=== PATIENT | female | born 1985 | race African-American/Black ===

== ENCOUNTER 2020-10-28 10:44 | Outpatient (CLI) | payer MEDICARE, MEDICAID, SELFPAY ==
[2020-10-28 11:26] LABS: Hemoglobin A1C 7.1 % (<5.7)
[2020-10-28 11:30] LABS: Alanine Aminotransferase 63 U/L (4-35); Albumin Level 3.5 g/dL (3.5-5.1); Alkaline Phosphatase 150 U/L (38-126); Anion Gap 6 mmol/L (8-16); Aspartate Amino Transferase 74 U/L (14-36); Bilirubin,Total 0.2 mg/dL (0.2-1.3); Blood Urea Nitrogen 23 mg/dL (7-17); Calcium 9.5 mg/dL (8.4-10.2); Carbon Dioxide 21 mmol/L (22-30); Chloride 111 mmol/L (98-107); Cholesterol 206 mg/dL (0-200); Estimated Glomerular Filt Rate 26; Glucose 123 mg/dL (65-105); HDL Direct 42 mg/dL; Potassium 4.4 mmol/L (3.4-5.0); Sodium 138 mmol/L (137-145); Triglycerides 126 mg/dL (<150)
[2020-10-28 11:31] LABS: Creatinine Urine 85.7 mg/dL
[2020-10-28 11:41] LABS: LDL Cholesterol Direct 98 mg/dL
[2020-10-28 12:28] LABS: Vitamin D 25 Hydroxy < 12.8 ng/mL
[2020-10-28 13:07] LABS: Microalbumin Urine Random > 1140.0 mg/L (0-16.7)
== END 2020-10-28 10:45 | disposition home or self-care (01) ==
PROVIDERS: PCP Internal Medicine; Visit Provider Internal Medicine
DX: E11.42 Type 2 diabetes mellitus with diabetic polyneuropathy (principal); I10 Essential (primary) hypertension; E78.5 Hyperlipidemia, unspecified; E55.9 Vitamin D deficiency, unspecified
CPT/HCPCS: 36415; 80053; 80061; 82043; 82306; 83036

== ENCOUNTER 2020-12-25 11:50 | Observation (INO) | payer MEDICARE, MEDICAID, SELFPAY ==
[2020-12-25] VITALS (7 sets, daily range): BP systolic 160–185; BP diastolic 82–99; PULSE 74–108; RESP 18–20; TEMP 35.8–36.9; O2SAT 100; BMI 43.0
--- NOTE | ~2020-12-25 | XR_ITS ---
EXAMINATION: XR chest 2V DATE: 12/25/2020 13:21 INDICATION: Hypercalcemia, hypertension, asthma TECHNIQUE: PA and lateral views of the chest are obtained. COMPARISON: 01/31/2018 FINDINGS: The lungs are free of acute opacities. There is no pleural effusion or pneumothorax. The ca rdiomediastinal silhouette is normal. The visualized bones and soft tissues are unremarkable. IMPRESSION: 1. No acute cardiopulmonary abnormality. Reviewed, dictated and finalized at location B.
--- NOTE | ~2020-12-25 | US_ITS ---
EXAMINATION: US renal BI EXAM DATE: 12/25/2020 17:45 INDICATION: Elevated creatinine. TECHNIQUE: Multiple grayscale and Doppler images of the kidneys were obtained (by a technologist who performed the scan) and subsequently reviewed. There is no prior study for comparison. FINDINGS: Right kidney: There is normal contour and echogenicity. It measures 11.7 x 4.6 x 5.2 centimeters. T here are no focal renal lesions identified. There is no hydronephrosis. Left kidney: There is normal contour and echogenicity. It measures 11.8 x 4.4 x 5.7 centimeters. Th ere are no focal renal lesions identified. There is no hydronephrosis. Bladder unremarkable. IMPRESSION: 1. Sonographically unremarkable kidneys. Reviewed, dictated and finalized at location A.
[2020-12-25 12:22] LABS: Basophils Percent Auto 0.4 % (0.2-1.2); Eosinophils Absolute Auto 0.1 K/mm3 (0-0.3); Eosinophils Percent Auto 0.9 % (0-4.4); Hematocrit 33.4 % (37.0-47.0); Hemoglobin 11.2 g/dL (12.0-15.0); Immature Granulocyte Absolute 0.04 K/mm3 (0.00-0.031); Immature Granulocyte Percent A 0.4 % (0-0.5); Lymphocytes Absolute Auto 1.35 K/mm3 (0.9-3.2); Lymphocytes Percent Auto 14.9 % (18.3-44.2); Mean Corpuscular HGB Conc 33.5 g/dl (32-36); Mean Corpuscular Hemoglobin 30.3 pg (26-34); Mean Corpuscular Volume 90.3 fl (80-100); Mean Platelet Volume 10.4 fl (7.4-10.4); Monocytes Absolute Auto 0.9 K/mm3 (0.1-0.6); Monocytes Percent Auto 10.4 % (2.6-8.5); Neutrophils Absolute Auto 6.6 K/mm3 (1.3-6.7); Platelet Count Result 336 k/mm3 (150-375); Red Cell Distribution Width 12.4 % (11.5-14.5); White Blood Count 9.1 K/mm3 (4.5-10.0)
[2020-12-25 12:39] LABS: Alanine Aminotransferase 43 U/L (4-35); Albumin Level 4.1 g/dL (3.5-5.1); Alkaline Phosphatase 110 U/L (38-126); Anion Gap 12 mmol/L (8-16); Aspartate Amino Transferase 46 U/L (14-36); Bilirubin,Total 0.4 mg/dL (0.2-1.3); Blood Urea Nitrogen 44 mg/dL (7-17); Calcium 13.4 mg/dL (8.4-10.2); Carbon Dioxide 23 mmol/L (22-30); Chloride 100 mmol/L (98-107); Estimated CRCL calculation 27 ml/min; Estimated Glomerular Filt Rate 17; Glucose 134 mg/dL (65-110); Potassium 3.9 mmol/L (3.4-5.0); Sodium 135 mmol/L (137-145)
--- NOTE | 2020-12-25 12:46 | ECG_ITS ---
Measurements Intervals [place] Rate: 68 P: 52 WA: 189 QRS: 3 QRSD: 90 T: -7 QT: 364 QTc: 388 Interpretive Statements SINUS RHYTHM VOLTAGE CRITERIA FOR LVH NONSPECIFIC ST ELEVATION IN ANTEROLAT/HIGH LAT LEADS BORDERLINE ST-T WAVE ABNORMALITY- INFERIOR LEADS BORDERLINE ECG Electronically Signed On 12-25-2020 13:58:11 CDT by Angel Lazcano D.O.
--- NOTE | 2020-12-25 12:57 | ED.GENADULT ---
HPI - General Adult General Chief complaint: Recheck/Abnormal Lab/Rx Stated complaint: abnormal labs Time Seen by Provider: 12/25/20 12:29 Source: patient and RN notes reviewed Mode of arrival: ambulatory Limitations: no limitations History of Present Illness HPI narrative: Patient 35 years old -Nigerian female referred to the emergency room from her family physician office because of elevated calcium. Patient is asymptomatic. Patient denied any fever, chills, nausea, vomiting, history of sarcoidosis, multiple myeloma, malignancy, history of hypercalcemia, history of HIV, tuberculosis, history of hyperparathyroidism, family history of hypercalcemia. Patient had history of diabetes, hypertension, does not smoke or drink, uses marijuana occasionally. Related Data Home Medications Medication Instructions Recorded Confirmed ferrous sulfate 325 mg (65 mg 325 mg PO DAILY 10/29/20 11/05/20 iron) tablet metformin 1,000 mg tablet 1,000 mg PO DAILY 10/29/20 11/05/20 Allergies Allergy/AdvReac Type Severity Reaction Status Date / Time No Known Allergies Allergy Verified 11/05/20 11:15 Review of Systems Review of Systems: Narrative: CONSTITUTIONAL: Denies fever, chills, or sweats. EYES: Denies visual changes, redness, or discharge. ENT: Denies rhinorrhea, congestion, sore throat, or otalgia. CARDIOVASCULAR: Denies chest pain, palpitations, or edema. RESPIRATORY: Denies cough or dyspnea. GASTROINTESTINAL: Denies abdominal pain, nausea, vomiting, or diarrhea. GENITOURINARY: Denies dysuria or hematuria. SKIN: Denies rash or itching. MUSCULOSKELETAL: Denies back pain, joint pain, or myalgia. NEUROLOGIC: Denies headache, numbness, or weakness. PSYCHIATRIC: Denies anxiety or depression. [facility] Past Medical History Medical History Arthritis Asthma Chronic anemia Chronic kidney disease due to diabetes mellitus Gall bladder disease Hypertension Mixed hyperlipidemia (11/29/18) Obstructive sleep apnea Per patient report, her sleep apnea is mild and she does not require CPAP. Type 2 diabetes mellitus Complicated by retinopathy and nephropathy. Hemoglobin A1c was 7.1% on 10/28/2020. Family History Family History Mother Hypertension Diabetes mellitus Kidney disease Social History Social History Social History: The patient lives in [place]. She is disabled. Nonsmoker. No alcohol abuse. Occasional marijuana use. She designates her grandmother, Lela Roche, as her surrogate decision maker and she wishes to be a full code. Exam Narrative: Exam Narrative: General appearance: Well-developed, well-nourished Skin: Normal color Head: Normocephalic, nontraumatic Eyes: Clear conjunctiva ENT: Oropharynx normal, ears normal, nose normal Neck: Supple, nontender Chest and respiratory: Airway patent, no respiratory distress, no accessory muscle use Heart: Regular rate/rhythm Abdomen: Soft, nontender, no organomegaly, quiet bowel sounds Vascular: Normal peripheral pulses, normal capillary refill. Musculoskeletal: Normal range of motion, nontender back Neurologic: Alert and oriented ?3, EMPLOYMENT ATTORNEY is normal as tested, no gross motor deficit Course Consultations Consultation #1: Dr. Grissom Date: 12/25/20 Time: 13:16 Vital Signs Vital signs: Vital Signs Temperature 36.9 C 12/25/20 11:52 Pulse Rate 108 H 12/25/20 11:52 Respiratory Rate 20 12/25/20 11:52 Blood Pressure 181/99 H 12/25/20 11:52 Pulse Oximetry 100 12/25/20 11:52 Temperature 36.9 C 12/25/20 11:52 Pulse Rate
[2020-12-25] MEDS: SODIUM CHLORIDE 0.9% IV 1,000 ML 999 ML IV CONT (13:14)
--- NOTE | 2020-12-25 13:45 | PM.IMHP ---
H&P: HPI History of Present Illness Date/Time: 12/25/20 13:45 Chief Complaint: High calcium level. Narrative: This is a pleasant 35-year-old female with type 2 diabetes mellitus, hypertension, and chronic kidney disease who presented to the emergency department earlier today via private vehicle from home further evaluation after she was found to have a high calcium level on labs drawn today as an outpatient. I was not able to see her actual lab results as it was not done at this facility but repeat chemistries done on arrival to the ED today indeed showed an elevated calcium level of 13.4. Prior to today there is no documentation to suggest she has had a history of hypercalcemia. However it is noted that she was started on lisinopril-hydrochlorothiazide and high-dose vitamin-D supplementation on 10/29/2020 at which time she was also noted to have worsening renal function. In fact she was referred to nephrology and she saw Dr. Grissom in consult on 12/10/2020 for evaluation of the same as well as proteinuria. At that time it was felt that her kidney disease may very well be due to her long-standing diabetes (diagnosed in 2001) though her blood pressures have not been well-controlled recently either. She has no complaints at this time and specifically denies weakness, fatigue, anorexia, confusion, abdominal pain, and polyuria. She does note perhaps some mild constipation but nothing significant. She is not taking any other supplements or more medication than prescribed. Review of Systems Review of Systems: Narrative: Twelve systems were reviewed with pertinent positives and negatives as per HPI. No fever, chills, or sweats. No recent cold or flu symptoms. No chest pain or shortness of breath. She denies nausea and vomiting. No dysuria. Last menstrual period was approximately 1 week ago. she has been followed by an aircraft powerplant repairer and is supposed to have upcoming surgery for proliferative diabetic retinopathy. Except as documented, all other systems were reviewed and are negative. [facility] Past Medical History Medical History (Updated 12/25/20 @ 20:13 by Mirela Johns PA-C) Arthritis Asthma Chronic anemia Chronic kidney disease due to diabetes mellitus Gall bladder disease Hypertension Diagnosed during her 2nd in 2019. 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 Hemoglobin A1c was 7.1% on 10/28/2020. Surgical History Surgical History (Updated 12/25/20 @ 20:16 by Mirela Johns PA-C) No history of previous surgery Family History Family History Mother Hypertension Diabetes mellitus Kidney disease Social History Social History (Updated 12/25/20 @ 20:12 by Mirela Johns PA-C) Social History: The patient lives in [place] with her 2 children. She is on disability. Nonsmoker. No alcohol abuse. Occasional marijuana use. She designates her grandmother, Lela Roche, as her surrogate decision maker and she wishes to be a full code. Second hand tobacco smoke exposure: No Meds Home Medications and Allergies Home Medications Medication Instructions Recorded Confirmed Type amlodipine 10 mg tablet 10 mg PO DAILY #90 tablet 10/29/20 12/25/20 Rx cholecalciferol (vitamin D3) 50 50 mcg PO DAILY #90 tablet 10/29/20 12/25/20 Rx mcg (2,000 unit) tablet ferrous sulfate 325 mg (65 mg 325 mg PO DAILY 10/29/20 12/25/20 History iron) tablet lisinopril 20 1 tablet PO BID #180 tablet 10/29/20 12/25/20 Rx mg-hydrochlorothiazide 25 mg tablet metformin 1,000 mg tablet 1,000 mg PO DAILY 10/29/20 12/25/20 History hydralazine 25 mg tablet 50 mg PO BID #60 tablet 11/18/20 12/25/20 Rx Allergies Allergy/AdvReac Type Severity Reaction Status Date / Time No Known Allergies Allergy Verified 12/25/20 18:08 Vital Signs Vital Signs - 24 hr 12/25/20 11:52 Temperature 98.4 F
[2020-12-25 14:09] LABS: Lipase 140 U/L (23-300)
[2020-12-25 14:10] LABS: Magnesium 1.6 mg/dL (1.6-2.3); Phosphorus 4.7 mg/dL (2.5-4.5)
[2020-12-25 14:16] LABS: Add Urine Microscopic? YES; Appearance Urine Cloudy (Clear); Bacteria Urine Trace /hpf; Bilirubin Urine Negative (Negative); Blood Urine Negative (Negative); Color Urine Straw (Yellow); Glucose Urine UA Negative (Negative); Ketones Urine Negative (Negative); Leukocyte Esterase Ur Negative LEU/UL (Negative); Mucus Urine Rare /lpf; Nitrate Urine Negative (Negative); Protein Urine 3+ mg/dL (Negative); RBC Urine 0-2 /hpf (0-2); Specific Grav Ur 1.011 (1.001-1.035); Squamous Epithelial Cell Urine Many /hpf (Few); Urobilinogen Urine Negative mg/dL (<2.0); WBC Urine 0-3 /hpf
[2020-12-25] MEDS: SODIUM CHLORIDE 0.9% IV 1,000 ML 150 ML IV CONT (16:55)
[2020-12-25 17:07] LABS: Glucose Point of Care 113 mg/dl (65-105)
--- NOTE | 2020-12-25 17:43 | ADMGEN ---
This patient, Nataliia Tim, was admitted to Medical Room 343-01. Patient/family oriented to hospital policies and general routines including ID bracelet, bed and alarms, visiting hours, pain management, procedures, bathroom and other care routines, personal items, smoking policy, room service/diet, and visiting hours. Information on how to activate the Rapid Response Team has been discussed. Patient/Family are encouraged to report perceived risks to care and to ask questions if they do not understand what they are told or what they should do.
[2020-12-25 19:28] LABS: Creatine Kinase 140 U/L (30-135)
[2020-12-25 20:40] LABS: Add Urine Microscopic? YES; Appearance Urine Clear (Clear); Bilirubin Urine Negative (Negative); Blood Urine Negative (Negative); Color Urine Straw (Yellow); Glucose Urine UA 1+ mg/dL (Negative); Ketones Urine Negative (Negative); Leukocyte Esterase Ur Negative LEU/UL (NEGATIVE); Mucus Urine Rare /lpf; Nitrate Urine Negative (Negative); Protein Urine 2+ mg/dL (Negative); RBC Urine 0-2 /hpf (0-2); Specific Grav Ur 1.011 (1.001-1.035); Squamous Epithelial Cell Urine Few /hpf (Few); Urobilinogen Urine Negative mg/dL (<2.0); WBC Urine 0-3 /hpf (0-3)
[2020-12-25 20:48] LABS: Vitamin D 25 Hydroxy 48.5 ng/mL
[2020-12-25 20:50] LABS: Creatinine Urine 54.4 mg/dL
[2020-12-25 20:53] LABS: Sodium Urine Random 101 meq/L
[2020-12-25 20:54] LABS: Glucose Point of Care 210 mg/dl (65-105)
[2020-12-25 21:00] LABS: Total Protein Urine Random 273 mg/dL; Ur Ttl Prot Creatinine Ratio 5.02 mg/mg (0-0.20)
[2020-12-25 21:20] LABS: Eosinophil Urine None Seen % (None Seen)
[2020-12-25 22:00] LABS: Hepatitis B Surface Antigen Negative (Negative)
[2020-12-25] MEDS: hydrALAZINE HCL 50 MG TABLET PO (22:00)
[2020-12-25 22:17] LABS: Hepatitis B Surface Anti Res Negative; Hepatitis C Virus Antibody Negative (Negative)
[2020-12-26] MEDS: SODIUM CHLORIDE 0.9% IV 1,000 ML 150 ML IV CONT ×2 (00:17→08:40)
[2020-12-26 06:36] VITALS: BP 161/69; PULSE 70; RESP 18; TEMP 35.8; O2SAT 98
[2020-12-26 07:28] LABS: Hemoglobin A1C 7.1 % (<5.7)
[2020-12-26 07:34] LABS: Albumin Level 3.7 g/dL (3.5-5.1); Anion Gap 9 mmol/L (8-16); Blood Urea Nitrogen 40 mg/dL (7-17); Calcium 11.6 mg/dL (8.4-10.2); Carbon Dioxide 19 mmol/L (22-30); Chloride 108 mmol/L (98-107); Estimated CRCL calculation 35 ml/min; Estimated Glomerular Filt Rate 23; Glucose 94 mg/dL (65-110); Magnesium 1.6 mg/dL (1.6-2.3); Phosphorus 4.2 mg/dL (2.5-4.5); Potassium 4.4 mmol/L (3.4-5.0); Sodium 136 mmol/L (137-145)
[2020-12-26 08:35] LABS: Glucose Point of Care 100 mg/dl (65-105)
[2020-12-26] MEDS: FERROUS SULFATE 324 MG TABLET PO (08:36)
[2020-12-26] MEDS: hydrALAZINE HCL 50 MG TABLET PO (08:37)
[2020-12-26] MEDS: amLODIPine BESYLATE 5 MG TABLET 10 MG PO (08:37)
--- NOTE | 2020-12-26 09:00 | PM.CNNEP ---
Assessment and Plan Assessment and plan (1) Acute on chronic kidney failure: Code(s): N17.9 - Acute kidney failure, unspecified; N18.9 - Chronic kidney disease, unspecified Status: Acute Assessment and Plan: The patient has chronic kidney disease. It is not clear what stage this is. Her creatinine was better this spring but not normal. I do not know what her creatinine was when she was . Charts are unavailable. Her proteinuria has probably been going on for a while. So she has at least stage 2 chronic kidney disease if not stage IIIA or B. etiology of the renal insufficiency is probably related to her diabetes. However I do not want to assume that. The patient had acute kidney injury as well. Urinalysis is bland showing just sugar and protein. Urine electrolytes are non pre renal. This may be falsely normal because of the high calcium Urine eosinophils are negative ultrasound is unremarkable Etiology of this is not clear. Dehydration is a possibility because it did improved with hydration. some glomerulonephritis is possible unusual with a benign sediment. Interstitial nephritis would be unusual as well. Ultrasound has ruled out obstruction. CK is only trivially elevated. At this point will continue IV fluids. Will slow the rate down to 100. Will follow the creatinine over the weekend and decide if we need to do a biopsy. (2) Hypertension: Code(s): I10 - Essential (primary) hypertension Status: Acute Assessment and Plan: The patient has hypertension. Blood pressure is a bit too high. She is on amlodipine and hydralazine. She was on lisinopril HCT at home but this is on hold because of the kidneys. (3) Hypercalcemia: Code(s): E83.52 - Hypercalcemia Status: Acute Assessment and Plan: Calcium level is high. This may be related to dehydration as well. her PTH was low so it is not hyperparathyroidism. will check urine calcium. Magan level. Bone scan was ordered (4) Type 2 diabetes mellitus: Code(s): E11.9 - Type 2 diabetes mellitus without complications Status: Acute Assessment and Plan: on Accu-Cheks and sliding-scale insulin (5) Chronic anemia: Code(s): D64.9 - Anemia, unspecified Status: Acute Assessment and Plan: hemoglobin slightly low, not enough to use HAYLEY History of Present Illness Reason for Consult Consult date: 12/26/20 Chief Complaint Chief complaint: ABRAHAM/hypercalcemia/proteinuria/albuminuria History of Present Illness Narrative: Nataliia is a very pleasant 35-year-old lady who has diabetes, hypertension, anemia, proteinuria, and an elevated creatinine. Her diabetes is been going on for a long time. She has pretty good control of her sugars. Hypertension is been going on just since her last a few months ago. It has been well controlled. Patient was noted to have proteinuria with her . She delivered the baby fine and her proteinuria was followed for a few months post however did not go away so she came to see me in the office. Her creatinine last spring was in the low 2s and on the labs after our office visit her creatinine was above 3. Her calcium was also above 13. The patient had no symptoms but I asked her to come to the emergency room for further evaluation. Patient was given IV fluids overnight. She denies Tums ingestion. In fact her vitamin-D has been low she says. Review of Systems Constitutional: Constitutional: Reports no additional constitutional complaints Eyes: Eyes: Reports no additional eye complaints ENT: Reports system reviewed and no additional complaints, except as documented Cardiovascular: Cardiovascular: Reports no additional cardiovascular complaints Respiratory: Respiratory: Reports no additional respiratory complaints Gastrointestinal: Gastrointestinal: Reports no additi
[2020-12-26 12:03] LABS: Glucose Point of Care 108 mg/dl (65-105)
--- NOTE | 2020-12-26 13:12 | PM.DS ---
DS: Discharge Diagnosis Discharge Diagnosis (1) Acute on chronic kidney failure: Code(s): N17.9 - Acute kidney failure, unspecified; N18.9 - Chronic kidney disease, unspecified Status: Acute (2) Chronic kidney disease due to diabetes mellitus: Code(s): E11.22 - Type 2 diabetes mellitus with diabetic chronic kidney disease Status: Acute (3) Type 2 diabetes mellitus: Code(s): E11.9 - Type 2 diabetes mellitus without complications Status: Acute (4) Hypertension: Code(s): I10 - Essential (primary) hypertension Status: Acute (5) Chronic anemia: Code(s): D64.9 - Anemia, unspecified Status: Acute (6) Hypercalcemia: Code(s): E83.52 - Hypercalcemia Status: Acute (7) Essential hypertension with goal blood pressure less than 130/80: Code(s): I10 - Essential (primary) hypertension Status: Acute (8) Vitamin D deficiency: Code(s): E55.9 - Vitamin D deficiency, unspecified Status: Acute DS: Summary Time Spent with Patient Time attestation: Total time spent providing and/or coordinating discharge services: DS: Data Data Completed and Pending Labs on day of discharge: Labs from last 24 hours 12/26/20 12/26/20 12/26/20 11:56 08:33 06:06 Sodium 136 L Potassium 4.4 Chloride 108 H Carbon Dioxide 19 L Anion Gap 9 BUN 40 H Creatinine 2.90 H Estim Creat Clear Calc 35 Estimated GFR 23 L Glucose 94 POC Capillary Glucose 108 H 100 Hemoglobin A1c Calcium 11.6 H Ionized Calcium [place] Phosphorus 4.2 Magnesium 1.6 Total Creatine Kinase Albumin 3.7 Lipase Angiotensin Convert Enz Vitamin A Vitamin D 25-Hydroxy Vit D 1,25-Dihyd Total 1,25 Dihydroxy Vit D2 1,25 Dihydroxy Vit D3 TSH (Reflex) PTH Related Protein Urine Color Urine Appearance Urine pH Ur Specific [place] Urine Protein Urine Glucose (UA) Urine Ketones Ur Blood (Man) Urine Nitrate Urine Bilirubin Urine Urobilinogen Ur Leukocyte Esterase Leukocyte Esterase Rfl Urine RBC Urine WBC Ur Squamous Epith Cells Urine Bacteria Urine Mucus Urine Eosinophils Ur Random Creatinine U Random Total Protein Ur Random Sodium Ur Random Calcium Urine Creatinine Protein/Creat Ratio 2 Calcium/Creat Ratio Ur LEENA Interpret 24 hr ANCA Screen Sm ([place]) Antibody ALARM MECHANISM ADJUSTER Antibody SM/ALARM MECHANISM ADJUSTER IgG Antibody Anti-DNA Antibody Histone Antibodies Glomerular Base Memb Ab Free [place] & Lambda LC Hep Bs Antigen Hep Bs Antibody Hep B Core Total Ab Hepatitis C Ab Screen Anti-Streptolysin Scrn 12/26/20 12/26/20 12/25/20 06:06 06:06 20:38 Sodium Potassium Chloride Carbon Dioxide Anion Gap BUN Creatinine Estim Creat Clear Calc Estimated GFR Glucose POC Capillary Glucose Hemoglobin A1c 7.1 H Calcium Ionized Calcium [place] Phosphorus Magnesium Total Creatine Kinase Albumin Lipase Angiotensin Convert Enz Vitamin A Vitamin D 25-Hydroxy Vit D 1,25-Dihyd Total 1,25 Dihydroxy Vit D2 1,25 Dihydroxy Vit D3 TSH (Reflex) 2.050 PTH Related Protein Urine Color Urine Appearance Urine pH Ur Specific [place] Urine Protein Urine Glucose (UA) Urine Ketones Ur Blood (Man) Urine Nitrate Urine Bilirubin Urine Urobilinogen Ur Leukocyte Esterase Leukocyte Esterase Rfl Urine RBC Urine WBC Ur Squamous Epith Cells Urine Bacteria Urine Mucus Urine Eosinophils Ur Random Creatinine Pending U Random Total Protein Ur Random Sodium Ur Random Calcium Pending Urine Creatinine Protein/Creat Ratio 2 Calcium/Creat Ratio Pending Ur LEENA Interpret 24 hr ANCA Screen Sm ([place]) Antibody ALARM MECHANISM ADJUSTER Antibody SM/ALARM MECHANISM ADJUSTER IgG Antibody Anti-DNA Antibody
--- NOTE | 2020-12-26 13:18 | PM.DS ---
DS: Admitting Diagnosis Admitting Diagnosis abnormal labs DS: Discharge Diagnosis Discharge Diagnosis (1) Acute on chronic kidney failure: Code(s): N17.9 - Acute kidney failure, unspecified; N18.9 - Chronic kidney disease, unspecified Status: Acute Assessment and Plan: Creatinine has gotten worse in the last 2 months (2.60 --> 3.70). Prior to that was normal at 1.00 in April 2019. Within the last 2 months she has been started on hydrochlorothiazide and lisinopril and was also given a prescription for ibuprofen recently though I am not sure she has been taking that. I suppose her worsening renal function could simple be related to these drugs however she had severe proteinuria on urine collected several months ago which indicates there is more at play here. She has been a diabetic for nearly 20 years and her blood pressures look like they have not been well controlled recently. At this time we will hold the hydrochlorothiazide and avoid other nephrotoxic agents. Given her severe proteinuria, ROSANNA/ARB would be beneficial though I will defer Dr. Grissom whether or not to continue the lisinopril. Pre and post renal etiologies seem less likely. (2) Chronic kidney disease due to diabetes mellitus: Code(s): E11.22 - Type 2 diabetes mellitus with diabetic chronic kidney disease Status: Acute (3) Type 2 diabetes mellitus: Code(s): E11.9 - Type 2 diabetes mellitus without complications Status: Acute Assessment and Plan: Metformin has been placed on hold as I believe it is still contraindicated with a GFR less than 30. Check hemoglobin A1c. Initiate sliding scale insulin, Accu-Cheks, and hypoglycemic protocol. (4) Hypertension: Code(s): I10 - Essential (primary) hypertension Status: Acute Assessment and Plan: Blood pressures have not been ideally controlled over the last several months with pressures as high as 181/99 in the emergency department. Consider furosemide as it would help her blood pressures and hypercalcemia though I am not sure that is the right thing to do with her worsening renal function at this time. Monitor blood pressures closely as her hydrochlorothiazide is on hold. (5) Chronic anemia: Code(s): D64.9 - Anemia, unspecified Status: Acute Assessment and Plan: Hemoglobin and hematocrit are stable. Currently on ferrous sulfate although I am not able to locate recent iron studies. (6) Hypercalcemia: Code(s): E83.52 - Hypercalcemia Status: Acute Assessment and Plan: Also new finding on labs done today, with normal calcium on 10/28/2020. Given worsening renal function, myeloma and sarcoidosis are considerations. She may have hyperparathyroidism. May very well be iatrogenic as she was started on high-dose vitamin-D supplementation and hydrochlorothiazide 2 months ago. She will be hydrated overnight. Hold hydrochlorothiazide and vitamin-D for now. She is currently asymptomatic and requires no other treatment at this time. Dr. Grissom's consult is appreciated. (7) Essential hypertension with goal blood pressure less than 130/80: Code(s): I10 - Essential (primary) hypertension Status: Acute (8) Vitamin D deficiency: Code(s): E55.9 - Vitamin D deficiency, unspecified Status: Acute DS: Summary Hospital Course Reason for hospitalization: ABNORMAL LABS Hospital Course: this 35-year-old morbidly obese type 2 diabetic with hypertension and chronic kidney disease was admitted on December 25 due to abnormal lab results. Her creatinine and calcium were both increased with creatinine at 3.7 and calcium at 13.9. Her metformin, lisinopril with hydrochlorothiazide, and vitamin-D were all held. She was given IV saline overnight. Creatinine improved to 2.9 and calcium to 11.6. Urine showed only glucose and protein. She was tolerating her diet felt quite well. Blood pressures were running a bit high, SI is 18
[2020-12-26] MEDS: FUROSEMIDE 40 MG TABLET PO (14:37)
[2020-12-29 11:13] LABS: SM Antibody <1.0; SM/RNP Antibody <1.0
[2020-12-29 11:55] LABS: RNP Antibodies <1.0
[2020-12-29 13:04] LABS: Anti Glomerular Basement Memb <1.0 AI (<1.0)
[2020-12-29 20:33] LABS: Anti Streptolysin O Screen 140 IU/mL (<200)
[2020-12-29 22:29] LABS: Histone Antibody <1.0 U (<1.0)
[2020-12-29 23:08] LABS: ANCA Screen Negative (Negative)
[2020-12-30 01:44] LABS: Vitamin D 1,25 (OH)2 Total 107 pg/mL (18-72); Vitamin D2 1,25 (OH)2 <8 pg/mL; Vitamin D3 1,25 (OH)2 107 pg/mL
[2020-12-30 04:23] LABS: Angiotensin Converting Enzyme 5 U/L (9-67)
[2020-12-30 13:27] LABS: Hepatitis B Core Ab Total Nonreactive (Nonreactive)
[2020-12-30 18:38] LABS: Vitamin A 52 mcg/dL (38-98)
[2021-01-02 15:32] LABS: Calcium/Creatinine Ratio, Ur 241 mg/g creat (10-320); Urine Creatinine, Random 54 mg/dL (20-275)
== END 2020-12-26 12:42 | disposition home or self-care (01) ==
LOC: ANHED 14:54 → ANH3MED 12-26 02:25
PROVIDERS: Emergency Medicine; Internal Medicine Nephrology; Physician Assistant; Admitting Provider Family Medicine; Emergency Provider Emergency Medicine; PCP Internal Medicine; Visit Provider Internal Medicine
DX: N17.9 Acute kidney failure, unspecified (principal); E83.52 Hypercalcemia; I12.9 Hypertensive chronic kidney disease with stage 1 through stage 4 chronic kidney disease, or unspecified chronic kidney disease; E11.22 Type 2 diabetes mellitus with diabetic chronic kidney disease; N18.9 Chronic kidney disease, unspecified; Z79.84 Long term (current) use of oral hypoglycemic drugs
CPT/HCPCS: 36415; 71046; 76775; 80053; 80069; 81001; 82164; 82306; 82310; 82330; 82550; 82570; 82652; 82948; 83036; 83516; 83519; 83520; 83690; 83735; 84100; 84156; 84300; 84443; 84590; 85025; 85999; 86021; 86060; 86225; 86235; 86704; 86706; 86803; 87340; 93005; 96360; 96361; 99285; A9270; G0378; J7030

== ENCOUNTER 2021-01-29 07:38 | Outpatient (CLI) | payer MEDICARE, MEDICAID, SELFPAY ==
--- NOTE | ~2021-01-29 | US_ITS ---
EXAMINATION: US abdomen complete DATE: 01/29/2021 08:23 INDICATION: Abdominal pain. TECHNIQUE: Multiple grayscale and Doppler ultrasound images of the abdomen were obtained. COMPARISON: CT abdomen and pelvis 02/19/2014 FINDINGS: The pancreas is obscured by bowel gas. The liver is normal without focal lesion. No liver s urface nodularity. There is normal flow in main portal vein. The gallbladder is normal in size. No ga llstones or gallbladder wall thickening. There is no sonographic Sam sign. The common duct is norm al and measures 5 mm. Inferior vena cava is normal. Abdominal aorta is normal in caliber. The kidneys are normal in size. Left kidney is malrotated. No hydronephrosis. The spleen is normal in size. IMPRESSION: 1. No etiology for the patient's symptoms. Reviewed, dictated and finalized at location A.
[2021-01-29 08:16] LABS: Alanine Aminotransferase 56 U/L (4-35); Albumin Level 3.9 g/dL (3.5-5.1); Alkaline Phosphatase 137 U/L (38-126); Anion Gap 7 mmol/L (8-16); Aspartate Amino Transferase 55 U/L (14-36); Bilirubin,Total 0.3 mg/dL (0.2-1.3); Blood Urea Nitrogen 37 mg/dL (7-17); Calcium 11.1 mg/dL (8.4-10.2); Carbon Dioxide 23 mmol/L (22-30); Chloride 105 mmol/L (98-107); Estimated Glomerular Filt Rate 16; Glucose 112 mg/dL (65-110); Hemoglobin A1C 6.4 % (<5.7); Potassium 4.4 mmol/L (3.4-5.0); Sodium 135 mmol/L (137-145)
[2021-01-29 08:59] LABS: Creatinine Urine 107.2 mg/dL
[2021-01-29 10:26] LABS: Microalbumin Urine Random > 1140.0 mg/L (0-16.7)
[2021-01-29 20:07] LABS: Parathyroid Intact 7.6 pg/mL (7.5-53.5)
== END 2021-01-29 07:39 | disposition home or self-care (01) ==
PROVIDERS: PCP Internal Medicine; Visit Provider Nurse Practitioner
DX: R10.9 Unspecified abdominal pain (principal); E11.42 Type 2 diabetes mellitus with diabetic polyneuropathy
CPT/HCPCS: 36415; 76700; 80053; 82043; 83036; 83970

== ENCOUNTER 2021-09-01 10:12 | Emergency (ER) | payer MEDICARE, MEDICAID, SELFPAY ==
[2021-09-01 10:15] VITALS: BP 191/91; PULSE 109; RESP 15; TEMP 36.2; O2SAT 100
--- NOTE | 2021-09-01 10:31 | ED.EAR ---
HPI - Ear Problem General Chief complaint: Ear Stated complaint: Ear Infection Time Seen by Provider: 09/01/21 10:15 History of Present Illness HPI Narrative: 35-year-old female presents the emergency room with multiple medical problems. Patient states yesterday she developed a acute onset of right ear pain. Denies fever, purulent drainage, or hearing changes. Patient also states that she woke up this morning and noticed wound on the tip of her right second toe. Patient is a diabetic. Patient denies injury or trauma to the extremity. Related Data Home Medications Medication Instructions Recorded Confirmed ferrous sulfate 325 mg (65 mg 325 mg PO DAILY 10/29/20 02/04/21 iron) tablet Allergies Allergy/AdvReac Type Severity Reaction Status Date / Time No Known Allergies Allergy Verified 02/04/21 11:37 Review of Systems Review of Systems: CONSTITUTIONAL: Denies fever, chills, or sweats. EYES: Denies visual changes, redness, or discharge. ENT: Reports right ear pain CARDIOVASCULAR: Denies chest pain, palpitations, or edema. RESPIRATORY: Denies cough or dyspnea. GASTROINTESTINAL: Denies abdominal pain, nausea, vomiting, or diarrhea. GENITOURINARY: Denies dysuria or hematuria. SKIN: Reports wound to right second toe MUSCULOSKELETAL: Denies back pain, joint pain, or myalgia. NEUROLOGIC: Denies headache, numbness, dizziness, or weakness. PSYCHIATRIC: Denies anxiety or depression. [facility] Past Medical History Medical History Arthritis Asthma Chronic anemia Chronic kidney disease due to diabetes mellitus Gall bladder disease Hypertension Diagnosed during her 2nd in 2019. 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 Hemoglobin A1c was 7.1% on 10/28/2020. Surgical History Surgical History No history of previous surgery Family History Family History Mother Hypertension Diabetes mellitus Kidney disease Social History Social History Social History: The patient lives in [place] with her 2 children. She is on disability. Nonsmoker. No alcohol abuse. Occasional marijuana use. She designates her grandmother, Lela Roche, as her surrogate decision maker and she wishes to be a full code. Smoking status: Never smoker Second hand tobacco smoke exposure: Yes Alcohol intake: never Substance use: never Exam Narrative: GENERAL: Well-appearing, well-nourished, and in no acute distress. HEAD: Normocephalic, atraumatic. EYES: PERRLA and EOMI. ENT: Nares clear, no rhinorrhea or epistaxis. Mucous membranes moist. Right TM erythematous and bulging NECK: Supple. No adenopathy or masses. No carotid bruits or JVD CHEST: Clear to auscultation. No respiratory distress. No wheezes rales or rhonchi HEART: Regular rate and rhythm. No murmur heard. Normal peripheral pulses. ABDOMEN: Soft, nontender, nondistended, normal active bowel sounds. EXTREMITIES: Normal range of motion. No edema. SKIN: Stage I ulceration with overlying crusting to the tip of the right second toe,, no purulent discharge noted NEURO: No focal deficits. Alert and oriented x3. PSYCH: Normal mood and affect. Course Course Emergency Course: Patient's blood pressure on presentation was 191/91. Discussed findings with patient. Patient states that she has not taken her a.m. medications at this time, but states she will take them following discharge when she returns home. Vital Signs Vital signs: Vital Signs Temperature 36.2 C L 09/01/21 10:15 Pulse Rate 109 H 09/01/21 10:15 Respiratory Rate 15 09/01/21 10:15 Blood Pressure 191/91 H 09/01/21 10:15 Pulse Oximetry 100 09/01/21 10:15 Temperature 36.2 C L 09/01/21 10:15 Pulse Ra
== END 2021-09-01 10:43 | disposition home or self-care (01) ==
PROVIDERS: Emergency Provider Nurse Practitioner Family; PCP Internal Medicine
DX: H66.91 Otitis media, unspecified, right ear (principal); E11.621 Type 2 diabetes mellitus with foot ulcer; I10 Essential (primary) hypertension; M19.90 Unspecified osteoarthritis, unspecified site; J45.909 Unspecified asthma, uncomplicated; E11.22 Type 2 diabetes mellitus with diabetic chronic kidney disease; N18.9 Chronic kidney disease, unspecified
CPT/HCPCS: 99283

== ENCOUNTER 2022-02-10 12:16 | Outpatient (CLI) | payer MEDICARE, MEDICAID, SELFPAY ==
[2022-02-10 12:43] LABS: Basophils Percent Auto 0.9 % (0.2-1.2); Eosinophils Absolute Auto 0.1 K/mm3 (0-0.3); Eosinophils Percent Auto 2.1 % (0-4.4); Hematocrit 35.6 % (37.0-47.0); Hemoglobin 11.8 g/dL (12.0-15.0); Immature Granulocyte Absolute 0.02 K/mm3 (0.00-0.031); Immature Granulocyte Percent A 0.4 % (0-0.5); Lymphocytes Absolute Auto 1.15 K/mm3 (0.9-3.2); Lymphocytes Percent Auto 24.5 % (18.3-44.2); Mean Corpuscular HGB Conc 33.1 g/dl (32-36); Mean Corpuscular Hemoglobin 31.2 pg (26-34); Mean Corpuscular Volume 94.2 fl (80-100); Mean Platelet Volume 9.7 fl (7.4-10.4); Monocytes Absolute Auto 0.4 K/mm3 (0.1-0.6); Neutrophils Percent Auto 63.1 % (45.5-73.1); Platelet Count Result 299 k/mm3 (150-375); Red Blood Count 3.78 M/mm3 (4.2-5.4); Red Cell Distribution Width 13.9 % (11.5-14.5); White Blood Count 4.7 K/mm3 (4.5-10.0)
[2022-02-10 12:54] LABS: Alanine Aminotransferase 32 U/L (6-35); Albumin Level 4.3 g/dL (3.5-5.1); Alkaline Phosphatase 101 U/L (38-126); Anion Gap 14 mmol/L (8-16); Aspartate Amino Transferase 41 U/L (14-36); Bilirubin,Total 0.3 mg/dL (0.2-1.3); Blood Urea Nitrogen 34 mg/dL (7-17); Calcium 9.5 mg/dL (8.4-10.2); Carbon Dioxide 23 mmol/L (22-30); Chloride 101 mmol/L (98-107); Cholesterol 187 mg/dL (0-200); Estimated Glomerular Filt Rate 20; Glucose 160 mg/dL (65-110); HDL Direct 40 mg/dL; Potassium 3.8 mmol/L (3.4-5.0); Sodium 138 mmol/L (137-145); Triglycerides 121 mg/dL (<150)
[2022-02-10 12:56] LABS: Hemoglobin A1C 5.5 % (<5.7)
[2022-02-10 13:05] LABS: LDL Cholesterol Direct 80 mg/dL
[2022-02-10 13:18] LABS: Creatinine Urine 112.9 mg/dL
[2022-02-10 14:54] LABS: Vitamin D 25 Hydroxy 20.5 ng/mL
[2022-02-10 15:06] LABS: MALB Creatinine Ratio 683.5 mg/g (0-30); Microalbumin Urine Random 771.7 mg/L (0-16.7)
== END 2022-02-10 12:17 | disposition home or self-care (01) ==
PROVIDERS: PCP Internal Medicine; Visit Provider Internal Medicine
DX: E11.42 Type 2 diabetes mellitus with diabetic polyneuropathy (principal); E55.9 Vitamin D deficiency, unspecified; E78.5 Hyperlipidemia, unspecified; E11.9 Type 2 diabetes mellitus without complications; D64.9 Anemia, unspecified
CPT/HCPCS: 36415; 80053; 80061; 82043; 82306; 83036; 85025

== ENCOUNTER 2022-03-14 16:22 | Outpatient (CLI) | payer MEDICARE, MEDICAID, SELFPAY ==
--- NOTE | ~2022-03-14 | XR_ITS ---
EXAMINATION: XR foot RT min 3V DATE: 03/14/2022 16:40 INDICATION: Effusion, unspecified foot. Right foot swelling. TECHNIQUE: 4 views of right foot were obtained. COMPARISON: None. FINDINGS: There is mild hallux valgus. There is amputation at head of second metatarsal. There is irr egularity at the distal aspect of head of second metatarsal. There is an old healed fracture of fifth metatarsal. There are dystrophic calcifications lateral to base of fifth metatarsal with soft tissue swelling. No fracture. There is mild osteoarthritis of first metatarsophalangeal joint and some of t he midfoot joints. IMPRESSION: 1. Irregularity at distal aspect of head of second metatarsal, which may be acute or chronic osteomye litis or the normal postoperative appearance. Comparison with prior radiographs is recommended. Reviewed, dictated and finalized at location A. IMPRESSION: 1. Irregularity at distal aspect of head of second metatarsal, which may be acu te or chronic osteomyelitis or the normal postoperative appearance. Comparison with prior radiographs is recommended.
== END 2022-03-14 16:23 | disposition home or self-care (01) ==
LOC: ANHLAB 16:26
PROVIDERS: PCP Internal Medicine; Visit Provider Internal Medicine
DX: M25.474 Effusion, right foot (principal); M21.071 Valgus deformity, not elsewhere classified, right ankle; M19.071 Primary osteoarthritis, right ankle and foot; M79.89 Other specified soft tissue disorders
CPT/HCPCS: 36415; 73630; 84550

== ENCOUNTER 2022-04-11 12:07 | Outpatient (CLI) | payer MEDICARE, MEDICAID, SELFPAY ==
[2022-04-11 12:39] LABS: Glucose 85 mg/dL (65-110)
[2022-04-11 12:40] LABS: Pregnancy On Board Control Positive; Urine Pregnancy Test Negative
== END 2022-04-11 12:08 | disposition home or self-care (01) ==
LOC: ANHLAB 12:10
PROVIDERS: PCP Internal Medicine; Visit Provider Internal Medicine
DX: Z01.818 Encounter for other preprocedural examination (principal); E11.22 Type 2 diabetes mellitus with diabetic chronic kidney disease
CPT/HCPCS: 36415; 81025; 82947

== ENCOUNTER 2022-11-01 12:21 | Outpatient (CLI) | payer MEDICARE, MEDICAID, SELFPAY ==
[2022-11-01 12:49] LABS: Basophils Absolute Auto 0.1 K/mm3 (0.0-0.1); Basophils Percent Auto 1.2 % (0.2-1.2); Eosinophils Absolute Auto 0.2 K/mm3 (0-0.3); Hematocrit 37.8 % (37.0-47.0); Hemoglobin 12.6 g/dL (12.0-15.0); Immature Granulocyte Absolute 0.01 K/mm3 (0.00-0.031); Immature Granulocyte Percent A 0.2 % (0-0.5); Lymphocytes Absolute Auto 1.24 K/mm3 (0.9-3.2); Lymphocytes Percent Auto 25.2 % (18.3-44.2); Mean Corpuscular HGB Conc 33.3 g/dl (32-36); Mean Corpuscular Hemoglobin 30.8 pg (26-34); Mean Corpuscular Volume 92.4 fl (80-100); Mean Platelet Volume 9.8 fl (7.4-10.4); Monocytes Absolute Auto 0.5 K/mm3 (0.1-0.6); Monocytes Percent Auto 9.8 % (2.6-8.5); Neutrophils Percent Auto 60.6 % (45.5-73.1); Platelet Count Result 306 k/mm3 (150-375); Red Blood Count 4.09 M/mm3 (4.2-5.4); Red Cell Distribution Width 13.2 % (11.5-14.5); White Blood Count 4.9 K/mm3 (4.5-10.0)
[2022-11-01 12:59] LABS: Alanine Aminotransferase 49 U/L (6-35); Albumin Level 4.2 g/dL (3.5-5.1); Alkaline Phosphatase 107 U/L (38-126); Anion Gap 9 mmol/L (8-16); Aspartate Amino Transferase 56 U/L (14-36); Bilirubin,Total 0.4 mg/dL (0.2-1.3); Blood Urea Nitrogen 30 mg/dL (7-17); Calcium 9.4 mg/dL (8.4-10.2); Carbon Dioxide 22 mmol/L (22-30); Chloride 107 mmol/L (98-107); Cholesterol 166 mg/dL (0-200); Estimated Glomerular Filt Rate 23; Glucose 93 mg/dL (65-110); HDL Direct 41 mg/dL; Potassium 3.8 mmol/L (3.4-5.0); Sodium 138 mmol/L (137-145); Triglycerides 107 mg/dL (<150)
[2022-11-01 13:02] LABS: Hemoglobin A1C 5.7 % (<5.7)
[2022-11-01 13:10] LABS: LDL Cholesterol Direct 82 mg/dL
[2022-11-01 13:31] LABS: Creatinine Urine 104.5 mg/dL
[2022-11-01 13:40] LABS: HIV 1/2 Ab P24 Ag Result Negative (Negative)
[2022-11-01 13:55] LABS: Hepatitis B Surface Antigen Negative (Negative)
[2022-11-01 14:12] LABS: Hepatitis C Virus Antibody Negative (Negative)
[2022-11-01 14:18] LABS: MALB Creatinine Ratio 850.5 mg/g (0-30); Microalbumin Urine Random 888.8 mg/L (0-16.7)
[2022-11-02 15:56] LABS: Rapid Plasma Reagin Non-Reactive (NonReactive)
== END 2022-11-01 12:22 | disposition home or self-care (01) ==
PROVIDERS: Nurse Practitioner Family; PCP Family Medicine; Visit Provider Obstetrics & Gynecology
DX: Z20.2 Contact with and (suspected) exposure to infections with a predominantly sexual mode of transmission (principal); Z13.220 Encounter for screening for lipoid disorders; N18.4 Chronic kidney disease, stage 4 (severe); E66.01 Morbid (severe) obesity due to excess calories; E11.9 Type 2 diabetes mellitus without complications; I10 Essential (primary) hypertension; Z11.4 Encounter for screening for human immunodeficiency virus [HIV]
CPT/HCPCS: 36415; 80053; 80061; 82043; 83036; 85025; 86592; 86703; 86803; 87340; G0432

== ENCOUNTER 2022-11-28 13:05 | Outpatient (CLI) | payer MEDICARE, MEDICAID, SELFPAY ==
--- NOTE | ~2022-11-28 | MM_ITS ---
EXAMINATION: MM diagnostic mary LT w moo HISTORY: Left breast mass TECHNIQUE: Full field and spot ML, MLO and CC 3-D tomosynthesis images of the left breast were perfor med and synthetic 2-D images were generated. CAD analysis was submitted and interpreted. COMPARISON: None BREAST PARENCHYMAL COMPOSITION: There are scattered areas of fibroglandular density. FINDINGS: There is an approximately 1.7 x 2.8 cm circumscribed mass with lobular outline in the mid t o posterior aspect of the mid to lower inner left breast. There is halo sign. The mammographic featur es suggest benign process. Sonographic correlation is recommended. No suspicious mass, architectural distortion, malignant calcification, skin thickening or retraction of the left breast is noted otherwise. Occasional scattered benign calcifications. IMPRESSION: 1. Circumscribed 1.7 x 2.8 cm mass, mid to lower inner left breast 2. Targeted left breast ultrasound examination is recommended BI-RADS Category 0: Incomplete: Needs additional imaging evaluation. Reviewed, dictated and finalized at location A.
== END 2022-11-28 13:06 | disposition home or self-care (01) ==
LOC: ANHIMG 13:06
PROVIDERS: PCP Family Medicine; Visit Provider Obstetrics & Gynecology
DX: N63.24 Unspecified lump in the left breast, lower inner quadrant (principal)
CPT/HCPCS: 77061; 77065; G0279

== ENCOUNTER 2022-12-02 10:20 | Outpatient (CLI) | payer MEDICARE, MEDICAID, SELFPAY ==
--- NOTE | ~2022-12-02 | US_ITS ---
US breast LT limited DATE: 12/02/2022 11:33 INDICATION: Left breast mass TECHNIQUE: Real-time and color flow imaging of the left breast targeted at left 8:00 breast mass COMPARISON: 11/28/2022 diagnostic left mammogram FINDINGS: At 8:00 6 cm from the nipple there is an irregular heterogeneous hypoechoic solid mass swati uring approximately 2.2 x 1.4 x 2.6 cm. The margins are not completely circumscribed in some areas. There is some internal vascularity on col or flow imaging. There is some posterior attenuation of the ultrasound beam suggesting some shadowing . This lesion is indeterminate. Ultrasound-guided biopsy is recommended. IMPRESSION: Indeterminate suspicious irregular incompletely circumscribed approximately 2.2 x 1.4 x 2 .6 cm mass at 8:00 6 cm from nipple Recommendation: Ultrasound-guided biopsy of right breast 8:[address] Diallo telephoned the report and ultrasound-guided biopsy recommendation on 12/02/2022 at 1145 hours to Shelia Adams. Reviewed, dictated and finalized at Location A. Reviewed, dictated and finalized at location A. IMPRESSION: Indeterminate suspicious irregular incompletely circumscribed appro ximately 2.2 x 1.4 x 2.6 cm mass at 8:00 6 cm from nipple Recommendation: Ultrasound-guided biopsy of right breast 8:[address] Diallo telephoned the report and ultrasound-guided biopsy recommendation on at 1145 hours to Shelia Adams.
--- NOTE | ~2022-12-02 | US_ITS ---
EXAMINATION: US pelvic complete w TV DATE: 12/02/2022 11:31 INDICATION: IUD placement. . LMP 11/13/2022. Prior . TECHNIQUE: Multiple transabdominal and endovaginal sonographic images of the pelvis were obtained. COMPARISON: CT abdomen pelvis 02/19/2014 FINDINGS: Uterus: 9.6 x 5.5 x 4.4 cm. scar. Heterogeneous echogenicity in the endocervical canal. IUD , in good position. Endometrial complex measures 4 mm. Right Ovary: 3.8 x 2.5 x 2.6 cm. Vascular flow is present. No adnexal mass. Left Ovary: Not visualized. No adnexal mass. There is no free fluid in the pelvis. IMPRESSION: IUD, in good position. Small volume hemorrhage in the endocervical canal. Left ovary not visualized. Reviewed, dictated and finalized at location K.
== END 2022-12-02 10:21 | disposition home or self-care (01) ==
PROVIDERS: PCP Family Medicine; Visit Provider Obstetrics & Gynecology
DX: N63.21 Unspecified lump in the left breast, upper outer quadrant (principal); N63.24 Unspecified lump in the left breast, lower inner quadrant; Z30.430 Encounter for insertion of intrauterine contraceptive device
CPT/HCPCS: 76642; 76830; 76856

== ENCOUNTER 2022-12-17 10:00 | Outpatient (CLI) | payer MEDICARE, MEDICAID, SELFPAY ==
[2022-12-17 10:59] LABS: Hemoglobin 13.1 g/dL (12.0-15.0); Mean Corpuscular HGB Conc 32.8 g/dl (32-36); Mean Corpuscular Hemoglobin 30.7 pg (26-34); Mean Corpuscular Volume 93.7 fl (80-100); Mean Platelet Volume 10.4 fl (7.4-10.4); Platelet Count Result 331 k/mm3 (150-375); Red Blood Count 4.27 M/mm3 (4.2-5.4); Red Cell Distribution Width 13.2 % (11.5-14.5); White Blood Count 4.3 K/mm3 (4.5-10.0)
[2022-12-17 11:07] LABS: Anion Gap 8 mmol/L (8-16); Blood Urea Nitrogen 34 mg/dL (7-17); Calcium 9.6 mg/dL (8.4-10.2); Carbon Dioxide 26 mmol/L (22-30); Chloride 106 mmol/L (98-107); Estimated Glomerular Filt Rate 24; Glucose 97 mg/dL (65-110); Phosphorus 3.9 mg/dL (2.5-4.5); Potassium 4.1 mmol/L (3.4-5.0); Sodium 140 mmol/L (137-145)
[2022-12-17 11:18] LABS: Parathyroid Intact 57.3 pg/mL (7.5-53.5)
[2022-12-17 13:54] LABS: Creatinine Urine 123.1 mg/dL
[2022-12-17 14:03] LABS: Total Protein Urine Random 275 mg/dL; Ur Ttl Prot Creatinine Ratio 2.23 mg/mg (0-0.20)
== END 2022-12-17 10:01 | disposition home or self-care (01) ==
PROVIDERS: PCP Family Medicine; Visit Provider Internal Medicine Nephrology
DX: N18.4 Chronic kidney disease, stage 4 (severe) (principal)
CPT/HCPCS: 36415; 80069; 82570; 83970; 84156; 85027

== ENCOUNTER 2022-12-20 09:33 | Outpatient (CLI) | payer MEDICARE, MEDICAID, SELFPAY ==
--- NOTE | ~2022-12-20 | MMUS_ITS ---
MM post biopsy invasive LT, US breast biopsy LT w image EXAMINATION: US GUIDED NEEDLE BIOPSY WITH VACUUM ASSISTANCE DATE: 12/20/2022 10:27 CDT INDICATION: Left breast mass seen on recent examination. Ultrasound-guided core biopsy is requested to evaluate for malignancy. TECHNIQUE AND FINDINGS: The risks and potential benefits of the procedure were discussed with the patient, and written inform ed consent was obtained. After sterile preparation of the left breast, 1% lidocaine was utilized for local anesthesia. 1% lidocaine with epinephrine was used for deep anesthesia. A 10G vacuum-assisted biopsy gun needle was advanced through to the outer edge of the region of inter est from a medial approach utilizing sonographic guidance. A total of 5 tissue core samples were obt ained through the lesion. An Inrad tissue marker clip was then placed at the biopsy site. Hemostasis was achieved. The patient tolerated procedure well and there was no evidence of immediate complication. The patien t was given verbal instructions partly is from the department. Left breast mammograms to document ti ssue marker clip placement. The tissue samples were submitted to surgical pathology for histologic an alysis. IMPRESSION: 1. Successful ultrasound-guided vacuum-assisted biopsy of left breast mass with tissue marker placem ent. Please refer to pathology report for histologic analysis. Reviewed, dictated and finalized at location A. IMPRESSION: 1. Successful ultrasound-guided vacuum-assisted biopsy of left breast mass wit h tissue marker placement. Please refer to pathology report for histologic anal ysis.
== END 2022-12-20 09:34 | disposition home or self-care (01) ==
LOC: ANHIMG 09:34
PROVIDERS: PCP Family Medicine; Visit Provider Surgery
DX: N63.20 Unspecified lump in the left breast, unspecified quadrant (principal); R92.8 Other abnormal and inconclusive findings on diagnostic imaging of breast
CPT/HCPCS: 19083; 88305; A4648

== ENCOUNTER 2023-01-02 13:43 | Outpatient (CLI) | payer MEDICARE, MEDICAID, SELFPAY ==
[2023-01-02 14:25] LABS: Anion Gap 6 mmol/L (8-16); Blood Urea Nitrogen 38 mg/dL (7-17); Calcium 9.5 mg/dL (8.4-10.2); Carbon Dioxide 23 mmol/L (22-30); Chloride 104 mmol/L (98-107); Estimated Glomerular Filt Rate 22; Glucose 134 mg/dL (65-110); Phosphorus 4.5 mg/dL (2.5-4.5); Potassium 3.8 mmol/L (3.4-5.0); Sodium 133 mmol/L (137-145)
== END 2023-01-02 13:44 | disposition home or self-care (01) ==
PROVIDERS: PCP Family Medicine; Visit Provider Internal Medicine Nephrology
DX: N18.4 Chronic kidney disease, stage 4 (severe) (principal)
CPT/HCPCS: 36415; 80069

== ENCOUNTER 2023-03-21 16:01 | Outpatient (CLI) | payer MEDICARE, MEDICAID, SELFPAY ==
--- NOTE | 2023-03-21 16:09 | ECG_ITS ---
Measurements Intervals [place] Rate: 65 P: 48 CT: 181 QRS: -7 QRSD: 79 T: 9 QT: 393 QTc: 411 Interpretive Statements SINUS RHYTHM NORMAL ECG COMPARED TO ECG 12/25/2020 13:13:09 NO SIGNIFICANT CHANGES Electronically Signed On 03-22-2023 8:54:34 CDT by Dustin James M.D.
[2023-03-21 16:53] LABS: Anion Gap 6 mmol/L (8-16); Blood Urea Nitrogen 49 mg/dL (7-17); Calcium 9.4 mg/dL (8.4-10.2); Carbon Dioxide 24 mmol/L (22-30); Chloride 105 mmol/L (98-107); Estimated Glomerular Filt Rate 21; Glucose 83 mg/dL (65-110); Sodium 135 mmol/L (137-145)
== END 2023-03-21 16:02 | disposition home or self-care (01) ==
LOC: ANHLAB 16:03
PROVIDERS: PCP Family Medicine; Visit Provider Anesthesiology
DX: Z01.818 Encounter for other preprocedural examination (principal); I10 Essential (primary) hypertension; E11.42 Type 2 diabetes mellitus with diabetic polyneuropathy
CPT/HCPCS: 36415; 80048; 93005

== ENCOUNTER 2023-03-31 00:50 | Day surgery (SDC) | payer MEDICARE, MEDICAID, SELFPAY ==
[2023-03-21 14:40] VITALS: BMI 37.5
--- NOTE | 2023-03-21 15:00 | PC.NURSE ---
Report to the Outpatient Waiting Room, entrance under the green pavilion located off [facility], at time _0600 AM on date _03/31/23 . Planned Procedure Time: _0730AM . Time changes happen often and if your time is changed the preop area will call you the afternoon before. - You and your visitor will be asked to self-screen and do not enter if you have any COVID symptoms. - A mask is optional within the hospital at this time. Patients may have clear liquids (water, carbonated beverages, clear teas, apple juice) until 3 hours prior to surgery with a maximum of 20 ounces. - No food from midnight until time of surgery Take the following medications with a SIP of water the morning of surgery: ___NIFEDIPINE DO NOT STOP ANY OF YOUR OTHER PRESCRIPTION MEDICATIONS PRIOR TO SURGERY ?EXCEPT THE FOLLOWING Medications to discontinue per physician NONE Date to take last dose Please no make-up, nail estonian, hairspray, perfume, deodorant, or body powder the day of surgery. No jewelry (including any body piercings) or valuables the day of surgery, leave them at home. Please take a shower or bath the night before, or the morning of, surgery with an antibacterial soap. Wear comfortable, loose fitting clothing. - Jewelry must be removed prior to entering the operating room. Rings and piercings that are not removed may be cut off. - The hospital will not accept responsibility for valuables. - Please leave all valuables, including medications, at home the day of surgery. If you are going home after surgery, a licensed trolley coach driver must drive you home. - NO public transportation without another adult if you receive anesthesia. - We recommend that an adult stay with you for 24 hours following discharge. - We also recommend that you do not drive, make important decision, drink alcoholic beverages, or take any drugs that were not prescribed by your health care provider for at least 24 hours after your discharge time. Follow any additional instructions given to you from your surgeon. If you or anyone in your household have experienced Covid symptoms in the past week, please notify your surgeon or the nurse liaison at the phone number below for possible testing. Telephone instructions given to __NIHARIKAE and asked if any additional questions and then verbalized understanding. Patient advised to call surgeon office or pre surgery nurse liaison [phone] if any additional questions.
--- NOTE | 2023-03-30 16:04 | WPDANESEPPF ---
Anes - Initial Pre Proc Eval Procedure: Operation Date: 03/31/23 07:30 Proposed Procedures p Arthrodesis First Metatarsal Phalangeal Joint Right Foot, - Jv Sharma JR, MD s Hammer Toe Repair, Third Digit Right Foot - Jv Sharma JR, MD Date/Time: 03/30/23 16:04 Surgeon: Jv Sharma JR, MD Pre Op Diagnosis: bunion right foot, hammertoe 3rd digit rt foot Patient Data Age: 37 Gender: F Height: 1.73 m Weight: 112 kg Allergies Allergy/AdvReac Type Severity Reaction Status Date / Time No Known Allergies Allergy Verified 03/31/23 06:19 Home Medications Medication Instructions Recorded Confirmed Type IUD .Route 11/01/22 12/19/22 History cholecalciferol (vitamin D3) 50 50 mcg PO DAILY 12/19/22 03/31/23 History mcg (2,000 unit) capsule lisinopril 5 mg tablet 5 mg PO DAILY #30 tabs 12/19/22 03/31/23 Rx furosemide 40 mg tablet 40 mg PO .qod #45 tabs 02/17/23 03/31/23 Rx hydralazine 25 mg tablet See Rx Instructions .Route 02/17/23 03/31/23 Rx .COMPLEX #360 tabs nifedipine 60 mg tablet,extended 60 mg PO BID #180 tabs 02/17/23 03/31/23 Rx release empagliflozin 10 mg tablet 10 mg PO DAILY #30 tabs 02/22/23 03/31/23 Rx (Jardiance) Patient hx anesthesia problems: none Family hx anesthesia problems: none Results Review: All pre-operative results and documents have been reviewed as part of the pre-operative evaluation. [facility] Past Medical History Medical History (Updated 03/31/23 @ 06:31 by Chano Underwood DO) Amputated toe Anemia Arthritis Asthma Chronic anemia Chronic kidney disease due to diabetes mellitus Diabetes type 2, controlled Gall bladder disease Hypertension Diagnosed during her 2nd in 2019. Mixed hyperlipidemia (11/29/18) Surgical History Surgical History H/O foot surgery History of section Family History Family History Mother Hypertension Diabetes mellitus Kidney disease Social History Social History (Updated 12/19/22 @ 08:46 by Yvonne Arce MA) Social History: The patient lives in [place] with her 2 children. She is on disability. Nonsmoker. No alcohol abuse. Occasional marijuana use. She designates her grandmother, Lela Roche, as her surrogate decision maker and she wishes to be a full code. Smoking status: Never smoker Second hand tobacco smoke exposure: Yes Alcohol intake: never Substance use: never Substance use type: marijuana Last use: 03/21/23 Lack of Transportation: No Lack of Food: Never True Current Housing: I Have Housing Concerned About Future Housing: No Difficulty Paying Gas/Electric Bills: No Difficulty Paying for Meds: No Currently Unemployed: No Education: High School Diploma/GED Difficulty w/ Childcare or Family Care: No Living arrangements: with family Gender identity (if verbalized by the patient): Female Spiritual care concerns: No Anes - Eval Final PreProcedure Day of Procedure 03/30/23 16:04 Patient weight: obese Heart: regular rate and rhythm Lungs: clear to auscultation Airway: Mallampati scale class II Neurological: alert and oriented Last oral intake: >/= 8 hours ASA classification: III Emergent: no Anesthetic plan: proceed Anesthesia type and monitoring: general LMA and standard monitoring Results Review: All pre-operative results and documents have been reviewed as part of the pre-operative evaluation. Informed Consent: The patient's anesthetic plan and its attendant risks and benefits were discussed with the patient/family/POA. Questions were solicited and answers provided to the satisfaction of the patient/family/POA.
[2023-03-31] VITALS (7 sets, daily range): BP systolic 105–170; BP diastolic 63–97; PULSE 78–93; RESP 18–24; TEMP 36.5–36.7; O2SAT 99–100
--- NOTE | ~2023-03-31 | XR_ITS ---
XR surgery orthopedic Procedure: Arthrodesis and hammertoe repair TECHNIQUE: Fluoroscopy used during Arthrodesis and hammertoe repair performed by [Jv pepe JR MD] on next 03/31/2023. 7 seconds of fluoroscopy with are images captured. FINDINGS: Correlate with procedure note. IMPRESSION: Fluoroscopy used during Arthrodesis and hammertoe repair. Correlate with procedural findi ngs. Reviewed, dictated and finalized at location B. IMPRESSION: Fluoroscopy used during Arthrodesis and hammertoe repair. Correlate with procedural findings.
[2023-03-31] MEDS: LACTATED RINGERS 1,000 ML 30 ML IV CONT (06:55)
[2023-03-31 07:02] LABS: Glucose Point of Care 90 mg/dl (65-105)
--- NOTE | 2023-03-31 07:33 | WPDHPUPDATE1 ---
History and Physical Update Update Date/Time: 03/31/23 07:33 History and Physical has been reviewed, including an updated exam of the patient. There are NO changes in the patient's condition. Risks, benefits, and alternatives have been discussed and questions answered. Patient agrees to proceed with procedure.
[2023-03-31] MEDS: ceFAZolin 2 GM/D5W 50 ML 2 GM/50 ML BAG IVPB (07:38)
[2023-03-31] MEDS: LIDOCAINE HCL 2% PF INJ 5 ML VIAL 20 ML INFILTRATE (08:09)
--- NOTE | 2023-03-31 09:26 | W.PM.PROC2 ---
Procedure Note - Detailed Date of Procedure 03/31/23 Pre-op Diagnosis 1.Bunion right foot 2. Hammertoe 3rd digit right foot Post-op Diagnosis Same Procedure Performed 1. Arthrodesis of the first metatarsal phalangeal joint right foot 2. Hammertoe 3rd digit right foot Surgeon Jv Sharma JR, TEDDY Anesthesia General and Local Indications Severe Bunion and Hammertoe deformity right foot Findings Significant joint degereration to the first metatarsal phalangeal joint Description of Procedure PROCEDURE IN DETAIL: Under mild sedation, the patient was brought into the operating room, placed on the operating table in supine position. A pneumatic ankle tourniquet was placed about the patient's ipsilateral ankle. Following general anesthesia and a proximal ankle block was performed with 20cc's of 2.% Lidocaine plain and 0.5% Marcaine plain. The foot was then scrubbed, prepped, and draped in the usual aseptic manner. An Esmarch bandage was then used to exsanguinate the patient's foot and the pneumatic ankle tourniquet was then inflated. Surgery began in the following manner: Attention was directed to the dorsal medial aspect of the 1st metatarsophalangeal joint where there was a moderate large subcutaenous prominence was noted. The incision was made starting along the central shaft of the 1st metatarsal and extending just proximal to the interphalangeal joint of the hallux. The incision was continued deep down through the subcutaneous tissues using sharp and blunt dissection. All bleeders were cauterized as necessary. At this point, the dissection was continued down to the level of the periosteum and capsular structures overlying the 1st metatarsophalangeal joint. A full length periosteum and capsular incision was made just medial to the extensor hallucis longus tendon. The periosteum and capsular structures were freed from the base of the proximal phalanx as well as the distal 1st metatarsal. At this point, the 1st metatarsophalangeal joint was identified. There was significant broadening and hypertrophy of the 1st metatarsophalangeal joint with near complete loss of articular cartilage. Utilizing a sagittal bone saw, the hypertrophied 1st metatarsal was resected dorsally, medially, and laterally. A power bur was used to make sure that there were no rough edges and also to further debride the hypertrophic 1st metatarsal. Next, a rongeur was used to resect the hypertrophic base of the proximal phalanx. At this point, the reamer system for the [employer] system was used to denude the degenerative cartilage from the head of the 1st metatarsal as well as the base of the proximal phalanx. The cartilage and subchondral bone were fully debrided utilizing the reamer system until healthy bleeding bone was noted. Next, a 2-0 drill bit was used to further fenestrate the head of the 1st metatarsal as well as the base of the proximal phalanx in order to allow fusion across the 1st metatarsophalangeal joint. Next, a 0.045 inch K-wire was driven from the medial aspect of the base of the proximal phalanx into the head of the 1st metatarsal in order to serve as temporary fixation. A large steel plate was used to make sure that the hallux was in a rectus position both in the sagittal plane as well as the frontal and transverse plane. Excellent position of the hallux was noted. Next, a CrossCHECK plate was placed atop the 1st metatarsophalangeal joint held in position with [place]ad wires. Utilizing standard principles and techniques, the 2 distal drill holes were drilled and two 2.7mm mm fully-threaded locking screws were driven from dorsal to plantar holding the distal aspect of the plate intact. At this point, a 3.5mm lag screw was driven from dorsal distal to proximal plantar across the 1st metatarsophalangeal joint through the plate system with excellent compression noted after careful removal of the olive wire and temporary fixation fro
[2023-03-31 09:30] LABS: Glucose Point of Care 98 mg/dl (65-105)
--- NOTE | 2023-03-31 10:24 | SUR.PHASEII ---
Patient in contact with her ride home.
== END 2023-03-31 11:08 | disposition home or self-care (01) ==
PROVIDERS: PCP Family Medicine; Visit Provider Podiatrist Foot & Ankle Surgery
PROC: (CPT 28750; principal; 2023-03-31 07:30)
PROC: (CPT 28285; 2023-03-31 07:30)
DX: M21.611 Bunion of right foot (principal); M20.41 Other hammer toe(s) (acquired), right foot; I12.9 Hypertensive chronic kidney disease with stage 1 through stage 4 chronic kidney disease, or unspecified chronic kidney disease; E11.22 Type 2 diabetes mellitus with diabetic chronic kidney disease; N18.9 Chronic kidney disease, unspecified; E78.2 Mixed hyperlipidemia; Z79.84 Long term (current) use of oral hypoglycemic drugs; F12.90 Cannabis use, unspecified, uncomplicated; E66.9 Obesity, unspecified; Z68.37 Body mass index [BMI] 37.0-37.9, adult
CPT/HCPCS: 28285; 28750; 36415; 80048; 82948; 93005; 99199; C1713; J0690; J1100; J2250; J2371; J2405; J2704; J3010; J7120

== ENCOUNTER 2023-04-07 15:56 | Emergency (ER) | payer MEDICARE, MEDICAID, SELFPAY ==
[2023-04-07 16:05] VITALS: BP 119/84; PULSE 95; RESP 18; TEMP 36.6; O2SAT 100
--- NOTE | 2023-04-07 17:57 | ED.EXTPRO ---
HPI - Extremity Problem General Chief complaint: Extremity Problem,Nontraumatic Stated complaint: right leg pain - post surgery - pain beneath cast Time Seen by Provider: 04/07/23 17:12 Source: patient Mode of arrival: wheelchair Limitations: no limitations History of Present Illness HPI Narrative: This is a 37-year-old female that presents to the emergency department for right foot pain. Reports recent surgery on her right great toe with Dr. Sharma. Reports he placed a cast yesterday. She has had worsening pain in her toe since. The pain radiates into her foot. Denies fever, erythema or edema. Related Data Home Medications Medication Instructions Recorded Confirmed IUD .Route 11/01/22 12/19/22 cholecalciferol (vitamin D3) 50 50 mcg PO DAILY 12/19/22 03/31/23 mcg (2,000 unit) capsule Allergies Allergy/AdvReac Type Severity Reaction Status Date / Time No Known Allergies Allergy Verified 04/07/23 15:57 Review of Systems Review of Systems: CONSTITUTIONAL: Denies fever SKIN: Denies rash MUSCULOSKELETAL: Reports joint pain, and myalgia. All systems reviewed & are unremarkable except as noted in HPI and below PMFSH Past Medical History Medical History (Updated 04/07/23 @ 19:50 by Carlee Tejada PA-C) Amputated toe Anemia Arthritis Asthma Chronic anemia Chronic kidney disease due to diabetes mellitus Diabetes type 2, controlled Gall bladder disease Hypertension Diagnosed during her 2nd in 2019. Mixed hyperlipidemia (11/29/18) Surgical History Surgical History H/O foot surgery History of section Family History Family History Mother Hypertension Diabetes mellitus Kidney disease Social History Social History (Updated 12/19/22 @ 08:46 by Yvonne Arce MA) Social History: The patient lives in [place] with her 2 children. She is on disability. Nonsmoker. No alcohol abuse. Occasional marijuana use. She designates her grandmother, Lela Roche, as her surrogate decision maker and she wishes to be a full code. Smoking status: Never smoker Second hand tobacco smoke exposure: Yes Alcohol intake: never Substance use: never Substance use type: marijuana Last use: 03/21/23 Lack of Transportation: No Lack of Food: Never True Current Housing: I Have Housing Concerned About Future Housing: No Difficulty Paying Gas/Electric Bills: No Difficulty Paying for Meds: No Currently Unemployed: No Education: High School Diploma/GED Difficulty w/ Childcare or Family Care: No Living arrangements: with family Gender identity (if verbalized by the patient): Female Spiritual care concerns: No Exam Narrative: GENERAL: Well-appearing, well-nourished, and in no acute distress. HEAD: Normocephalic, atraumatic. EYES: EOMI. EXTREMITIES: No edema or erythema extending from cast. Cast in place to the right foot. After cast removed wound is without erythema, edema, or abnormal drainage SKIN: Warm, dry, no rash. NEURO: No focal deficits. Alert and oriented x3. PSYCH: Normal mood and affect Course Course Emergency Course: Patient agrees with plan of care Consultations Consultation #1: Spoke with Dr. Sharma about patient and workup who agrees with taking off cast to explore wound due to patient's discomfort. Will replace with short leg posterior Date: 04/07/23 Time: 19:42 Vital Signs Vital signs: Vital Signs Temperature 97.8 F 04/07/23 16:05 Pulse Rate 95 04/07/23 16:05 Respiratory Rate 18 04/07/23 16:05 Blood Pressure 119/84 04/07/23 16:05 Pulse Oximetry 100 04/07/23 16:05 Oxygen Delivery Room Air 04/07/23 16:05 Temperature 97.8 F 04/07/23 16:05 Pulse Rate 95 04/07/23 16:05 Respiratory Rate 18 04/07/23 16:05 Blood Pressure 119/84 04/07/23 16:05 Pulse Oximetry 100
[2023-04-07] MEDS: diazePAM INJ (*CRX) 10 MG/2 ML SYRINGE 5 MG IM (18:12)
== END 2023-04-07 20:11 | disposition home or self-care (01) ==
PROVIDERS: Emergency Provider Physician Assistant; PCP Family Medicine
DX: M79.671 Pain in right foot (principal); Z89.411 Acquired absence of right great toe; E11.22 Type 2 diabetes mellitus with diabetic chronic kidney disease; I12.9 Hypertensive chronic kidney disease with stage 1 through stage 4 chronic kidney disease, or unspecified chronic kidney disease; N18.9 Chronic kidney disease, unspecified; D64.9 Anemia, unspecified; E78.2 Mixed hyperlipidemia; J45.909 Unspecified asthma, uncomplicated; M19.90 Unspecified osteoarthritis, unspecified site; Z97.5 Presence of (intrauterine) contraceptive device; Z79.84 Long term (current) use of oral hypoglycemic drugs
CPT/HCPCS: 29515; 96372; 99283; J3360

== ENCOUNTER 2023-05-18 16:23 | Outpatient (CLI) | payer MEDICARE, MEDICAID, SELFPAY ==
[2023-05-18 16:46] LABS: Hematocrit 36.6 % (37.0-47.0); Hemoglobin 12.3 g/dL (12.0-15.0); Mean Corpuscular HGB Conc 33.6 g/dl (32-36); Mean Corpuscular Hemoglobin 31.1 pg (26-34); Mean Corpuscular Volume 92.7 fl (80-100); Platelet Count Result 307 k/mm3 (150-375); Red Blood Count 3.95 M/mm3 (4.2-5.4); Red Cell Distribution Width 13.3 % (11.5-14.5); White Blood Count 6.5 K/mm3 (4.5-10.0)
[2023-05-18 17:01] LABS: Albumin Level 4.5 g/dL (3.5-5.1); Anion Gap 12 mmol/L (8-16); Blood Urea Nitrogen 48 mg/dL (7-17); Calcium 9.9 mg/dL (8.4-10.2); Carbon Dioxide 18 mmol/L (22-30); Chloride 106 mmol/L (98-107); Estimated Glomerular Filt Rate 19; Glucose 101 mg/dL (65-110); Phosphorus 4.5 mg/dL (2.5-4.5); Potassium 4.2 mmol/L (3.4-5.0); Sodium 136 mmol/L (137-145)
[2023-05-18 17:10] LABS: Parathyroid Intact 49.1 pg/mL (7.5-53.5)
[2023-05-18 17:53] LABS: Vitamin D 25 Hydroxy < 12.8 ng/mL
[2023-05-18 22:10] LABS: Hemoglobin A1C 5.7 % (<5.7)
== END 2023-05-18 16:24 | disposition home or self-care (01) ==
PROVIDERS: Nurse Practitioner Family; PCP Family Medicine; Visit Provider Internal Medicine Nephrology
DX: E21.1 Secondary hyperparathyroidism, not elsewhere classified (principal); E11.42 Type 2 diabetes mellitus with diabetic polyneuropathy; N18.4 Chronic kidney disease, stage 4 (severe)
CPT/HCPCS: 36415; 80069; 82306; 83036; 83970; 85027

== ENCOUNTER 2023-05-20 12:36 | Outpatient (CLI) | payer MEDICARE, MEDICAID, SELFPAY ==
[2023-05-20 13:24] LABS: Creatinine Urine 96.4 mg/dL; Total Protein Urine Random 37 mg/dL; Ur Ttl Prot Creatinine Ratio 0.38 mg/mg (0-0.20)
== END 2023-05-20 12:37 | disposition home or self-care (01) ==
LOC: ANHLAB 12:38
PROVIDERS: PCP Family Medicine; Visit Provider Internal Medicine Nephrology
DX: N18.4 Chronic kidney disease, stage 4 (severe) (principal)
CPT/HCPCS: 82570; 84156

== ENCOUNTER 2023-06-23 10:41 | Outpatient (CLI) | payer MEDICARE, MEDICAID, SELFPAY ==
--- NOTE | ~2023-06-23 | MM_ITS ---
EXAMINATION: MM diagnostic mary BI w moo HISTORY: Recent benign left breast biopsy. Benign fibroadenoma diagnosis. TECHNIQUE: Additional 3-D tomosynthesis images of the breasts were performed and synthetic 2-D images were generated. CAD analysis was submitted and interpreted. COMPARISON: 11/28/2022 BREAST PARENCHYMAL COMPOSITION: Breast composed of scattered areas of fibroglandular density FINDINGS: Stable mass in the lower inner quadrant of the left breast, middle third with associated ti ssue marker from previous benign biopsy. No new masses, calcifications or architectural distortion in either breast to suggest malignancy. IMPRESSION: 1. Stable bilateral mammogram. No evidence for malignancy. 2. Routine yearly screening mammogram and regular clinical breast examination are recommended. BI-RADS Category 2: Benign finding(s). Reviewed, dictated and finalized at location A. RAFT LANDING GEAR INSPECTOR IMPRESSION: 1. Stable bilateral mammogram. No evidence for malignancy. 2. Routine yearly screening mammogram and regular clinical breast examination a re recommended. BI-RADS Category 2: Benign finding(s).
== END 2023-06-23 10:42 | disposition home or self-care (01) ==
LOC: ANHIMG 10:42
PROVIDERS: PCP Nurse Practitioner Family; Visit Provider Surgery
DX: N63.24 Unspecified lump in the left breast, lower inner quadrant (principal)
CPT/HCPCS: 77062; 77066; G0279

== ENCOUNTER 2023-07-14 12:28 | Outpatient (CLI) | payer MEDICARE, MEDICAID, SELFPAY ==
[2023-07-14 13:22] LABS: Anion Gap 8 mmol/L (8-16); Blood Urea Nitrogen 46 mg/dL (7-17); Calcium 9.9 mg/dL (8.4-10.2); Carbon Dioxide 23 mmol/L (22-30); Chloride 106 mmol/L (98-107); Estimated Glomerular Filt Rate 20; Glucose 101 mg/dL (65-110); Potassium 4.1 mmol/L (3.4-5.0); Sodium 137 mmol/L (137-145)
== END 2023-07-14 12:29 | disposition home or self-care (01) ==
PROVIDERS: PCP Nurse Practitioner Family; Visit Provider Anesthesiology
DX: E11.42 Type 2 diabetes mellitus with diabetic polyneuropathy (principal)
CPT/HCPCS: 36415; 80048

== ENCOUNTER 2023-07-18 00:17 | Day surgery (SDC) | payer MEDICARE, MEDICAID, SELFPAY ==
[2023-07-12 12:41] VITALS: BMI 38.2
--- NOTE | 2023-07-12 12:47 | PC.NURSE ---
Report to the Outpatient Waiting Room, entrance under the green pavilion located off [facility], at time __0800_ on date _07/18/23. Planned Procedure Time: 1000. Time changes happen often and if your time is changed the preop area will call you the afternoon before. - You and your visitor will be asked to self-screen and do not enter if you have any COVID symptoms. - A mask is optional within the hospital at this time. Patients may have clear liquids (water, carbonated beverages, clear teas, apple juice) until 3 hours prior to surgery with a maximum of 20 ounces. - No food from midnight until time of surgery - Infants may have breast milk until 4 hours before surgery, formula 6 hours prior to surgery. - Children will be allowed to drink immediately following surgery. If applicable, please bring a bottle or sippy cup to assist with drinking. Juice, water, soda, and popsicles are readily available. For infants on formula, please bring formula the day of surgery. Pacifiers are allowed. Take the following medications with a SIP of water the morning of surgery: HYDRALAZINE, NIFEDIPINE DO NOT STOP ANY OF YOUR OTHER PRESCRIPTION MEDICATIONS PRIOR TO SURGERY ?EXCEPT THE FOLLOWING Medications to discontinue per physician NONE Date to take last dose Please no make-up, nail moldovan, hairspray, perfume, deodorant, or body powder the day of surgery. No jewelry (including any body piercings) or valuables the day of surgery, leave them at home. Please take a shower or bath the night before, or the morning of, surgery with an antibacterial soap. Wear comfortable, loose fitting clothing. Children are encouraged to wear pajamas. - Jewelry must be removed prior to entering the operating room. Rings and piercings that are not removed may be cut off. - The hospital will not accept responsibility for valuables. - Please leave all valuables, including medications, at home the day of surgery. If you are going home after surgery, a licensed mule driver must drive you home. - NO public transportation without another adult if you receive anesthesia. - We recommend that an adult stay with you for 24 hours following discharge. - We also recommend that you do not drive, make important decision, drink alcoholic beverages, or take any drugs that were not prescribed by your health care provider for at least 24 hours after your discharge time. For Pediatric surgeries, we recommend two adults accompany the child home. Follow any additional instructions given to you from your surgeon. If you or anyone in your household have experienced Covid symptoms in the past week, please notify your surgeon or the nurse liaison at the phone number below for possible testing. Telephone instructions given to ___PATIENT and asked if any additional questions and then verbalized understanding. Patient advised to call surgeon office or pre surgery nurse liaison [phone] if any additional questions.
--- NOTE | 2023-07-17 14:43 | WPDANESEPPF ---
Anes - Initial Pre Proc Eval Procedure: Operation Date: 07/18/23 10:00 Proposed Procedures p Excision of Left Breast Mass - Madelaine Breen MD Date/Time: 07/17/23 14:43 Surgeon: Madelaine Breen MD Pre Op Diagnosis: fibroma of left breast Patient Data Age: 37 Gender: F Height: 1.73 m Weight: 114 kg Allergies Allergy/AdvReac Type Severity Reaction Status Date / Time No Known Allergies Allergy Verified 07/12/23 12:39 Home Medications Medication Instructions Recorded Confirmed Type IUD .Route 11/01/22 06/02/23 History lisinopril 5 mg tablet 5 mg PO DAILY #30 tabs 12/19/22 07/12/23 Rx nifedipine 60 mg tablet,extended 60 mg PO BID #180 tabs 02/17/23 07/12/23 Rx release empagliflozin 10 mg tablet 10 mg PO DAILY #90 tabs 05/08/23 07/12/23 Rx (Jardiance) furosemide 40 mg tablet 40 mg PO .qod #45 tabs 05/08/23 07/12/23 Rx hydralazine 25 mg tablet See Rx Instructions .Route 05/08/23 07/12/23 Rx .COMPLEX #360 tabs tramadol 50 mg tablet 50 mg PO Q4H PRN pain #18 tabs 07/18/23 Rx Patient hx anesthesia problems: none Family hx anesthesia problems: none Results Review: All pre-operative results and documents have been reviewed as part of the pre-operative evaluation. [facility] Past Medical History Medical History Amputated toe Anemia Arthritis Asthma Chronic anemia Chronic kidney disease due to diabetes mellitus Diabetes type 2, controlled Gall bladder disease Hypertension Diagnosed during her 2nd in 2019. Mixed hyperlipidemia (11/29/18) Surgical History Surgical History H/O foot surgery History of section Family History Family History Mother Hypertension Diabetes mellitus Kidney disease Social History Social History (Updated 07/05/23 @ 13:12 by Neha Bella [facility]) Social History: The patient lives in [place] with her 2 children. She is on disability. Nonsmoker. No alcohol abuse. Occasional marijuana use. She designates her grandmother, Lela Roche, as her surrogate decision maker and she wishes to be a full code. Smoking status: Never smoker Second hand tobacco smoke exposure: Yes Alcohol intake: never Substance use: never Substance use type: marijuana Other substance usage details: DAILY Last use: TODAY Do You Feel Safe in your Home?: Yes Lack of Transportation: No Lack of Food: Never True Current Housing: I Have Housing Concerned About Future Housing: No Difficulty Paying Gas/Electric Bills: No Difficulty Paying for Meds: No Currently Unemployed: No Education: High School Diploma/GED Difficulty w/ Childcare or Family Care: No Living arrangements: alone Gender identity (if verbalized by the patient): Female Spiritual care concerns: No Anes - Eval Final PreProcedure Day of Procedure 07/17/23 14:43 Patient weight: obese Heart: regular rate and rhythm Lungs: clear to auscultation Airway: Mallampati scale class III Neurological: alert and oriented Last oral intake: >/= 8 hours ASA classification: III Emergent: no Anesthetic plan: proceed Anesthesia type and monitoring: general LMA and standard monitoring Results Review: All pre-operative results and documents have been reviewed as part of the pre-operative evaluation. Informed Consent: The patient's anesthetic plan and its attendant risks and benefits were discussed with the patient/family/POA. Questions were solicited and answers provided to the satisfaction of the patient/family/POA.
[2023-07-18] VITALS (7 sets, daily range): BP systolic 107–128; BP diastolic 60–92; PULSE 82–104; RESP 14–18; TEMP 36.4–36.7; O2SAT 98–100
--- NOTE | ~2023-07-18 | MM_ITS ---
EXAMINATION: MM_FAXITRON_MG INDICATION: Left breast mass TECHNIQUE: Two specimen radiographs are submitted for review. COMPARISON: None available FINDINGS: The biopsy marker is contained within the specimen radiographs. IMPRESSION: 1. Biopsy marker within the specimen radiographs. These findings were communicated to Dr. Madelaine Breen MD at 1138 hours on 07/18/2023 by the survey technologist. Reviewed, dictated and finalized at location A. CONDUCTOR ASSEMBLER IMPRESSION: 1. Biopsy marker within the specimen radiographs. These findings were communica dave to Dr. Madelaine Breen MD at 1138 hours on 07/18/2023 by the mammograp hy technologist.
[2023-07-18] MEDS: ACETAMINOPHEN 500 MG TABLET 1000 MG PO (09:00)
[2023-07-18] MEDS: LACTATED RINGERS 1,000 ML 30 ML IV CONT ×2 (09:05→11:40)
[2023-07-18 09:13] LABS: Glucose Point of Care 101 mg/dl (65-105)
[2023-07-18] MEDS: LIDOCAINE/PRILOCAINE CREAM 2.5-2.5% TUBE 1 EACH TOPICAL (09:30)
--- NOTE | 2023-07-18 09:44 | WPDHPUPDATE1 ---
History and Physical Update Update Date/Time: 07/18/23 09:44 History and Physical has been reviewed, including an updated exam of the patient. There are NO changes in the patient's condition. Risks, benefits, and alternatives have been discussed and questions answered. Patient agrees to proceed with procedure.
[2023-07-18] MEDS: ceFAZolin 2 GM/D5W 50 ML 2 GM/50 ML BAG IVPB (10:52)
[2023-07-18] MEDS: BUPIVACAINE/EPINEPHRINE 0.5% 30 ML VIAL 10 ML INFILTRATE (11:17)
--- NOTE | 2023-07-18 11:38 | P.OP_ITS ---
Procedure Note - Detailed Date of Procedure 07/18/23 Pre-op Diagnosis Left breast mass Post-op Diagnosis Same Procedure Performed Excisional biopsy of left breast mass Surgeon Madelaine Breen MD [employer] Ira Amezquita PA-C Anesthesia General Indications 37-year-old female previously evaluated for a left breast mass. This was biopsied several months ago and found to be a benign fibroadenoma. However, the mass increased in size and became painful and tender to the patient. She was recommended to undergo excisional biopsy of this lesion to rule out a phyllodes tumor. Risks of the procedure were discussed with the patient which included the now limited to risk of bleeding, infection, recurrence, possible need for additional procedures in the future, positive margin, scar, pain, wound healing problems, as well as the risk of anesthesia. All questions were answered patie nt agreed to proceed. Description of Procedure Patient was identified in the preoperative holding area brought to the operating room suite. She was laid supine in the operating table sequential compression devices were applied. The left chest area was prepped and draped in a sterile fashion. A medial periareolar incision was made and dissection was carried down through the subcutaneous tissue into the breast tissue. The palpable mass was located at approximately 8:00 o'clock position and dissection was performed through the breast tissue until the mass was identified. This mass was excised with a margin of normal breast tissue around. The specimen was oriented with surgical paints according to the brazer controlled atmospheric furnace instructions. A Faxitron was used to confirm that the mass that was previously biopsied and contained a biopsy clip was excised in its entirety. Once confirmation was obtained via radiograph, the specimen was sent to pathology as a fresh specimen. Hemostasis was assured. The deep dermal layer was closed with interrupted 3-0 Vicryl and the skin was then closed with 4-0 Monocryl in a subcuticular fashion. Dermabond was applied followed by a sterile dressing and a surgical bra. Patient was awoken from anesthesia taken to the recovery in stable condition. All needles, instruments, and sponge counts were correct as reported by the operating room staff. Patient tolerated the procedure well with no immediate complications. Estimated Blood Loss 2 Pathology Yes Complications No immediate complications Condition Stable Disposition PACU [facility] Billing Surgery - Charge Forward: Surgery Billing (CPT 94455)
[2023-07-18 12:15] LABS: Glucose Point of Care 103 mg/dl (65-105)
== END 2023-07-18 13:15 | disposition home or self-care (01) ==
PROVIDERS: PCP Nurse Practitioner Family; Visit Provider Surgery
PROC: (CPT 19120; principal; 2023-07-18 10:00)
DX: D24.2 Benign neoplasm of left breast (principal); I12.9 Hypertensive chronic kidney disease with stage 1 through stage 4 chronic kidney disease, or unspecified chronic kidney disease; E11.22 Type 2 diabetes mellitus with diabetic chronic kidney disease; N18.9 Chronic kidney disease, unspecified; D64.9 Anemia, unspecified; J45.909 Unspecified asthma, uncomplicated; E78.2 Mixed hyperlipidemia; Z79.84 Long term (current) use of oral hypoglycemic drugs; F12.90 Cannabis use, unspecified, uncomplicated; E66.9 Obesity, unspecified; Z68.38 Body mass index [BMI] 38.0-38.9, adult
CPT/HCPCS: 19120; 76098; 82948; 88307; A9270; J0690; J1100; J1170; J2250; J2371; J2405; J2704; J3010; J7120; L8000; Q9968

== ENCOUNTER 2023-09-20 16:23 | Outpatient (CLI) | payer MEDICARE, MEDICAID, SELFPAY ==
[2023-09-20 16:44] LABS: Hematocrit 36.9 % (37.0-47.0); Hemoglobin 12.1 g/dL (12.0-15.0); Mean Corpuscular HGB Conc 32.8 g/dl (32-36); Mean Corpuscular Hemoglobin 30.7 pg (26-34); Mean Corpuscular Volume 93.7 fl (80-100); Mean Platelet Volume 9.9 fl (7.4-10.4); Platelet Count Result 296 k/mm3 (150-375); Red Blood Count 3.94 M/mm3 (4.2-5.4); Red Cell Distribution Width 13.8 % (11.5-14.5); White Blood Count 4.7 K/mm3 (4.5-10.0)
[2023-09-20 17:08] LABS: Albumin Level 4.5 g/dL (3.5-5.1); Anion Gap 10 mmol/L (4-12); Blood Urea Nitrogen 46 mg/dL (7-17); Calcium 10.3 mg/dL (8.4-10.2); Carbon Dioxide 23 mmol/L (22-30); Chloride 107 mmol/L (98-107); Estimated Glomerular Filt Rate 21; Glucose 96 mg/dL (65-110); Phosphorus 4.4 mg/dL (2.5-4.5); Potassium 4.1 mmol/L (3.4-5.0); Sodium 140 mmol/L (137-145)
[2023-09-20 17:13] LABS: Parathyroid Intact 22.1 pg/mL (7.5-53.5)
[2023-09-20 18:02] LABS: Creatinine Urine 114.9 mg/dL; Total Protein Urine Random 66 mg/dL; Ur Ttl Prot Creatinine Ratio 0.57 mg/mg (0-0.20)
[2023-09-20 18:21] LABS: Vitamin D 25 Hydroxy < 12.8 ng/mL
== END 2023-09-20 16:24 | disposition home or self-care (01) ==
LOC: ANHLAB 16:26
PROVIDERS: PCP Nurse Practitioner Family; Visit Provider Internal Medicine Nephrology
DX: E21.1 Secondary hyperparathyroidism, not elsewhere classified (principal); E55.9 Vitamin D deficiency, unspecified
CPT/HCPCS: 36415; 80069; 82306; 82570; 83970; 84156; 85027

== ENCOUNTER 2023-10-27 11:57 | Outpatient (CLI) | payer MEDICARE, MEDICAID, SELFPAY ==
[2023-10-27 12:57] LABS: Albumin Level 4.8 g/dL (3.5-5.1); Anion Gap 11 mmol/L (4-12); Blood Urea Nitrogen 51 mg/dL (7-17); Calcium 10.6 mg/dL (8.4-10.2); Carbon Dioxide 23 mmol/L (22-30); Chloride 103 mmol/L (98-107); Cholesterol 187 mg/dL (0-200); Estimated Glomerular Filt Rate 18; Glucose 98 mg/dL (65-110); HDL Direct 53 mg/dL; Potassium 3.9 mmol/L (3.4-5.0); Sodium 137 mmol/L (137-145); Triglycerides 93 mg/dL (<150)
[2023-10-27 13:07] LABS: LDL Cholesterol Direct 98 mg/dL
[2023-10-27 14:53] LABS: Hemoglobin A1C 5.6 % (<5.7)
[2023-10-30 19:59] LABS: Vitamin A 53 mcg/dL (38-98)
[2023-10-31 12:08] LABS: Angiotensin Converting Enzyme 103 U/L (9-67)
[2023-11-01 08:25] LABS: Vitamin D 1,25 (OH)2 Total 40 pg/mL (18-72); Vitamin D2 1,25 (OH)2 <8 pg/mL; Vitamin D3 1,25 (OH)2 40 pg/mL
[2023-11-01 11:44] LABS: Urine Calcium, Random 1.9 mg/dL; Urine Creatinine, Random 124 mg/dL (20-275)
[2023-11-03 16:03] LABS: Parathyroid Hormone Related Pr 14 pg/mL (11-20)
== END 2023-10-27 11:58 | disposition home or self-care (01) ==
PROVIDERS: PCP Nurse Practitioner Family; Referring Provider Nurse Practitioner Family; Visit Provider Internal Medicine Nephrology
DX: E83.52 Hypercalcemia (principal); E78.5 Hyperlipidemia, unspecified; E11.42 Type 2 diabetes mellitus with diabetic polyneuropathy; E11.22 Type 2 diabetes mellitus with diabetic chronic kidney disease; N18.4 Chronic kidney disease, stage 4 (severe)
CPT/HCPCS: 36415; 80061; 80069; 82164; 82310; 82570; 82652; 83036; 83519; 84590

== ENCOUNTER 2023-11-09 12:00 | Outpatient (CLI) | payer MEDICARE, MEDICAID, SELFPAY ==
--- NOTE | ~2023-11-09 | XR_ITS ---
Clinical Indication: Hyperkalemia PA and lateral views of the chest: Comparison: 12/25/2020 Findings: The lungs are clear, without evidence of focal consolidation or pleural effusion. Cardiome diastinal silhouette is within normal limits. Bones and soft tissues are unremarkable. Impression: Normal chest. Reviewed, dictated and finalized at location . Impression: Normal chest.
[2023-11-09 13:45] LABS: HIV 1/2 Ab P24 Ag Result Negative (Negative)
[2023-11-09 16:44] LABS: Rapid Plasma Reagin Non-Reactive (NonReactive)
== END 2023-11-09 12:01 | disposition home or self-care (01) ==
LOC: ANHLAB 12:07
PROVIDERS: PCP Nurse Practitioner Family; Visit Provider Nurse Practitioner Family
DX: N18.4 Chronic kidney disease, stage 4 (severe) (principal); I10 Essential (primary) hypertension; E11.42 Type 2 diabetes mellitus with diabetic polyneuropathy; Z11.3 Encounter for screening for infections with a predominantly sexual mode of transmission; E83.52 Hypercalcemia; Z11.4 Encounter for screening for human immunodeficiency virus [HIV]
CPT/HCPCS: 36415; 71046; 86592; 86703; G0432

== ENCOUNTER 2024-01-22 08:46 | Outpatient (CLI) | payer MEDICARE, MEDICAID, SELFPAY ==
[2024-01-22 09:55] LABS: Hematocrit 38.9 % (37.0-47.0); Hemoglobin 12.9 g/dL (12.0-15.0); Mean Corpuscular HGB Conc 33.2 g/dl (32-36); Mean Corpuscular Volume 93.5 fl (80-100); Mean Platelet Volume 10.9 fl (7.4-10.4); Platelet Count Result 307 k/mm3 (150-375); Red Blood Count 4.16 M/mm3 (4.2-5.4); Red Cell Distribution Width 13.1 % (11.5-14.5); White Blood Count 6.4 K/mm3 (4.5-10.0)
[2024-01-22 11:50] LABS: Creatinine Urine 140.9 mg/dL; Parathyroid Intact < 6.8 pg/mL (14.5-75.2)
[2024-01-22 11:51] LABS: Total Protein Urine Random 43 mg/dL; Ur Ttl Prot Creatinine Ratio 0.31 mg/mg (0-0.20)
[2024-01-22 11:56] LABS: Vitamin D 25 Hydroxy 35.5 ng/mL
[2024-01-22 12:07] LABS: Albumin Level 4.4 g/dL (3.5-5.1); Anion Gap 13 mmol/L (4-12); Blood Urea Nitrogen 42 mg/dL (7-17); Carbon Dioxide 24 mmol/L (22-30); Chloride 101 mmol/L (98-107); Estimated Glomerular Filt Rate 16; Glucose 83 mg/dL (65-110); Sodium 138 mmol/L (137-145)
== END 2024-01-22 08:47 | disposition home or self-care (01) ==
PROVIDERS: PCP Nurse Practitioner Family; Visit Provider Internal Medicine Nephrology
DX: E55.9 Vitamin D deficiency, unspecified (principal); N18.4 Chronic kidney disease, stage 4 (severe)
CPT/HCPCS: 36415; 80069; 82306; 82570; 83970; 84156; 85027

== ENCOUNTER 2024-01-31 13:40 | Outpatient (CLI) | payer MEDICARE, MEDICAID, SELFPAY ==
[2024-01-31 15:08] LABS: Free T4 Free Thyroxine 1.16 ng/mL (0.78-2.19)
[2024-02-02 03:43] LABS: Protein, Total 7.7 g/dL (6.1-8.1)
[2024-02-02 10:55] LABS: Creatinine, Random Urine 172 mg/dL (20-275); Total Prot/Creat ratio mg/mg 0.105 (0.024-0.184); Total Protein/Creatinine Ratio 105 mg/g creat (24-184)
[2024-02-02 12:24] LABS: Alpha 1 Globulin 0.4 g/dL (0.2-0.3); Alpha 2 Globulin 0.8 g/dL (0.5-0.9); Beta 1 Globulin 0.4 g/dL (0.4-0.6); Gamma Globulin 1.7 g/dL (0.8-1.7)
== END 2024-01-31 13:41 | disposition home or self-care (01) ==
LOC: ANHLAB 13:49
PROVIDERS: PCP Nurse Practitioner Family; Visit Provider Internal Medicine Pulmonary Disease
DX: R06.09 Other forms of dyspnea (principal); E83.52 Hypercalcemia; G47.10 Hypersomnia, unspecified
CPT/HCPCS: 36415; 82570; 84155; 84156; 84165; 84166; 84439; 84443

== ENCOUNTER 2024-02-08 08:54 | Outpatient (CLI) | payer MEDICARE, MEDICAID, SELFPAY ==
--- NOTE | ~2024-02-08 | NM_ITS ---
EXAMINATION: NM bone scan whole body DATE: 02/08/2024 12:54 INDICATION: Hypercalcemia TECHNIQUE: 25.4 mCi Tc-99m HDP was administered intravenously. Delayed whole-body scintigrams were o btained. COMPARISON: Chest radiograph dated 11/26, CT abdomen pelvis dated 02/19/2014 and right foot radiograp hs dated 03/14/2022 FINDINGS: There is likely degenerative joint centered uptake at the bilateral shoulders, sternoclavicular joint s, left elbow, bilateral knees and multiple joints in the bilateral feet and ankles. More prominent i ncreased uptake in the right forefoot appears to correspond to a prior amputation at that time of the second toe at the level of the neck of the metatarsal. Bone scan suggests possible interval new ampu tations. Correlate with physical exam. There is increased uptake in the thoracic and lumbar spine wit h corresponding degenerative disc disease evident at T8-T9, L3-L4 and L4-L5 on radiograph and CT imag ing respectively. Atypical small region of increased uptake at the distal diaphyseal region of the le ft tibia and/or fibula. Small foci of increased uptake at the left side of the mandible and maxilla w hich are most likely related to dental disease. IMPRESSION: 1. Abnormal region of mild uptake at the distal left tibia and/or fibula suggesting old fracture. Cor relate with clinical history and consider left lower leg radiographs for correlation. 2. Additional scattered foci of degenerative joint and disc centered uptake as detailed above. 3. Increased uptake in the right forefoot likely related to a prior right second toe amputation but m ore extensive than would be expected for a single toe suggesting possible additional more lateral nisreen ed toe amputations. Correlate with physical exam. 4. Tiny foci of uptake at the left mandible and maxilla in location typical for dental disease. Reviewed, dictated and finalized at location A. IMPRESSION: 1. Abnormal region of mild uptake at the distal left tibia and/or fibula sugges ting old fracture. Correlate with clinical history and consider left lower leg radiographs for correlation. 2. Additional scattered foci of degenerative joint and disc centered uptake as detailed above. 3. Increased uptake in the right forefoot likely related to a prior right secon d toe amputation but more extensive than would be expected for a single toe sug gesting possible additional more lateral sided toe amputations. Correlate with physical exam. 4. Tiny foci of uptake at the left mandible and maxilla in location typical for dental disease.
[2024-02-08 09:49] LABS: Hematocrit 38.1 % (37.0-47.0); Hemoglobin 12.7 g/dL (12.0-15.0); Mean Corpuscular HGB Conc 33.3 g/dl (32-36); Mean Corpuscular Hemoglobin 31.1 pg (26-34); Mean Corpuscular Volume 93.4 fl (80-100); Mean Platelet Volume 10.4 fl (7.4-10.4); Platelet Count Result 315 k/mm3 (150-375); Red Blood Count 4.08 M/mm3 (4.2-5.4); Red Cell Distribution Width 13.2 % (11.5-14.5); White Blood Count 4.8 K/mm3 (4.5-10.0)
[2024-02-08 09:58] LABS: Anion Gap 12 mmol/L (4-12); Blood Urea Nitrogen 40 mg/dL (7-17); Calcium 10.3 mg/dL (8.4-10.2); Carbon Dioxide 25 mmol/L (22-30); Chloride 99 mmol/L (98-107); Estimated Glomerular Filt Rate 17; Glucose 92 mg/dL (65-110); Sodium 136 mmol/L (137-145)
== END 2024-02-08 08:55 | disposition home or self-care (01) ==
LOC: ANHIMG 08:58
PROVIDERS: PCP Nurse Practitioner Family; Visit Provider Internal Medicine Nephrology
DX: N18.4 Chronic kidney disease, stage 4 (severe) (principal); E83.52 Hypercalcemia
CPT/HCPCS: 36415; 78306; 80048; 85027; A9503

== ENCOUNTER 2024-02-09 14:44 | Outpatient (CLI) | payer MEDICARE, MEDICAID, SELFPAY ==
--- NOTE | ~2024-02-09 | CT_ITS ---
EXAMINATION:CT diagnostic chest wo con DATE: 02/09/2024 15:47 INDICATION: Hypercalcemia. TECHNIQUE: Computed tomography (CT) of the chest was performed without intravenous contrast. Automate d exposure control and iterative reconstruction technique were employed. The dose-length product (DLP ) was 838.77 mGy-cm. COMPARISON: Bone scan 02/08/2024 FINDINGS: There is mild bronchiectasis in right middle lobe and lingula with associated scarring. The re is mild atelectasis bilaterally. No pleural effusion. The heart size is normal. There are coronary artery calcifications. No pericardial effusion. There is an 11 mm nodule in the thyroid, likely not clinically significant. There is mild mediastinal lymphadenopathy. There is severe spondylosis at T9- T10. There is mild chronic anterior wedging of T10-L1 vertebral bodies. IMPRESSION: 1. Mild mediastinal lymphadenopathy, likely reactive. Reviewed, dictated and finalized at location A.
--- NOTE | 2024-02-09 17:06 | P.PCNPFT_ITS ---
PFT Procedure Performed PFT Procedure Performed Spirometry with Pre/Post Bronchodilator Plethysmography (Lung Vol) Diffusing Cap (DLCO) Flow Vol Loop PFT Interpretation This is a pulmonary function test with pre and post-bronchodilator spirometry, plethysmography and diffusing capacity. The test was performed and results interpreted in accordance with the 2019 and 2005 ATS/ERS Task Force guidelines respectively using the Global Lung Function Initiative-2012 reference equations. Patient demonstrated good effort and cooperation. Reproducibility criteria were met. The quality of the pre bronchodilator spirometry maneuver was Grade B and post bronchodilator spirometry maneuver was Grade B. Findings: Spirometry: The contour the inspiratory and expiratory flow tracing are normal. The pre bronchodilator FVC is 3.84 L, 105% predicted. The pre bronchodilator FEV1 is 3.15 L, 104% predicted. The pre bronchodilator FEV1: FVC ratio is 82%. The post bronchodilator FVC is 3.45 L, representing a 10% decrease. The post bronchodilator FEV1 is 2.96 L, representing a 6% decrease. The post bronchodil ator FEV1: FVC ratio is 86%. Plethysmography: The total lung capacity is 5.36 L, 107% predicted. The functional residual capacity is 2.42 L, 81% predicted. The residual volume is 1.51 L, 94% predicted. Diffusing capacity: The diffusing capacity unadjusted for hemoglobin and carboxyhemoglobin is 15.3, 59% predicted. The diffusing capacity adjusted for alveolar volume is 4.32, 94% predicted. Impression: The spirometry is normal without evidence of an obstructive abnormality. There is no significant improvement after inhaling a single dose of albuterol. The lung volumes are normal. The diffusing capacity unadjusted for hemoglobin and carboxyhemoglobin is moderately decreased and normalizes when adjusted for alveolar volume. There are no prior studies for comparison
== END 2024-02-09 14:45 | disposition home or self-care (01) ==
LOC: ANHPFT 14:46
PROVIDERS: PCP Nurse Practitioner Family; Visit Provider Internal Medicine Pulmonary Disease
DX: R59.0 Localized enlarged lymph nodes (principal); E83.52 Hypercalcemia; E66.9 Obesity, unspecified
CPT/HCPCS: 71250; 94060; 94726; 94729

== ENCOUNTER 2024-05-23 11:48 | Outpatient (CLI) | payer MEDICARE, MEDICAID, SELFPAY ==
[2024-05-23 13:06] LABS: Parathyroid Intact 44.1 pg/mL (14.5-75.2)
[2024-05-23 13:14] LABS: Albumin Level 4.1 g/dL (3.5-5.1); Anion Gap 5 mmol/L (4-12); Blood Urea Nitrogen 28 mg/dL (7-17); Calcium 9.5 mg/dL (8.4-10.2); Carbon Dioxide 25 mmol/L (22-30); Chloride 108 mmol/L (98-107); Estimated Glomerular Filt Rate 26; Glucose 79 mg/dL (65-110); Phosphorus 2.8 mg/dL (2.5-4.5); Potassium 3.8 mmol/L (3.4-5.0); Sodium 138 mmol/L (137-145)
[2024-05-23 13:45] LABS: Vitamin D 25 Hydroxy 28.8 ng/mL
[2024-05-23 14:20] LABS: Total Protein Urine Random 168 mg/dL
== END 2024-05-23 11:49 | disposition home or self-care (01) ==
LOC: ANHLAB 11:50
PROVIDERS: PCP Nurse Practitioner Family; Visit Provider Internal Medicine Nephrology
DX: E83.52 Hypercalcemia (principal); N18.4 Chronic kidney disease, stage 4 (severe)
CPT/HCPCS: 36415; 80069; 82306; 82570; 83970; 84156

== ENCOUNTER 2024-08-21 11:09 | Outpatient (CLI) | payer MEDICARE, MEDICAID, SELFPAY ==
[2024-08-21 12:05] LABS: Hematocrit 37.1 % (37.0-47.0); Hemoglobin 12.4 g/dL (12.0-15.0); Mean Corpuscular HGB Conc 33.4 g/dl (32-36); Mean Corpuscular Hemoglobin 31.5 pg (26-34); Mean Corpuscular Volume 94.2 fl (80-100); Mean Platelet Volume 10.5 fl (7.4-10.4); Platelet Count Result 275 k/mm3 (150-375); Red Blood Count 3.94 M/mm3 (4.2-5.4); Red Cell Distribution Width 13.5 % (11.5-14.5); White Blood Count 4.8 K/mm3 (4.5-10.0)
[2024-08-21 12:20] LABS: Anion Gap 9 mmol/L (4-12); Blood Urea Nitrogen 36 mg/dL (7-17); Calcium 9.2 mg/dL (8.4-10.2); Carbon Dioxide 22 mmol/L (22-30); Chloride 106 mmol/L (98-107); Estimated Glomerular Filt Rate 18; Glucose 105 mg/dL (65-110); Phosphorus 3.1 mg/dL (2.5-4.5); Potassium 3.6 mmol/L (3.4-5.0); Sodium 137 mmol/L (137-145)
[2024-08-21 12:49] LABS: Creatinine Urine 81.9 mg/dL; Total Protein Urine Random 73 mg/dL; Ur Ttl Prot Creatinine Ratio 0.89 mg/mg (0-0.20)
[2024-08-21 12:56] LABS: Parathyroid Intact 45.9 pg/mL (14.5-75.2)
--- OUTSIDE RECORDS SUMMARY | 2024-08-21 13:02 | XMS_ITS | Data Portability ---
Author Organization [facility] Address [address] [place] [address] Care Team Providers Care Reduction Plant Supervisor Name Role Phone JANAE DE DIOS Clinical Research Specialist Unavailable Assessment Encounter Date Assessment Date Assessment LastModified by Organization Details LastModified Time 03/09/2020 03/09/2020 ADIEL Mckeon, PA-S Not available 03/09/2020 12:42:16 03/18/2020 03/18/2020 ADIEL Flores PA-S Not available 03/18/2020 13:49:46 07/16/2020 07/16/2020 ADIEL Castro PA-S Not available 07/16/2020 13:54:27 08/05/2020 08/05/2020 Joanna Camargo PA-S Not available 08/04/2020 13:34:57 Plan of Treatment Reminders Order Date Submit Date Provider Last Modified By Organization Details Last Modified Time Details Appointments None record ed. Lab pregna ncy test, urine 2020 021 In-Office Order, Internal Use Only DO Not Attach Compendium DO Not Attach Compendium, Do Not Delete/merge, [id number] 16:55:15 pregna ncy test, urine 2019 020 In-Office Order, Internal Use Only DO Not Attach Compendium DO Not Attach Compendium, Do Not Delete/merge, [id number] 0 13:18:56 pregna ncy test, urine 2019 020 LETTY In-Office Order, Internal Use Only DO Not Attach Compendium DO Not Attach Compendium, Do Not Delete/merge, [id number] 09:12:09 Referral None record ed. Procedures None record ed. Surgeries None record ed. Imaging MAMMO, diagno stic, unilat eral 2021 022 [facility] ([facility]), [address] [place], [address], 3 11:11:10 US, breast , unilat eral 2021 022 [facility] ([facility]), [address] [place], [address], 3 11:41:10 Medication Orders Mirena 21 mcg/24 hr (up to 8 years) 52 mg intrau terine device 2020 021 [id number] Not available 4 22:34:46 Mirena 21 mcg/24 hr (up to 8 years) 52 mg intrau terine device 2020 021 [id number] [id number], [address], [place], [id number], 4 22:34:47 Nexpla non 68 mg subder mal implan t 2019 020 [facility], [address] [place] [address], [id number], 1 13:01:08 PrePlu s 27 mg iron-1 mg tablet 2019 020 INTERFACE [facility], [address] [place] [address], [id number], 0 12:56:14 Nexpla non 68 mg subder mal implan t 2019 020 [facility], [address] [place] [address], [id number], 13:01:08 Patient TargetsNo targets recorded. Patient Instructions Encounter Date Encounter Id Patient Instructions Last Modified By Organization Details Last Modified Time 03/18/2020 [id number] implant for dave h control: care instructions Not available 03/18/2020 13:18:56 08/05/2020 [id number] intrauterine device (IUD) insertion: care instructions Not available 08/11/2020 16:55:14 05/24/2022 [id number] ALLAN Rizo Discussed with OLVIN [email or web address] Not available 05/24/2022 13:17:16 Reason for Referral None Reported. Results Created Date Observation Date Name Description Value Unit Range Abnormal Flag Note LastModifiedBy Organization Detail LastModifiedTime 08/06/19 21 08/05/2020 pregn angel test, urine HCG negati ve Not Available In-Office Order Internal Use Only DO Not Attach Compendium DO Not Attach Compendium, Do Not Delete/merge, [id number] 08/05/2020 09:39:21 03/18/20 20 03/18/2020 pregn angel test, urine HCG negati ve Not Available In-Office Order Internal Use Only DO Not Attach Compendium DO Not Attach Compendium, Do Not Delete/merge, [id number] 03/18/2020 13:07:03 03/16/20 20 03/16/2020 pregn angel test, urine HCG negati ve Not Available In-Office Order Internal Use Only DO Not Attach Compendium DO Not Attach Compendium, Do Not Delete/merge, [id number] 03/09/2020 12:23:52 11/11/19 22 11/10/2021 POC GLUCO SE POC glucose 86 mg/dL 70-99 Not Available [facility] (Lab) [place], [address], 11/10/2021 07:57:28 11/11/19 22 11/10/2021 POC GLUCO SE POC glucose 86 mg/dL 70-99 Not Available [facility] (Lab) [address], [place], [address], 11/10/2021 09:34:27 06/24/19 23 06/24/2022 MAMMO , diagn ostic , digit al, bilat eral No observ ation record ed. [facility] [address] [place], [address], 07/01/2022 11:50:15 06/24/19 23 06/24/2022 US, breas t, unila teral No observ ation record ed. [facility] Orders [address] [facility], [place], [address], 07/01/2022 11:50:16 01/13/20 23 12/02/2022 US, breas t, unila teral No observ ation record ed. [address], [place], [address], 01/13/2023 14:24:42 01/14/20 23 12/22/2022 biops y, breas t, w/ ultra sound salima nce (PROC ) No observ ation record ed. [address] [facility] [address], [place], [address], 01/13/2023 14:38:36 Result Notes None recorded. 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 Completed 2018 Anika Ramirez MD Attn: Ashlee niki,[address] [place] [address], [address], [place] [facility] 1 17:15:34 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 596860624570 102 Active 2018 Anika Ramirez MD Attn: Ashlee niki,[address] [place] [address], [address], [place] [facility] 1 17:15:34 Abnormal progester one 851293998 Active 2018 Anika Ramirez MD Attn: Ashlee prince,[address] [place], [address], [place] [facility] 1 17:15:35 Abnormal progester one 997693673 Completed 2018 Anika Ramirez MD Attn: Ashlee prince,[address] [place], [address], [place] [facility] 1 17:15:35 Genital herpes simplex type 2 655321777 Active 2018 Anika Ramirez MD Attn: Ashlee prince,[address] [place], [address], [place] [facility] 1 17:15:35 Genital herpes simplex type 2 986070708 Completed 2018 Anika Ramirez MD Attn: Ashlee prince,[address] [place], [address], [place] [facility] 1 17:15:35 Marijuana user 277810650 Active 2018 Anika Ramirez MD Attn: Ashlee prince,[address] [place], [address], [place] [facility] 1 17:15:34 Marijuana user 270073916 Completed 2018 Anika Ramirez MD Attn: Ashlee prince,[address] [facility], [place], [address], [place] [facility] 1 17:15:34 Liver enzymes level above reference range 234291995 Active 2018 MARISSA SALAS Attn: Ashlee prince,[address] [facility], [place], [address], [place] [facility] 9 13:37:08 Anemia 191981867 Active 2018 MARISSA SALAS Attn: Ashlee prince,[address] [facility], [place], [address], [place] [facility] 9 13:37:15 Subchorio myra hematoma 386031942 Completed 2018 Anika Ramirez MD Attn: Ashlee prince,[address] [facility], [place], [address], [place] [facility] 1 17:15:35 Subchorio myra hematoma 351563156 Active 2018 Anika Ramirez MD Attn: Ashlee prince,[address] [facility], [place], [address], [place] [facility] 1 17:15:35 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, [place], [address], [place] [facility] 1 17:15:34 Morbid obesity 347134650 Completed 2019 Anika Ramirez MD Attn: Ashlee prince,[address] [facility], [place], [address], [place] [facility] 1 17:15:34 Fibroaden sachin of left breast 345499391845 9102 Active 2022 MARISSA SALAS Attn: Ashlee prince,[address] [facility], [place], [address], [place] [facility] 3 14:39:39 Cyst of right Bartholin 's gland duct 657217195264 [address]683 Completed 201506/11/2019 MARISSA SALAS Attn: Ashlee prince,[address] [facility], [place], [address], [place] [facility] 0 12:30:01 Notes:Some problems listed i n Documents: #[id number], #[id number] could not be added to this patient's chart. Please review these documents and add these problems to the patient's chart manually as needed. Problem Notes None recorded. Procedures Surgical History Date Name Laterality Status Provider Name and Address Organization Details Recorded Time 1 Control Implant Removal completed MARISSA DILLARD Attn: Accounting,[address] [facility], [place], [address], [place] [facility] 08/05/2020 13:06:46 1 IUD Insertion completed MARISSA DILLARD Attn: Accounting,[address] [facility], [place], [address], [place] [facility] 08/05/2020 13:06:42 0 Control Implant Insertion completed MARISSA DILLARD Attn: Accounting,[address] , [place], [address], [place] [facility] 03/17/2020 21:27:35 0 delivery completed Cheyanne Barbosa MA [facility] 03/09/2020 12:23:15 0 Date of Last Pap Smear completed Cheyanne Barbosa MA [facility] 03/09/2020 12:22:22 4 Other completed Della Huntley MA [facility] 05/18/2016 10:40:53 Imaging Results Imaging Date Name Status LastModified by Organiz ation Details LastModified Time 06/24/2022 MAMMO, diagnostic, digital, bilateral completed [facility] [address] [place], [address], 07/01/2022 11:50:15 06/24/2022 US, breast, unilateral completed [facility] [address] [place], [address], 07/01/2022 11:50:16 12/02/2022 US, breast, unilateral completed [address], [place], [address], 01/13/2023 14:24:42 12/22/2022 biopsy, breast, w/ ultrasound guidance (PROC) completed [address] [facility] [address], [place], [address], 01/13/2023 14:38:36 Procedure Notes None recorded. Medical Equipment None Reported. Allergies No known drug allergies Medications Name Sig Start Date Stop Date Status Note LastModified by Organization Details LastModified Time insulin syrg mis 1ml/31g 05/11 completed Not Available Not Available Not Available cyclobenz aprine 10 mg tablet 05/13 completed Not Available Not Available Not Available amoxicill in 500 mg capsule 05/11 completed Not Available Not Available Not Available furosemid e 40 mg tablet TAKE 1 TABLET BY MOUTH EVERY DAY active Not Available Not Available No t Available Mirena 21 mcg/24 hr (up to 8 years) 52 mg intrauter ine device Place 1 device in uterus x 5 years 2020 active [facility]: APPROVED /[id number] (07/24/20 - 1) Device placed in cabinet: cm Not Available Not Available Not Available labetalol 200 mg tablet Take 1 tablet twice a day by oral route. active Not Available Not Available No t Available clindamyc in HCl 300 mg capsule 05/11 completed Not Available Not Available Not Available azithromy hunter 250 mg tablet 05/11 completed Not Available Not Available Not Available Glucagon Emergency Kit 1 mg solution for injection active Not Available Not Available No t Available fluconazo le 150 mg tablet Take 1 tablet every day by oral route for 1 day. 05/13 completed Not Available Not Available Not Available glipizide ER 10 mg tablet, extended release 24 hr 05/13 completed Not Available Not Available Not Available ceftriaxo ne 250 mg solution for injection Take 250 mg by injectio n route. 06/22 completed Not Available Not Available Not Available glipizide ER 5 mg tablet, extended release 24 hr 05/11 completed Not Available Not Available Not Available permethri n 5 % topical cream 05/11 completed Not Available Not Available Not Available Jai Low Dose Aspirin 81 mg tablet,de layed release Take 1 tablet every day by oral route. 03/09 completed Not Available Not Available Not Available penicilli n V potassium 500 mg tablet 05/13 completed Not Available Not Available Not Available hydralazi ne 25 mg tablet TAKE 2 TABLETS BY MOUTH TWICE A DAY active Not Available Not Available No t Available metronida zole 500 mg tablet Take 1 tablet twice a day by oral route for 7 days. 03/09 completed Not Available Not Available Not Available nifedipin e ER 30 mg tablet,ex tended release 03/09 completed Not Available Not Available Not Available acetamino phen 300 mg-codein e 30 mg tablet TAKE 1 TABLET BY MOUTH EVERY 6 HOURS NEEDED FOR PAIN active Not Available Not Available No t Available amlodipin e 5 mg tablet 05/11 completed Not Available Not Available Not Available tramadol 50 mg tablet TAKE 1 TABLET BY MOUTH EVERY 8 HOURS NEEDED FOR PAIN active Not Available Not Available No t Available acyclovir 800 mg tablet Take 1 tablet every day by oral route. 03/09 completed Not Available Not Available Not Available ketorolac 0.5 % eye drops INSTILL ONE DROP IN LEFT EYE 3 TIMES DAILY X 2 WKS THEN DECREASE TO 2 TIMES DAILY X 4 WKS active Not Available Not Available No t Available Vitamin tablet Take 1 tablet every day by oral route as directed for 90 days. 03/09 completed Not Available Not Available Not Available oxycodone -acetamin ophen 5 mg-325 mg tablet 03/09 completed Not Available Not Available Not Available prednisol one acetate 1 % eye drops,gaudencio pension INSTILL 1 DROP INTO LEFT EYE TWICE DAILY active Not Available Not Available No t Available dicyclomi ne 20 mg tablet active Not Available Not Available Not Available ciproflox acin 0.3 % eye drops INSTILL 1 DROP IN LEFT EYE FOUR TIMES DAILY. START DROPS AFTER SURGERY active Not Available Not Available No t Available amlodipin e 10 mg tablet active Not Available Not Available Not Available cephalexi n 500 mg capsule TAKE 1 (ONE) CAPSULE BY MOUTH THREE TIMES PER DAY FOR 14 DAYS active Not Available Not Available No t Available ferrous sulfate 325 mg (65 mg iron) tablet TAKE 1 TABLET BY MOUTH EVERY DAY active Not Available Not Available No t Available metformin 1,000 mg tablet 08/05 completed 03/09/20 Per pt take 500 mg as needed only DG RMA Not Available Not Available Not Available progester one micronize d 200 mg capsule Take 1 capsule twice a day by oral route. 03/09 completed Not Available Not Available Not Available indometha hunter 50 mg capsule 05/13 completed Not Available Not Available Not Available lisinopri l 20 mg-hydroc hlorothia zide 25 mg tablet active Not Available Not Available No t Available diclofena c sodium 75 mg tablet,de layed release 05/11 completed Not Available Not Available Not Available folic acid 1 mg tablet Take 4 tablets every day by oral route as directed . 03/09 completed Not Available Not Available Not Available ibuprofen 600 mg tablet TAKE 1 TABLET BY MOUTH EVERY 6 HOURS OR NEED FOR PAIN, STARTING AFTER SURGERY active Not Available Not Available No t Available letrozole 2.5 mg tablet Take 1 tablet every day by oral route. 05/13 completed Not Available Not Available Not Available colchicin e 0.6 mg tablet 05/13 completed Not Available Not Available Not Available nifedipin e ER 60 mg tablet,ex tended release TAKE 1 TABLET BY MOUTH TWICE A DAY active Not Available Not Available No t Available ondansetr on 4 mg disintegr ating tablet 05/13 completed Not Available Not Available Not Available cefdinir 300 mg capsule TAKE 1 CAPSULE (300 MG TOTAL) BY MOUTH 2 (TWO) TIMES DAILY FOR 9 DAYS. active Not Available Not Available No t Available fluticaso ne propionat e 50 mcg/actua tion [facility] spray,[facility] 07/16 completed Not Available Not Available Not Available metformin ER 500 mg tablet,ex tended release 24 hr 05/11 completed Not Available Not Available Not Available doxycycli ne hyclate 100 mg tablet TAKE 1 TABLET BY MOUTH EVERY 12 HOURS UNTIL FINISHED active Not Available Not Available No t Available naproxen 500 mg tablet 05/13 completed Not Available Not Available Not Available amoxicill in 875 mg-potass ium clavulana te 125 mg tablet TAKE 1 TABLET BY MOUTH EVERY 12 HOURS FOR 10 DAYS active Not Available Not Available No t Available amoxicill in 500 mg-potass ium clavulana te 125 mg tablet TAKE 1 TABLET BY MOUTH EVERY 12 HOURS WITH FOOD active Not Available Not Available No t Available tobramyci n 0.3 %-dexamet hasone 0.1 % eye drops,[facility] INSILL 1 DROP INTO THE LEFT EYE 4 TIMES A DAY START AFTER SURGERY active Not Available Not Available No t Available Tablet 28 mg iron-800 mcg Take 1 tablet every day by oral route. 05/13 completed Not Available Not Available Not Available azithromy hunter 500 mg tablet Take 2 tablets every day by oral route for 1 day. 06/22 completed Not Available Not Available Not Available Taztia XT 180 mg capsule,e xtended release 05/11 completed Not Available Not Available Not Available Ciprodex 0.3 %-0.1 % ear drops,[facility] 03/09 completed Not Available Not Available Not Available OneTouch Ultra2 Meter kit active Not Available Not Available No t Available Januvia 50 mg tablet TAKE 1 TABLET BY MOUTH EVERY DAY active Not Available Not Available No t Available Janumet 50 mg-1,000 mg tablet 03/09 completed Not Available Not Available Not Available cholecalc iferol (vitamin D3) 1,250 mcg (50,000 unit) capsule active Not Available Not Available Not Available cholecalc iferol (vitamin D3) 50 mcg (2,000 unit) tablet active Not Available Not Available Not Available Nexplanon 68 mg subdermal implant Inject 1 implant by subcutan eous route. 08/05 completed 03/16 Device in [facility] office. Pt appt schedule d for 03/18/20 @ 11:45 am. 08/05/20 Pt had device removed and switched to IUD Mirena DG RMA Not Available Not Available Not Available OneTouch Verio test strips active Not Available Not Available Not Available OneTouch Delica Lancets 30 gauge active Not Available Not Available Not Available PrePlus 27 mg iron-1 mg tablet Take 1 tablet by oral route. active Not Available Not Available No t Available Levemir FlexTouch U-100 Insulin 100 unit/mL (3 mL) subcutane ous pen 03/09 completed Not Available Not Available Not Available Jardiance 10 mg tablet TAKE 1 TABLET BY MOUTH EVERY DAY active Not Available Not Available No t Available OneTouch Delica Plus Lancet 33 gauge active Not Available Not Available Not Available Vitals Date Recorded Body height Body mass index (BMI) Body weight Systolic blood pressure Diastolic blood pressure Provider Name and Address Organization Details Last Updated DateTime 03/09/2020 172.72 cm 44.6 kg/m2 851575.5 6 g 148 mm[Hg] 86 mm[Hg] Cheyanne Barbosa [place] [facility] 0 12:25:34 Date Recorded Body height Body mass index (BMI) Body weight Systolic blood pressure Diastolic blood pressure Provider Name and Address Organization Details Last Updated DateTime 03/18/2020 172.72 cm 43.8 kg/m2 039770.6 g 152 mm[Hg] 92 mm[Hg] Cheyanne Barbosa MA [facility] 0 13:19:52 Date Recorded Body height Body mass index (BMI) Body weight Provider Name and Address Organization Details Last Updated DateTime 07/16/2020 172.72 cm 41.5 kg/m2 579184.72 g Brunilda Rachel MA [facility] 07/16/2020 11:47:18 Date Recorded Body height Body mass index (BMI) Body weight Systolic blood pressure Diastolic blood pressure Provider Name and Address Organization Details Last Updated DateTime 08/05/2020 172.72 cm 46.2 kg/m2 463394.0 8 g 124 mm[Hg] 74 mm[Hg] Cheyanne Barbosa MA [facility] 1 09:41:32 Date Recorded Body height Body mass index (BMI) Body weight Systolic blood pressure Diastolic blood pressure Provider Name and Address Organization Details Last Updated DateTime 05/24/2022 170.18 cm 40.6 kg/m2 463053.4 2 g 126 mm[Hg] 76 mm[Hg] Della Huntley MA [facility] 2 11:18:11 Social History Question Answer Notes LastModified by Organization Details LastModified Time Tobacco Smoking Status Never Smoker Della Huntley MA null, [facility] 05/18/2016 10:38:26 Do You Have An Advance Directive? No [email or web address] Information not available 05/18/2016 Is Your Home Air Conditioned? Yes Information not available 07/16/2020 What Is Your Level Of Alcohol Consumption? None Information not available 05/18/2016 Are You Currently Sexually Active With Anyone Who Has Traveled (within The Last 12 Weeks) To A Zika-affected Area? No Information not available 07/16/2020 Do You Have A Basement? No Information not available 07/16/2020 Do You Wear A Helmet When Biking? No Information not available 07/16/2020 Are You Blind Or Do You Have Difficulty Seeing? Yes WEARS GLASSES Information not available 07/16/2020 Is Blood Transfusion Acceptable In An Emergency? Yes Information not available 05/18/2016 What Is Your Level Of Caffeine Consumption? Moderate Information not available 07/16/2020 Are You A Caregiver? No Information not available 07/16/2020 How Much Tobacco Do You Chew? None Information not available 05/18/2016 What Type Of Real Estate Agency Principal Do You Use? None Information not available 07/16/2020 What Is Your Code Status? Other Information not available 07/16/2020 In The 14 Days Before Symptom Onset, Have You Had Close Contact With A Laboratory-con firmed COVID-19 While That Case Was Ill? No Information not available 07/16/2020 In The 14 Days Before Symptom Onset, Have You Had Close Contact With A Person Who Is Under Investigation For COVID-19 While That Person Was Ill? No Information not available 07/16/2020 Have You Been To An Area Known To Be High Risk For COVID-19? No Information not available 07/16/2020 Are You Currently Employed? No Information not available 07/16/2020 Are You Deaf Or Do You Have Serious Difficulty Hearing? No Information not available 07/16/2020 What Type Of Diet Are You Following? REGULAR Information not available 05/18/2016 Do You Have A Directive To Physicians? No Information not available 07/16/2020 Which Illicit Or Recreational Drugs Have You Used? Marijuana Information not available 05/18/2016 Have You Processed Blood Or Body Fluids From An Ebola Virus Disease Patient Without Appropriate PPE? No Information not available 07/16/2020 Do You Reside In Or Have You Traveled To An Area Where Ebola Virus Transmission Is Active? No Information not available 07/16/2020 Do You Or Have You Ever Used E-cigarettes Or Vape? Never Used Electronic Cigarettes Information not available 05/13/2019 Education 2 Year College Informatio n not available 05/18/2016 What Is The Highest Grade Or Level Of School You Have Completed Or The Highest Degree You Have Received? [id number] Information not available 07/16/2020 Do You Have An Electrostatic Air Filter? 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 7 Information not available 07/16/2020 On Those Days That You Engage In Moderate To Strenuous Exercise, How Many Minutes, On Average, Do You Exercise? 30 Information not available 07/16/2020 Have You Been Exposed To Chemicals Or Toxins? No Information not available 07/16/2020 Have You Been Exposed To Heavy Metals? No Information not available 07/16/2020 Have There Been Any Changes To Your Family Or Social Situation? No Information not available 07/16/2020 What Is The Fluoride Status Of Your Home? Unknown Information not available 07/16/2020 Are There Any Guns Present In Your Home? No Information not available 05/11/2018 Which Of Your Hands Is Dominant? Right Information not available 07/16/2020 Hard Of Hearing Or Deaf In One Or Both Ears? No Information not available 05/11/2018 Have You Recently Or Are You Planning To Travel To An Area With Zika Virus? No Information not available 07/16/2020 Do You Have A Humidifier? Yes Information not available 07/16/2020 How Many Years Have You Used Illicit Or Recreational Drugs? 23 Information not available 07/16/2020 Do You Use Insect Repellent Routinely? No Information not available 07/16/2020 Legally Blind In One Or Both Eyes? No Information not available 05/11/2018 Where Do You Live? Apartment Information not available 07/16/2020 Live Alone Or With Others? Alone Information not available 05/18/2016 Do You Have A High School Diploma Or Higher Education? Yes Information not available 07/16/2020 Do You Sometimes Have To Miss Your Medical Appointments Due To Difficult Getting Transportation ? No Information not available 07/16/2020 Do You Feel Unfairly Treated Due To Things Such As Race, Age, Gender, Disability Or Some Other Reason? No Information not available 07/16/2020 Do You Feel Physically And Emotionally Safe While Living At Home? Yes Information not available 07/16/2020 Do You Feel Physically And Emotionally Safe In Your Neighborhood Or Other Public Places? Yes Information not available 07/16/2020 How Long Have You Lived There? 8 YEARS Information not available 07/16/2020 Marital Status Single critical access hospital Informatio n not available 05/11/2018 Do You Have A Medical Power Of Infantry Weapons Officer? No Information not available 07/16/2020 Do You Have Moisture Problems In Your Home? No Information not available 07/16/2020 What Was The Date Of Your Most Recent Tobacco Screening? 05/24/2022 Information not available 05/24/2022 How Many Children Do You Have? 1 Information not available 07/16/2020 Do You Have An Out Of Hospital DNR? No Information not available 07/16/2020 Performs Monthly Self-breast Exam? Yes Information not available 05/18/2016 Do You Have Any Pets? No Information not available 07/16/2020 Do You Use Protection During Sex? Usually Information not available 07/16/2020 What Is Your Relationship Status? Single Information not available 05/18/2016 Do You Use Your Seat Belt Or Car Seat Routinely? Yes Information not available 07/16/2020 Seat Belts Used Routinely Yes Information not available 05/18/2016 Are You Sexually Active? Yes Information not available 05/18/2016 Smoke Alarm In Home Yes Information not available 05/11/2018 Do You Have Smoke And Carbon Monoxide Detectors In Your Home? Yes Information not available 07/16/2020 Are You Passively Exposed To Smoke? No Information not available 07/16/2020 Do You Or Have You Ever Used Smokeless Tobacco? Never Used Smokeless Tobacco Information not available 05/13/2019 Are There Any Smokers In Your House? No Information not available 07/16/2020 How Much Tobacco Do You Smoke? No [email or web address] Information not available 05/18/2018 Do You Participate In Social Media? Yes Information not available 07/16/2020 What Types Of Sporting Activities Do You Participate In? NONE Information not available 07/16/2020 General Stress Level High Information not available 05/11/2018 Do You Feel Stressed (tense, Restless, Nervous, Or Anxious, Or Unable To Sleep At Night)? [id number] Information not available 07/16/2020 Do You Use Any Illicit Or Recreational Drugs? Yes Marijuana Information not available 05/24/2022 Do You Use Sunscreen Routinely? No Information not available 05/18/2016 Has Tobacco Cessation Counseling Been Provided? No Information not available 05/24/2022 On What Date Was Tobacco Cessation Counseling Provided? 05/24/2022 Information not available 05/24/2022 How Many Years Have You Smoked Tobacco? 0 [email or web address] Information not available 05/18/2018 Have You Recently Traveled Abroad? No Information not available 07/16/2020 What Type Of Noise Exposure Are You Exposed To? NoExposureToExcessiveN oise Information not available 07/16/2020 Have You Used IV Drugs? No Information not available 07/16/2020 Are You Currently In School? No Information not available 07/16/2020 Do You Have Any Dietary Restrictions? No Information not available 07/16/2020 Do You Or Have You Ever Used Any Other Forms Of Tobacco Or Nicotine? No Information not available 05/24/2022 Sex: Female Functional Status Question Answer Note LastModified by Organizat ion Details LastModified Time Do you have difficulty walking or climbing stairs? No Information not available 07/16/2020 Do you have transportation difficulties? No Information not available 07/16/2020 Are you able to walk? YESWOREST Information not available 07/16/2020 Do you have difficulty doing errands alone? No Information not available 07/16/2020 Are you able to care for yourself? Yes Information not available 07/16/2020 Do you have difficulty dressing or bathing? No Information not available 07/16/2020 What is your exercise level? Moderate Information not available 05/18/2016 Mental Status Question Answer Note LastModified by Organization D etails LastModified Time Do you have difficulty concentrating, remembering or making decisions? No Information no t available 07/16/2020 Family History Relationship Description Onset Age of this Age Resolved Age Notes LastModified by Organization Details LastModified Time Mother Diabetes mellitus HTN Not available 05/18 10:37:36 Father Diabetes mellitus 34 pt states father deceas ed heart attack Not available 05/18/2016 10:38:19 Medical History Condition Response Other N High Blood Pressure Y Breast Cancer N Thyroid Problems N Kidney or Bladder Problems N GI Problems N Depression N Blood Clots N Lung Disease N Acne N Breast Problem N Eating Disorder N Anemia N Anesthesia Complications N Headaches/Migraines N Anxiety Disorder N Diabetes Y Ovarian Cancer N Muscle, Joint, or Bone Problems N Blood Transfusions N Seizures/Epilepsy N Polyps N Infertility N Acid Reflux (GERD) N Cancer N Abuse/Domestic Violence N Asthma N Endometriosis N High Cholesterol N Hepatitis N Liver Disease N Heart Disease N Pre-Eclampsia N Osteoporosis N Gynecological History Statement/Question Response Abnormal Pap N Flow Moderate Date of LMP 05/24/2022 On BCP's at Conception? N STIs/STDs N HPV Vaccine Y Duration of Flow (days) 3 Age at Menarche 14 Current Control Method IUD Age at First Child 33 Frequency of Cycle (Q days) 30 Sexually Active? Y Menses Monthly N Date of Last Pap Smear 06/26/2019 Sexual Problems? N LMP Definite Desired Control Method IUD Obstetrics History GPAL:G 2 P 0 1 1 1 Type Value Multiple Births 0 Full Term 0 Induced 0 Spontaneous 1 Premature 1 Living 1 Ectopics 0 Total 2 Immunizations Vaccine Type Date Status Note Provider Nam e and Address Organization Details Recorded Time Influenza, split virus, quadrivalent, preservative 6 completed Not Available [facility] 06/22/2019 02:33:00 Influenza, split virus, quadrivalent, preservative 2 completed MARISSA DILLARD Attn: Accounting[address] [facility], [place], [address], [facility] 05/24/2022 15:54:52 Past Encounters Encounter ID Performer Location Encounter Start Date Encounter Closed Date Diagnosis/Indication Diagnosis SNOMED-CT Code Diagnosis ICD10 Code Diagnosis Note [id number] MD Faustina Hairston ([facility]) [address] [place] [address] 05/18/2016 10:05:18 05/20/2016 12:56:20 Administration of influenza vaccine 13293731 Z23 Abscess of vulva 5494689 1 N76.4 Reviewed ER records which say that she had I & d of right labial abscess. Removed iodoform gauze. Cleaned and packed with sterile strip. bandage applied. No signs of infection. Advised to continue clindamyci n prescribed from ER. Patient tolerated procedure well [id number] Cecilia Anne MD [facility] ([facility]) [address] [place] [address] 05/20/2016 14:44:00 05/20/2016 16:31:57 Abscess of vulva 70254286 N76.4 continue clindamyci n. No packing necessary at this time. , Advised patient if fever greater than 100.4, severe vulvar pain to go to ER [id number] MD Faustina Hairston ([facility]) [address] [place] [address] 05/11/2018 10:52:22 05/14/2018 11:17:21 Gynecologic examination 13890885 Z01.419 Age appropriat e counseling done. Venereal d isease screening 570035503 Z11.3 Z20.2 Morbid obesity 211802375 E66.01 Counseled About weight loss, diet and excercise. Advised patient to f/u with clinical implementation specialist. Increased blood pressure 85948323 R03.0 Advised patient to f/u with PCP. Trying to conceive 34970 9001 Z31.9 COUNSELED ABOUT TIMING OF INTERCOURS E. Counseled patient about effects of lisinopril on future . Advised patient to see PCP to switch to different form since she is actively trying to get Polycystic ovaries 19109 008 E28.2 counseled about PCOS. Counseled about insulin resistance , effect of insulin on androgens, menstrual periods, estrogen levels and its effect on EMT, breast, metabolic syndrome. Counseled About weight loss, diet and excercise. Patient already on metformin. Advised patient to continue.O ffered letrozole since she is actively trying to get with difficulty . Counseled about benefits and risks of it. Patient agreed and verbalized understand ing. Proteinuria 96903667 R80 .9 Counseled about it. Oligomenorrhea 23165571 N91.5 counseled about different causes including PCOS. Counseled about insulin resistance , effect of insulin on androgens, menstrual periods, estrogen levels and its effect on EMT, breast, metabolic syndrome. Counseled About weight loss, diet and excercise. [id number] ERAN Motley ([facility]) [address] [place] [address] 05/18/2018 11:39:06 05/21/2018 15:46:47 Gonococcal cervicitis 141295633 A54.03 [id number] MD Faustina Hairston ([facility]) [address] [place] [address] 06/22/2018 11:23:26 06/26/2018 15:26:37 Gonococcal cervicitis 093603047 A54.03 Counseled thoroughly about it. Safe sex counseling and use of condoms. Advised patient no intercours e until LUIS ALBERTO is negative.. Notified patient that Partner need to be treated. LUIS ALBERTO done today. Genital he rpes simplex 49034889 A60.9 Counseled about it and safe sex. Advised patient to report out breaks.EXP LAINED PATIENT THAT VULVAR BURNING COULD BE POSSIBLE FROM SHAVING VS GENITAL HERPES. Polycystic ovaries 85361 008 E28.2 d/w Patient lab work, TVUS result. counseled about PCOS. Counseled about insulin resistance , effect of insulin on androgens, menstrual periods, estrogen levels and its effect on EMT, breast, metabolic syndrome. Counseled About weight loss, diet and excercise. Patient already on metformin. Advised patient to continue. Trying to conceive 97793 9001 Z31.9 On letrozole. Advised miss Lily Michael to schedule patient with MELISSA. MELISSA referral placed last visit. Morbid obesity 057882946 E66.01 Counseled About weight loss, diet and excercise. Advised patient to f/u with clinical implementation specialist. [id number] MARISSA DILLARD ([facility]) [address] [place] [address] 05/13/2019 14:03:20 05/14/2019 11:37:07 Routine care 636508514 Z34.90 Venereal d isease screening 476370619 Z11.3 screening 2437 97483 Z36.85 Essential hypertension 04381239 I10 Taken off lisinopril and put on labetalol by hospital after positive test. Type 2 patrick betes mellitus 90461232 E11.9 Managed by PCP. Pt states last A1c was in Feb but she is unsure of number. Was put on Janumet. Has already had eye exam this year. F/u with repeat A1c. Proteinuria 12261129 R80 .9 Nephrology referral made in the past but pt has not been or scheduled appt. Will refer again. [id number] MARISSA DILLARD ([facility]) [address] [place] [address] 06/11/2019 11:24:19 06/12/2019 13:49:47 Routine care 105666259 Z34.90 Abnormal progesterone 13 5747070 R94.7 Liver enzy mes level above reference range 412128098 R74.8 Likely RAMIREZ. Genital he rpes simplex type 2 451226744 A60.00 On suppressiv e antiviral. 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 Marijuana user 577950742 F12.90 Cessation strongly encouraged . Proteinuria 59251371 R80 .9 Has not completed 24 hour urine yet. Anemia 915823808 D64.9 On iron supplement . Past pregn angel history of miscarriage 028630374 Z87.59 Type 2 patrick betes mellitus 47593406 E11.9 A1c 6.6. On Janumet. Essential hypertension 03452587 I10 Taken off lisinopril and put on labetalol by hospital after positive test. Morbid obesity 252224967 Z68.41 [id number] MARISSA DILLARD ([facility]) [address] [place] [address] 03/09/2020 11:41:03/17/2020 14:19:59 Family planning surveillance 553865689 Z30.09 34yo F with h/o DM2, morbid obesity, and HTN requesting control. She is 4 months s/p emergency for preeclamps ia. Currently breastfeed ing. Discussed different control options with patient such as OCPs, patch, ring, Depo Provera shot, Nexplanon, and IUDs. She does not want to be on a medication daily in fear of forgetting the medication . Advised against estrogen based contracept lucrecia and Depo given her comorbidit ies and increased risk of CV disease. Pt voiced understand ing and is interested in the Nexplanon. Ordered today. RTC in 1-2 weeks for insertion. [id number] MARISSA DILLARD [facility] ([facility]) [address] [place] [address] 03/18/2020 12:52:22 03/19/2020 10:44:20 Insertion of subcutaneous contraceptive 380086219 Z30.9 Pt tolerated placement of nexplanon well. Counseled pt on side effects including irregular bleeding. RTC in 2-3 months. [id number] MARISSA DILLARD ([facility]) [address] [place] [address] 0 07/16/2020 08:20:25 07/27/2020 06:20:40 Contraception care 898138032 Z30.40 Nexplanon placed in 03/2020. Persistent bleeding, pt desires new control. Estrogen should be avoided given comorbidit ies (uncontrol led HTN, DM2, morbid obesity). Discussed POPs and IUD, pt desires IUD. Will order today. Will contact pt when device in office to schedule insertion. [id number] [facility] [address] [place] [address] 0 08/05/2020 09:16:59 08/12/2020 09:00:47 Insertion of intrauterine contraceptive device 03272264 Z30.430 Mirena IUD placed without issue. Patient tolerated procedure well. See procedure notes for details. RTC in 6 weeks for IUD check. Removal of subcutaneous contraceptive 947239911 Z30.46 Nexplanon removed from the LUE without issue. Patient tolerated procedure well. See procedure note for more details. Hypertensive disorder 38 009341 I10 She reports being on amlodipine and labetalol. Feels weak and lightheade d after taking them. Normotensi ve in office (124/74). Recommende d pt to follow up with PCP regarding HTN management /possible med changes. [id number] MARISSA DILLARD ([facility]) [address] [place] [phone] 0 05/24/2022 10:49:56 05/25/2022 10:10:48 Administration of influenza vaccine 91552603 Z23 Annual flu shot requested and administer ed. Mass of left breast 1224 999720 9444080 N63.20 Patient had mild injury to left breast 3 weeks ago and has since developed a lump. PE: Left breast shows 1.5cm well-defin ed mobile nodule at 9 o'clock position. Slightly tender to palpation. No overlying skin changes. Right breast is normal.- Will evaluate further with diagnostic imaging. Health Concerns Section Related Observation LastModified by Organization Detai ls LastModified Time None Recorded Concern Status LastModified by Organization Details LastModified Time None Recorded Advance Directives Directive N: Payers Encounter Date Sequence Insurance Name Policy Number Policy Wild Covered Member ID Wild Member ID Guarantor Name 03/09/2020 2 [place] WHEN MEDICARE OR MEDICARE REPLACEMENT PRIMARY) Nataliia Tim [id number] Nataliia Tim 03/09/2020 1 [facility] (MEDICARE REPLACEMENT/AD VANTAGE - HMO) [id number] Nataliia Tim [id number] Nataliia Tim 03/18/2020 2 [place] OR MEDICARE REPLACEMENT PRIMARY) Nataliia Tim [id number] Nataliia Tim 03/18/2020 1 [facility] (MEDICARE REPLACEMENT/AD VANTAGE - HMO) [id number] Nataliia Tim [id number] Nataliia Tim 07/16/2020 2 [place] OR MEDICARE REPLACEMENT PRIMARY) Nataliia Tim [id number] Nataliia Tim 07/16/2020 1 [facility] (MEDICARE REPLACEMENT/AD VANTAGE - HMO) [id number] Nataliia Tim [id number] Nataliia Tim 08/05/2020 2 [place] OR MEDICARE REPLACEMENT PRIMARY) Nataliia Tim [id number] Nataliia Tim 08/05/2020 1 [facility] (MEDICARE REPLACEMENT/AD VANTAGE - HMO) [id number] Nataliia Tim [id number] Nataliia Tim 05/24/2022 2 [place] OR MEDICARE REPLACEMENT PRIMARY) Nataliia Tim [id number] Nataliia Tim 05/24/2022 1 [facility] (MEDICARE REPLACEMENT/AD VANTAGE - HMO) [id number] Nataliia Tim [id number] Nataliia Tim Notes Date Note Type Note Provider Name and Address Organization Details Recorded Time 03/09/2020 text/html 34 yo obese AAF with a Hx of HTN and DM2 presents for control after having a baby 4 months ago. The pt states that she had an emergency due to pre-eclampsia. She has mild areas of numbness but has healed well and has no complications. She is currently Rush and they are both doing well. She states that he is a wonderful baby and she is able to sleep throughout the night. She denies that she would like the daily pills because she would forget to take them. She is interested in the depo shot but is open to other forms that she would not have to take daily. Pt denies pelvic pain, abnormal discharge, vaginal symptoms, n/v/f. MARISSA DILLARD Attn: Accounting[address] [place], [address], [facility] 03/16/2020 10:58:41 03/18/2020 text/html 34 yo obese AAF with a Hx of HTN and DM2 presents for nexplanon insertion.LMP: 03/06/2020 MARISSA DILLARD Attn: Accounting[address] [facility], [place], [address], [place] [facility] 03/18/2020 17:54:01 07/16/2020 text/html 34 y/o w ith PMHx of uncontrolled HTN, DM, and morbid obesity presents with irregular bleeding. She had Nexplanon placed in 03/2020. She had regular cycles at first. Cycles got progressively longer. Now, she has been bleeding x 3 weeks. She endores cramping. Denies any nosebleeds, easy bruising, fatigue, dizziness, palpitations, SOB, chest pain. She would like to switch control. MARISSA DILLARD Attn: Accounting[address] [facility] [place], [place], [address], [facility] 07/24/2020 15:03:46 08/05/2020 text/html 34yo F w ith hx of uncontrolled HTN, DM, and morbid obesity presents for nexplanon removal and IUD insertion. Nexplanon placed in 03/2020. She has experienced light vaginal bleeding daily since 06/05/2020. She reports occasional episodes of feeling weak, light-headed, and nauseous. She relates this to her HTN medications as symptoms only occur in the am after taking medication. She follows with PCP who is managing chronic conditions. She tolerating fluids and solids. Denies changes in BM, hematemesis, fever, chills, chest pain, SOB, edema, denies vaginal pruritis, burning, dysuria, hematuria, or melena. MARISSA DILLARD Attn: Accounting[address] [facility], [place], [address], [facility] 08/11/2020 17:03:22 05/24/2022 text/html Breast MassRepor dave bypatient.Location: left; upper inner quadrant Onset/Timin-2 weeks Quality:dull; localized Severity:mild Modifying Factors:touch Associated Symptoms:no fever; no skin redness; no nipple discharge; no arm pain; no arm swelling; no chest pain;breast swelling 36y/o F presents to clinic for L breast pain and mass x 2 weeks. Patient's states son stepped on her left breast while patient was laying in bed 3 weeks ago. Since then patient has noticed a small tender lump on the breast. Did not note prior to this incident. Denies FHx breast cancer, skin changes, nipple discharge. MARISSA DILLARD Attn: Accounting[address] [facility], [place], [address], [facility] 05/24/2022 15:59:15 OBGyn Episode Ob Episode Information Episode Created Date Number of Fetuses Patient Bloodtype Patient rh Status Prepregnancy Weight lbs Domestic Partner Domestic Partner Phone Father Name Calender Operator Status 05/13/20 19 1 O Positive CLOSED Fetus Data First Name Last Name Admitted to NICU Weight (g) Sex Living Outcome Pediatric Complications Fetus ID Race Codes Race Delivery Type Antoin o Morris Bucke jorge III true 1360.77 6 M Prematur e 22448 8-6 Afric an Ameri can Problems Problem Notes Problem Name Start Date End Date Resolution Snomed Code Not e 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 [id number] Past history of miscarriage 06/11/2019 731508535 Genital herpes simplex type 2 05/21/2019 084546166 Abnormal progesterone 05/21/2019 4214464 00 Subchorionic hematoma 05/21/2019 8859770 04 Marijuana user 05/21/2019 693244216 Morbid obesity 06/11/2019 726201690 Faisal Calculation Initial Faisal Date Initial Exam Date Initial Exam Provider Initial Ultrasound Date Last Menstrual Period Date Ultra Sound Weeks Gestation 12/11/2019 05/13/2019 04/17/2019 03/05/2019 6 Eighteen To Twenty Week Faisal Update Ultra Sound Date Fundal Height At Umbil Quickening Date Ultra Sound Latest Weeks Gestation Final Faisal Confirmed By Final Faisal Confirmed Date Final Faisal Date Ultra Sound Latest Days Gestation 0 05/13/2019 12/11/19 20 0 Pre- Flowsheet Flowsheet Date 05/13/2019 Dowd Score Blood Edema Fundus Height Fundus Units Glucose Ketones Leukocytes Nitrite Labor Signs Protein Cervic Dilation Cervic Effacement Cervic Station 1+ none 10 wks none negative 3+ Type Weight in lbs Pre/Post Dialysis Refused Weight 289.865333292764 BP Diastolic BP Location Tested BP Systolic BP Type 88 140 sitting Fetus Heart Rate Present Fetus Movement Comments NOB labs today and OB educat ional packet reviewed and provided to pt. Order for US given. Pt with h/o DM2, HTN, proteinuria, morbid obesity, miscarriage. Complete transfer of care to [facility]. Flowsheet Date 06/11/2019 Dowd Score Blood Edema Fundus Height Fundus Units Glucose Ketones Leukocytes Nitrite Labor Signs Protein Cervic Dilation Cervic Effacement Cervic Station 1+ none 13 wks none negative none 3+ Type Weight in lbs Pre/Post Dialysis Refused Weight 280.71233734972 BP Diastolic BP Location Tested BP Systolic BP Type 78 138 sitting Fetus Heart Rate Present A 156 Present Fetus Movement Comments Pt is full transfer of care to [place] in [place]. She has appt scheduled 06/18. Flowsheet Date 03/09/2020 Dowd Score Blood Edema Fundus Height Fundus Units Glucose Ketones Leukocytes Nitrite Labor Signs Protein Cervic Dilation Cervic Effacement Cervic Station Type Weight in lbs Pre/Post Dialysis Refused Weight 293.93025907957 BP Diastolic BP Location Tested BP Systolic BP Type 86 L arm 148 sitting Fetus Heart Rate Present Fetus Movement Comments Menstrual History Last Menstrual Date Menses Monthly On Bcp Conception Prior Menses Frequency Hcg Plus Date Menarche Onset Age 1003/05/2019 true Genetic Screening And Infection History Question Response Note Patient's Age Will Be 35 Yea rs Or Older At Estimated Date of Delivery false Thalassemia (Nepali, Persian, Mediterranean, Or Background): MCV < 80 false Neural Tube Defect (Meningom yelocele, Spina Bifida, Or Anencephaly) false Congenital Heart Defect false Down Syndrome false Geremias-Sachs (eg, Episcopal, Cajun, Kuwaiti-Zambian) f alse Chago Disease false Sickle Cell Disease Or Trait () false Hemophilia Or Other Blood Disorders false Muscular Dystrophy false Cystic Fibrosis false [place]'s Chorea false Mental Retardation/Autism false If Yes, Was Person Tested For Fragile X? false Other Inherited Genetic Or Chromosomal Disorder false Maternal Metabolic Disorder (eg, Type 1 Diabetes , PKU) false DM2 Patient Or Baby's Father Had A Child With Defects Not Listed Above false Recurrent Loss, Or A Stillbirth true 1 miscarriage Medications (including Suppl ements, Vitamins, Herbs, OTC Drugs), Illicit/Recreational Drugs, Alcohol true see med li st If Yes, Agent(s) And Strength/Dosage false Any Other Genetic History false Live With Someone With TB Or Exposed To TB false Patient Or Partner Has History Of Genital Herpes true patient Rash Or Viral Illness Since Last Menstrual Perio d false History Of STD, Gonorrhea, Chlamydia, HPV, Syphi lis true gonorrhea Other Infection History false History of HIV false History of Hepatitis false Prior GBS-infected child false Plans and Education First Trimester Discussed Date Discussion Item Discussion Note Discuss ed By 05/13/2019 Anticipated course of care 05/13/2019 Alcohol 05/13/2019 Intimate partner violence ronak [email or web address] 05/13/2019 Environmental/work hazards j [email or web address] 05/13/2019 Screening for aneuploidy jco [email or web address] 05/13/2019 Nutrition counseling ; special diet; dietary precautions (mercury, listeriosis) 05/13/2019 Childbirth classes/hospital facilities [email or web address] 05/13/2019 HIV and other routine tests [email or web address] 05/13/2019 Risk factors identif ied by history 05/13/2019 Weight gain counseling jcort [email or web address] 05/13/2019 Exercise [email or web address] 05/13/2019 [facility]atogens [facility] 05/13/2019 Use of any medicatio ns (including supplements, vitamins, herbs, or OTC drugs) 05/13/2019 05/13/2019 Sexual activity [facility] 05/13/2019 Tobacco/smoking cess ation counseling (ask, advise, assess, assist, and arrange) [facility] 05/13/2019 Illicit/recreational drugs j [email or web address] 05/13/2019 Dental care [email or web address] 05/13/2019 [place] [id number] 05/13/2019 Seat belt use [email or web address] 05/13/2019 Indications for ultrasonography [email or web address] 05/13/2019 Avoidance of saunas or hot tubs [facility] 05/13/2019 Toxoplasmosis precautions (cats/raw meat) [place] [address] Second Trimester Discussed Date Discussion Item Discussion Note Discuss ed By Third Trimester Discussed Date Discussion Item Discussion Note Discuss ed By Delivery Information Delivery Date Delivery Type Labor Anesthesia Weeks Gestation Incision Type Labor Labor Length Hrs Delivered By Post Complications Tubal Sterilization Discharge Date Comments 0 Induce d Regional-Ep idural 33.3 Classical false afehrenbac her None false 10/30/2019 Discharge Information Feeding Method Contraceptive Method Maternal HG B and HCT Levels Combination Depo injection
--- OUTSIDE RECORDS SUMMARY | 2024-08-21 13:03 | XMS_ITS | CONTINUITY OF CARE DOCUMENT ---
Author Name [email or web address] Address Unknown Organization [facility] Address [address] [place] [address] Phone [phone] Care Team Providers Care Overlocker Name Role Phone Barney RICARDO, Karla Unavailable LJ AMBROSIO MD Unavailable [phone] INSURANCE PROVIDERS Payer name Policy type / Coverage type Jean Carlos red republican ID [id number] HMO Other [id number] HEALTHCARE AND FAMILY SERVICES Medicaid 0 [id number]
--- OUTSIDE RECORDS SUMMARY | 2024-08-21 13:03 | XMS_ITS | Clinical Summary ---
Author Organization [facility] Address [address] [place] [address] Care Team Providers Care Wage Adjuster Name Role Phone Ramiro Galloway DO Primary Care Provider [phone] Source Comments [facility],non-owned Affiliates and Associated Physician Practices is amultiple site organization consisting of ambulatory clinics and hospital sitesin [place], [place], [place] and [place]. This disclosure is being madepursuant to the Care Everywhere program and may not contain all information available regarding this patient. Last updated 18.[employer] [facility] Allergies No known active allergies Medications * Be aware that medications may not be up to date on this document. Always verify current medications with the patient. Medication Sig Dispensed Refills Start Date End Date Status 27-1 MG TABSIndications:Pr egnancy Take 1 tablet by mouth once daily Reasons: Active cetirizine (ZYRTEC) 10 MG tablet Take 1 tablet by mouth once daily 30 tablet 3 06/18/2019 Active glucagon (GLUCAGEN) injection Inject 1 mg into muscle as needed (Hypoglycemia) 1 Each 1 09/25/2019 Active Additional Information Patient not taking.Reported on 10/01/2019 blood glucose (ONETOUCH VERIO) test stripIndications:T ype 2 diabetes mellitus affecting in second trimester, antepartum ([facility]) Use 5 strips once daily 150 strip 9 09/25/2019 Active ONETOUCH DELICA LANCETS 33G MISCIndications:Ty pe 2 diabetes mellitus affecting in second trimester, antepartum ([facility]) Use 1 Each 5 times daily 100 Each 9 09/25/2019 Active NIFEdipine CR osmotic 24hr (ADALAT CC) 60 MG tablet Take 1 tablet by mouth once daily 30 tablet 5 10/30/2019 Active docusate sodium (COLACE) 100 MG capsule Take 1 capsule by mouth 2 times daily 60 capsule 2 10/30/2019 Active ferrous sulfate 325 (65 FE) MG tablet Take 1 tablet by mouth once daily 100 tablet 10/30/2019 Active metFORMIN (GLUCOPHAGE) 500 MG tablet Take 1 tablet by mouth daily with dinner 30 tablet 5 10/30/2019 Active Additional Information Patient not taking.Reported on 11/18/2019 amLODIPine (NORVASC) 10 MG tablet Take 10 mg by mouth once daily 10/29/2020 Active hydrALAZINE (APRESOLINE) 25 MG tablet Take 50 mg by mouth 2 times daily 12/28/2020 Active furosemide (LASIX) 40 MG tablet Take 40 mg by mouth once daily 02/24/2021 Active JANUVIA 50 MG tablet Take 50 mg by mouth once daily 02/04/2021 Active Active Problems Problem Noted Date Diagnosed Date Poor growth affecting management of mother in third trimester 09/23/2019 Nonspecific elevation of lev els of transaminase or lactic acid dehydrogenase (LDH) 09/23/2019 Anemia of chronic disease 09/05/2019 Assessment & Plan (09/05/2019 4:17 PM CDT): Status post a dose of Venofer. Plan: Orders given to have CBC repeated with third trimester labs Seasonal allergies 06/21/2019 Overview (06/21/2019): Zyrtec prescribed Heartburn during 06/21/2019 Overview (06/21/2019): Tums Assessment & Plan (09/05/2019 4:16 PM CDT): Has not yet started taking Tums. Encouraged to start with this intervention. High-risk 06/21/2019 Overview (06/21/2019): O+, Ab neg, H/H 10.1/29.8, MCV 91, plt 307, VDRL, HepB sAg, HIV - NR, urine culture neg; GC/CT neg, HbE AA, varicella and rubella imm, TSH normal. Drug screen + MJ. BV +, treated with flagyl. GBS neg 05/13/19 Assessment & Plan (09/05/2019 4:26 PM CDT): Plan 1. labor precautions emphasized 2. Kick count instructions given 3. Orders given to have labs, including CBC, drawn at next visit 4. Tdap at next visit Maternal morbid obesity, antepartum 06/21/2019 Overview (06/21/2019): Pre- BMI 40.9. Lost 150 lb since high school. Chronic snoring. Weight 289 at 10 weeks. Assessment & Plan (09/05/2019 4:29 PM CDT): Total weight gain 51 pounds from pregravid reported weight. On metformin. May have occult sleep apnea. Plan 1. Warrants additional ongoing counseling from dietitian 2. Would benefit from Anesthesia consult around 32 weeks Bilateral lower extremity edema 06/21/2019 Type 2 diabetes mellitus affecting , an tepartum 06/13/2019 Overview (09/05/2019): Was on Janumet before . A1c 05/13 6.6% 2TM anatomy: Incomplete Maternal echocardiogram [08/24/19]: EF 55-60 %. Wall thickness was mildly increased. Mild Aortic regurgitation. Mild mitral regurgitation. Mild pulmonic valve regurgitation. Mild increased pulmonary artery pressures. Mild tricuspid valve regurgitation. Assessment & Plan (09/05/2019 4:25 PM CDT): Blood glucose values all without any hypoglycemic events. Postprandial values have very narrow excursions and are lower than expected. Plan: 1. Instructed to decrease metformin to 500 mg breakfast and maintain 1000 mg with dinner 2. Continue to send blood glucose logs weekly for review 3. Continue to perform 4-7 blood glucose measurements daily 4. Aspirin for preeclampsia 5. Hemoglobin A1c every trimester 6. Serial growth --next assessment in 2 weeks 7. Due to temporary COVID 19 ultrasound changes no longer at highest risk for cardiac abnormalities--canceling echocardiogram since baseline hemoglobin A1c less than 7 8. Instructed to maintain follow-up maternal echocardiogram in October 11. Twice weekly nonstress testing starting at 32 weeks, with weekly BPP due to comorbid chronic hypertension 10. Delivery initiation between 38-39 weeks 11. Recommend 12. weight reduction Chronic hypertension with superimposed pre-eclam psia 06/13/2019 Overview (09/05/2019): X 5 years; Was on lisinopril and amlodipine before , BP 140/88, changed to labetalol 200 BID before care transferred. Started on 81 mg ASA before transfer. Baseline 24 hour urine greater than 11 g protein Assessment & Plan (09/05/2019 4:18 PM CDT): Baseline macular proteinuria. Urine dipstick today consistent with previous assessments. Blood pressure appropriate on medication. Plan: 1. Continue current dose of amlodipine and labetalol 2. Goal blood pressures <155/95 3. Instructed to ask insurance about obtaining a home blood pressure cuff 4. Continue Aspirin (162 mg) 5. Serial growth 6. Daily kick counts --education provided today 7. Weekly 10 point biophysical profile starting at 32 weeks 8. Delivery initiation at 39 weeks 9. Would benefit from and weight reduction Proteinuria affecting , antepartum 02/2020 Overview (06/21/2019): 3+ on urine dip Seropositive for herpes simplex 2 infection 02/2020 Overview (10/17/2019): Has never had an outbreak. IgG Ab, HSV 1 and 2 DNA PCR neg. Assessment & Plan (09/05/2019 4:14 PM CDT): Plan: Antiviral prophylactic medication to start around 35 weeks Elevated liver enzymes 05/21/2019 Marijuana user 05/21/2019 Overview (06/21/2019): Positive on urine drug screen. Trying to quit for Subchorionic hematoma 05/21/2019 Overview (06/21/2019): Small, seen on 10 week US exam. Not seen at 15 weeks. 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 Started on folic acid 4 mg/d at [facility] Resolved Problems Problem Noted Date Diagnosed Date Resolved Date Nausea and vomiting in 06/21/2019 09/05/2019 Overview (06/21/2019): Mostly morning. Encounters Date Type Department Care Team Description 08/20/2024 Telephone [facility] TRANSPLANT [address] [place] [phone] Sophia Barrientos RN Kidney Transplant Evaluation 08/13/2024 Telephone [facility] TRANSPLANT [address] [place] [phone] Sophia Barrientos RN Kidney Transplant Evaluation 08/09/2024 Telephone [facility] TRANSPLANT [address] [place] [phone] Sophia Barrientos RN Kidney Transplant Evaluation (Health history /) 08/05/2024 Telephone [facility] TRANSPLANT [address] [place] [phone] Sophia Barrientos RN Kidney Transplant Evaluation 07/05/2024 [facility] TRANSPLANT [address] [place] [phone] Karishma Dos Santos RN Kidney Transplant Evaluation 07/05/2024 Telephone [facility] TRANSPLANT [address] [place] [phone] Karishma Dos Santos RN Kidney Transplant Evaluation from Last 3 Months Immunizations Name Administration Dates Next Due FLU VACCINE QUAD IIV4 SPLIT 0.25 ML IM 6 TDAP (7yrs+) 09/19/2019 Family History Medical History Relation Name Comments CAD (Coronary Artery Disease) Father Diabetes - Type 2 Father Hypertension Father Diabetes - Type 2 Maternal Grandmother DVT - Deep Vein Thrombosis Mother Diabetes; unknown type Mother Hypertension Mother None Known Son Relation Name Status Comments Father Maternal Grandmother Alive Mother Son Alive Social History Tobacco Use Types Packs/Day Years Used Date Smoking Tobacco: Never Smokeless Tobacco: Never Tobacco Cessation:Counseling Given: No Alcohol Use Standard Drinks/Week Comments Not Currently 0 (1 standard drink = 0.6 oz pur e alcohol) Education Answer Date Recorded What is the highest level of school you have completed or the highest degree you have received? Some college, no degree 06/18/2019 Sex and Gender Information Value Date Recorded Sex Assigned at Not on file Gender Identity Not on file Sexual Orientation Not on file Last Filed Vital Signs Vital Sign Reading Time Taken Comments Blood Pressure 120/84 12/09/2019 1:32 PM CDT Pulse 91 12/09/2019 1:32 PM CDT Temperature 36.7 C (98 F) 12/09/2019 1:32 PM CDT Respiratory Rate 20 10/30/2019 4:30 PM CDT Oxygen Saturation 98% 10/30/2019 4:30 PM CDT Inhaled Oxygen Concentration - - Weight 124.3 kg (274 lb) 12/09/2019 1:32 PM CDT Height 172.7 cm (5' 8 ) 12/09/2019 1:32 PM CDT Body Mass Index 41.66 12/09/2019 1:32 PM CDT Plan of Treatment Health Maintenance Due Date Last Done Comments HEPATITIS B VACCINE (1 of 3 - 19+ 3-dose series) 2005 COVID-19 VACCINE (2023-2 5 season) 2024 INFLUENZA VACCINE (#1) 2024 2, 05/18/2016 DEPRESSION SCREENING 06/05/2024 PAP with HPV 06/26/2024 06/26/2019 DTAP/TDAP/TD VACCINES (2 - T d or Tdap) 09/18/2029 09/19/2019 ZOSTER VACCINE (1 of 2) 2036 HIV SCREENING Completed 09/19/2019 HEPATITIS C SCREENING Completed 09/20/2019 HIB VACCINE Aged Out No longer eligi ble based on patient's age to complete this topic HPV VACCINE Aged Out No longer eligi ble based on patient's age to complete this topic MENINGOCOCCAL (Group B) VACCINE SHARED DECISION-MAKING Aged Out No longer eligible based on patient's age to complete this topic MENINGOCOCCAL GROUPS A/C/Y/W VACCINE Aged Out No longer eligible b ased on patient's age to complete this topic PNEUMOCOCCAL VACCINE Aged Out No long er eligible based on patient's age to complete this topic Procedures Procedure Name Priority Date/Time Associated Diagnosis Comments HEPATITIS SCREEN ACUTE Routine 09/20/2019 10:36 AM CDT Proteinuria affecting , antepartum HIV-1 HIV-2 ANTIBODY + HIV P24 AG PANEL Routine 09/19/2019 3:42 PM CDT Chronic hypertension during , antepartum HPV DETECTION HIGH RISK PIETRO Routine 06/26/2019 9:40 AM DATA MODELER Screening for cervical cancer from Last 3 Months or Most Recently Relevant to Health Maintenance Results * HEPATITIS SCREEN ACUTE (09/20/2019 10:36 AM CDT) HAV Antibody IgM Non Reactive Non Reactive 09/20/2019 11:30 AM CDT [facility] HBsAg Non Reactive Non Reactive 09/20/2019 11:30 AM CDT [facility] HBc Antibody IgM Non Reactive Non Reactive 09/20/2019 11:30 AM CDT [facility] HCV Antibody Screen Non Reactive Non Reactive 09/20/2019 11:30 AM CDT [facility] Blood BLOOD SPECIMEN / Unknown Lab Venipuncture / Unknown 09/20/2019 10:36 AM CDT 09/20/2019 10:40 AM CDT Narrative [facility] - 09/20/2019 11:30 AM CDT Non Reactive - Antibodies to Hepatitis C virus (HCV) were not detected, result does not exclude early acute HCV infection. Jefferson Ledezma MD LAB - CHEMISTRY O RDERABLES [facility] [address] [place] [address] * HIV-1 HIV-2 ANTIBODY + HIV P24 AG PANEL (09/19/2019 3:42 PM CDT) HIV1/2 Ab + P24 Ag Non Reactive Non Reactive 09/19/2019 4:37 PM CDT [facility] Blood BLOOD SPECIMEN / Unknown Venipuncture / Unknown 09/19/2019 3:42 PM CDT 09/19/2019 3:47 PM CDT Narrative [facility] - 09/19/2019 4:37 PM CDT No Laboratory evidence of HIV infection. Hortencia Cook MD LAB - CHEMISTRY NORAH NAVARRETE [facility] [address] [place] [address] * HPV DETECTION HIGH RISK PIETRO (06/26/2019 9:40 AM DATA MODELER) High Risk Human Papilloma Result Not Detected Not Detected 07/01/2019 4:08 PM DATA MODELER [facility] High Risk Human Papilloma Interp 07/01/2019 4:08 PM DATA MODELER [facility] Comment:High Risk Human Marty lloma Virus was Not Detected. Pathology/Cytolo gy VAGINA AND CERVIX, CS / Unknown 06/26/2019 9:40 AM DATA MODELER 06/27/2019 11:53 AM DATA MODELER Narrative [facility] - 07/01/2019 4:08 PM DATA MODELER Nucleic acid isolated from the specimen was analyzed with a nucleic acid amplification test (FDA approved Gen-Probe HPV Assay) to detect high risk human papilloma virus (Types: 16, 18, 31, 33, 35, 39, 45, 51, 52, 56, 58, 59, 66, and 68). The reference range is Not Detected . Comment: These test results should not be used as the sole basis for clinical assessment and treatment of patients. These results should always be correlated with other available data (cytology, histology, and clinical information). Ashley Walters MD LAB - M ICROBIOLOGY ORDERABLES Performing Organization Address City/[facility]/ZIP Co de Phone Number [facility] [address] [phone] from Last 3 Months or Most Recently Relevant to Health Maintenance Advance Directives * Full Code (Latest Code Status on File) Date Activated Date Inactivated Comments 10/26/2019 7:21 PM 10/30/2019 7:29 PM * Full Code Date Activated Date Inactivated Comments 10/23/2019 8:14 PM 10/26/2019 7:21 PM * Full Code Date Activated Date Inactivated Comments 09/19/2019 5:05 PM 09/25/2019 1:56 PM * Full Code Date Activated Date Inactivated Comments 08/23/2019 7:27 PM 08/24/2019 7:13 PM * Full Code Date Activated Date Inactivated Comments 08/23/2019 5:46 PM 08/23/2019 7:27 PM Care Teams Wage Adjuster Relationship Specialty Start Date End Date Ramiro Galloway DO [address] [place] [address] PCP - General 06/04/19
--- OUTSIDE RECORDS SUMMARY | 2024-08-21 13:03 | XMS_ITS ---
Author Organization [facility] Address [address] [place] [address] Care Team Providers Care Tool Crib Clerk Name Role Phone Ramiro Galloway Primary Care Provider [phone] Transplant Episode Kidney Candidate [facility] ([place], [place]) - [facility] Evaluation began on 08/05/2024 Marked as Active on 08/05/2024 Kidney CoordinatorSophia Barrientos RN Phone: N/A Fax: N/A Email: N/A Scores Score Value Updated Exceptions/Reas ons CPRA Not available EPTS (Calc) 19 08/21/2024 [place] Organ Diagnosis Organ Primary Contributory Kidney Diabetes Mellitus - Type II Care Team Name Role Phone Fax Email Sophia Barrientos RN Kidney Coordinator N/A N/A N/A Bryn Grissom MD Referring Physician [phone] N/A Erna Miller Die Cutter N/A N/A N/A Events Pre-Transplant Referred: 06/04/2024 Evaluation began: 08/05/2024
--- OUTSIDE RECORDS SUMMARY | 2024-08-21 13:03 | XMS_ITS | Clinical Summary ---
Author Organization [facility] Address [address] [place] [address] Care Team Providers Care Director Money Name Role Phone Ramiro Galloway DO Primary Care Provider [phone] Allergies No known active allergies Medications ferrous sulfate EC 324 (65 Fe) MG tablet Take 324 mg by mouth daily with breakfast. Active hydrALAZINE 25 MG tablet Take 50 mg by mouth 2 (two) times a day. Active NIFEdipine XL 60 MG 24 hr tablet Take 60 mg by mouth 2 (two) times a day. Active acetaminophen 325 MG tablet Take 650 mg by mouth every 6 (six) hours as needed for Pain or Fever. Active Active Problems Problem Noted Date Diagnosed Date Acute kidney injury 11/08/2021 Osteomyelitis ([facility]) 11/07/2021 Social History Tobacco Use Types Packs/Day Years Used Date Smoking Tobacco: Never Assessed Comments No Sex and Gender Information Value Date Recorded Sex Assigned at Not on file Legal Sex Female 11:19 AM CDT Gender Identity Not on file Sexual Orientation Not on file Last Filed Vital Signs Vital Sign Reading Time Taken Comments Blood Pressure 128/81 11/11/2021 10:20 AM CDT Pulse 93 11/11/2021 10:20 AM CDT Temperature 36.5 C (97.7 F) 11/11/2021 10:20 AM CDT Respiratory Rate 20 11/11/2021 10:20 AM CDT Oxygen Saturation 95% 11/11/2021 10:20 AM CDT Inhaled Oxygen Concentration - - Weight 118 kg (260 lb 2.3 oz) 11/11/2021 5:52 AM CDT Height 172.7 cm (5' 8 ) 11/07/2021 11:23 AM CDT Body Mass Index 39.55 11/07/2021 11:23 AM CDT Plan of Treatment Health Maintenance Due Date Last Done Comments Cervical Cancer Screening Pa p Smear (Age 30 to 64) Every 3 Years 1986 Annual Physical 1989 Hepatitis C 2004 Hepatitis B Vaccines (1 of 3 - 19+ 3-dose series) 2005 Cervical Cancer Screening Pa p with HPV Testing (Age 30 to 64) Every 5 Years 2016 Cervical Cancer Screening wi th HPV 2016 COVID-19 Vaccine (3 - 2023-2 5 season) 2024 08/05/2021, 07/05/2021 Influenza Adult (#1) 2024 05/18/2016 DTaP, Tdap and Td Vaccines ( 2 - Td or Tdap) 09/18/2029 09/19/2019 HPV Vaccines Aged Out No longer eligi ble based on patient's age to complete this topic Meningococcal B Vaccine Aged Out No l onger eligible based on patient's age to complete this topic Meningococcal Vaccine Aged Out No charlie ran eligible based on patient's age to complete this topic Pneumococcal Vaccine: Pediatrics (0 to 5 Years) and At-Risk Patients (6 to 64 Years) Aged Out No longer eligible b ased on patient's age to complete this topic RSV Immunizations Under 20 Months Aged Out No longer eligible b ased on patient's age to complete this topic Goals Goal Patient Goal Type Associated Problems Recent Progress Patient-Stated? Author Health - patient able to perform ADLs independently General No Jaki Jensen, RN Insurance MEDICAID UHC Advance Directives * Full Code (Latest Code Status on File) Date Activated Date Inactivated Comments 11/10/2021 9:14 AM 11/11/2021 2:58 PM * Full Code Date Activated Date Inactivated Comments 11/07/2021 4:37 PM 11/10/2021 9:14 AM Care Teams Director Money Relationship Specialty Start Date End Date Ramiro Galloway DO [address] [address] PCP - General INTERNAL MEDICINE 11/07/21
--- OUTSIDE RECORDS SUMMARY | 2024-08-21 13:03 | XMS_ITS | Clinical Summary ---
Author Organization [facility] Address [address] [place] [id number] Phone Care Team Providers Care Hammerer Name Role Phone Ramiro Galloway DO Primary Care Provider [phone] Allergies No known active allergies Medications Medication Sig Dispensed Refills Start Date End Date Status glucagon 1 MG injection Inject 1 mg into the shoulder, thigh, or buttocks 09/25/2019 Active glucose blood (OneTouch Verio) test strip 5 strips daily 09/25/2019 Active hydrALAZINE (APRESOLINE) 25 MG tablet Take 50 mg by mouth 2 (two) times a day 11/18/2020 Active OneTouch Delica Lancets 33G misc 1 each 5 times daily 09/25/2019 Active levonorgestrel (Mirena, 52 MG,) 20 MCG/24HR IUD Mirena 20 mcg/24 hours (6 yrs) [address] 1 device in uterus x 5 years Active furosemide (LASIX) 40 MG tablet 05/03/2021 Active Januvia 50 MG tablet 05/07/2021 Active Active Problems Problem Noted Date Diagnosed Date Persistent proteinuria 12/07/2020 Chronic kidney disease, Stage IV (severe) 2020 Anemia of chronic disease 09/05/2019 Overview (12/10/2020): Last Assessment & Plan: Status post a dose of Venofer. Plan: Orders given to have CBC repeated with third trimester labs Morbid obesity 06/11/2019 Marijuana user 05/21/2019 Overview (12/10/2020): Positive on urine drug screen. Trying to quit for Diabetes mellitus 05/11/2018 Hypertensive disorder 05/11/2018 Immunizations Name Administration Dates Next Due Influenza, Injectable, Quadrivalent 05/18/2016 Tdap 09/19/2019 Family History Medical History Relation Comments Kidney disease Mother Relation Status Comments Mother Social History Tobacco Use Types Packs/Day Years Used Date Smoking Tobacco: Never Smokeless Tobacco: Never Alcohol Use Standard Drinks/Week Comments Not Currently 0 (1 standard drink = 0.6 oz pur e alcohol) Sex and Gender Information Value Date Recorded Sex Assigned at Not on file Gender Identity Not on file Sexual Orientation Not on file Last Filed Vital Signs Vital Sign Reading Time Taken Comments Blood Pressure 128/70 06/09/2021 3:51 PM CHANGE HOUSE ATTENDANT Pulse 72 06/09/2021 3:51 PM CHANGE HOUSE ATTENDANT Temperature 36.4 C (97.6 F) 06/09/2021 3:51 PM CHANGE HOUSE ATTENDANT Respiratory Rate - - Oxygen Saturation - - Inhaled Oxygen Concentration - - Weight 120 kg (265 lb) 06/09/2021 3:51 PM CHANGE HOUSE ATTENDANT Height 172.7 cm (5' 8 ) 06/09/2021 3:51 PM CHANGE HOUSE ATTENDANT Body Mass Index 40.29 06/09/2021 3:51 PM CHANGE HOUSE ATTENDANT Plan of Treatment Health Maintenance Due Date Last Done Comments Influenza Vaccine (#1) 2024 Care Teams Hammerer Relationship Specialty Start Date End Date Ramiro Galloway DO [address] [place] [address] PCP - General Internal Medicine 10/29/20
--- OUTSIDE RECORDS SUMMARY | 2024-08-21 13:03 | XMS_ITS | Encounter Summary ---
Author Organization [facility] Address [address] [place] [address] Care Team Providers Care Comic Artist Name Role Phone Ramiro Galloway DO Primary Care Provider [phone] Reason for Visit * Reason Comments Kidney Transplant Evaluation Encounter Details Date Type Department Care Team (Late st Contact Info) Description 08/20/2024 Telephone [facility] [address] [place] [id number] Sophia Barrientos, RN Kidney Transplant Evaluation Social History Tobacco Use Types Packs/Day Years [...] on file Sexual Orientation Not on file documented as of this encounter Functional Status Functional Status Response Date of Assess ment Is person deaf or have serious hearing difficult y? No 10/23/2019 Is person blind or have serious difficulty seein g? No 10/23/2019 Does person have serious dif ficulty walking/climbing stairs? No 10/23/2019 Does person have difficulty dressing/bathing? No 10/23/2019 Does person have difficulty doing errands alone? No 10/23/2019 Cognitive Status Response Date of Assessm ent Does person have difficulty concentrating/remembering/making decisions? No 10/23/2019 documented as of this encounter Miscellaneous Notes * Telephone Encounter - Sophia Barrientos RN - 08/20/2024 10:57 AM CDT Spoke with pt about her labs. She said that she hadn't heard anything from Dr. Grissom's office. She is aware I called his office on 08/13 and left detailed message about getting her labs drawn early.Asked her to please follow up with their office. She said she will. Called Dr. Grissom's office and spoke with Yvonne. She said she called pt and lvm letting her know that she can get her labs drawn early. Told her thanks and told her I will follow back up with pt. Spoke with pt, she is aware of the above. Pt states she must of called when she didn't have any service. Asked her to please let me know when she gets her labs drawn so I can request those records. She said she will. documented in this encounter Plan of Treatment Not on file documented as of this encounter Visit Diagnoses Not on filedocumented in this encounter Care Teams Comic Artist Relationship Specialty Start Date End Date Ramiro Galloway DO [address] [place] [address] PCP - General 06/04/19 documented as of this encounter
--- OUTSIDE RECORDS SUMMARY | 2024-08-21 13:03 | XMS_ITS | Encounter Summary ---
Author Organization [facility] Address [address] [place] [address] Care Team Providers Care Machine Carton Marker Name Role Phone Ramiro Galloway DO Primary Care Provider [phone] Encounter Details Date Type Department Care Team (Late st Contact Info) Description 10/21/2019 Telephone [facility] [address] [place] [address] Shakira Caldera, [facility] Social History Tobacco Use Types Packs/Day Years Used Date Smoking Tobacco: Never Smokeless Tobacco: Never Alcohol Use Standard Drinks/Week Comments Not Currently 0 (1 standard drink = 0.6 oz pur e alcohol) Education Answer Date Recorded What is the highest level of school you have completed or the highest degree you have received? Some college, no degree 06/18/2019 Comments Yes Sex and Gender Information Value Date Recorded Sex Assigned at Not on file Gender Identity Not on file Sexual Orientation Not on file documented as of this encounter Functional Status Functional Status Response Date of Assess ment Is person deaf or have serious hearing difficult y? No 08/24/2019 Is person blind or have serious difficulty seein g? No 08/24/2019 Does person have serious dif ficulty walking/climbing stairs? No 08/24/2019 Does person have difficulty dressing/bathing? No 08/24/2019 Does person have difficulty doing errands alone? No 08/24/2019 Cognitive Status Response Date of Assessm ent Does person have difficulty concentrating/remembering/making decisions? No 08/24/2019 documented as of this encounter Plan of Treatment Not on file documented as of this encounter Visit Diagnoses Not on filedocumented in this encounter Care Teams Machine Carton Marker Relationship Specialty Start Date End Date Ramiro Galloway DO [address] [place] [address] PCP - General 06/04/19 documented as of this encounter
[2024-08-22 00:53] LABS: Vitamin D 25 Hydroxy 19.9 ng/mL
== END 2024-08-21 11:10 | disposition home or self-care (01) ==
PROVIDERS: PCP Nurse Practitioner Family; Visit Provider Internal Medicine Nephrology
DX: E11.22 Type 2 diabetes mellitus with diabetic chronic kidney disease (principal); N18.4 Chronic kidney disease, stage 4 (severe); E55.9 Vitamin D deficiency, unspecified
CPT/HCPCS: 36415; 80069; 82306; 82570; 83970; 84156; 85027

== ENCOUNTER 2024-09-20 15:00 | Outpatient (CLI) | payer MEDICARE, MEDICAID, SELFPAY ==
--- NOTE | ~2024-09-20 | MM_ITS ---
EXAMINATION: MM screening [facility] BI w moo HISTORY: Screening TECHNIQUE: Craniocaudal and mediolateral oblique 3-D tomosynthesis images were obtained and synthetic 2-D images were generated. CAD analysis was submitted and interpreted. COMPARISON: Comparison to multiple prior studies sequentially, with oldest reviewed study dated 11/28. BREAST PARENCHYMAL COMPOSITION: There are scattered areas of fibroglandular density. FINDINGS: There is no evidence of suspicious mass, calcification, or architectural distortion to sugg est malignancy in either breast. There has been no suspicious interval change. IMPRESSION: 1. No mammographic evidence of malignancy. 2. Recommend routine screening mammography in one year. BI-RADS Category 1: Negative Reviewed, dictated and finalized at location B.
--- OUTSIDE RECORDS SUMMARY | 2024-09-20 15:05 | XMS_ITS | Encounter Summary ---
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 Answer Date of Assessment Author No 08/24/2019 2:03 AM NUT Daphney Hutchins RN * Is person blind or have serious difficulty seeing? Answer Date of Assessment Author No 08/24/2019 2:03 AM NUT Daphney Hutchins RN * Does person have serious difficulty walking/climbing stairs? Answer Date of Assessment Author No 08/24/2019 2:03 AM Daphney Guzman RN * Does person have difficulty dressing/bathing? Answer Date of Assessment Author No 08/24/2019 2:03 AM Daphney Guzman RN * Does person have difficulty doing errands alone? Answer Date of Assessment Author No 08/24/2019 2:03 AM Daphney Guzman RN documented as of this encounter Mental Status * Does person have difficulty concentrating/remembering/making decisions? Answer Entry Date Author No 08/24/2019 2:03 AM Daphney Guzman RN documented in this encounter Plan of Treatment Not on file documented as of this encounter Visit Diagnoses Not on filedocumented in this encounter Care Teams Procedures Rn Relationship Specialty Start Date End Date Ramiro Galloway DO [address] [place] [address] PCP - General 06/04/19 documented as of this encounter
--- OUTSIDE RECORDS SUMMARY | 2024-09-20 15:05 | XMS_ITS | Clinical Summary ---
Author Organization [facility] Address [address] [place] [address] Care Team Providers Care Harvest Manager Name Role Phone Ramiro Galloway DO Primary Care Provider [phone] Allergies No known active allergies Medications ferrous [...] 11/08/2021 Osteomyelitis ([facility]) 11/07/2021 Social History Tobacco Use [...] - 2023-2 5 season) 2024 08/05/2021, 07/05/2021 DTaP, Tdap and Td Vaccines ( 2 [...] 5 Years) and At-Risk Patients (6 to 49 Years) Aged Out No longer eligible b ased on patient's age to complete this topic RSV Immunizations Under 20 Months Aged Out No longer eligible b ased on patient's age to complete this topic Goals Goal Patient Goal Type Associated Problems Recent Progress Patient-Stated? Author Health - patient able to perform ADLs independently General No Jaki Jensen, RN Insurance [place] [address] [place] [address] Advance Directives * Full Code (Latest Code Status on File) Date Activated Date Inactivated Comments 11/10/2021 9:14 AM 11/11/2021 2:58 PM * Full Code Date Activated Date Inactivated Comments 11/07/2021 4:37 PM 11/10/2021 9:14 AM Care Teams Harvest Manager Relationship Specialty Start Date End Date Ramiro Galloway DO [address] [place] [id number] PCP - General INTERNAL MEDICINE 11/07/21
--- OUTSIDE RECORDS SUMMARY | 2024-09-20 15:05 | XMS_ITS | Data Portability ---
Author Organization [facility] Address [address] [facility] [place] [address] Care Team Providers Care Dermatology Sales Representative Name Role Phone JANAE ED DIOS Registration Coordinator Unavailable Assessment Encounter Date Assessment Date Assessment [...] DO Not Attach Compendium, Do Not Delete/merge, [id number] 16:55:15 pregna ncy test, urine 2019 020 In-Office Order, Internal Use Only DO Not Attach Compendium DO Not Attach Compendium, Do Not Delete/merge, [id number] 0 13:18:56 pregna ncy test, urine 2019 020 LETTY In-Office Order, Internal Use Only DO Not Attach Compendium DO Not Attach Compendium, Do Not Delete/merge, [id number] 0 09:12:09 Referral None record ed. Procedures None record ed. Surgeries None record ed. Imaging MAMMO, diagno stic, unilat eral 2021 022 [facility] ([facility] Sched[facility]), [address] [place], [address], 3 11:11:10 US, breast , unilat eral 2021 022 [facility] ([facility] Scheduling), [address] [place], [address], 3 11:41:10 Medication Orders Mirena 21 mcg/24 hr (up to 8 years) 52 mg intrau terine device 2020 021 [id number] Not available 4 22:34:46 Mirena 21 mcg/24 hr (up to 8 years) 52 mg intrau terine device 2020 021 [id number] [id number], [address], [place], [id number], 4 22:34:47 Nexpla non 68 mg subder mal implan t 2019 020 [facility], [address] [place] [address], [id number], 1 13:01:08 PrePlu s 27 mg iron-1 mg tablet 2019 020 [facility], [address] [place] [address], [id number], 0 12:56:14 Nexpla non 68 mg subder mal implan t 2019 020 [facility], [address] [place] [address], [id number], 13:01:08 Patient TargetsNo targets recorded. Patient Instructions Encounter Date Encounter Id Patient Instructions Last Modified By Organization Details Last Modified Time 03/18/2020 [id number] implant for dave h control: care instructions Not available 03/18/2020 13:18:56 08/05/2020 [id number] intrauterine device (IUD) insertion: care instructions Not available 08/11/2020 16:55:14 05/24/2022 [id number] ALLAN Rizo Discussed with OLVIN [email or web address] Not available 05/24/2022 13:17:16 Reason for Referral None Reported. Results Created Date Observation Date Name Description Value Unit Range Abnormal Flag Note LastModifiedBy Organization Detail LastModifiedTime 08/06/19 21 08/05/2020 pregn angel test, urine HCG negati ve Not Available In-Office Order Internal Use Only DO Not Attach Compendium DO Not Attach Compendium, Do Not Delete/merge, [id number] 08/05/2020 09:39:21 03/18/20 20 03/18/2020 pregn angel test, urine HCG negati ve Not Available In-Office Order Internal Use Only DO Not Attach Compendium DO Not Attach Compendium, Do Not Delete/merge, [id number] 03/18/2020 13:07:03 03/16/20 20 03/16/2020 pregn angel test, urine HCG negati ve Not Available In-Office Order Internal Use Only DO Not Attach Compendium DO Not Attach Compendium, Do Not Delete/merge, [id number] 03/09/2020 12:23:52 11/11/19 22 11/10/2021 POC GLUCO SE POC glucose 86 mg/dL 70-99 Not Available [facility] (Lab) [place], [address], 11/10/2021 07:57:28 11/11/19 22 11/10/2021 POC GLUCO SE POC glucose 86 mg/dL 70-99 Not Available [facility] (Lab) [address], [place], [address], 11/10/2021 09:34:27 06/24/19 23 06/24/2022 MAMMO , diagn ostic , digit al, bilat eral No observ ation record ed. [facility] Orders [address] [place], [address], 07/01/2022 11:50:15 06/24/19 23 06/24/2022 US, breas t, unila teral No observ ation record ed. [facility] Orders [address] [facility], [place], [address], 07/01/2022 11:50:16 01/13/20 23 12/02/2022 US, breas t, unila teral No observ ation record ed. [address], [place], [address], 01/13/2023 14:24:42 01/14/20 23 12/22/2022 biops y, breas t, w/ ultra sound salima nce (PROC ) No observ ation record ed. [address] - [facility] Ctr [address], [place], [address], 01/13/2023 14:38:36 Result Notes None recorded. 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 102 Completed 2018 Anika Ramirez MD Attn: Ashlee niki,[address] [place] [address], [address], [place] [facility] 1 17:15:34 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 857551050610 102 Active 2018 Anika Ramirez MD Attn: Ashlee niki,[address] [place] [address], [address], [place] [facility] 1 17:15:34 Abnormal progester one 597628783 Active 2018 Anika Ramirez MD Attn: Ashlee prince,[address] [place], [address], [place] [facility] 1 17:15:35 Abnormal progester one 522935707 Completed 2018 Anika Ramirez MD Attn: Ashlee prince,[address] [place], [address], [place] [facility] 1 17:15:35 Genital herpes simplex type 2 874305433 Active 2018 Anika Ramirez MD Attn: Ashlee prince,[address] [place], [address], [place] [facility] 1 17:15:35 Genital herpes simplex type 2 831524545 Completed 2018 Anika Ramirez MD Attn: Ashlee prince,[address] [place], [address], [place] [facility] 1 17:15:35 Marijuana user 084083711 Active 2018 Anika Ramirez MD Attn: Ashlee prince,[address] [place], [address], [place] [facility] 1 17:15:34 Marijuana user 612430953 Completed 2018 Anika Ramirez MD Attn: Ashlee prince,[address] [facility], [place], [address], [place] [facility] 1 17:15:34 Liver enzymes level above reference range 401287287 Active 2018 MARISSA SALAS Attn: Ashlee prince,[address] [facility], [place], [address], [place] [facility] 9 13:37:08 Anemia 048635850 Active 2018 MARISSA SALAS Attn: Ashlee prince,[address] [facility], [place], [address], [place] [facility] 9 13:37:15 Subchorio myra hematoma 699828363 Completed 2018 Anika Ramirez MD Attn: Ashlee prince,[address] [facility], [place], [address], [place] [facility] 1 17:15:35 Subchorio myra hematoma 863802402 Active 2018 Anika Ramirez MD Attn: Ashlee prince,[address] [facility], [place], [address], [place] [facility] 1 17:15:35 Proteinur ia 10979314 Active 2019 MARISSA SALAS Attn: Ashlee prince,[address] [facility], [place], [address], [place] [facility] 0 12:19:45 Past history of miscarria ge 430022649 Active 2019 Anika Ramirez MD Attn: Ashlee prince,[address] [facility], [place], [address], [place] [facility] 1 17:15:34 Past history of miscarria ge 880309203 Completed 2019 Anika Ramirez MD Attn: Tamiamy prince,[address] [place], [address], [place] [facility] 1 17:15:34 Morbid obesity 200250843 Active 2019 Anika Ramirez MD Attn: Ashlee prince,[address] [facility], [place], [address], [place] [facility] 1 17:15:34 Morbid obesity 992753667 Completed 2019 Anika Ramirez MD Attn: Ashlee prince,[address] [facility], [place], [address], [place] [facility] 1 17:15:34 Fibroaden sachin of left breast 868874746364 9102 Active 2022 MARISSA SALAS Attn: Ashlee prince,[address] [facility], [place], [address], [place] [facility] 3 14:39:39 Cyst of right Bartholin 's gland duct 802149905146 29848 Completed 201506/11/2019 MARISSA SALAS Attn: Ashlee prince,[address] [facility], [place], [address], [place] [facility] 0 12:30:01 Notes:Some problems listed i n Documents: #[id number], #[id number] could not be added to this patient's chart. Please review these documents and add these problems to the patient's chart manually as needed. Problem Notes None recorded. Procedures Surgical History Date Name Laterality Status Provider Name and Address Organization Details Recorded Time 1 Control Implant Removal completed MARISSA DILLARD Attn: Accounting,[address] [facility], [place], [address], [place] [facility] 08/05/2020 13:06:46 1 IUD Insertion completed MARISSA DILLARD Attn: Accounting,[address] [facility], [place], [address], [place] [facility] 08/05/2020 13:06:42 0 Control Implant Insertion completed MARISSA DILLARD Attn: Accounting,[address] , [place], [address], [place] [facility] 03/17/2020 21:27:35 0 delivery completed Cheyanne Barbosa MA [facility] 03/09/2020 12:23:15 0 Date of Last Pap Smear completed Cheyanne Barbosa MA [facility] 03/09/2020 12:22:22 4 Other completed Della Huntley MA [facility] 05/18/2016 10:40:53 Imaging Results Imaging Date Name Status LastModified by Organiz ation Details LastModified Time 06/24/2022 MAMMO, diagnostic, digital, bilateral completed [facility] [address] [place], [address], 07/01/2022 11:50:15 06/24/2022 US, breast, unilateral completed [facility] Orders [address] [place], [address], 07/01/2022 11:50:16 12/02/2022 US, breast, unilateral completed [address], [place], [address], 01/13/2023 14:24:42 12/22/2022 biopsy, breast, w/ ultrasound guidance (PROC) completed [address] - [facility]tr [address], [place], [address], 01/13/2023 14:38:36 Procedure Notes None recorded. Medical [...] in uterus x 5 years 2020 active [facility]: APPROVED /[id number] (07/24/20 - 1) [...] ne propionat e 50 mcg/actua tion nasal spray,[facility] 07/16 completed Not Available Not Available [...] n 0.3 %-dexamet hasone 0.1 % eye drops,[facility] INSILL 1 DROP INTO THE LEFT [...] Not Available Ciprodex 0.3 %-0.1 % ear drops,[facility] 03/09 completed Not Available Not Available [...] Updated DateTime 03/09/2020 172.72 cm 44.6 kg/m2 778440.5 6 g 148 mm[Hg] 86 mm[Hg] Cheyanne Barbosa MA [place] [facility] [place] 0 12:25:34 Date Recorded Body height Body mass index (BMI) Body weight Systolic blood pressure Diastolic blood pressure Provider Name and Address Organization Details Last Updated DateTime 03/18/2020 172.72 cm 43.8 kg/m2 437581.6 g 152 mm[Hg] 92 mm[Hg] Cheyanne Barbosa MA [facility] 0 13:19:52 Date Recorded Body height Body mass index (BMI) Body weight Provider Name and Address Organization Details Last Updated DateTime 07/16/2020 172.72 cm 41.5 kg/m2 160310.72 g Brunilda Rachel MA [facility] 07/16/2020 11:47:18 Date Recorded Body height Body mass index (BMI) Body weight Systolic blood pressure Diastolic blood pressure Provider Name and Address Organization Details Last Updated DateTime 08/05/2020 172.72 cm 46.2 kg/m2 463692.0 8 g 124 mm[Hg] 74 mm[Hg] Cheyanne Barbosa MA [facility] 1 09:41:32 Date Recorded Body height Body mass index (BMI) Body weight Systolic blood pressure Diastolic blood pressure Provider Name and Address Organization Details Last Updated DateTime 05/24/2022 170.18 cm 40.6 kg/m2 646122.4 2 g 126 mm[Hg] 76 mm[Hg] Della Huntley MA [facility] 2 11:18:11 Social History Question Answer Notes LastModified by Organization Details LastModified Time Tobacco Smoking Status Never Smoker Della Huntley MA null, [facility] 05/18/2016 10:38:26 Do You Have An [...] Information not available 05/18/2016 What Type Of Gis Developer Do You Use? None Information not available [...] Or The Highest Degree You Have Received? [id number] Information not available 07/16/2020 Do You Have [...] Information not available 07/16/2020 Marital Status Single formerly [facility] Informatio n not available 05/11/2018 Do You Have A Medical Power Of Senior Label Specialist? No Information not available 07/16/2020 Do You [...] How Much Tobacco Do You Smoke? No [email or web address] Information not available 05/18/2018 Do You Participate In Social Media? Yes Information not available 07/16/2020 What Types Of Sporting Activities Do You Participate In? NONE Information not available 07/16/2020 General Stress Level High Information not available 05/11/2018 Do You Feel Stressed (tense, Restless, Nervous, Or Anxious, Or Unable To Sleep At Night)? [id number] Information not available 07/16/2020 Do You Use Any Illicit Or Recreational Drugs? Yes Marijuana Information not available 05/24/2022 Do You Use Sunscreen Routinely? No Information not available 05/18/2016 Has Tobacco Cessation Counseling Been Provided? No Information not available 05/24/2022 On What Date Was Tobacco Cessation Counseling Provided? 05/24/2022 Information not available 05/24/2022 How Many Years Have You Smoked Tobacco? 0 [email or web address] Information not available 05/18/2018 Have You Recently [...] 2 completed MARISSA DILLARD Attn: Accounting,[address] [facility], [place], [address], [facility] 05/24/2022 15:54:52 Past Encounters Encounter ID Performer Location Encounter Start Date Encounter Closed Date Diagnosis/Indication Diagnosis SNOMED-CT Code Diagnosis ICD10 Code Diagnosis Note [id number] MD Faustina Hairston (LIFE SCIENCE TEACHER) [address] [place] [address] 05/18/2016 10:05:18 05/20/2016 12:56:20 Administration of influenza vaccine 48755569 Z23 Abscess of vulva 1196094 1 N76.4 Reviewed ER records which say that she had I & d of right labial abscess. Removed iodoform gauze. Cleaned and packed with sterile strip. bandage applied. No signs of infection. Advised to continue clindamyci n prescribed from ER. Patient tolerated procedure well [id number] Cecilia Anne MD [facility] (LIFE SCIENCE TEACHER) [address] [place] [phone] 05/20/2016 14:44:00 05/20/2016 16:31:57 Abscess of vulva 40488650 N76.4 continue clindamyci n. No packing necessary at this time. , Advised patient if fever greater than 100.4, severe vulvar pain to go to ER [id number] MD Faustina Hairston (LIFE SCIENCE TEACHER) [address] [place] [phone] 05/11/2018 10:52:22 05/14/2018 11:17:21 Gynecologic examination 43061293 Z01.419 Age appropriat e counseling done. Venereal d isease screening 830865533 Z11.3 Z20.2 Morbid obesity 815355674 E66.01 Counseled About weight loss, diet and excercise. Advised patient to f/u with trim mounter. Increased blood pressure 49693489 R03.0 Advised patient to f/u with PCP. Trying to conceive 76528 9001 Z31.9 COUNSELED ABOUT TIMING OF INTERCOURS E. Counseled patient about effects of lisinopril on future . Advised patient to see PCP to switch to different form since she is actively trying to get Polycystic ovaries 55628 008 E28.2 counseled about PCOS. Counseled about [...] Patient agreed and verbalized understand ing. Proteinuria 12608356 R80 .9 Counseled about it. Oligomenorrhea 21087507 N91.5 counseled about different causes including PCOS. Counseled about insulin resistance , effect of insulin on androgens, menstrual periods, estrogen levels and its effect on EMT, breast, metabolic syndrome. Counseled About weight loss, diet and excercise. [id number] ERAN Motley (LIFE SCIENCE TEACHER) [address] [place] [phone] 05/18/2018 11:39:06 05/21/2018 15:46:47 Gonococcal cervicitis 123873638 A54.03 [id number] MD Faustina Hairston (LIFE SCIENCE TEACHER) [address] [place] [address] 06/22/2018 11:23:26 06/26/2018 15:26:37 Gonococcal cervicitis 725127846 A54.03 Counseled thoroughly about it. Safe sex counseling and use of condoms. Advised patient no intercours e until LUIS ALBERTO is negative.. Notified patient that Partner need to be treated. LUIS ALBERTO done today. Genital he rpes simplex 88448853 A60.9 Counseled about it and safe sex. Advised patient to report out breaks.EXP LAINED PATIENT THAT VULVAR BURNING COULD BE POSSIBLE FROM SHAVING VS GENITAL HERPES. Polycystic ovaries 02640 008 E28.2 d/w Patient lab work, TVUS result. counseled about PCOS. Counseled about insulin resistance , effect of insulin on androgens, menstrual periods, estrogen levels and its effect on EMT, breast, metabolic syndrome. Counseled About weight loss, diet and excercise. Patient already on metformin. Advised patient to continue. Trying to conceive 26507 9001 Z31.9 On letrozole. Advised miss Lily Michael to schedule patient with MELISSA. MELISSA referral placed last visit. Morbid obesity 175694101 E66.01 Counseled About weight loss, diet and excercise. Advised patient to f/u with trim mounter. [id number] MARISSA DILLARD (LIFE SCIENCE TEACHER) [address] [place] [phone] 05/13/2019 14:03:20 05/14/2019 11:37:07 Routine care 157358397 Z34.90 Venereal d isease screening 140103126 Z11.3 screening 2437 92905 Z36.85 Essential hypertension 20371924 I10 Taken off lisinopril and put on labetalol by hospital after positive test. Type 2 patrick betes mellitus 65809728 E11.9 Managed by PCP. Pt states last A1c was in Feb but she is unsure of number. Was put on Janumet. Has already had eye exam this year. F/u with repeat A1c. Proteinuria 87456145 R80 .9 Nephrology referral made in the past but pt has not been or scheduled appt. Will refer again. [id number] MARISSA DILLARD (LIFE SCIENCE TEACHER) [address] [place] [phone] 06/11/2019 11:24:19 06/12/2019 13:49:47 Routine care 329422730 Z34.90 Abnormal progesterone 13 3035263 R94.7 Liver enzy mes level above reference range 953099280 R74.8 Likely RAMIREZ. Genital he rpes simplex type 2 773155138 A60.00 On suppressiv e antiviral. 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 Marijuana user 736252068 F12.90 Cessation strongly encouraged . Proteinuria 63327769 R80 .9 Has not completed 24 hour urine yet. Anemia 036883528 D64.9 On iron supplement . Past pregn angel history of miscarriage 863651019 Z87.59 Type 2 patrick betes mellitus 47711052 E11.9 A1c 6.6. On Janumet. Essential hypertension 15942828 I10 Taken off lisinopril and put on labetalol by hospital after positive test. Morbid obesity 587338909 Z68.41 [id number] MARISSA DILLARD (LIFE SCIENCE TEACHER) [address] [place] [phone] 03/09/2020 11:41:03/17/2020 14:19:59 Family planning surveillance 520852647 Z30.09 34yo F with h/o DM2, morbid [...] today. RTC in 1-2 weeks for insertion. [id number] MARISSA DILLARD [facility] (LIFE SCIENCE TEACHER) [address] [place] [phone] 03/18/2020 12:52:22 03/19/2020 10:44:20 Insertion of subcutaneous contraceptive 359148079 Z30.9 Pt tolerated placement of nexplanon well. Counseled pt on side effects including irregular bleeding. RTC in 2-3 months. [id number] MARISSA DILLARD (LIFE SCIENCE TEACHER) [address] [place] [phone] 07/16/2020 08:20:25 07/27/2020 06:20:40 Contraception care 757268199 Z30.40 Nexplanon placed in 03/2020. Persistent bleeding, pt desires new control. Estrogen should be avoided given comorbidit ies (uncontrol led HTN, DM2, morbid obesity). Discussed POPs and IUD, pt desires IUD. Will order today. Will contact pt when device in office to schedule insertion. [id number] [facility]ENCE TEACHER[facility] [address] [place] [phone] 08/05/2020 09:16:59 08/12/2020 09:00:47 Insertion of intrauterine contraceptive device 73855752 Z30.430 Mirena IUD placed without issue. Patient tolerated procedure well. See procedure notes for details. RTC in 6 weeks for IUD check. Removal of subcutaneous contraceptive 741599170 Z30.46 Nexplanon removed from the LUE without issue. Patient tolerated procedure well. See procedure note for more details. Hypertensive disorder 38 943289 I10 She reports being on amlodipine and labetalol. Feels weak and lightheade d after taking them. Normotensi ve in office (124/74). Recommende d pt to follow up with PCP regarding HTN management /possible med changes. [id number] MARISSA DILLARD (LIFE SCIENCE TEACHER) [address] [place] [phone] 05/24/2022 10:49:56 05/25/2022 10:10:48 Administration of influenza vaccine 52857851 Z23 Annual flu shot requested and administer ed. Mass of left breast 1224 653990 8071953 N63.20 Patient had mild injury to left [...] MEDICARE OR MEDICARE REPLACEMENT PRIMARY) Nataliia Tim [id number] Nataliia Tim 03/09/2020 1 [facility] (MEDICARE REPLACEMENT/AD VANTAGE - HMO) [id number] Nataliia Tim [id number] Nataliia Tim 03/18/2020 2 [place] OR MEDICARE REPLACEMENT PRIMARY) Nataliia Tim [id number] Nataliia Tim 03/18/2020 1 [facility] (MEDICARE REPLACEMENT/AD VANTAGE - HMO) [id number] Nataliia Tim [id number] Nataliia Tim 07/16/2020 2 [place] OR MEDICARE REPLACEMENT PRIMARY) Nataliia Tim [id number] Nataliia Tim 07/16/2020 1 [facility] (MEDICARE REPLACEMENT/AD VANTAGE - HMO) [id number] Nataliia Tim [id number] Nataliia Tim 08/05/2020 2 [place] OR MEDICARE REPLACEMENT PRIMARY) Nataliia Tim [id number] Nataliia Tim 08/05/2020 1 [facility] (MEDICARE REPLACEMENT/AD VANTAGE - HMO) [id number] Nataliia Tim [id number] Nataliia Tim 05/24/2022 2 [place] OR MEDICARE REPLACEMENT PRIMARY) Nataliia Tim [id number] Nataliia Tim 05/24/2022 1 [facility] (MEDICARE REPLACEMENT/AD VANTAGE - HMO) [id number] Nataliia Tim [id number] Nataliia Tim Notes Date Note Type Note [...] symptoms, n/v/f. MARISSA DILLARD Attn: Accounting,[address] [place], [address], [facility] - SI 03/16/2020 10:58:41 03/18/2020 text/html 34 yo obese AAF with a Hx of HTN and DM2 presents for nexplanon insertion.LMP: 03/06/2020 MARISSA DILLARD Attn: Accounting,[address] [facility], [place], [address], [place] [facility] 03/18/2020 17:54:01 07/16/2020 text/html [...] control. MARISSA DILLARD Attn: Accounting,[address] [facility], [place], [address], [facility] - [facility] 07/24/2020 15:03:46 08/05/2020 text/html 34yo [...] or melena. MARISSA DILLARD Attn: Accounting,[address] [facility], [place], [address], [facility] - [facility] 08/11/2020 17:03:22 05/24/2022 text/html Breast [...] nipple discharge. MARISSA DILLARD Attn: Accounting,[address] [facility], [place], [address], [facility] - [facility] 05/24/2022 15:59:15 OBGyn Episode Ob Episode Information Episode Created Date Number of Fetuses Patient Bloodtype Patient rh Status Prepregnancy Weight lbs Domestic Partner Domestic Partner Phone Father Name Blow Pit Operator Status 05/13/20 19 1 O Positive CLOSED Fetus Data First Name Last Name Admitted to NICU Weight (g) Sex Living Outcome Pediatric Complications Fetus ID Race Codes Race Delivery Type Antoin o Morris Bucke jorge III true 1360.77 6 M Prematur e 41089 8-6 Afric an Ameri can Problems Problem Notes Problem Name Start Date End Date Resolution Snomed Code Not e 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 [id number] Past history of miscarriage 06/11/2019 475441671 Genital herpes simplex type 2 05/21/2019 444570712 Abnormal progesterone 05/21/2019 1498812 00 Subchorionic hematoma 05/21/2019 2392440 04 Marijuana user 05/21/2019 658598773 Morbid obesity 06/11/2019 269997038 Faisal Calculation Initial Faisal Date Initial Exam Date Initial Exam Provider Initial Ultrasound Date Last Menstrual Period Date Ultra Sound Weeks Gestation 12/11/2019 05/13/2019 04/17/2019 03/05/2019 6 Eighteen To Twenty Week Faisal Update Ultra Sound Date Fundal Height At Umbil Quickening Date Ultra Sound Latest Weeks Gestation Final Fasial Confirmed By Final Faisal Confirmed Date Final Faisal Date Ultra Sound Latest Days Gestation 0 05/13/2019 12/11/19 20 0 Pre- Flowsheet Flowsheet Date 05/13/2019 Dowd Score Blood Edema Fundus Height Fundus Units Glucose Ketones Leukocytes Nitrite Labor Signs Protein Cervic Dilation Cervic Effacement Cervic Station 1+ none 10 wks none negative 3+ Type Weight in lbs Pre/Post Dialysis Refused Weight 289.402971926081 BP Diastolic BP Location Tested BP Systolic BP Type 88 140 sitting Fetus Heart Rate Present Fetus Movement Comments NOB labs today and OB educat ional packet reviewed and provided to pt. Order for US given. Pt with h/o DM2, HTN, proteinuria, morbid obesity, miscarriage. Complete transfer of care to [facility]. Flowsheet Date 06/11/2019 Dowd Score Blood Edema Fundus Height Fundus Units Glucose Ketones Leukocytes Nitrite Labor Signs Protein Cervic Dilation Cervic Effacement Cervic Station 1+ none 13 wks none negative none 3+ Type Weight in lbs Pre/Post Dialysis Refused Weight 280.41105583736 BP Diastolic BP Location Tested BP Systolic BP Type 78 138 sitting Fetus Heart Rate Present A 156 Present Fetus Movement Comments Pt is full transfer of care to [facility] [place]. She has appt scheduled 06/18. Flowsheet Date 03/09/2020 Dowd Score Blood Edema Fundus Height Fundus Units Glucose Ketones Leukocytes Nitrite Labor Signs Protein Cervic Dilation Cervic Effacement Cervic Station Type Weight in lbs Pre/Post Dialysis Refused Weight 293.62311032446 BP Diastolic BP Location Tested BP Systolic [...] At Estimated Date of Delivery false Thalassemia (Ukrainian, Yi, Mediterranean, Or Background): MCV < 80 false Neural Tube Defect (Meningom yelocele, Spina Bifida, Or Anencephaly) false Congenital Heart Defect false Down Syndrome false Geremias-Sachs (eg, Rastafarian, Cajun, Cayman Islander-Congolese) f alse Chago Disease false Sickle Cell Disease Or Trait () false Hemophilia Or Other Blood Disorders false Muscular Dystrophy false Cystic Fibrosis false Alapaha's Chorea false Mental Retardation/Autism false If Yes, [...] [email or web address] 05/13/2019 Dental care [email or web address] 05/13/2019 [place] [address] 05/13/2019 Seat belt use [email or web address] 05/13/2019 Indications for ultrasonography [email or web address] 05/13/2019 Avoidance of saunas or hot tubs [facility] 05/13/2019 Toxoplasmosis precautions (cats/raw meat) [place] [address] Second Trimester Discussed Date Discussion Item Discussion [...]
--- OUTSIDE RECORDS SUMMARY | 2024-09-20 15:05 | XMS_ITS | Clinical Summary ---
Author Organization [facility] Address [address] [place] [address] Phone Care Team Providers Care Art Psychotherapist Name Role Phone Ramiro Galloway DO Primary Care Provider [phone] Allergies No known active allergies Medications glucagon 1 MG injection Inject 1 mg into the shoulder, thigh, or buttocks 0 Active glucose blood (OneTouch Verio) test strip 5 strips daily 0 Active hydrALAZINE (APRESOLINE) 25 MG tablet Take 50 mg by mouth 2 (two) times a day 1 Active OneTouch Delica Lancets 33G misc 1 each 5 times daily 0 Active levonorgestrel (Mirena, 52 MG,) 20 MCG/24HR IUD Mirena 20 mcg/24 hours (6 yrs) [address] 1 device in uterus x 5 years Active furosemide (LASIX) 40 MG tablet 1 Active Januvia 50 MG tablet 1 Active Active Problems Problem Noted Date Diagnosed [...] Diabetes mellitus 05/11/2018 Hypertensive disorder 05/11/2018 Immunizations Immunization Administration Dates Next Due Influenza, Injectable, Quadrivalent 05/18/2016 Tdap 09/19/2019 Family History Medical History Relation Comments Kidney disease Mother Relation Status Comments Mother Social History Tobacco Use Types Packs/Day Years Used Date Smoking Tobacco: Never Smokeless Tobacco: Never Alcohol Use Standard Drinks/Week Comments Not Currently 0 (1 standard drink = 0.6 oz pur e alcohol) Comments Unknown Sex and Gender Information Value Date Recorded Sex Assigned at Not on file Legal Sex Female 1:18 PM MDT Gender Identity Not on file Sexual Orientation Not on file Last Filed Vital Signs Vital Sign Reading Time Taken Comments Blood Pressure 128/70 06/09/2021 3:51 PM WELL DRILL OPERATOR Pulse 72 06/09/2021 3:51 PM WELL DRILL OPERATOR Temperature 36.4 C (97.6 F) 06/09/2021 3:51 PM WELL DRILL OPERATOR Respiratory Rate - - Oxygen Saturation - - Inhaled Oxygen Concentration - - Weight 120 kg (265 lb) 06/09/2021 3:51 PM WELL DRILL OPERATOR Height 172.7 cm (5' 8 ) 06/09/2021 3:51 PM WELL DRILL OPERATOR Body Mass Index 40.29 06/09/2021 3:51 PM WELL DRILL OPERATOR Plan of Treatment Health Maintenance Due Date Last Done Comments Influenza Vaccine (Season Ended) 2025 Insurance MEDICARE ADVANTAGE Care Teams Art Psychotherapist Relationship Specialty Start Date End Date Ramiro Galloway DO [address] [place] [phone] PCP - General Internal Medicine 10/29/20
--- OUTSIDE RECORDS SUMMARY | 2024-09-20 15:05 | XMS_ITS | Clinical Summary ---
Author Organization [facility] RegisterPatient Address [address] [place] [address] Care Team Providers Care Machine I Engraver Name Role Phone Ramiro Galloway DO Primary Care Provider [phone] Source Comments [facility] RegisterPatient,non-owned Affiliates and Associated Physician Practices is amultiple site organization consisting of ambulatory clinics and hospital sitesin [place], [place], [place] and [place]. This disclosure is being madepursuant to the Care Everywhere program and may not contain all information available regarding this patient. Last updated 18.[facility] RegisterPatient Allergies No known active allergies Medications * Be aware that medications may not be up to date on this document. Alwaysverify current medications with the patient. 27-1 MG TABSIndications : Take 1 tablet by mouth once daily Reasons: Active cetirizine (ZYRTEC) 10 MG tablet Take 1 tablet by mouth once daily 30 tablet 3 0 Active glucagon (GLUCAGEN) injection Inject 1 mg into muscle as needed (Hypoglycemia) 1 Each 1 0 Active Additional Information Patient not taking.Reported on 10/01/2019 blood glucose (ONETOUCH VERIO) test stripIndication s:Type 2 diabetes mellitus affecting in second trimester, antepartum (HCC) Use 5 strips once daily 150 strip 9 0 Active ONETOUCH DELICA LANCETS 33G MISCIndications :Type 2 diabetes mellitus affecting in second trimester, antepartum (HCC) Use 1 Each 5 times daily 100 Each 9 0 Active NIFEdipine CR osmotic 24hr (ADALAT CC) 60 MG tablet Take 1 tablet by mouth once daily 30 tablet 5 0 Active docusate sodium (COLACE) 100 MG capsule Take 1 capsule by mouth 2 times daily 60 capsule 2 0 Active ferrous sulfate 325 (65 FE) MG tablet Take 1 tablet by mouth once daily 100 tablet 0 Active metFORMIN (GLUCOPHAGE) 500 MG tablet Take 1 tablet by mouth daily with dinner 30 tablet 5 0 Active Additional Information Patient not taking.Reported on 11/18/2019 amLODIPine (NORVASC) 10 MG tablet Take 10 mg by mouth once daily 1 Active hydrALAZINE (APRESOLINE) 25 MG tablet Take 50 mg by mouth 2 times daily 1 Active furosemide (LASIX) 40 MG tablet Take 40 mg by mouth once daily 1 Active JANUVIA 50 MG tablet Take 50 mg by mouth once daily 1 Active Active Problems Problem Noted Date [...] to maintain follow-up maternal echocardiogram in October 9. Twice weekly nonstress testing starting at 32 [...] seen at 15 weeks. 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 Started on folic acid 4 mg/d at [facility] Resolved Problems Problem Noted Date Diagnosed Date Resolved Date Nausea and vomiting in 06/21/2019 09/05/2019 Overview (06/21/2019): Mostly morning. Encounters Date Type Department Care Team Description 08/20/2024 Telephone [facility] TRANSPLANT [address] [place] [phone] Sophia Barrientos, RN Kidney Transplant Evaluation 08/13/2024 Telephone [facility] TRANSPLANT [address] [place] [phone] Sophia Barrientos RN Kidney Transplant Evaluation 08/09/2024 Telephone [facility] TRANSPLANT [address] [place] [phone] Sophia Barrientos RN Kidney Transplant Evaluation (Health history /) 08/05/2024 Telephone [facility] TRANSPLANT [address] [place] [phone] Sophia Barrientos RN Kidney Transplant Evaluation 07/05/2024 Telephone [facility] TRANSPLANT [address] [place] [phone] Karishma Dos Santos RN Kidney Transplant Evaluation 07/05/2024 [facility] TRANSPLANT [address] [place] [phone] Karishma Dos Santos, RN Kidney Transplant Evaluation from Last 3 Months Immunizations Immunization Administration Dates Next Due FLU VACCINE QUAD [...] received? Some college, no degree 06/18/2019 Comments No Sex and Gender Information Value Date Recorded Sex Assigned at Not on file Legal Sex Female 5:41 AM AIRPORT CLERK Gender Identity Not on file Sexual Orientation Not on file Occupation Industry Job Start Date Job End Date not working 06/18/19 Not on file Not on file Not on f ile Last Filed Vital Signs Vital Sign Reading [...] - 19+ 3-dose series) 2005 COVID-19 VACCINE ( - 2023-2 5 season) 2024 DEPRESSION SCREENING 06/05/2024 MEDICARE AWV CALENDAR YEAR 2024 PAP with HPV 06/26/2024 06/26/2019 INFLUENZA VACCINE (Season Ended) 2025 05/24/2022, 05/18/2016 DTAP/TDAP/TD VACCINES (2 - T d or [...] HIGH RISK PIETRO Routine 06/26/2019 9:40 AM AIRPORT CLERK Screening for cervical cancer from Last 3 Months or Most Recently Relevant to Health Maintenance Results * HEPATITIS SCREEN ACUTE (09/20/2019 10:36 AM CDT) HAV Antibody IgM Non Reactive Non Reactive 09/20/2019 11:30 AM CDT [facility] HBsAg Non Reactive Non Reactive 09/20/2019 11:30 AM CDT [facility] HBc Antibody IgM Non Reactive Non Reactive 09/20/2019 11:30 AM CDT [facility] HCV Antibody Screen Non Reactive Non Reactive 09/20/2019 11:30 AM CDT [facility] Blood BLOOD SPECIMEN / Unknown Lab Venipuncture / Unknown 09/20/2019 10:36 AM CDT 09/20/2019 10:40 AM CDT Narrative [facility] - 09/20/2019 11:30 AM CDT Non Reactive - Antibodies to Hepatitis C virus (HCV) were not detected, result does not exclude early acute HCV infection. us Jefferson Ledezma MD LAB - CHEMISTRY ORDERABLE S Final Result [facility] [address] [place] [address] * HIV-1 HIV-2 ANTIBODY + HIV P24 AG PANEL (09/19/2019 3:42 PM CDT) HIV1/2 Ab + P24 Ag Non Reactive Non Reactive 09/19/2019 4:37 PM CDT [facility] Blood BLOOD SPECIMEN / Unknown Venipuncture / Unknown 09/19/2019 3:42 PM CDT 09/19/2019 3:47 PM CDT Narrative [facility] - 09/19/2019 4:37 PM CDT No Laboratory evidence of HIV infection. us Hortencia Cook MD LAB - CHEMISTRY ORDERABLES Fin al Result Performing Organization Address [facility] Co de Phone Number [facility] [address] [place] [address] * HPV DETECTION HIGH RISK PIETRO (06/26/2019 9:40 AM AIRPORT CLERK) High Risk Human Papilloma Result Not Detected Not Detected 07/01/2019 4:08 PM AIRPORT CLERK [facility] High Risk Human Papilloma Interp 07/01/2019 4:08 PM AIRPORT CLERK [facility] Comment:High Risk Human Marty lloma Virus was Not Detected. Pathology/Cytolo gy VAGINA AND CERVIX, CS / Unknown 06/26/2019 9:40 AM AIRPORT CLERK 06/27/2019 11:53 AM AIRPORT CLERK Narrative [facility] - 07/01/2019 4:08 PM AIRPORT CLERK Nucleic acid isolated from the specimen was [...] clinical information). Ashley Walters MD LAB - MICROBIOL OGY ORDERABLES Final Result Performing Organization Address [facility] Co de Phone Number [facility] [address] [phone] from Last 3 Months or Most Recently Relevant to Health Maintenance Insurance [place] [address] MED[place] URN-TRANSPLANT Advance Directives * Full Code (Latest Code [...] 5:46 PM 08/23/2019 7:27 PM Care Teams Machine I Engraver Relationship Specialty Start Date End Date Ramiro Galloway DO [address] [address] PCP - General 06/04/19
--- OUTSIDE RECORDS SUMMARY | 2024-09-20 15:05 | XMS_ITS | CONTINUITY OF CARE DOCUMENT ---
Author Name [email or web address] Address Unknown Organization [facility] Address [address] [place] [address] Phone [phone] Care Team Providers Care Pipeline Integrity Engineer Name Role Phone Barney RICARDO, Karla Unavailable LJ AMBROSIO MD Unavailable INSURANCE PROVIDERS Payer name Policy type / Coverage type Jean [place] red republican ID [id number] G[employer] HMO Other [id number] HEALTHCARE AND FAMILY SERVICES Medicaid 0 [id number]
--- OUTSIDE RECORDS SUMMARY | 2024-09-20 15:05 | XMS_ITS ---
Author Organization [facility] Address [address] [place] [address] Care Team Providers Care Creative Arts Music Therapist Name Role Phone Ramiro Galloway Primary Care Provider [phone] Transplant Episode Kidney Candidate [facility] ([place], [place]) - [facility] Evaluation began on 08/05/2024 Marked as Active on 08/05/2024 Kidney CoordinatorSophia Barrientos RN Phone: N/A Fax: N/A Email: N/A Scores Score Value Updated Exceptions/Reas ons CPRA Not available EPTS (Calc) 19 09/20/2024 [place] Organ Diagnosis Organ Primary Contributory Kidney Diabetes Mellitus - Type II Care Team Name Role Phone Fax Email Sophia Barrientos RN Kidney Coordinator N/A N/A N/A Bryn Grissom MD Referring Physician [phone] N/A Erna Miller Ibm Websphere Commerce Consultant N/A N/A N/A Events Pre-Transplant Referred: 06/04/2024 Evaluation began: 08/05/2024
== END 2024-09-20 15:01 | disposition home or self-care (01) ==
LOC: ANHIMG 15:03
PROVIDERS: PCP Nurse Practitioner Family; Visit Provider Surgery
DX: Z12.31 Encounter for screening mammogram for malignant neoplasm of breast (principal)
CPT/HCPCS: 77063; 77067

== ENCOUNTER 2024-11-18 11:46 | Outpatient (CLI) | payer MEDICARE, MEDICAID, SELFPAY ==
[2024-11-18 12:25] LABS: Cholesterol 157 mg/dL (0-200); HDL Direct 40 mg/dL; Triglycerides 98 mg/dL (<150)
[2024-11-18 12:36] LABS: LDL Cholesterol Direct 69 mg/dL
[2024-11-18 12:43] LABS: Hemoglobin A1C 5.4 % (<5.7)
--- OUTSIDE RECORDS SUMMARY | 2024-11-18 12:58 | XMS_ITS | Clinical Summary ---
Author Organization [facility] Address [address] [place] [address] Care Team Providers Care Tank Farm Gauger Name Role Phone Ramiro Galloway DO Primary Care Provider [phone] Allergies No known active allergies Medications ferrous [...] Diagnosed Date Acute kidney injury 11/08/2021 Osteomyelitis ([facility]/HCC [facility]) 11/07/2021 Social History Tobacco Use Types Packs/Day [...] 5:52 AM CDT Height 172.7 cm (5' 8) 11/07/2021 11:23 AM CDT Body Mass Index [...] General No Jaki Jensen, RN Insurance [place] [address] [place] [address] Advance Directives * Full Code (Latest Code Status on File) Date Activated Date Inactivated Comments 11/10/2021 9:14 AM 11/11/2021 2:58 PM * Full Code Date Activated Date Inactivated Comments 11/07/2021 4:37 PM 11/10/2021 9:14 AM Care Teams Tank Farm Gauger Relationship Specialty Start Date End Date Ramiro Galloway DO [address] [place] [address] PCP - General INTERNAL MEDICINE 11/07/21
--- OUTSIDE RECORDS SUMMARY | 2024-11-18 12:58 | XMS_ITS | Clinical Summary ---
Author Organization [facility] [employer] Address [address] [place] [address] Care Team Providers Care Energy Sales Consultant Name Role Phone Ramiro Galloway DO Primary Care Provider [phone] Source Comments [facility] [employer],non-owned Affiliates and Associated Physician Practices is amultiple site organization consisting of ambulatory clinics and hospital sitesin [place], [place], [place] and [place]. This disclosure is being madepursuant to the Care Everywhere program and may not contain all information available regarding this patient. Last updated 18.[facility] [employer] Allergies No known active allergies Medications * [...] trimester labs Seasonal allergies 06/21/2019 Overview (06/21/2019): yrte prescribed Heartburn during 06/21/2019 Overview (06/21/2019): Tums [...] seen at 15 weeks. Heterozygous MTHFR mutation [id number] 05/13/2019 Overview (06/21/2019): Of no clinical significance. Started on folic acid 4 mg/d at [facility] Resolved Problems Problem Noted Date Diagnosed Date Resolved Date Nausea and vomiting in 06/21/2019 09/05/2019 Overview (06/21/2019): Mostly morning. Encounters Date Type Department Care Team Description 11/11/2024 Telephone [facility] TRANSPLANT [address] [place] [phone] Sophia Barrientos RN Kidney Transplant Evaluation 10/30/2024 Telephone [facility] TRANSPLANT [address] [place] [phone] Sophia Barrientos RN Kidney Transplant Evaluation 10/15/2024 Telephone [facility] TRANSPLANT [address] [place] [phone] Sophia Barrientos RN Kidney Transplant Evaluation 10/01/2024 Telephone [facility] TRANSPLANT [address] [place] [phone] Sophia Barrientos RN Kidney Transplant Evaluation 09/24/2024 Telephone [facility] TRANSPLANT [address] [place] [phone] Sophia Barrientos RN Kidney Transplant Evaluation 08/20/2024 [facility] TRANSPLANT [address] [place] [phone] Sophia Barrientos, RN Kidney Transplant Evaluation from Last 3 [...] on file Legal Sex Female 5:41 AM METAL TANK BUILDER Gender Identity Not on file Sexual Orientation [...] 1:32 PM CDT Height 172.7 cm (5' 8) 12/09/2019 1:32 PM CDT Body Mass Index 41.66 12/09/2019 1:32 PM CDT Plan of Treatment Health Maintenance Due Date Last Done Comments HEPATITIS B VACCINE (1 of 3 - 19+ 3-dose series) 2005 COVID-19 VACCINE (2023-2 5 season) 2024 DEPRESSION SCREENING 06/05/2024 PAP with HPV 06/26/2024 06/26/2019 INFLUENZA VACCINE [...] HIGH RISK PIETRO Routine 06/26/2019 9:40 AM METAL TANK BUILDER Screening for cervical cancer from Last 3 Months or Most Recently Relevant to Health Maintenance Results * HEPATITIS SCREEN ACUTE (09/20/2019 10:36 AM CDT) HAV Antibody IgM Non Reactive Non Reactive 09/20/2019 11:[address] [facility] HBsAg Non Reactive Non Reactive 09/20/2019 11:[address] [facility] HBc Antibody IgM Non Reactive Non Reactive 09/20/2019 11:[address] [facility] HCV Antibody Screen Non Reactive Non Reactive 09/20/2019 11:[address] [facility] Blood BLOOD SPECIMEN / Unknown Lab Venipuncture / Unknown 09/20/2019 10:36 AM CDT 09/20/2019 10:[address] [facility] - 09/20/2019 11:30 AM CDT Non Reactive - Antibodies to Hepatitis C virus (HCV) were not detected, result does not exclude early acute HCV infection. us Jefferson Ledezma MD LAB - CHEMISTRY ORDERABLE S Final Result [facility] [address] [place] [address] * HIV-1 HIV-2 ANTIBODY + HIV P24 AG PANEL (09/19/2019 3:42 PM CDT) Pathologist [facility] HIV1/2 Ab + P24 Ag Non Reactive Non Reactive 09/19/2019 4:[address] [facility] Blood BLOOD SPECIMEN / Unknown Venipuncture / Unknown 09/19/2019 3:42 PM CDT 09/19/2019 3:[address] [facility] - 09/19/2019 4:37 PM CDT No Laboratory evidence of HIV infection. Hortencia Cook MD LAB - CHEMISTRY ORDERABLES Fin al Result Performing Organization Address [facility]/ZIP Co de Phone Number [facility] [address] [place] [address] * HPV DETECTION HIGH RISK PIETRO (06/26/2019 9:40 AM METAL TANK BUILDER) High Risk Human Papilloma Result Not Detected Not Detected 07/01/2019 4:08 PM METAL TANK BUILDER [facility] High Risk Human Papilloma Interp 07/01/2019 4:08 PM METAL TANK BUILDER [facility] Comment:High Risk Human Marty lloma Virus was Not Detected. Pathology/Cytolo gy VAGINA AND CERVIX, CS / Unknown 06/26/2019 9:40 AM METAL TANK BUILDER 06/27/2019 11:53 AM METAL TANK BUILDER Narrative [facility] - 07/01/2019 4:08 PM METAL TANK BUILDER Nucleic acid isolated from the specimen was analyzed with a nucleic acid amplification test (FDA approved Gen-Probe HPV Assay) to detect high risk human papilloma virus (Types: 16, 18, 31, 33, 35, 39, 45, 51, 52, 56, 58, 59, 66, and 68). The reference range is Not Detected. Comment: These test results should not be used as the sole basis for clinical assessment and treatment of patients. These results should always be correlated with other available data (cytology, histology, and clinical information). Ashley Walters MD LAB - MICROBIOL OGY ORDERABLES Final Result [facility] [address] [place], [place] [address] [phone] from Last 3 Months or Most Recently Relevant to Health Maintenance Insurance MEDICAID - OUT OF [place] [id number] MED[place] URN-TRANSPLANT Advance Directives * [...] 5:46 PM 08/23/2019 7:27 PM Care Teams Energy Sales Consultant Relationship Specialty Start Date End Date Ramiro Galloway DO [address] [place] [address] PCP - General 06/04/19
--- OUTSIDE RECORDS SUMMARY | 2024-11-18 12:59 | XMS_ITS | Clinical Summary ---
Author Organization [facility] Address [address] [place] [phone] Phone Care Team Providers Care Job Coaching Name Role Phone Ramiro Galloway DO Primary Care Provider [phone] Allergies No known active allergies Medications glucagon [...] Comments Blood Pressure 128/70 06/09/2021 3:51 PM DEHYDROGENATION CONVERTER OPERATOR Pulse 72 06/09/2021 3:51 PM DEHYDROGENATION CONVERTER OPERATOR Temperature 36.4 C (97.6 F) 06/09/2021 3:51 PM DEHYDROGENATION CONVERTER OPERATOR Respiratory Rate - - Oxygen Saturation - - Inhaled Oxygen Concentration - - Weight 120 kg (265 lb) 06/09/2021 3:51 PM DEHYDROGENATION CONVERTER OPERATOR Height 172.7 cm (5' 8) 06/09/2021 3:51 PM DEHYDROGENATION CONVERTER OPERATOR Body Mass Index 40.29 06/09/2021 3:51 PM DEHYDROGENATION CONVERTER OPERATOR Plan of Treatment Health Maintenance Due Date Last Done Comments Influenza Vaccine (Season Ended) 2025 Insurance MEDICARE ADVANTAGE Care Teams Job Coaching Relationship Specialty Start Date End Date Ramiro Galloway DO [address] [place] [phone] PCP - General Internal Medicine 10/29/20
--- OUTSIDE RECORDS SUMMARY | 2024-11-18 12:59 | XMS_ITS | CONTINUITY OF CARE DOCUMENT ---
Author Name [email or web address] Address Unknown Organization [facility] Address [address] [place] [address] Phone [phone] Care Team Providers Care Grading Supervisor Name Role Phone Barney RICARDO, Karla Unavailable LJ AMBROSIO MD Unavailable INSURANCE PROVIDERS Payer name Policy type / Coverage type Jean Carlos red republican ID [id number] HMO Other [id number] HEALTHCARE AND FAMILY SERVICES Medicaid 0 [id number]
--- OUTSIDE RECORDS SUMMARY | 2024-11-18 12:59 | XMS_ITS ---
Author Organization [facility] Address [address] [place] [address] Care Team Providers Care Process Improvement Manager Name Role Phone Ramiro Galloway Primary Care Provider [phone] Transplant Episode Kidney Candidate [facility] ([place], [place]) - [facility] Evaluation began on 08/05/2024 Marked as Active on 08/05/2024 Kidney CoordinatorSophia Barrientos RN Phone: N/A Fax: N/A Email: N/A Scores Score Value Updated Exceptions/Reas ons CPRA Not available EPTS (Calc) 19 11/18/2024 [place] Organ Diagnosis Organ Primary Contributory Kidney Diabetes Mellitus - Type II Care Team Name Role Phone Fax Email Sophia Barrientos RN Kidney Coordinator N/A N/A N/A Bryn Grissom MD Referring Physician [phone] N/A Erna Miller Greenhouse Laborer N/A N/A N/A Events Pre-Transplant Referred: 06/04/2024 Evaluation began: 08/05/2024 Committee: 11/14/2024
--- OUTSIDE RECORDS SUMMARY | 2024-11-18 12:59 | XMS_ITS | Encounter Summary ---
Author Organization [facility] Address [address] [address] Care Team Providers Care Computer Typesetter Name Role Phone Ramiro Galloway DO Primary Care Provider [phone] Encounter Details Date Type Department Care Team (Late st Contact Info) Description 10/21/2019 Telephone [facility] Heart & Vascular Care [address] [place] [address] Shakira Caldera [facility] Social History Tobacco Use Types Packs/Day Years [...] on file Legal Sex Female 5:41 AM DIRECTOR HYDROGEN STORAGE ENGINEERING Gender Identity Not on file Sexual Orientation Not on file Occupation Industry Job Start Date Job End Date not working 06/18/19 Not on file Not on file Not on f ile documented as of this encounter Functional Status * Is person deaf or have serious hearing difficulty? Answer Date of Assessment Author No 08/24/2019 2:03 AM Daphney Guzman RN * Is person blind or have serious difficulty seeing? Answer Date of Assessment Author No 08/24/2019 2:03 AM Daphney Guzman RN * Does person have serious difficulty [...] on filedocumented in this encounter Care Teams Computer Typesetter Relationship Specialty Start Date End Date Ramiro Galloway DO [address] [place] [address] PCP - General 06/04/19 documented as of this encounter
== END 2024-11-18 11:47 | disposition home or self-care (01) ==
PROVIDERS: PCP Nurse Practitioner Family; Visit Provider Nurse Practitioner Family
DX: I12.9 Hypertensive chronic kidney disease with stage 1 through stage 4 chronic kidney disease, or unspecified chronic kidney disease (principal); N18.4 Chronic kidney disease, stage 4 (severe); E11.22 Type 2 diabetes mellitus with diabetic chronic kidney disease; E66.9 Obesity, unspecified; E83.52 Hypercalcemia; G47.33 Obstructive sleep apnea (adult) (pediatric)
CPT/HCPCS: 36415; 80061; 83036

== ENCOUNTER 2024-12-17 12:53 | Outpatient (CLI) | payer MEDICARE, MEDICAID, SELFPAY ==
--- OUTSIDE RECORDS SUMMARY | 2024-12-17 13:04 | XMS_ITS | Clinical Summary ---
Author Organization [facility] Address [address] [place] [address] Care Team Providers Care Estate Tax Examiner Name Role Phone Ramiro Galloway DO Primary Care Provider [phone] Allergies No known active allergies Medications ferrous [...] Diagnosed Date Acute kidney injury 11/08/2021 Osteomyelitis ([facility]) 11/07/2021 Social History Tobacco Use [...] General No Jaki Jensen, RN Insurance [place] [address] [address] Advance Directives * Full Code (Latest Code Status on File) Date Activated Date Inactivated Comments 11/10/2021 9:14 AM 11/11/2021 2:58 PM * Full Code Date Activated Date Inactivated Comments 11/07/2021 4:37 PM 11/10/2021 9:14 AM Care Teams Estate Tax Examiner Relationship Specialty Start Date End Date Ramiro Galloway DO [address] [place] [id number] PCP - General INTERNAL MEDICINE 11/07/21
--- OUTSIDE RECORDS SUMMARY | 2024-12-17 13:04 | XMS_ITS | Clinical Summary ---
Author Organization [facility] Address [address] [place] [address] Care Team Providers Care Personal Banking Assistant Name Role Phone Ramiro Galloway DO Primary Care Provider [phone] Source Comments [facility],non-owned Affiliates and Associated Physician Practices is amultiple site organization consisting of ambulatory clinics and hospital sitesin [place], [place], [place] and [place]. This disclosure is being madepursuant to the Care Everywhere program and may not contain all information available regarding this patient. Last updated 18.[facility] Allergies No known active allergies Medications * [...] seen at 15 weeks. 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 [facility] Resolved Problems Problem Noted Date Diagnosed Date Resolved Date Nausea and vomiting in 06/21/2019 09/05/2019 Overview (06/21/2019): Mostly morning. Encounters Date Type Department Care Team Description 11/11/2024 Telephone [facility] [address] [place] [phone] Sophia Barrientos RN Kidney Transplant Evaluation 10/30/2024 Telephone [facility] [address] [place] [phone] Sophia Barrientos RN Kidney Transplant Evaluation 10/15/2024 Telephone [facility] [address] [place] [phone] Sophia Barrientos RN Kidney Transplant Evaluation 10/01/2024 Telephone [facility] [address] [place] [phone] Sophia Barrientos RN Kidney Transplant Evaluation 09/24/2024 Telephone [facility] [address] [place] [phone] Sophia Barrientos, RN Kidney Transplant Evaluation from [...] on file 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 Gender Identity Not on file Sexual Orientation [...] of 3 - 19+ 3-dose series) 2005 HPV VACCINE (1 - 3-dose SCDM series) 2013 COVID-19 VACCINE (2023-2 5 season) 2024 DEPRESSION SCREENING 06/05/2024 MEDICARE AWV CALENDAR YEAR 2024 PAP with HPV 06/26/2024 06/26/2019 INFLUENZA VACCINE (#1) 2025 2, 05/18/2016 DTAP/TDAP/TD VACCINES (2 - T d [...] HIGH RISK PIETRO Routine 06/26/2019 9:40 AM NEUROLOGY TECHNICIAN Screening for cervical cancer from Last 3 Months or Most Recently Relevant to Health Maintenance Results * HEPATITIS SCREEN ACUTE (09/20/2019 10:36 AM CDT) HAV Antibody IgM Non Reactive Non Reactive 09/20/2019 11:30 AM CDT [facility] HBsAg Non Reactive Non Reactive 09/20/2019 11:30 AM CDT [facility] HBc Antibody IgM Non Reactive Non Reactive 09/20/2019 11:30 AM CDT [facility] HCV Antibody Screen Non Reactive Non Reactive 09/20/2019 11:30 AM CDT [facility] Blood BLOOD SPECIMEN / Unknown Lab Venipuncture / Unknown 09/20/2019 10:36 AM CDT 09/20/2019 10:40 AM CDT Narrative [facility] - 09/20/2019 11:30 AM CDT Non Reactive - Antibodies to Hepatitis C virus (HCV) were not detected, result does not exclude early acute HCV infection. Jefferson Ledezma MD LAB - CHEMISTRY ORDERABLE S Final Result [facility] [address] [place] [address] * HIV-1 HIV-2 ANTIBODY + HIV P24 AG PANEL (09/19/2019 3:42 PM CDT) Pathologist [facility] HIV1/2 Ab + P24 Ag Non Reactive Non Reactive 09/19/2019 4:37 PM CDT [facility] Blood BLOOD SPECIMEN / Unknown Venipuncture / Unknown 09/19/2019 3:42 PM CDT 09/19/2019 3:47 PM CDT Narrative [facility] - 09/19/2019 4:37 PM CDT No Laboratory evidence of HIV infection. Hortencia Cook MD LAB - CHEMISTRY ORDERABLES Fin al Result Performing Organization Address [facility] Co de Phone Number [facility] [address] [place] [address] * HPV DETECTION HIGH RISK PIETRO (06/26/2019 9:40 AM NEUROLOGY TECHNICIAN) High Risk Human Papilloma Result Not Detected Not Detected 07/01/2019 4:08 PM NEUROLOGY TECHNICIAN [facility] High Risk Human Papilloma Interp 07/01/2019 4:08 PM NEUROLOGY TECHNICIAN [facility] Comment:High Risk Human Marty lloma Virus was Not Detected. Pathology/Cytolo gy VAGINA AND CERVIX, CS / Unknown 06/26/2019 9:40 AM NEUROLOGY TECHNICIAN 06/27/2019 11:53 AM NEUROLOGY TECHNICIAN Narrative [facility] - 07/01/2019 4:08 PM NEUROLOGY TECHNICIAN Nucleic acid isolated from the specimen was [...] OGY ORDERABLES Final Result Performing Organization Address [facility] Co de Phone Number [facility] [address] [place], [place] [address] [phone] from Last 3 Months or Most Recently Relevant to Health Maintenance Insurance MEDICAID - OUT OF STATE MED[place]ID [place] URN-TRANSPLANT Advance Directives * [...] 5:46 PM 08/23/2019 7:27 PM Care Teams Personal Banking Assistant Relationship Specialty Start Date End Date Ramiro Galloway DO [address] [place] [phone] PCP - General 06/04/19
--- OUTSIDE RECORDS SUMMARY | 2024-12-17 13:05 | XMS_ITS | Encounter Summary ---
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
--- OUTSIDE RECORDS SUMMARY | 2024-12-17 13:05 | XMS_ITS | Data Portability ---
Author Organization [facility] Address [address] [place] [address] Care Team Providers Care Hotel Or Motel Receptionist Name Role Phone JANAE DE DIOS Transmitter Chief Unavailable Assessment Encounter Date Assessment Date Assessment [...] DO Not Attach Compendium, Do Not Delete/merge, 16:55:15 pregna ncy test, urine 2019 020 In-Office Order, Internal Use Only DO Not Attach Compendium DO Not Attach Compendium, Do Not Delete/merge, [id number] 13:18:56 pregna ncy test, urine 2019 [place] In-Office Order, Internal Use Only DO Not Attach Compendium DO Not Attach Compendium, Do Not Delete/merge, [id number] 09:12:09 Referral None record ed. Procedures None record ed. Surgeries None record ed. Imaging MAMMO, diagno stic, unilat eral 2021 022 [facility] ([facility]), [address] [place], [address], 3 11:11:10 US, breast , unilat eral 2021 022 [facility] ([facility]), [address] [place], [address], 3 11:41:10 Medication Orders Mirena 21 mcg/24 hr (up to 8 years) 52 mg intrau terine device 2020 021 [id number] Not available 4 22:34:46 Mirena 21 mcg/24 hr (up to 8 years) 52 mg intrau terine device 2020 021 [id number] [id number] [address] [place], [place], [id number], 4 22:34:47 Nexpla non 68 mg subder mal implan t 2019 [address] [facility], [address] [place] [address], [id number], 1 13:01:08 PrePlu s 27 mg iron-1 mg tablet 2019 020 INTERFACE [facility], [address] [place] [address], [id number], 0 12:56:14 Nexpla non 68 mg subder mal implan t 2019 020 [email or web address] [facility], [facility], [place], [id number], 13:01:08 Patient TargetsNo targets recorded. Patient Instructions Encounter Date Encounter Id Patient Instructions Last Modified By Organization Details Last Modified Time 03/18/2020 [id number] implant for dave h control: care instructions [email or web address] Not available 03/18/2020 13:18:56 08/05/2020 [id number] intrauterine device (IUD) insertion: care instructions Not available 08/11/2020 16:55:14 05/24/2022 [id number] ALLAN Rizo Discussed with OLVIN Hernandez Not available 05/24/2022 13:17:16 Reason for Referral None Reported. Results Created Date Observation Date Name Description Value Unit Range Abnormal Flag Note LastModifiedBy Organization Detail LastModifiedTime 08/06/19 21 08/05/2020 pregn angel test, urine HCG negati ve Not Available In-Office Order Internal Use Only DO Not Attach Compendium DO Not Attach Compendium, Do Not Delete/merge, [id number] 08/05/2020 09:39:21 03/18/2003/18/2020 pregn angel test, urine HCG negati ve Not Available In-Office Order Internal Use Only DO Not Attach Compendium DO Not Attach Compendium, Do Not Delete/merge, [id number] 03/18/2020 13:07:03 03/16/20 20 03/16/2020 pregn angel test, urine HCG negati ve Not Available In-Office Order Internal Use Only DO Not Attach Compendium DO Not Attach Compendium, Do Not Delete/merge, [id number] 03/09/2020 12:23:52 11/11/19 22 11/10/2021 POC GLUCO SE POC glucose 86 mg/dL 70-99 Not Available [facility] (Lab) One [facility], [place], [address], 11/10/2021 07:57:28 11/11/19 22 11/10/2021 POC GLUCO SE POC glucose 86 mg/dL 70-99 Not Available [facility] (Lab) [address], [place], [address], 11/10/2021 09:34:27 06/24/19 23 06/24/2022 MAMMO , diagn ostic , digit al, bilat eral No observ ation record ed. [facility] [address] [place], [address], 07/01/2022 11:50:15 06/24/19 23 06/24/2022 US, breas t, unila teral No observ ation record ed. [facility] Orders [address] [place], [address], 07/01/2022 11:50:16 01/13/20 23 12/02/2022 US, eric t, unila teral No observ ation record ed. [address], [place], [address], 01/13/2023 14:24:42 01/14/20 23 12/22/2022 biops y, breafshin t, w/ ultra sound salima nce (PROC ) No observ ation record ed. [address] [facility] [address], [place], [address], 01/13/2023 14:38:36 Result Notes None recorded. 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 102 Completed 2018 Anika Ramirez MD Attn: Ashlee prince,[address] [place], [address], [place] [facility] 1 17:15:34 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 868772220167 102 Active 2018 Anika Ramirez MD Attn: Ashlee prince,[address] [place] [address], [address], [place] [facility] 1 17:15:34 Abnormal progester one 478174052 Active 2018 Anika Ramirez MD Attn: Tamiamy prince,[address] [place], [address], [place] [facility] 1 17:15:35 Abnormal progester one 056638525 Completed 2018 Anika Ramirez MD Attn: Ashlee prince,[address] [place], [address], [place] [facility] 1 17:15:35 Genital herpes simplex type 2 288347971 Active 2018 Anika Ramirez MD Attn: Tamiamy prince,[address] [place], [address], [place] [facility] 1 17:15:35 Genital herpes simplex type 2 806330610 Completed 2018 Anika Ramirez MD Attn: Ashlee prince,[address] [place], [address], [place] [facility] 1 17:15:35 Marijuana user 497305250 Active 2018 Anika Ramirez MD Attn: Ashlee niki,[address] [place], [address], [place] [facility] 1 17:15:34 Marijuana user 088971957 Completed 2018 Anika Ramirez MD Attn: Ashlee prince,[address] [facility], [place], [address], [place] [facility] 1 17:15:34 Liver enzymes level above reference range 895405036 Active 2018 MARISSA SALAS Attn: Ashlee prince,[address] [facility], [place], [address], [place] [facility] 9 13:37:08 Anemia 765995037 Active 2018 MARISSA SALAS Attn: Ashlee prince,[address] [facility], [place], [address], [place] [facility] 9 13:37:15 Subchorio myra hematoma 694427175 Completed 2018 Anika Ramirez MD Attn: Ashlee prince,[address] [facility], [place], [address], [place] [facility] 1 17:15:35 Subchorio myra hematoma 273132134 Active 2018 Anika Ramirez MD Attn: Ashlee prince,[address] [facility], [place], [address], [place] [facility] 1 17:15:35 Proteinur ia 44961777 Active 2019 MARISSA SALAS Attn: Ashlee prince,[address] [facility], [place], [address], [place] [facility] 0 12:19:45 Past history of miscarria ge 294815875 Active 2019 Anika Ramirez MD Attn: Ashlee prince,[address] [facility], [place], [address], [place] [facility] 1 17:15:34 Past history of miscarria ge 447169807 Completed 2019 Anika Ramirez MD Attn: Ashlee niki,[address] [facility], [place], [address], [place] [facility] 1 17:15:34 Morbid obesity 295067825 Active 2019 Anika Ramirez MD Attn: Ashlee prince,[address] [facility], [place], [address], [place] [facility] 1 17:15:34 Morbid obesity 554535676 Completed 2019 Anika Ramirez MD Attn: Ashlee prince,[address] [facility], [place], [address], [place] [facility] 1 17:15:34 Fibroaden sachin of left breast 821285439071 9102 Active 2022 MARISSA SALAS Attn: Ashlee prince,[address] [facility], [place], [address], [place] [facility] 3 14:39:39 Cyst of right Bartholin 's gland duct 181281306186 10490 Completed 201506/11/2019 MARISSA SALAS Attn: Ashlee prince,[address] [facility], [place], [address], [place] [facility] 0 12:30:01 Notes:Some problems listed i n Documents: #[id number], #[id number] could not be added to this patient's chart. Please review these documents and add these problems to the patient's chart manually as needed. Problem Notes None recorded. Procedures Surgical History Date Name Laterality Status Provider Name and Address Organization Details Recorded Time 1 Control Implant Removal completed MARISSA DILLARD Attn: Accounting,[address] [facility], [place], [address], [place] [facility] 08/05/2020 13:06:46 1 IUD Insertion completed MARISSA DILLARD Attn: Accounting,[address] [facility], [place], [address], [place] [facility] 08/05/2020 13:06:42 0 Control Implant Insertion completed MARISSA DILLARD Attn: Accounting,[address] [facility], [place], [address], [facility] 03/17/2020 21:27:35 0 delivery completed Cheyanne Barbosa MA [facility] 03/09/2020 12:23:15 0 Date of Last Pap Smear completed Cheyanne Barbosa MA [facility] 03/09/2020 12:22:22 4 Other completed Della Huntley MA [facility] 05/18/2016 10:40:53 Imaging Results None recorded. Procedure Notes None recorded. Medical Equipment None [...] in uterus x 5 years 2020 active [facility]: APPROVED /[id number] (07/24/20 - 1) [...] ne propionat e 50 mcg/actua tion nasal spray,gaudencio pension 07/16 completed Not Available Not Available Not [...] n 0.3 %-dexamet hasone 0.1 % eye drops,gaudencio pension INSILL 1 DROP INTO THE LEFT EYE [...] Not Available Ciprodex 0.3 %-0.1 % ear drops,gaudencio pension 03/09 completed Not Available Not Available Not [...] Updated DateTime 07/16/2020 172.72 cm 41.5 kg/m2 339121.72 g Brunilda Rachel MA [facility] 07/16/2020 11:47:18 Date Recorded Body height Body mass index (BMI) Body weight Systolic And Diastolic Provider Name and Address Organization Details Last Updated DateTime 08/05/2020 172.72 cm 46.2 kg/m2 453733.08 g 124/74 mm[Hg] Cheyanne Barbosa MA [facility] 08/05/2020 09:41:32 Date Recorded Body height Body mass index (BMI) Body weight Systolic And Diastolic Provider Name and Address Organization Details Last Updated DateTime 03/09/2020 172.72 cm 44.6 kg/m2 454431.56 g 148/86 mm[Hg] Cheyanne Barbosa MA [facility] 03/09/2020 12:25:34 Date Recorded Body height Body mass index (BMI) Body weight Systolic And Diastolic Provider Name and Address Organization Details Last Updated DateTime 03/18/2020 172.72 cm 43.8 kg/m2 474316.6 g 152/92 mm[Hg] Cheyanne Barbosa MA [facility] 03/18/2020 13:19:52 Date Recorded Body height Body mass index (BMI) Body weight Systolic And Diastolic Provider Name and Address Organization Details Last Updated DateTime 05/24/2022 170.18 cm 40.6 kg/m2 969990.42 g 126/76 mm[Hg] Della Huntley MA [facility] 05/24/2022 11:18:11 Social History Question Answer Notes LastModified by Organizat ion Details LastModified Time Tobacco Smoking Status Never Smoker Della Huntley MA [facility] 05/18/2016 10:38:26 Do You Have An Advance Directive? No Information not available 05/18/2016 Is Your Home Air Conditioned? Yes Information not available 07/16/2020 Are You Currently Sexually Active With Anyone [...] Information not available 05/18/2016 What Type Of Spice Cleaner Do You Use? None Information not available 07/16/2020 What Is Your Code Status? Other Information not available 07/16/2020 In The 14 Days Before Symptom Onset, Have You Had Close Contact With A Laboratory-confir med COVID-19 While That Case Was Ill? No [...] Is Active? No Information not available 07/16/2020 Education 2 Year College Information not available 05/18/2016 What Is The Highest Grade Or Level Of School You Have Completed Or The Highest Degree You Have Received? [id number] Information not available 07/16/2020 Do You Have An Electrostatic Air Filter? No Information not available 07/16/2020 How Many Days Of Moderate To Strenuous Exercise, Like A Brisk Walk, Did You Do In The Last 7 Days? 7 Information not available 07/16/2020 On Those Days That You Engage In Moderate To Strenuous Exercise, How Many Minutes, On Average, Do You Exercise? 30 Information not available 07/16/2020 Have There Been Any Changes To Your Family Or Social Situation? No Information no t available 07/16/2020 What Is The Fluoride Status [...] In One Or Both Eyes? No Information no t available 05/11/2018 Where Do You Live? Apartment Information not available 07/16/2020 Live Alone Or With Others? Alone Information not available 05/18/2016 Do You Have A High School Diploma Or Higher Education? Yes Information not available 07/16/2020 Do You Sometimes Have To Miss Your Medical Appointments Due To Difficult Getting Transportation? No Information not available 07/16/2020 Do You [...] Information not available 07/16/2020 Marital Status Single [facility] Informatio n not available 05/11/2018 Do You Have A Medical Power Of Asphalt Still Operator? No Information not available 07/16/2020 Do You Have Moisture Problems In Your Home? No Information not available 07/16/2020 What Was The Date Of Your Most Recent Tobacco Screening? 05/24/2022 Information not available 05/24/2022 How Many Children Do You Have? 1 Information not available 07/16/2020 Do You Have An Out Of Hospital DNR? No Information not available 07/16/2020 Performs Monthly Self-breast Exam? Yes Information no t available 05/18/2016 Do You Have Any Pets? [...] available 05/18/2016 [email or web address] Information not available 05/11/2018 Do You Have Smoke And Carbon Monoxide Detectors In Your Home? Yes Information not available 07/16/2020 Are You Passively Exposed To Smoke? No Information no t available 07/16/2020 Are There Any Smokers In Your House? No Information not available 07/16/2020 How Much Tobacco Do You Smoke? No [email or web address] Information not available 05/18/2018 Do You Participate In Social Media? Yes Information not available 07/16/2020 What Types Of Sporting Activities Do You Participate In? NONE Information not available 07/16/2020 General Stress Level High Information not available 05/11/2018 Do You Use Sunscreen Routinely? No Information not available 05/18/2016 Has Tobacco Cessation Counseling Been Provided? No Information not available 05/24/2022 On What Date Was Tobacco Cessation Counseling Provided? 05/24/2022 Information not available 05/24/2022 How Many Years Have You Smoked Tobacco? 0 [email or web address] Information not available 05/18/2018 Have You Recently Traveled Abroad? No Information not available 07/16/2020 Have You Used IV Drugs? No Information not available 07/16/2020 Do You Have Difficulty Walking Or Climbing Stairs? No Information not available 07/16/2020 Are You Currently In School? No Information not available 07/16/2020 Do You Have Any Dietary Restrictions? No Information not available 07/16/2020 Sex: Female Functional Status Question Answer Note LastModified by Organization Details LastModified Time Do you or have you ever used smokeless tobacco? Never used smokeless tobacco Information not available 05/13/2019 Are you currently employed? No Information not available 07/16/2020 Have you been exposed to chemicals or toxins? No Information not available 07/16/2020 Do you have transportation difficulties? No Information not available 07/16/2020 Are you able to care for yourself? Yes Information not available 07/16/2020 Do you have difficulty dressing or bathing? No Information not available 07/16/2020 Do you or have you ever used e-cigarettes or vape? Never used electronic cigarettes Information not available 05/13/2019 What is your exercise level? Moderate Information not available 05/18/2016 Do you use any illicit or recreational drugs? Yes marijuana Information not available 05/24/2022 Do you or have you ever used any other forms of tobacco or nicotine? No Information not available 05/24/2022 What is your level of alcohol consumption? None Information not available 05/18/2016 Have you been exposed to heavy metals? No Information not available 07/16/2020 Are you able to walk? YESWOREST Information not available 07/16/2020 Do you have difficulty doing errands alone? 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 noExposureToExcessive Noise Information not available 07/16/2020 Mental Status Question Answer Note LastModified by Organizat ion Details LastModified Time Do you feel stressed (tense, restless, nervous, or anxious, or unable to sleep at night)? [id number] Information not available 07/16/2020 Do you have difficulty concentrating, remembering or making decisions? No Information no t available 07/16/2020 Family History Relationship Description Onset Age of this Age Resolved Age Notes LastModified by Organization Details LastModified Time Mother Diabetes mellitus HTN [email or web address] Not available 05/18 10:37:36 Father Diabetes mellitus 34 pt states father deceas ed heart attack [email or web address] Not available 05/18/2016 10:38:19 Medical History Condition [...] 2 completed MARISSA DILLARD Attn: Accounting[address] [place], [address], [facility] 05/24/2022 15:54:52 Past Encounters Encounter ID Performer Location Encounter Start Date Encounter Closed Date Diagnosis/Indication Diagnosis SNOMED-CT Code Diagnosis ICD10 Code Diagnosis Note [id number] MD Faustina Hairston (PREP ROOM SUPERVISOR) [address] [place] [phone] 05/18/2016 10:05:18 05/20/2016 12:56:20 Administration of influenza vaccine 84066028 Z23 Abscess of vulva 3858916 1 N76.4 Reviewed ER records which say that she had I & d of right labial abscess. Removed iodoform gauze. Cleaned and packed with sterile strip. bandage applied. No signs of infection. Advised to continue clindamyci n prescribed from ER. Patient tolerated procedure well [id number] [facility] ([facility] SUPERVIS[facility]) [address] [place] [phone] 05/20/2016 14:44:00 05/20/2016 16:31:57 Abscess of vulva 76514939 N76.4 continue clindamyci n. No packing necessary at this time. , Advised patient if fever greater than 100.4, severe vulvar pain to go to ER [id number] MD Faustina Hairston (PREP ROOM SUPERVISOR) [address] [place] [id number] 05/11/2018 10:52:22 05/14/2018 11:17:21 Gynecologic examination 73554868 Z01.419 Age appropriat e counseling done. Venereal d isease screening 792708688 Z11.3 Z20.2 Morbid obesity 956082093 E66.01 Counseled About weight loss, diet and excercise. Advised patient to f/u with chopper gun operator. Increased blood pressure 50866834 R03.0 Advised patient to f/u with PCP. Trying to conceive 73190 9001 Z31.9 COUNSELED ABOUT TIMING OF INTERCOURS E. Counseled patient about effects of lisinopril on future . Advised patient to see PCP to switch to different form since she is actively trying to get Polycystic ovaries 91903 008 E28.2 counseled about PCOS. Counseled about [...] Patient agreed and verbalized understand ing. Proteinuria 11407622 R80 .9 Counseled about it. Oligomenorrhea 19557600 N91.5 counseled about different causes including PCOS. Counseled about insulin resistance , effect of insulin on androgens, menstrual periods, estrogen levels and its effect on EMT, breast, metabolic syndrome. Counseled About weight loss, diet and excercise. [id number] MD Faustina Johnson (PREP ROOM SUPERVISOR) [address] [place] [id number] 05/18/2018 11:39:06 05/21/2018 15:46:47 Gonococcal cervicitis 262105552 A54.03 [id number] MD Faustina Hairston (PREP ROOM SUPERVISOR) [address] [place] [id number] 06/22/2018 11:23:26 06/26/2018 15:26:37 Gonococcal cervicitis 576203992 A54.03 Counseled thoroughly about it. Safe sex counseling and use of condoms. Advised patient no intercours e until LUIS ALBERTO is negative.. Notified patient that Partner need to be treated. LUIS ALBERTO done today. Genital he rpes simplex 90979988 A60.9 Counseled about it and safe sex. Advised patient to report out breaks.EXP LAINED PATIENT THAT VULVAR BURNING COULD BE POSSIBLE FROM SHAVING VS GENITAL HERPES. Polycystic ovaries 41309 008 E28.2 d/w Patient lab work, TVUS result. counseled about PCOS. Counseled about insulin resistance , effect of insulin on androgens, menstrual periods, estrogen levels and its effect on EMT, breast, metabolic syndrome. Counseled About weight loss, diet and excercise. Patient already on metformin. Advised patient to continue. Trying to conceive 81192 9001 Z31.9 On letrozole. Advised miss Lily Michael to schedule patient with MELISSA. MELISSA referral placed last visit. Morbid obesity 729988130 E66.01 Counseled About weight loss, diet and excercise. Advised patient to f/u with chopper gun operator. [id number] MARISSA DILLARD (PREP ROOM SUPERVISOR) [address] [place] [id number] 05/13/2019 14:03:20 05/14/2019 11:37:07 Routine care 885512870 Z34.90 Venereal d isease screening 212948646 Z11.3 screening 2437 61483 Z36.85 Essential hypertension 85444757 I10 Taken off lisinopril and put on labetalol by hospital after positive test. Type 2 patrick betes mellitus 28739890 E11.9 Managed by PCP. Pt states last A1c was in Feb but she is unsure of number. Was put on Janumet. Has already had eye exam this year. F/u with repeat A1c. Proteinuria 36184217 R80 .9 Nephrology referral made in the past but pt has not been or scheduled appt. Will refer again. [id number] MARISSA DILLARD (PREP ROOM SUPERVISOR) [address] [place] [id number] 06/11/2019 11:24:19 06/12/2019 13:49:47 Routine care 462259048 Z34.90 Abnormal progesterone 13 4046588 R94.7 Liver enzy mes level above reference range 407595587 R74.8 Likely RAMIREZ. Genital he rpes simplex type 2 318087631 A60.00 On suppressiv e antiviral. 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 Marijuana user 569501815 F12.90 Cessation strongly encouraged . Proteinuria 38963493 R80 .9 Has not completed 24 hour urine yet. Anemia 405894486 D64.9 On iron supplement . Past pregn angel history of miscarriage 813954161 Z87.59 Type 2 patrick betes mellitus 44637454 E11.9 A1c 6.6. On Janumet. Essential hypertension 01662057 I10 Taken off lisinopril and put on labetalol by hospital after positive test. Morbid obesity 973966317 Z68.41 [id number] MARISSA DILLARD [facility] (PREP ROOM SUPERVISOR) [address] [place] [id number] 03/09/2020 11:41:09 03/17/2020 14:19:59 Family planning surveillance 906507562 Z30.09 34yo F with h/o DM2, morbid [...] today. RTC in 1-2 weeks for insertion. [id number] MARISSA DILLARD HC (PREP ROOM SUPERVISOR) [address] [place] [phone] 03/18/2020 12:52:22 03/19/2020 10:44:20 Implantation of subcutaneous contraceptive 708286489 Z30.9 Pt tolerated placement of nexplanon well. Counseled pt on side effects including irregular bleeding. RTC in 2-3 months. [id number] MARISSA DILLARD HC (PREP ROOM SUPERVISOR) [address] [place] [phone] 07/16/2020 08:20:25 07/27/2020 06:20:40 Contraception care 898921293 Z30.40 Nexplanon placed in 03/2020. Persistent bleeding, pt desires new control. Estrogen should be avoided given comorbidit ies (uncontrol led HTN, DM2, morbid obesity). Discussed POPs and IUD, pt desires IUD. Will order today. Will contact pt when device in office to schedule insertion. [id number] MARISSA DILLARD (PREP ROOM SUPERVISOR) [address] [place] [id number] 08/05/2020 09:16:59 08/12/2020 09:00:47 Insertion of intrauterine contraceptive device 42991961 Z30.430 Mirena IUD placed without issue. Patient tolerated procedure well. See procedure notes for details. RTC in 6 weeks for IUD check. Removal of subcutaneous contraceptive [id number] Z30.46 Nexplanon removed from the LUE without issue. Patient tolerated procedure well. See procedure note for more details. Hypertensive disorder 38 [id number] I10 She reports being on amlodipine and labetalol. Feels weak and lightheade d after taking them. Normotensi ve in office (124/74). Recommende d pt to follow up with PCP regarding HTN management /possible med changes. [id number] MARISSA DILLARD (PREP ROOM SUPERVISOR) [address] [place] [phone] 05/24/2022 10:49:56 05/25/2022 10:10:48 Administration of influenza vaccine [id number] Z23 Annual flu shot requested and administer ed. Mass of left breast 1224 611858 8494532 N63.20 Patient had mild injury to left [...] None Recorded Advance Directives Directive N: Payers Insurance Date Sequence Insurance Name Policy Number Policy Wild Covered Member ID Wild Member ID Guarantor Name 05/21/2022 2 [place] WHEN MEDICARE OR MEDICARE REPLACEMENT PRIMARY) Nataliia Tim [id number] Nataliia Tim 05/20/2016 1 [facility] [id number] Nataliia Tim [id number] Nataliia Tim 05/18/2016 1 [place] Nataliia Tim [id number] Nataliia Tim 05/21/2022 1 [facility] (MEDICARE REPLACEMENT/AD VANTAGE - HMO) [id number] Nataliia Tim [id number] Nataliia Tim Notes Date Note Type Note [...] symptoms, n/v/f. MARISSA DILLARD Attn: [address] [place], [address], [facility] 03/16/2020 10:58:41 03/18/2020 text/html 34 yo obese AAF with a Hx of HTN and DM2 presents for nexplanon insertion.LMP: 03/06/2020 MARISSA DILLARD Attn: [address] [place], [address], [place] [facility] 03/18/2020 17:54:01 07/16/2020 text/html [...] switch control. MARISSA DILLARD Attn: [address]ing[address] [facility], [place], [address], [facility] 07/24/2020 15:03:46 08/05/2020 text/html [...] MARISSA DILLARD Attn: [address]ing[address] [facility], [place], [address], [facility] 08/11/2020 17:03:22 05/24/2022 text/html [...] MARISSA DILLARD Attn: [address]ing[address] [facility], [place], [address], [facility] 05/24/2022 15:59:15 OBGyn Episode Ob Episode Information Episode Created Date Number of Fetuses Patient Bloodtype Patient rh Status Prepregnancy Weight lbs Domestic Partner Domestic Partner Phone Father Name Donor Recruiter Status 05/13/20 19 1 O Positive CLOSED Fetus Data First Name Last Name Admitted to NICU Weight (g) Sex Living Outcome Pediatric Complications Fetus ID Race Codes Race Delivery Type Antoin o Morris Bucke jorge III true 1360.77 6 M Prematur e 99743 8-6 Afric an Ameri can Problems Problem Notes Problem Name Start Date End Date Resolution Snomed Code Not e 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 [id number] Past history of miscarriage 06/11/2019 [id number] Genital herpes simplex type 2 05/21/2019 156162063 Abnormal progesterone 05/21/2019 9894951 00 Subchorionic hematoma 05/21/2019 0188775 04 Marijuana user 05/21/2019 [id number] Morbid obesity 06/11/2019 093242329 Faisal Calculation Initial Faisal Date Initial Exam [...] Days Gestation 0 05/13/2019 12/11/19 20 0 Pre-ann Flowsheet Flowsheet Date 05/13/2019 Dowd Score Blood Edema Fundus Height Fundus Units Glucose Ketones Leukocytes Nitrite Labor Signs Protein Cervic Dilation Cervic Effacement Cervic Station 1+ none 10 wks none negative 3+ Type Weight in lbs Pre/Post Dialysis Refused Weight 289.282457992574 BP Diastolic BP Location Tested BP Systolic BP Type 88 140 sitting Fetus Heart Rate Present Fetus Movement Comments NOB labs today and OB educat ional packet reviewed and provided to pt. Order for US given. Pt with h/o DM2, HTN, proteinuria, morbid obesity, miscarriage. Complete transfer of care to [facility]. Flowsheet Date 06/11/2019 Dowd Score Blood Edema Fundus Height Fundus Units Glucose Ketones Leukocytes Nitrite Labor Signs Protein Cervic Dilation Cervic Effacement Cervic Station 1+ none 13 wks none negative none 3+ Type Weight in lbs Pre/Post Dialysis Refused Weight 280.48904529909 BP Diastolic BP Location Tested BP Systolic BP Type 78 138 sitting Fetus Heart Rate Present A 156 Present Fetus Movement Comments Pt is full transfer of care to [facility] in [place]. She has appt scheduled 06/18. Flowsheet Date 03/09/2020 Dowd Score Blood Edema Fundus Height Fundus Units Glucose Ketones Leukocytes Nitrite Labor Signs Protein Cervic Dilation Cervic Effacement Cervic Station Type Weight in lbs Pre/Post Dialysis Refused Weight 293.47022799959 BP Diastolic BP Location Tested BP Systolic [...] At Estimated Date of Delivery false Thalassemia (Latvian, Frisian, Mediterranean, Or Background): MCV < 80 false Neural Tube Defect (Meningom yelocele, Spina Bifida, Or Anencephaly) false Congenital Heart Defect false Down Syndrome false Geremias-Sachs (eg, Baptist, Cajun, Andorran-Laurel) f alse Chago Disease false Sickle Cell Disease Or Trait () false Hemophilia Or Other Blood Disorders false Muscular Dystrophy false Cystic Fibrosis false Cornwall's Chorea false Mental Retardation/Autism false If Yes, [...] violence ronak [email or web address] 05/13/2019 Environmental/work hazards j [email or web address] 05/13/2019 Screening for aneuploidy jco [email or web address] 05/13/2019 Nutrition counseling ; special diet; dietary precautions (mercury, listeriosis) 05/13/2019 Childbirth classes/hospital facilities [email or web address] 05/13/2019 HIV and other routine tests 05/13/2019 Risk factors identif ied by history 05/13/2019 Weight gain counseling jcort [email or web address] 05/13/2019 Exercise [email or web address] 05/13/2019 Teratogens [email or web address] 05/13/2019 Use of any medicatio ns (including supplements, vitamins, herbs, or OTC drugs) [place] [id number] 05/13/2019 [email or web address] 05/13/2019 [facility] 05/13/2019 Tobacco/smoking cess ation counseling (ask, advise, assess, assist, and arrange) [email or web address] 05/13/2019 Illicit/recreational drugs j [email or web address] 05/13/2019 Dental care [email or web address] 05/13/2019 Travel [email or web address] 05/13/2019 Seat belt use 05/13/2019 Indications for ultrasonography [email or web address] 05/13/2019 Avoidance of saunas or hot tubs [email or web address] 05/13/2019 Toxoplasmosis precautions (cats/raw meat) [place] [id number] Second Trimester Discussed Date Discussion Item Discussion [...]
--- OUTSIDE RECORDS SUMMARY | 2024-12-17 13:05 | XMS_ITS | Clinical Summary ---
Author Organization [facility] Address [address] [place] [address] Phone Care Team Providers Care Patch Setter Name Role Phone Ramiro Galloway DO Primary Care Provider [phone] Allergies No known active allergies Medications glucagon [...] Comments Blood Pressure 128/70 06/09/2021 3:51 PM BRINEYARD SUPERVISOR Pulse 72 06/09/2021 3:51 PM BRINEYARD SUPERVISOR Temperature 36.4 C (97.6 F) 06/09/2021 3:51 PM BRINEYARD SUPERVISOR Respiratory Rate - - Oxygen Saturation - - Inhaled Oxygen Concentration - - Weight 120 kg (265 lb) 06/09/2021 3:51 PM BRINEYARD SUPERVISOR Height 172.7 cm (5' 8) 06/09/2021 3:51 PM BRINEYARD SUPERVISOR Body Mass Index 40.29 06/09/2021 3:51 PM BRINEYARD SUPERVISOR Plan of Treatment Health Maintenance Due Date Last Done Comments Influenza Vaccine (#1) 2025 Insurance MEDICARE ADVANTAGE Care Teams Patch Setter Relationship Specialty Start Date End Date Ramiro Galloway DO [address] [place] [place] [address] PCP - General Internal Medicine 10/29/20
[2024-12-17 13:53] LABS: Hematocrit 38.7 % (37.0-47.0); Hemoglobin 12.8 g/dL (12.0-15.0); Mean Corpuscular HGB Conc 33.1 g/dl (32-36); Mean Corpuscular Hemoglobin 30.8 pg (26-34); Mean Corpuscular Volume 93.0 fl (80-100); Platelet Count Result 307 k/mm3 (150-375); Red Blood Count 4.16 M/mm3 (4.2-5.4); White Blood Count 4.0 K/mm3 (4.5-10.0)
[2024-12-17 14:03] LABS: Total Protein Urine Random 126 mg/dL; Ur Ttl Prot Creatinine Ratio 0.54 mg/mg (0-0.20)
[2024-12-17 14:13] LABS: Albumin Level 4.1 g/dL (3.5-5.1); Anion Gap 11 mmol/L (4-12); Blood Urea Nitrogen 31 mg/dL (7-17); Calcium 9.6 mg/dL (8.4-10.2); Carbon Dioxide 21 mmol/L (22-30); Chloride 106 mmol/L (98-107); Estimated Glomerular Filt Rate 20; Glucose 105 mg/dL (65-110); Potassium 3.7 mmol/L (3.4-5.0); Sodium 138 mmol/L (137-145)
[2024-12-17 14:26] LABS: Parathyroid Intact 46.4 pg/mL (14.5-75.2)
== END 2024-12-17 12:54 | disposition home or self-care (01) ==
LOC: ANHLAB 12:54
PROVIDERS: PCP Nurse Practitioner Family; Visit Provider Internal Medicine Nephrology
DX: E55.9 Vitamin D deficiency, unspecified (principal); E11.29 Type 2 diabetes mellitus with other diabetic kidney complication; R80.9 Proteinuria, unspecified; N18.4 Chronic kidney disease, stage 4 (severe)
CPT/HCPCS: 36415; 80069; 82306; 82570; 83970; 84156; 85027

== ENCOUNTER 2025-05-27 11:37 | Outpatient (CLI) | payer MEDICARE, MEDICAID, SELFPAY ==
--- OUTSIDE RECORDS SUMMARY | 2025-05-27 11:56 | XMS_ITS | Clinical Summary ---
Author Organization [facility] Address [address] [place] [address] Care Team Providers Care Clean Out Driller Helper Name Role Phone Ramiro Galloway DO Primary Care Provider [phone] Source Comments [facility],non-owned Affiliates and Associated Physician Practices is amultiple site organization consisting of ambulatory clinics and hospital sitesin [place], [place], [place] and [place]. This disclosure is being madepursuant to the Care Everywhere program and may not contain all information available regarding this patient. Last updated 18.[facility] Allergies No known active allergies Medications * Be aware that medications may not be up to date on this document. Alwaysverify current medications with the patient. furosemide (LASIX) 40 MG tablet Take 1 (one) tablet by mouth Every other day 02/25/20 21 Active acetaminophen- codeine (Tylenol #3) 300-30 MG tablet TAKE 1 TABLET BY MOUTH EVERY 6 HOURS NEEDED FOR PAIN AFTER SURGERY Active ciprofloxacin 0.3% (Ciloxan) 0.3 % ophthalmic solution INSTILL 1 DROP IN LEFT EYE FOUR TIMES DAILY. START DROPS AFTER SURGERY Active Cholecalcifero l 1.25 MG (33545 UT) every 30 days Activ e lisinopril (Prinivil; Zestril) 5 MG tablet Take 1 (one) tablet by mouth once daily 02/19/20 25 Active traMADol (Ultram) 50 MG tablet Take 1 (one) tablet by mouth every 8 hours as needed Active tirzepatide (Mounjaro) 10 MG/0.5ML injectionIndic ations:Type 2 diabetes mellitus with stage 4 chronic kidney disease, without long-term current use of insulin (HCC) Inject 10 (ten) mg subcutaneously every 7 days (once a week) 2 mL 04/22/20 Active Jardiance 10 MG tablet Take 1 (one) tablet by mouth once daily 30 tablet 04/22/20 Active hydrALAZINE (Apresoline) 10 MG tablet Take 1 (one) tablet by mouth 2 times daily 05/06/20 Active lisinopril (Prinivil; Zestril) 10 MG tablet Take 1 (one) tablet by mouth once daily 05/06/20 Active NIFEdipine CR osmotic 24hr (ADALAT CC) 60 MG tablet Take 1 tablet by mouth once daily 30 tablet 5 10/30/19 20 Discontinu ed(List Clean-Up) hydrALAZINE (APRESOLINE) 25 MG tablet Take 1 (one) tablet by mouth 2 times daily 12/29/19 Discontinu ed(List Clean-Up) ibuprofen (Motrin) 600 MG tablet TAKE 1 TABLET BY MOUTH EVERY 6 HOURS OR NEED FOR PAIN, STARTING AFTER SURGERY Discontinu ed(List Clean-Up) tobramycin-dex AMETHasone (Tobradex) 0.3-0.1 % ophthalmic suspension INSTILL 1 DROP 4 TIMES A DAY INTO LEFT EYE-START DROPS AFTER SURGERY Discontinu ed(List Clean-Up) NIFEdipine CR 24hr (Adalat CC) 60 MG tablet Take 1 (one) tablet by mouth 2 times daily Take on an empty stomach. Discontinu ed(List Clean-Up) cephalexin (Keflex) 500 MG tabletIndicati ons:treatment for UTI Take 1 (one) tablet by mouth 2 times daily for 10 days Reasons: treatment for UTI 20 tablet 04/29/20 Active Problems Problem Noted Date Diagnosed Date Essential hypertension 05/13/2025 Assessment & Plan (05/13/2025 10:52 AM JEWEL HOLE ROUGH OPENER): Blood pressure is controlled. Pre-transplant evaluation for kidney transplant 04/25/2025 Overview (04/29/2025): Images from the original note were not included. Nataliia Tim 1985 Referring Hand Roller Engraver: Bryn Grissom Listing Date: Dialysis Info: Type: Time: NOD GFR 25 on 04/16/2025 WAIT TIME modification: 12/31/2020 Pt's last GFRs from this past year are as follows: 09/20/2023 21 01/22/2024 16 05/23/2024 26 08/21/2024 18 12/2024 20 Blood Type: O POS Body mass index is 35.12 kg/m . ALERTS: pt will need a LHC once she starts dialysis or has an LD apprv'd (GFR 25 on 04/16/2025) ALERTS: K vs KP, pt does not meet wt criteria for K/P at this time Partner Marketing Intern: Pt has established care with Dr. Veronica pena at [facility], next appt on 11/04/2025 CKD IV 2/2 DM2 and HTN Past Medical History: Diagnosis Date Arthropathy Chronic bronchitis flares up when she is sick, usually gets rescue inhalers Chronic hypertension during , antepartum 2014 CKD (chronic kidney disease), stage IV GFR 26 in 05/2024 Constipation r/t medications, takes laxative when needed Diabetes mellitus dx'd at age 16, used to be on metformin, used to be on insulin until she lost alot of wt, pt is on jardiance currently, follows with PCP Diabetic retinopathy Diarrhea depending on what she eats Esophageal reflux Heterozygous MTHFR mutation [id number] 05/13/2019 at [facility] History of blood transfusion 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 + serum @ [facility] Hypertension dx'd in her late 20s Kidney stones once and passed on her own Neuropathy Obstructive sleep apnea 10-15 years ago Oliguria Osteomyelitis r foot Proteinuria affecting , antepartum 06/13/2019 11g protein on 24 hour urine Type 2 diabetes mellitus affecting , antepartum age 16 Past Surgical History: Procedure Laterality Date AMPUTATION 01/2022 R 2nd toe d/t osteo, has metal plate in foot Section N/A 10/26/2019 N/A; SECTION (EMERGENCY) OTHER SURGERY laser sx to eye for bleeding vessel OTHER SURGERY Left breast to remove cyst at [facility] Social History Socioeconomic History Marital status: Single Spouse name: CHEMA uninvolved, age 25 Number of children: 0 Years of education: Not on file Highest education level: Some college, no degree Occupational History Occupation: not working 06/18/19 Tobacco Use Smoking status: Never Smokeless tobacco: Never Vaping Use Vaping status: Never Used Substance and Sexual Activity Alcohol use: Not Currently Drug use: Yes Types: Marijuana Comment: every other day Sexual activity: Not on file Other Topics Concern Not on file Social History Narrative Not on file Social Drivers of Health Financial Resource Strain: Not on file Food Insecurity: Not on file Transportation Needs: Not on file Stress: Not on file Housing Stability: Not on file Transplant Surgery Clinic Appt w/: Dr. Estrada Date: 04/29/2025 A/P: Nephrology Clinic Appt w/: Dr. Deng Date: 04/29/2025 A/P: Other Consults: Cardiology: 05/13/[address] Flores (will need LHC once she starts dialysis or has an LD approved) Pertinent Previous Committee Presentations: Labs: 04/16/2025 PTH: 36.3 A1c: 5.5 Glucose: 82 GFR: 25 Serologies: +HepAAb, all others negative (recommend Hepatitis B vaccination) CMV Igg: Positive EBV Igg: Positive Varicella: Immune MMR: Immune Toxo: <3.0 Strongyloides: 0.5 Albumin: 4.2 Tox Screen: PRA: Class 1 Class 2 K+ 3.4 Ca+ 10.4 Uric Acid 7.9 Vit D 22.6 C-peptide 3.2 Latest Reference Range & Units 04/16/25 11:51 Color UA Yellow, Straw Yellow Clarity UA Clear Turbid ! Specific [place] UA 1.005 - 1.030 1.006 pH UA 5.0 - 8.0 5.5 Protein UA Negative Trace ! Protein Urine Not Established mg/dL 27 Blood UA Negative Negative Ketone UA Negative Negative Leukocyte UA Negative 75 TAWNYA/uL ! Nitrite UA Negative Positive ! Glucose UA Normal 4+ ! Bilirubin UA Negative Negative Urobilinogen UA Normal mg/dL Normal WBC UA 0 - 5 # /hpf 21-50 ! RBC UA 0 - 5 # /hpf 3-5 Squamous Epithelial Cells 0 - 5 /hpf 6-10 Bacteria UA None Seen 3+ ! Mucus UA /LPF 1+ Reflex Status Culture to follow Urine Cx: Culture Urine >100,000 CFU/mL Escherichia coli Abnormal >100,000 CFU/mL Staphylococcus saprophyticus Abnormal Routine susceptibility testing of Stapylococcus saprophyticus is not advised, because infections respond to achievable urine concentrations of antimicrobial agents commonly used to treat acute, uncomplicated urinary tract infections. Resulting Agency: [facility] Susceptibility Escherichia coli SYLVIA Amikacin <=2 ug/mL Susceptible Ampicillin <=2 ug/mL Susceptible Ampicillin-sulbactam <=2 ug/mL Susceptible Cefazolin <=4 ug/mL See Comment* Cefazolin-Urine (uncomplicated infections ONLY) <=4 ug/mL Susceptible Cefepime <=1 ug/mL Susceptible Ceftriaxone <=1 ug/mL Susceptible Ciprofloxacin <=0.25 ug/mL Susceptible Gentamicin <=1 ug/mL Susceptible Meropenem <=0.25 ug/mL Susceptible Nitrofurantoin <=16 ug/mL Susceptible Piperacillin-tazobactam <=4 ug/mL Susceptible Tobramycin <=1 ug/mL Susceptible Trimethoprim-sulfamethoxazole <=20 ug/mL Susceptible Susceptibility Comments Escherichia coli *Cefazolin SYLVIA of </=4 cannot distinguish between susceptible or intermediate for systemic breakpoints. If further defined interpretation is needed, call Microbiology and a disk diffusion test will be performed. Urine breakpoints for cefazolin should only be used when treating uncomplicated UTIs including men and women without urologic abnormality, kidney stones, stents, nephrostomy tubes, signs/symptoms of systemic illness, or pelvic/perineal pain in men. Cefazolin results can be used to predict susceptibility to oral cephalosporins - cephalexin, cefprozil, cefaclor, cefuroxime, cefdinir, and cefpodoxime. For complicated UTIs, use alternative cefazolin susceptibility result above. Kidney Biopsy: none Renasight: EK04/16/2025 Echo: 04/16/2025 Summary * The left ventricle is normal in size, with normal systolic function and an estimated ejection fraction of 65 % by biplane method of disks. Left ventricular wall motion is normal. * The left ventricular diastolic function is consistent with normal left atrial filling pressure. * Right ventricle is normal in size with normal systolic function. * No hemodynamically significant valve disease. Left Ventricle Left ventricular systolic function is normal with an estimated ejection fraction of 65 % by biplane method of disks. The left ventricle is normal in size. The left ventricular mass is normal with concentric remodeling. Left ventricular segmental wall motion is normal. The left ventricular diastolic function is consistent with normal left atrial filling pressure. Right Ventricle The right ventricle is normal in size. Right ventricular systolic function is normal. Left Atrium The left atrium is normal in size with a left atrial volume index of 22 ml/m2 by BP MOD. Right Atrium The right atrium is normal in size. Atrial Septum Intact interatrial septum visualized by 2D and color Doppler imaging. Aortic Valve The aortic valve is trileaflet. There is trace aortic valve regurgitation. There is no aortic valve stenosis with a peak velocity of 1.6 m/s, mean gradient of 5 mmHg, and aortic valve area of 2.70 cm2. Pulmonic Valve The pulmonic valve is not well visualized. There is no pulmonic valve stenosis. There is no clinically significant pulmonic regurgitation. Mitral Valve The mitral valve is normal. There is no mitral valve stenosis. There is no clinically significant mitral valve regurgitation. Tricuspid Valve The tricuspid valve is grossly normal. There is no tricuspid valve stenosis. There is no clinically significant tricuspid valve regurgitation. Unable to calculate the pulmonary artery systolic pressure due to a lack of tricuspid regurgitation. Inferior Vena Cava The inferior vena cava is normal in size (< 2.1 cm). There is > 50% collapse of the IVC upon inspiration with an estimated right atrial pressure of 3 mmHg. Pericardium/Pleural There is no pericardial effusion. Aorta The aortic root at the sinus of Valsalva is normal in size measuring 3.0 cm with an index of 1.2 cm/m2. The ascending aorta is normal in size measuring 3.3 cm with an index of 1.3 cm/m2. Measurements Left Ventricular Outflow Tract Name Value Normal LVOT 2D LVOT Diameter 2.1 cm LVOT Area 3.3 cm2 LVOT Doppler LVOT Peak Velocity 1.4 m/s LVOT Peak Gradient 8 mmHg LVOT Mean Velocity 83.77 cm/s LVOT Mean Gradient 3 mmHg LVOT VTI 23.4 cm LVOT VTI/AV VTI Ratio 0.8 LVOT Stroke Volume 78 ml LVOT Stroke Volume Index 31 ml/m2 35-58 LVOT CO 7.2 l/min LVOT CI 2.9 l/min/m2 Pulmonic Valve Name Value Normal PV 2D RVOT Diameter (2D) 3.0 cm 1.7-2.7 RVOT Doppler RVOT Peak Velocity 1.0 m/s RVOT Peak Gradient 4 mmHg RVOT Mean Gradient 2 mmHg PV Doppler PV Peak Velocity 1.2 m/s PV Peak Gradient 5 mmHg PV Mean Gradient 3 mmHg PV Area (Cont Eq VTI) 5.83 cm2 PV Area Index (Cont Eq VTI) 2.33 cm2/m2 PV Area (Cont Eq Skip) 6.1 cm2 PV Area Index (Cont Eq Skip) 2.42 cm2/m2 Mitral Valve Name Value Normal MV Diastolic Function MV E Peak Velocity 0.9 m/sec MV A Peak Velocity 0.9 m/sec MV E/A 1.0 MV Decel Time (PW) 200 ms MV A Wave Duration 126 ms MV Annular TDI MV Septal e' Velocity 6 cm/s >=8 MV E/e' (Septal) 13 <=8 MV Lateral e' Velocity 9 cm/s >=10 MV E/e' (Lateral) 9 <=8 MV e' Average 8 cm/s MV E/e' (Average) 11 Tricuspid Valve Name Value Normal TV 2D TV Annulus Diameter (4C) 3.6 cm Estimated PAP/RSVP RA Pressure 3 mmHg <=5 Pulmonary Vessels Name Value Normal Pulmonary Veins Pulm Vein Peak Systolic Velocity 68.1 cm/s Pulm Vein Peak Diastolic Velocity 46.4 cm/s Pulm Vein S/D Velocity Ratio 1 Pulm Vein Ar Velocity 34.2 cm/s Pulm Vein Ar Dur - MV A Dur 3 ms Aorta Name Value Normal Ascending Aorta Sinus of Valsalva Diameter 3.0 cm 2.4-3.6 Sinus of Valsalva Index 1.2 cm/m2 1.4-2.2 Asc Ao Diameter 3.3 cm 1.9-3.5 Asc Ao Diameter Index 1.3 cm/m2 1.0-2.2 Septae/Shunt/Generic Name Value Normal Qp/Qs Qp/Qs 1.3 Venous Name Value Normal IVC/SVC IVC Diameter 1.4 cm <=2.1 Aortic Valve Name Value Normal AV Doppler AV Peak Velocity 1.61 m/s AV Peak Gradient 10 mmHg AV Mean Gradient 5 mmHg AV VTI 29 cm AV Area (Cont Eq VTI) 2.70 cm2 >=2.00 AV Area (Cont Eq Skip) 2.86 cm2 AV DI (VTI) 0.81 AV DI (Skip) 0.85 AV Regurgitation 2D LVOT Area 3.35 cm2 Ventricles Name Value Normal LV Dimensions 2D/MM IVS Diastolic Thickness (2D) 1.5 cm 0.6-0.9 LVID Diastole (2D) 4.1 cm 3.8-5.2 LVPW Diastolic Thickness (2D) 1.5 cm 0.6-0.9 IVS Systolic Thickness (2D) 1.5 cm LVID Systole (2D) 2.6 cm 2.2-3.5 LVPW Systolic Thickness (2D) 1.5 cm LV Mass (2D Cubed) 162 g 67-162 LV Mass Index (2D Cubed) 65 g/m2 43-95 Relative Wall Thickness (2D) 0.73 <=0.42 LV Fractional Shortening/Ejection Fraction 2D/MM LV Fractional Shortening (2D) 37 % 27-45 LV EF (2D Teicholz) 67 % 54-74 LV Diastolic Volume (4C MOD) 159 ml LV EF (4C MOD) 67 % LV Diastolic Volume (2C MOD) 144 ml LV EF (2C MOD) 66 % LV Diastolic Volume (BP MOD) 152 ml 46-106 LV Diastolic Volume Index (BP MOD) 61 ml/m2 29-61 LV Systolic Volume (BP MOD) 53 ml 14-42 LV Systolic Volume Index (BP MOD) 21 ml/m2 8-24 LV EF (BP MOD) 65 % 54-74 LV Diastolic Length (4C) 8.7 cm LV Systolic Length (4C) 7.3 cm LV Stroke Volume (4C MOD) 106 ml RV Dimensions 2D/MM RVID Diastole (2D) 3.5 cm 2.5-3.5 RVID Systole (2D) 3.1 cm RV Basal Diastolic Dimension 3.7 cm 2.5-4.1 RV Diastolic Length (4C) 7.1 cm 5.9-8.3 TAPSE 2.6 cm >=1.7 Atria Name Value Normal LA Dimensions LA Dimension (2D) 4.3 cm 2.7-3.8 LA Dimen Index (2D) 1.7 cm/m2 LA Volume (BP MOD) 54 ml LA Volume Index (BP MOD) 22 ml/m2 16-34 RA Dimensions RA Area (4C) 16 cm2 <=18 RA Area (4C) Index 6 cm2/m2 DSE: pt will need LHC given length of time DM2 LHC: pt will need LHC given length of time DM2 CXR: 04/29/2025 - pt needs to complete CT abd/pelvis non-contrast: 04/16/2025 COMPARISON: None. FINDINGS: Lung bases: Clear. Liver: Normal morphology. No focal lesions are seen. Gallbladder: Normally distended and grossly unremarkable. Biliary system: No interval extrahepatic biliary dilation seen. Pancreas: Unremarkable. No pancreatic duct dilation. Spleen: Normal. Adrenal glands: Unremarkable. Kidneys: Normal morphology. 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 No stones or hydronephrosis seen. Gastrointestinal: Stomach is unremarkable.. Small bowel loops are normal caliber. No bowel dilation seen. Colon is unremarkable. Appendix: Appendix is normal morphology. Peritoneum: Unremarkable. Retroperitoneum: Unremarkable. Vascular structures: Small calcified plaques noted in the abdominal aorta. No significant plaque burden in the iliac arteries. Inferior vena cava is unremarkable. Bilateral iliac arteries are grossly normal in the noncontrast images. Urinary bladder: Urinary bladder was minimally distended and grossly unremarkable. Other pelvic organs: IUD noted in the uterus. Uterus and adnexa are otherwise unremarkable. Bones: Severe degenerative changes noted at T9-T10, L3-L5 levels of the spine associated with disc space narrowing. Soft tissue: A few minimally enlarged bilateral inguinal lymph nodes. IMPRESSION: Unremarkable CT examination of the abdomen and pelvis. No significant calcification or plaque burden in the iliac arteries. Renal US: 12/25/2020 LE arterial doppler: 04/16/2025 PPD/Quant Gold: 04/16/2025 quant gold negative Colonoscopy: n/a pt does not meet age criteria Mammo: 09/20/2024 Mammogram: 06/23/2023 Breast bx pathology: 07/18/2023 Breast bx Pathology: 12/20/2022 Pap: requested Panorex/Dental: requested from Dr. Nuñez's office SW: 04/16/2025 Clinical Social Work Impression: It is the impression of this social media manager that Nataliia Tim has several positive factors for Kidney from a psychosocial perspective. Patient appears to have appropriate knowledge of illness. Patient has sufficient insurance coverage and stable financial situation for post transplant needs. No concerns regarding substance abuse, legal issues, or mental health needs. Patient has adequate support system and appropriate discharge plan. Plan: leather worker to provide supportive services as needed. Patient appears to be a reasonable candidate for transplant from a psychosocial perspective. -Post transplant arrangement forms are needed prior to being listed. Psychiatric Consult Recommended: No Transplant Research Laboratory Specialist: Josefina Calabrese LMSW Abdominal Transplant Research Laboratory Specialist [phone] FEED RESEARCH AIDE forms: still need RD: 04/16/2025 Transplant Nutrition Evaluation BMI: 35.8, Class II Obesity. Pt is considered to be a good candidate for a Kidney Transplant from a Nutrition standpoint. Pt has lost 22 lb on Mounjaro. Pt instructed no wt gain/continue working on wt loss Nutrition Recommendations/Pt instructed to: 1) Increase intake of low K+ fruits and veggies 2) Eat small and frequent 3) Work on a better sleep schedule Exercise: walks - reports this and mounjaro has helped her los wt. Nutrition Handouts Given along with RD contact Waist Circumference (Kidney) 49 Calculate Waist: Height ratio: 72.1% ([place] 54% or less, 39) Malnutrition/Frailty Weight Assessment: Ht: 68 Wt: 236 lbs BMI: 35.9 Wt History: Recent Weights/Methods 11/18/2019 1314 12/09/2019 1332 04/16/2025 1400 Weight: 121.6 kg (268 lb) 124.3 kg (274 lb) 107 kg (236 lb) Weight Method : -- -- Standing scale 5258.8 lbs Comments (Compliance/Labs, etc): None Based on pt's food reported recall, pt seems Mostly compliant with Diet Y/N: Y ETOH Intake: No P.O.Intake for the past 48 hrs: No concerns Taste Changes-No concerns Estimated Needs: for wt loss 25 kg IBW = 1500 - 1600 kcal Monitoring: Weight Diet Compliance Re-Evaluation: Annual f/u if listed or per Transplant Team Referral More Mayo RD/LD Items Still Pending: pap smear records, dental clearance, CXR, vascular for toe amputation, labs: +UTI, K+ 3.4, Ca+ 10.4, uric acid 7.9, Vit D 22.6, hepatitis B vaccination, Assessment & Plan (05/13/2025 10:51 AM JEWEL HOLE ROUGH OPENER): Main issue for discussion today. The patient has good exertional capacity, CCS class I. Will arrange right and left heart catheterization per transplant protocol. Will try to be judicious with contrast use as she is predialysis. Poor growth affecting management of mother in [...] seen at 15 weeks. Heterozygous MTHFR mutation [id number] 05/13/2019 Overview (06/21/2019): Of no clinical significance. Started on folic acid 4 mg/d at [facility] Resolved Problems Problem Noted Date Diagnosed Date Resolved Date Nausea and vomiting in 06/21/2019 09/05/2019 Overview (06/21/2019): Mostly morning. Encounters Date Type Department Care Team Description 05/14/2025 11:30 AM JEWEL HOLE ROUGH OPENER Office Visit [facility] - Vascular Surgery [address] [place] [phone] Joanie Eaton MD PAD (peripheral artery disease) (Primary Dx) 05/14/2025 Travel 05/13/2025 10:00 AM JEWEL HOLE ROUGH OPENER Office Visit [facility] - Cardiology [address] [place] [address] Alycia Flores MD Pre-transplant evaluation for kidney transplant (Primary Dx); Hypertension, unspecified type 05/13/2025 Travel 04/29/2025 3:06 PM JEWEL HOLE ROUGH OPENER - 04/29/2025 11:59 PM JEWEL HOLE ROUGH OPENER Hospital Encounter [facility] OP [address] [place] [phone] Bryn Ray MD Discharge Disposition: Home or Self Care 04/29/2025 3:05 PM JEWEL HOLE ROUGH OPENER Hospital Encounter [facility] [address] [place] [phone] Discharge Disposition: Home or Self Care 04/29/2025 2:00 PM JEWEL HOLE ROUGH OPENER Office Visit [facility] - Nephrology [address] [place] [phone] Melissa Deng MD Pre-transplant evaluation for kidney transplant (Primary Dx); Type 2 diabetes mellitus affecting , antepartum (HCC); Marijuana user; Anemia of chronic disease 04/29/2025 1:09 PM JEWEL HOLE ROUGH OPENER - 04/29/2025 3:04 PM JEWEL HOLE ROUGH OPENER Hospital Encounter [facility] [place] [facility] [address] [place] [phone] Discharge Disposition: Home or Self Care 04/29/2025 1:00 PM JEWEL HOLE ROUGH OPENER Office Visit [facility] [address] [place] [phone] Bela Estrada MD Pre-transplant evaluation for kidney transplant (Primary Dx) 04/29/2025 Orders Only [facility] TRANSPLANT [address] [place] [phone] Sophia Barrientos RN Urinary tract infection without hematuria, site unspecified 04/29/2025 Orders Only [facility] TRANSPLANT [address] [place] [phone] Sophia Barrientos RN 04/29/2025 Travel 04/25/2025 Telephone [facility] TRANSPLANT [address] [place] [phone] Migel Bill Kidney Transplant Follow-up 04/25/2025 Orders Only [facility] TRANSPLANT [address] [place] [phone] Sophia Barrientos, RN Amputated toe, unspecified laterality ; Pre-transplant evaluation for kidney transplant 04/25/2025 Orders Only [facility] TRANSPLANT [address] [place] [phone] Sophia Barrientos, RN Pre-transplant evaluation for kidney transplant 04/22/2025 2:40 PM JEWEL HOLE ROUGH OPENER Office Visit [facility] - Endocrinology [address] [facility] [address] [facility] [place] [phone] Dionne Martin MD Type 2 diabetes mellitus with stage 4 chronic kidney disease, without long-term current use of insulin (HCC) (Primary Dx) 04/22/2025 Travel 04/16/2025 11:00 AM JEWEL HOLE ROUGH OPENER - 04/16/2025 11:59 PM JEWEL HOLE ROUGH OPENER Hospital Encounter [facility] [place] [facility] [address] [place] [phone] Bryn Ray MD Discharge Disposition: Home or Self Care 04/16/2025 10:47 AM JEWEL HOLE ROUGH OPENER - 04/16/2025 10:59 AM JEWEL HOLE ROUGH OPENER Hospital Encounter [facility] EKG/HOLTER [address] [place] [phone] Bryn Ray MD Discharge Disposition: Home or Self Care 04/16/2025 10:00 AM JEWEL HOLE ROUGH OPENER - 04/16/2025 10:46 AM JEWEL HOLE ROUGH OPENER Hospital Encounter [facility] ECHO [address] [place] [phone] Bryn Ray MD Discharge Disposition: Home or Self Care 04/16/2025 9:54 AM JEWEL HOLE ROUGH OPENER - 04/16/2025 9:59 AM JEWEL HOLE ROUGH OPENER Hospital Encounter [facility] CAT SCAN [address] [place] [phone] Bryn Ray MD Discharge Disposition: Home or Self Care 04/16/2025 9:00 AM JEWEL HOLE ROUGH OPENER - 04/16/2025 9:04 AM JEWEL HOLE ROUGH OPENER Hospital Encounter [facility] VASCULAR US [address] [place] [address] Bryn Ray MD Discharge Disposition: Home or Self Care 04/16/2025 Orders Only [facility] TRANSPLANT [address] [place] [phone] Sophia Barrientos RN Pre-transplant evaluation for kidney transplant 04/15/2025 [facility]phone [facility] [employer] [address] [place] [phone] [facility]plant Evaluation from Last 3 Months [...] drink = 0.6 oz pur e alcohol) PHQ-2 Answer Date Recorded Patient Health Questionnaire-2 Score 0 04/22/2025 AUDIT-C Answer Date Recorded Q1: How often do you have a drink containing alcohol? Monthly or less 05/14/2025 Q2: How many drinks containi ng alcohol do you have on a typical day when you are drinking? Patient does not drink Q3: How often do you have si x or more drinks on one occasion? Less than monthly 05/14/2025 Education Answer Date Recorded What is the highest level of school you have completed or the highest degree you have received? Some college, no degree 06/18/2019 Comments No Sex and Gender Information Value Date Recorded Sex Assigned at Not on file Legal Sex Female 5:41 AM [employer] Gender Identity Not on file Sexual Orientation Not on file Occupation Industry Job Start Date Job End Date not working 06/18/19 Not on file Not on file Not on f ile Last Filed Vital Signs Vital Sign Reading Time Taken Comments Blood Pressure 111/82 05/14/2025 11:55 AM [employer] Pulse 78 05/14/2025 11:55 AM [employer] Temperature 36.6 C (97.8 F) 05/14/2025 11:55 AM [employer] Respiratory Rate 18 04/29/2025 1:52 PM [employer] Oxygen Saturation 100% 05/14/2025 11:55 AM [employer] Inhaled Oxygen Concentration - - Weight 105.2 kg (232 lb) 05/14/2025 11:55 AM [employer] Height 172.7 cm (5' 8) 05/14/2025 11:55 AM [employer] Body Mass Index 35.28 05/14/2025 11:55 AM [employer] Plan of Treatment Upcoming Encounters Date Type Department Care Team (Latest Contact Info) Description 06/13/2025 10:20 AM [employer] Hospital Encounter [facility] [address] [place] [phone] Alycia Flores MD [address] [place] [phone] Cardiac Catheterization 06/13/2025 10:20 AM [employer] - 06/13/2025 12:02 PM [employer] Surgery [facility] - Cardiac Coo [address] [place] [phone] Alycia Flores MD [facility] [phone] Left and right heart cath 07/15/2025 1:40 PM [employer] Office Visit [facility] - Cardiology [address] [place] [phone] Alycia Flores MD [address] [place] [phone] 11/04/2025 1:00 PM CDT Office Visit [facility] - Endocrinology [address] [place] [address], [place] [phone] Dionne Martin MD [address] [place] [address] 2L [place] [phone] Health Maintenance Due Date Last Done Comments HEPATITIS B VACCINE (1 of 3 - 19+ 3-dose series) 2005 PNEUMOCOCCAL VACCINE (1 of 2 - PCV) 2005 HPV VACCINE (1 - 3-dose SCDM series) 2013 MEDICARE AWV CALENDAR YEAR 2024 PAP with HPV 06/26/2024 06/26/2019 COVID-19 VACCINE (2024-2 6 season) 2025 INFLUENZA VACCINE (#1) 2025 2, 05/18/2016 DTAP/TDAP/TD VACCINES (2 - T d or Tdap) 09/18/2029 09/19/2019 ZOSTER VACCINE (1 of 2) 2036 HEPATITIS C SCREENING Completed 04/16/2025 , 09/20/2019 HIV SCREENING Completed 04/16/2025, 09/19/2019 DEPRESSION SCREENING Completed 04/22/2025 HIB VACCINE Aged Out No longer eligi ble based on patient's age to complete this topic MENINGOCOCCAL (Group B) VACCINE SHARED DECISION-MAKING Aged Out No longer eligible based on patient's age to complete this topic MENINGOCOCCAL GROUPS A/C/Y/W VACCINE Aged Out No longer eligible b ased on patient's age to complete this topic Procedures Procedure Name Priority Date/Time Associated Diagnosis Comments EKG 12-LEAD Routine 05/13/2025 10:32 AM [employer] Pre-transplant evaluation for kidney transplant Hypertension, unspecified type XR CHEST 2VW Routine 04/29/2025 3:12 PM [employer] Pre-transplant evaluation for kidney transplant EKG 12-LEAD Routine 04/16/2025 11:51 AM [employer] Pre-transplant evaluation for kidney transplant URINALYSIS REFLEX MICROSCOPIC REFLEX CULTURE Routine 04/16/2025 11:51 AM [employer] Pre-transplant evaluation for kidney transplant CREATININE URINE RANDOM Routine 04/16/20 11:51 AM [employer] Pre-transplant evaluation for kidney transplant PROTEIN URINE RANDOM QUANTITATIVE Routine 04/16/2025 11:51 AM [employer] Pre-transplant evaluation for kidney transplant CULTURE URINE Routine 04/16/2025 11:51 AM [employer] Pre-transplant evaluation for kidney transplant BLOOD TYPE ABO+ RH PANEL Routine 04/16/2025 11:14 AM [employer] Pre-transplant evaluation for kidney transplant HLA ANTIBODY SCREEN LUM CLASS 2 SAB Routine 04/16/2025 11:12 AM [employer] Pre-transplant evaluation for kidney transplant HLA ANTIBODY SCREEN LUM CLASS 1 SAB Routine 04/16/2025 11:12 AM [employer] Pre-transplant evaluation for kidney transplant HLA TYPING DNA LOW RESOLUTION DR,DQ Routine 04/16/2025 11:12 AM [employer] Pre-transplant evaluation for kidney transplant HLA TYPING DNA LOW RESOLUTION A,B,C Routine 04/16/2025 11:12 AM [employer] Pre-transplant evaluation for kidney transplant TYPE + SCREEN PANEL Routine 04/16/2025 1 1:12 AM [employer] Pre-transplant evaluation for kidney transplant C-PEPTIDE Routine 04/16/2025 11:12 AM [employer] Pre-transplant evaluation for kidney transplant STRONGYLOIDES ANTIBODY IGG Routine 04/16/2025 11:12 AM [employer] Pre-transplant evaluation for kidney transplant TOXOPLASMA GONDII ANTIBODY IGG Routine 04/16/2025 11:12 AM [employer] Pre-transplant evaluation for kidney transplant HIV-1 HIV-2 ANTIBODY + HIV P24 AG PANEL Routine 04/16/2025 11:12 AM [employer] Pre-transplant evaluation for kidney transplant QUANTIFERON-TB GOLD PLUS 4-TUBE Routine 04/16/2025 11:12 AM [employer] Pre-transplant evaluation for kidney transplant VARICELLA ZOSTER ANTIBODY IGG Routine 04/16/2025 11:12 AM [employer] Pre-transplant evaluation for kidney transplant RUBELLA ANTIBODY IGG TITER Routine 04/16/2025 11:12 AM [employer] Pre-transplant evaluation for kidney transplant MUMPS ANTIBODY IGG Routine 04/16/2025 11 :12 AM [employer] Pre-transplant evaluation for kidney transplant RUBEOLA ANTIBODY IGG Routine 04/16/2025 11:12 AM [employer] Pre-transplant evaluation for kidney transplant OPIATES BLOOD Routine 04/16/2025 11:12 AM [employer] Pre-transplant evaluation for kidney transplant COCAINE METABOLITE BLOOD QUANT Routine 04/16/2025 11:12 AM [employer] Pre-transplant evaluation for kidney transplant AMPHETAMINE BLOOD CONFIRMATION Routine 04/16/2025 11:12 AM [employer] Pre-transplant evaluation for kidney transplant NICOTINE + METABOLITES BLOOD Routine 04/16/2025 11:12 AM [employer] Pre-transplant evaluation for kidney transplant ALCOHOL ETHYL BLOOD Routine 04/16/2025 1 1:12 AM [employer] Pre-transplant evaluation for kidney transplant SYPHILIS ANTIBODY CASCADING REFLEX Routine 04/16/2025 11:12 AM [employer] Pre-transplant evaluation for kidney transplant HEMOGLOBIN A1C Routine 04/16/2025 11:12 AM [employer] Pre-transplant evaluation for kidney transplant LEILA-FOFANA VIRUS ANTIBODY TO VCA IGG Routine 04/16/2025 11:12 AM [employer] Pre-transplant evaluation for kidney transplant CYTOMEGALOVIRUS ANTIBODY IGG BLOOD Routine 04/16/2025 11:12 AM [employer] Pre-transplant evaluation for kidney transplant HEPATITIS A ANTIBODY Routine 04/16/2025 11:12 AM [employer] Pre-transplant evaluation for kidney transplant HEPATITIS C ANTIBODY Routine 04/16/2025 11:12 AM [employer] Pre-transplant evaluation for kidney transplant HEPATITIS B SURFACE ANTIBODY QUANT Routine 04/16/2025 11:12 AM [employer] Pre-transplant evaluation for kidney transplant HEPATITIS B CORE ANTIBODY TOTAL Routine 04/16/2025 11:12 AM [employer] Pre-transplant evaluation for kidney transplant HEPATITIS B SURFACE ANTIGEN W RFLX CONFIRMATION Routine 04/16/2025 11:12 AM [employer] Pre-transplant evaluation for kidney transplant LIPID PROFILE Routine 04/16/2025 11:12 AM [employer] Pre-transplant evaluation for kidney transplant PTH INTACT W/O CALCIUM Routine 11:12 AM [employer] Pre-transplant evaluation for kidney transplant PHOSPHORUS BLOOD Routine 04/16/2025 11:1 2 AM [employer] Pre-transplant evaluation for kidney transplant IRON BLOOD Routine 04/16/2025 11:12 AM [employer] Pre-transplant evaluation for kidney transplant FERRITIN Routine 04/16/2025 11:12 AM [employer] Pre-transplant evaluation for kidney transplant TRANSFERRIN Routine 04/16/2025 11:12 AM [employer] Pre-transplant evaluation for kidney transplant VITAMIN D 25-HYDROXY Routine 04/16/2025 11:12 AM [employer] Pre-transplant evaluation for kidney transplant URIC ACID BLOOD Routine 04/16/2025 11:12 AM [employer] Pre-transplant evaluation for kidney transplant COMPREHENSIVE METABOLIC PANEL Routine 04/16/2025 11:12 AM [employer] Pre-transplant evaluation for kidney transplant CBC W AUTO DIFFERENTIAL Routine 04/16/20 11:12 AM [employer] Pre-transplant evaluation for kidney transplant ECHO COMPLETE Routine 04/16/2025 10:41 AM [employer] Pre-transplant evaluation for kidney transplant Hypertension, unspecified type CT ABDOMEN PELVIS WO CONTRAST Routine 04/16/2025 10:07 AM [employer] Pre-transplant evaluation for kidney transplant VAS ARTERIAL MULTILEVEL LE Routine 04/16/2025 10:00 AM [employer] Pre-transplant evaluation for kidney transplant HPV DETECTION HIGH RISK PIETRO Routine 06/26/2019 9:40 AM [employer] Screening for cervical cancer from Last 3 Months or Most Recently Relevant to Health Maintenance Results * EKG 12-Lead (05/13/2025 10:32 AM J[employer]ENER) Only the most recent of2 resultswithin the time period is included. Ventricular Rate 86 BPM [facility] Atrial Rate 86 BPM [facility] P-R Interval 170 ms [facility] QRS Duration ms 64 ms [facility] Q-T Interval ms 376 ms [facility] QTC Calculation (Bezet) 449 ms [facility] Calculated P [place] 67 degrees [facility] Calculated R [place] 24 degrees [facility] Calculated T [place] 64 degrees [facility] Interpretation EKG NORMAL SINUS RHYTHM LOW VOLTAGE QRS BORDERLINE ECG WHEN COMPARED WITH ECG OF 16-APR-2025 11:51, NO SIGNIFICANT CHANGE WAS FOUND Confirmed by ADRIANO RICARDO, ALYCIA ([id number]) on 05/20/2025 6:28:59 PM [facility] 05/13/2025 10:3 2 AM [employer]ENER 05/20/2025 6:28 PM [employer]ENER us Alycia Flores MD ECG ORDERABLES Edited Result - Final [facility] * XR Chest 2Vw (04/29/2025 3:12 PM J[employer]ENER) Anatomical Region Laterality Modality Chest Digital Radiogra phy 05/02/2025 9:37 AM J[employer]ENER Impressions 05/02/2025 4:04 PM [employer]ENER IMPRESSION: No active pulmonary disease. > Dictated by Lucio Vega MD (Resident). > Dictated by Car Conditioner I, Chano Irvin MD have personally reviewed and interpreted this examination/study. > Interpreting Provider: Chano Irvin MD on 05/02/2025 4:04 PM Narrative 05/02/2025 4:04 PM [employer] PROCEDURE: XR CHEST 2VW DATE/TIME OF EXAM: 04/29/2025 3:13 PM CLINICAL INFORMATION: None relevant/not provided if blank. Indication: Z01.818: Pre-transplant evaluation for kidney transplant COMPARISON: Chest radiograph 10/27/2019. FINDINGS: Bilateral lungs are well aerated and normal. No pleural effusion, no pneumothorax. Interval resolution of the previously seen pneumoperitoneum. Cardiomediastinal silhouette is maintained. The visualized osseous structures are normal. Clips in the anterior chest wall or breast. Procedure Note Chano Irvin MD - 05/02/2025 PROCEDURE: XR CHEST 2VW DATE/TIME OF EXAM: 04/29/2025 3:13 PM CLINICAL INFORMATION: None relevant/not provided if blank. Indication: Z01.818: Pre-transplant evaluation for kidney transplant COMPARISON: Chest radiograph 10/27/2019. FINDINGS: Bilateral lungs are well aerated and normal. No pleural effusion, no pneumothorax. Interval resolution of the previously seenpneumoperitoneum. Cardiomediastinal silhouette is maintained. The visualized osseous structures are normal. Clips in the anterior chest wall or breast. IMPRESSION: No active pulmonary disease. > Dictated by Lucio Vega MD (Resident). > Dictated by Car Conditioner I, Chano Irvin MD have personally reviewed and interpreted this examination/study. > Interpreting Provider: Chano Irvin MD on 05/02/2025 4:04 PM Bryn Ray MD DIAGNOSTIC IMAGING ORDERABLES Final Result * (ABNORMAL) URINALYSIS REFLEX MICROSCOPIC REFLEX CULTURE (04/16/2025 11:51 AM J[employer]ENER) Color UA Yellow Yellow, Straw 04/16/2025 12:12 PM [facility] Clarity UA Turbid(A) Clear 04/16/2025 12:12 PM [facility] Glucose UA 4+(A) Normal 04/16/2025 12:12 PM [facility] Bilirubin UA Negative Negative 04/16/2025 12:12 PM [facility] Ketone UA Negative Negative 04/16/2025 12:12 PM [facility] Specific [place] UA 1.006 1.005 - 1.030 04/16/2025 12:12 PM [facility] Blood UA Negative Negative 04/16/2025 12:12 PM [facility] pH UA 5.5 5.0 - 8.0 04/16/2025 12:12 PM [facility] Protein UA Trace(A) Negative 04/16/2025 12:12 PM [facility] Urobilinogen UA Normal Normal mg/dL 04/16/2025 12:12 PM [facility] Nitrite UA Positive(A) Negative 04/16/2025 12:12 PM [facility] Leukocyte Esterase UA 75 TAWNYA/uL(A) Negative 04/16/2025 12:12 PM [facility] RBC UA 3-5 0 - 5 # /hpf 04/16/2025 12:12 PM [facility] WBC UA 21-50(A) 0 - 5 # /hpf 04/16/2025 12:12 PM [facility] Bacteria UA 3+(A) None Seen 04/16/2025 12:12 PM [facility] Squamous Epithelial Cells 6-10 0 - 5 /hpf 04/16/2025 12:12 PM [facility] Mucus UA 1+ /LPF 04/16/2025 12:12 PM [facility] Reflex Status Culture to follow 04/16/2025 12:12 PM [facility] Urine URINE SPECIMEN OBTAINED BY CLEAN CATCH PROCEDURE / Unknown Collection / Unknown 04/16/2025 11:51 AM [employer] 04/16/2025 12:02 PM [employer] Bryn Ray MD LAB - URINALYSIS ORDERABLES F inal Result Performing Organization Address City/State/[facility] Co de Phone Number [facility] [address] [place] [phone], [facility] [phone] * (ABNORMAL) CULTURE URINE (04/16/2025 11:51 AM [employer]) Culture Urine >100,000 CFU/mL Escherichia coli(A) SYLVIA 04/18/2025 3:33 AM [employer]ENER [facility] Culture Urine >100,000 CFU/mL Staphylococcus saprophyticus(A) 04/18/2025 3:33 AM [facility] Urine URINE SPECIMEN OBTAINED BY CLEAN CATCH PROCEDURE / Unknown Collection / Unknown 04/16/2025 11:51 AM [employer]ENER 04/16/2025 12:02 PM [employer]ENER Narrative [facility] - 04/18/2025 3:33 AM J[employer]ENER Routine susceptibility testing of Stapylococcus saprophyticus is not advised, because infections respond to achievable urine concentrations of antimicrobial agents commonly used to treat acute, uncomplicated urinary tract infections. Organism Antibiotic Method Susceptibility Escherichia coli Amikacin SYLVIA <=2 ug/mL: Susceptible Escherichia coli Ampicillin SYLVIA <=2 ug/mL: Susceptible Escherichia coli Ampicillin-sulbactam SYLVIA <=2 ug/mL: Susceptible Escherichia coli Cefazolin SYLVIA <=4 ug/mL: See Comment* Escherichia coli Cefazolin-Urine (uncomplicated infections ONLY) SYLVIA <=4 ug/mL: Susceptible Escherichia coli Cefepime SYLVIA <=1 ug/mL: Susceptible Escherichia coli Ceftriaxone SYLVIA <=1 ug/mL: Susceptible Escherichia coli Ciprofloxacin SYLVIA <=0.25 ug/mL: Susceptible Escherichia coli Gentamicin SYLVIA <=1 ug/mL: Susceptible Escherichia coli Meropenem SYLVIA <=0.25 ug/mL: Susceptible Escherichia coli Nitrofurantoin SYLVIA <=16 ug/mL: Susceptible Escherichia coli Piperacillin-tazobactam SYLVIA <=4 ug/mL: Susceptible Escherichia coli Tobramycin SYLVIA <=1 ug/mL: Susceptible Escherichia coli Trimethoprim-sulfame thoxaz ole SYLVIA <=20 ug/mL: Susceptible Comment: *Cefazolin SYLVIA of </=4 cannot distinguish between susceptible or intermediate for systemic breakpoints. If further defined interpretation is needed, call Microbiology and a disk diffusion test will be performed. Urine breakpoints for cefazolin should only be used when treating uncomplicated UTIs including men and women without urologic abnormality, kidney stones, stents, nephrostomy tubes, signs/symptoms of systemic illness, or pelvic/perineal pain in men. Cefazolin results can be used to predict susceptibility to oral cephalosporins - cephalexin, cefprozil, cefaclor, cefuroxime, cefdinir, and cefpodoxime. For complicated UTIs, use alternative cefazolin susceptibility result above. us Bryn Ray MD LAB - MICROBIOLOGY ORDERABLES Final Result [facility] [address] [place] [address], [facility] [phone] * PROTEIN URINE RANDOM QUANTITATIVE (04/16/2025 11:51 AM [employer]) Protein Urine 27 Not Established mg/dL 04/16/2025 12:42 PM [employer]ENER [facility] Urine URINE SPECIMEN OBTAINED BY CLEAN CATCH PROCEDURE / Unknown Collection / Unknown 04/16/2025 11:51 AM [employer]ENER 04/16/2025 12:02 PM [employer]ENER us Bryn Ray MD LAB - URINE CHEMISTRY ORDERAB LES Final Result Performing Organization Address [facility]/ZIP Co de Phone Number [facility] [address] [place] [phone], [place] [phone] * CREATININE URINE RANDOM (04/16/2025 11:51 AM J[employer]ENER) Creatinine Urine 75.49 Not Established mg/dL 04/16/2025 12:42 PM [employer] R[employer]ENER [facility] Urine URINE SPECIMEN OBTAINED BY CLEAN CATCH PROCEDURE / Unknown Collection / Unknown 04/16/2025 11:51 AM [employer]ENER 04/16/2025 12:02 PM [employer]ENER us Bryn Ray MD LAB - URINE CHEMISTRY ORDERAB LES Final Result Performing Organization Address [facility]/ZIP Co de Phone Number [facility] [address] [place] [address], [place] [phone] * BLOOD TYPE ABO+ RH PANEL (04/16/2025 11:14 AM [employer]ENER) ABO Rh O POS 04/16/2025 12:35 PM [employer]ENER [facility] Blood BLOOD SPECIMEN / Unknown Lab Venipuncture / Unknown 04/16/2025 11:14 AM J[employer]ENER 04/16/2025 11:46 AM [employer]ENER us Bryn Ray MD LAB - BLOOD BANK ORDERABLES F inal Result Performing Organization Address City/[facility]/ZIP Co de Phone Number [facility] [address] [place] [address], [place] [phone] * HLA TYPING DNA LOW RESOLUTION DR,DQ (04/16/2025 11:12 AM JEWEL HOLE ROUGH OPENER) DR DQ Low Resolution DRB1-1 *03(DR18) 04/17/2025 5:15 PM J[employer] R[employer]ENER [facility]) DR DQ Low Resolution DRB1-2 *12 04/17/2025 5:15 PM J[employer] R[employer]ENER [facility] ([facility]) DR DQ Low Resolution DQB1-1 *04 04/17/2025 5:15 PM J[employer]EL [employer] R[employer]ENER [facility] ([facility]) DR DQ Low Resolution DQB1-2 *05 04/17/2025 5:15 PM JEWEL [employer] ROUGH [employer]ENER [facility] ([facility]) DR DQ Low Resolution DRB3-1 *01 04/17/2025 5:15 PM JEWEL [employer] ROUGH OPENER [facility] ([facility]) DR DQ Low Resolution DRB3-2 Negative 04/17/2025 5:15 PM JEWEL [employer] ROUGH OPENER [facility] ([facility]) DR DQ Low Resolution DRB4-1 Negative 04/17/2025 5:15 PM JEWEL [employer]LE ROUGH OPENER [facility] ([facility]) DR DQ Low Resolution DRB4-2 Negative 04/17/2025 5:15 PM JEWEL [employer]LE ROUGH OPENER [facility] ([facility]) DR DQ Low Resolution DRB5-1 Negative 04/17/2025 5:15 PM JEWEL [employer]LE ROUGH OPENER [facility] ([facility]) DR DQ Low Resolution DRB5-2 Negative 04/17/2025 5:15 PM JEWEL [employer] ROUGH OPENER [facility] ([facility]) DR DQ Low Resolution Methodology Real Time PCR 04/17/2025 5:15 PM JEWEL [employer] ROUGH OPENER [facility] ([facility]) DR DQ Low Resolution test date [id number] 04/17/2025 5:15 PM JEWEL HOLE ROUGH OPENER [facility] ([facility]) Comment: Methodology - Real-Time PCR This test was developed and its performance characteristics determined by the [facility]. It has not been cleared or approved by the U.S. Food and Drug Administration. The FDA has determined that such clearance or approval is not necessary. This test is used for clinical purposes. It should not be regarded as investigational or for research. This laboratory is certified under the Clinical Laboratory Improvement Amendments of 1988 (CLIA-88) as qualified to perform high complexity clinical laboratory testing. CLIA ID# [id number] Performed at: [facility], [address] [place] [id number] Bilingual Legal Assistant: Kurt Trammell, Ph.D., D([facility]), Blood BLOOD SPECIMEN / Unknown Lab Venipuncture / Unknown 04/16/2025 11:12 AM [employer]ENER 04/16/2025 11:30 AM [employer]ENER Bryn Ray MD LAB - BLOOD BANK ORDERABLES F inal Result [facility] ([facility]) [facility] [address] * HLA TYPING DNA LOW RESOLUTION A,B,C (04/16/2025 11:12 AM JEWEL [employer]LE ROUGH OPENER) Pathologist [facility] ABC DNA A1 *33 04/17/2025 5:15 PM J[employer] ROUGH OPENER [facility] ([facility]) ABC DNA A2 *68 04/17/2025 5:15 PM J[employer]EL [employer] ROUGH OPENER [facility] ([facility]) ABC DNA B1 *35 04/17/2025 5:15 PM JEWEL [employer] ROUGH OPENER [facility] ([facility]) ABC DNA B2 *49 04/17/2025 5:15 PM JEWEL [employer]LE ROUGH OPENER [facility] ([facility]) ABC DNA BW1 6 04/17/2025 5:15 PM J[employer]EL [employer]LE ROUGH OPENER [facility] ([facility]) ABC DNA BW2 4 04/17/2025 5:15 PM JEWEL [employer]LE ROUGH OPENER [facility] ([facility]) ABC DNA C1 *07 04/17/2025 5:15 PM JEWEL [employer]LE ROUGH OPENER [facility] ([facility]) ABC DNA C2 *16 04/17/2025 5:15 PM JEWEL [employer]LE ROUGH OPENER [facility] ([facility]) ABC DNA Methodology Real Time PCR 04/17/2025 5:15 PM JEWEL HOLE ROUGH OPENER [facility] ([facility]) ABC DNA Test Date [id number] 5:15 PM JEWEL HOLE ROUGH OPENER [facility] ([facility]) Comment: Methodology - Real-Time PCR This test was developed and its performance characteristics determined by the [facility]. It has not been cleared or approved by the U.S. Food and Drug Administration. The FDA has determined that such clearance or approval is not necessary. This test is used for clinical purposes. It should not be regarded as investigational or for research. This laboratory is certified under the Clinical Laboratory Improvement Amendments of 1988 (CLIA-88) as qualified to perform high complexity clinical laboratory testing. CLIA ID# [id number] Performed at: [facility], [address] [place] [id number] Bilingual Legal Assistant: Kurt Trammell, Ph.D., D([facility]), Blood BLOOD SPECIMEN / Unknown Lab Venipuncture / Unknown 04/16/2025 11:12 AM JEWEL HOLE ROUGH OPENER 04/16/2025 11:30 AM JEWEL HOLE ROUGH OPENER Bryn Ray MD LAB - BLOOD BANK ORDERABLES F inal Result Performing Organization Address [facility] de Phone Number [facility] ([facility]) [address] [place] [address] * HLA ANTIBODY SCREEN LUM CLASS 2 SAB (04/16/2025 11:12 AM JEWEL HOLE ROUGH OPENER) [facility] % PRA 0 04/17/2025 5:15 PM JEWEL HOLE ROUGH OPENER [facility] ([facility]) Class 2 SAB Test Date [id number] 04/17/2025 5:15 PM JEWEL HOLE ROUGH OPENER [facility] ([facility]) Comment: Methodology - Luminex Bead-Based Immunoassay. This test was developed and its performance characteristics determined by the [facility]. It has not been cleared or approved by the U.S. Food and Drug Administration. The FDA has determined that such clearance or approval is not necessary. This test is used for clinical purposes. It should not be regarded as investigational or for research. This laboratory is certified under the Clinical Laboratory Improvement Amendments of 1988 (CLIA-88) as qualified to perform high complexity clinical laboratory testing. CLIA ID# [id number] Performed at: [facility], [address] [place] [id number] Bilingual Legal Assistant: Kurt Trammell, Ph.D., D([facility]), Blood BLOOD SPECIMEN / Unknown Lab Venipuncture / Unknown 04/16/2025 11:12 AM JEWEL HOLE ROUGH OPENER 04/16/2025 11:27 AM JEWEL HOLE ROUGH OPENER us Bryn Ray MD LAB - BLOOD BANK ORDERABLES F inal Result Performing Organization Address City/[facility]/ZIP Co de Phone Number [facility] ([facility]) [address] * HLA ANTIBODY SCREEN LUM CLASS 1 SAB (04/16/2025 11:12 AM JEWEL HOLE ROUGH OPENER) [facility] % PRA 8 04/17/2025 5:15 PM JEWEL HOLE ROUGH OPENER [facility] ([facility]) Class 1 LUM SAB Specificity A80 B44, 45, 82 Cw5, 6, 18 04/17/2025 5:15 PM JEWEL HOLE ROUGH OPENER [facility] ([facility]) Class 1 LUM SAB Moderate Risk A1, 24, 26, 66 B8, 54, 60 Cw2, 10, 15 04/17/2025 5:15 PM JEWEL HOLE ROUGH OPENER [facility] ([facility]) Class 1 SAB Test Date 04/17/2025 5:15 PM JEWEL HOLE ROUGH OPENER [facility] ([facility]) Comment: Methodology - Luminex Bead-Based Immunoassay. This test was developed and its performance characteristics determined by the [facility]. It has not been cleared or approved by the U.S. Food and Drug Administration. The FDA has determined that such clearance or approval is not necessary. This test is used for clinical purposes. It should not be regarded as investigational or for research. This laboratory is certified under the Clinical Laboratory Improvement Amendments of 1988 (CLIA-88) as qualified to perform high complexity clinical laboratory testing. CLIA ID# [id number] Performed at: [facility], [address] [place] [id number] Bilingual Legal Assistant: Kurt Trammell, Ph.D., D([facility]), Blood BLOOD SPECIMEN / Unknown Lab Venipuncture / Unknown 04/16/2025 11:12 AM JEWEL HOLE ROUGH OPENER 04/16/2025 11:27 AM JEWEL HOLE ROUGH OPENER Bryn Ray MD LAB - BLOOD BANK ORDERABLES F inal Result [facility] ([facility]) [address] * COCAINE METABOLITE QUANT (04/16/2025 11:12 AM JEWEL HOLE ROUGH OPENER) [facility] Cocaine and Metabolite Blood <20 ng/mL 04/19/2025 7:34 PM JEWEL HOLE ROUGH OPENER [facility] ([facility]) Comment: INTERPRETIVE INFORMATION: Cocaine Metabolite, Serum or Plasma, Quantitative Methodology: Quantitative Liquid Chromatography-Tandem Mass Spectrometry Positive cutoff: 20 ng/mL For medical purposes only; not valid for forensic use. The concentration value must be greater than or equal to the cutoff to be reported as positive. Interpretive questions should be directed to the laboratory. This test was developed and its performance characteristics determined by [facility]. It has not been cleared or approved by the US Food and Drug Administration. This test was performed in a CLIA certified laboratory and is intended for clinical purposes. Performed By: [address] [address] Manager Of Exhibitions And Collections: Fredo Yi MD, PhD CLIA Number: [id number] Blood BLOOD SPECIMEN / Unknown Lab Venipuncture / Unknown 04/16/2025 11:12 AM JEWEL HOLE ROUGH OPENER 04/16/2025 11:27 AM JEWEL HOLE ROUGH OPENER us Bryn Ray MD LAB - CHEMISTRY ORDERABLES Fi nal Result Performing Organization Address City/[facility]/ZIP Co de Phone Number [facility]) [address] [place] [address] * SYPHILIS ANTIBODY CASCADING REFLEX (04/16/2025 11:12 AM JEWEL HOLE ROUGH OPENER) [facility] Treponema pallidum Antibody Non-react tia Non-react tia 04/16/2025 12:23 PM JEWEL HOLE ROUGH OPENER [facility] Comment: No Laboratory evidence of syphilis infection. Note: Circulating antibodies may be low or undetectable in early infection. If recent exposure is suspected, re-draw sample in 2-4 weeks and repeat testing. Blood BLOOD SPECIMEN / Unknown Lab Venipuncture / Unknown 04/16/2025 11:12 AM JEWEL HOLE ROUGH OPENER 04/16/2025 11:29 AM JEWEL HOLE ROUGH OPENER us Bryn Ray MD LAB - SEROLOGY ORDERABLES Fin al Result [facility] [address] [place] [phone], [place] [phone] * AMPHETAMINE BLOOD CONFIRMATION (04/16/2025 11:12 AM JEWEL HOLE ROUGH OPENER) Amphetamines Confirmation <20 ng/mL 04/19/2025 9:58 PM JEWEL HOLE ROUGH OPENER [facility] ([facility]) Comment: INTERPRETIVE INFORMATION: Amphetamines, Serum or Plasma, Quantitative Methodology: Quantitative Liquid Chromatography-Tandem Mass Spectrometry Positive cutoff: 20 ng/mL For medical purposes only; not valid for forensic use. The absence of expected drug(s) and/or drug metabolite(s) may indicate non-compliance, inappropriate timing of specimen collection relative to drug administration, poor drug absorption, or limitations of testing. The concentration value must be greater than or equal to the cutoff to be reported as positive. Interpretive questions should be directed to the laboratory. This test was developed and its performance characteristics determined by [facility]. It has not been cleared or approved by the US Food and Drug Administration. This test was performed in a CLIA certified laboratory and is intended for clinical purposes. Methamphetamine Confirmation <20 ng/mL 04/19/2025 9:58 PM JEWEL HOLE ROUGH OPENER [facility]) MDA Confirmation <20 ng/mL 04/19/20 25 9:58 PM JEWEL HOLE ROUGH OPENER [facility]) MDMA Confirm <20 ng/mL 04/19/2025 9:58 PM JEWEL HOLE ROUGH OPENER [facility]) MDEA Confirmation <20 ng/mL 025 9:58 PM JEWEL HOLE ROUGH OPENER [facility]) Comment: Performed By: [facility] [address] [place] [address] Manager Of Exhibitions And Collections: Fredo Yi MD, PhD CLIA Number: [id number] Blood BLOOD SPECIMEN / Unknown Lab Venipuncture / Unknown 04/16/2025 11:12 AM JEWEL HOLE ROUGH OPENER 04/16/2025 11:28 AM JEWEL HOLE ROUGH OPENER us Bryn Ray MD LAB - CHEMISTRY ORDERABLES Fi nal Result [facility]) [address] [place] [address], [facility] * QUANTIFERON-TB GOLD PLUS 4-TUBE (04/16/2025 11:12 AM JEWEL HOLE ROUGH OPENER) QuantiFERON Mitogen Minus NIL 9.88 IU/mL 04/18/2025 5:21 PM JEWEL HOLE ROUGH OPENER [facility] ([facility]) QuantiFERON Nil Value 0.12 IU/mL 04/18/2025 5:21 PM JEWEL HOLE ROUGH OPENER [facility] ([facility]) QuantiFERON Plus TB1 Minus NIL 0.01 <=0.34 IU/mL 04/18/2025 5:21 PM JEWEL HOLE ROUGH OPENER [facility] ([facility]) QuantiFERON Plus TB2 Minus NIL 0.00 <=0.34 IU/mL 04/18/2025 5:21 PM JEWEL HOLE ROUGH OPENER [facility] ([facility]) QuantiFERON-TB Gold Plus Negative Negative 04/18/2025 5:21 PM JEWEL HOLE ROUGH OPENER [facility] ([facility]) Comment: INTERPRETIVE INFORMATION:Quantiferon TB Gold Plus Interferon gamma release is measured for specimens from each of the four collection tubes. A qualitative result (Negative, Positive, or Indeterminate) is based on interpretation of the four values: NIL, MITOGEN minus NIL (MITOGEN-NIL), TB1 minus NIL (TB1-NIL), and TB2 minus NIL (TB2-NIL). The NIL value represents nonspecific reactivity produced by the patient specimen. The MITOGEN-NIL value serves as the positive control for the patient specimen, demonstrating successful lymphocyte activity. The TB1-NIL tube specifically detects CD4+ lymphocyte reactivity, specifically stimulated by the TB1 antigens. The TB2-NIL tube detects both CD4+ and CD8+ lymphocyte reactivity, stimulated by TB2 antigens. An overall Negative result does not completely rule out TB infection. A false-positive result in the absence of other clinical evidence of TB infection is not uncommon. Refer to: Updated Guidelines for Using Interferon Gamma Release Assays to Detect Mycobacterium tuberculosis Infection -- [place], 2010 (http://www.cdc.gov/mmwr/preview/mmwrhtml/vd3380o6.htm), for more information concerning test performance in low-prevalence populations and use in occupational screening. Performed By: [facility] [address] [place] [id number] Manager Of Exhibitions And Collections: Fredo Yi MD, PhD CLIA Number: [id number] Blood BLOOD SPECIMEN / Unknown Lab Venipuncture / Unknown 04/16/2025 11:12 AM JEWEL HOLE ROUGH OPENER 04/16/2025 11:28 AM JEWEL HOLE ROUGH OPENER us Bryn Ray MD LAB - CHEMISTRY ORDERABLES Fi nal Result [facility]) [address] [place] [phone], [facility] * PTH INTACT W/O CALCIUM (04/16/2025 11:12 AM JEWEL HOLE ROUGH OPENER) PTH Intact 36.3 8.0 - 77.0 pg/mL 04/16/2025 12:11 PM JEWEL HOLE ROUGH OPENER [facility] Blood BLOOD SPECIMEN / Unknown Lab Venipuncture / Unknown 04/16/2025 11:12 AM JEWEL HOLE ROUGH OPENER 04/16/2025 11:34 AM JEWEL HOLE ROUGH OPENER Bryn Ray MD LAB - CHEMISTRY ORDERABLES nal Result Performing Organization Address City/[facility]/ZIP Co de Phone Number [address] [address], [facility] [phone] * HIV-1 HIV-2 ANTIBODY + HIV P24 AG PANEL (04/16/2025 11:12 AM JEWEL HOLE ROUGH OPENER) Pathologist [facility] HIV Antigen/Antibod y 1 & 2 Non-reacti ve Non-react tia 04/16/2025 12:23 PM JEWEL HOLE ROUGH OPENER [facility] Comment:No Laboratory eviden ce of HIV infection. Blood BLOOD SPECIMEN / Unknown Lab Venipuncture / Unknown 04/16/2025 11:12 AM JEWEL HOLE ROUGH OPENER 04/16/2025 11:29 AM JEWEL HOLE ROUGH OPENER us Bryn Ray MD LAB - CHEMISTRY ORDERABLES Fi nal Result [facility] [address] [place] [address], [place] [phone] * HEPATITIS B SURFACE ANTIBODY QUANT (04/16/2025 11:12 AM JEWEL HOLE ROUGH OPENER) Hepatitis B Virus Surface Antibody Non-react tia Non-react tia 04/16/2025 12:23 PM JEWEL HOLE ROUGH OPENER [facility] Comment: < 8 mIU/mL Hepatitis B surface Antibody (HBsAb). Nonreactive for HBsAb - individual is considered not immune to Hepatitis B Virus infection. Hepatitis B Surface Antibody Quantitative 3.3 <8.0 mIU/mL 04/16/2025 12:23 PM JEWEL HOLE ROUGH OPENER [facility] Comment: Hepatitis B Surface Antibody Numeric Result Interpretation: Nonreactive: <8.0 mIU/mL Indeterminate: 8.0 - 12.0 mIU/mL Reactive: >12.0 mIU/mL Blood BLOOD SPECIMEN / Unknown Lab Venipuncture / Unknown 04/16/2025 11:12 AM JEWEL HOLE ROUGH OPENER 04/16/2025 11:29 AM JEWEL HOLE ROUGH OPENER Narrative [facility] - 04/16/2025 12:23 PM JEWEL HOLE ROUGH OPENER This assay should not be used for blood, plasma, or tissue donor screening. This assay is not recommended for neonates born to HBV-infected or suspected HBV-infected mothers. Bryn Ray MD LAB - SEROLOGY ORDERABLES Fin al Result [address] [address], [facility] [phone] * OPIATES BLOOD (04/16/2025 11:12 AM JEWEL HOLE ROUGH OPENER) [facility] Opiates Screen Negative 04/19/2025 3:09 PM JEWEL HOLE ROUGH OPENER [facility] ([facility]) Comment:REFERENCE RANGE: thr shold: 10 ng/mL Oxycodone Screen Negative 04/19/20 3:09 PM JEWEL HOLE ROUGH OPENER [facility] ([facility]) Comment:REFERENCE RANGE: thr shold: 10 ng/mL Specimen Type Comment 04/19/2025 3:09 PM JEWEL HOLE ROUGH OPENER [facility] ([facility]) Comment: WHOLE BLOOD This specimen was screened by immunoassay at the thresholds listed above. Presumptive positive results have not been confirmed by an alternate method; results are intended for clinical medical purposes. Please contact the laboratory if confirmatory testing is desired. This test was developed and its performance characteristics determined by [facility]. It has not been cleared or approved by the Food and Drug Administration. Blood BLOOD SPECIMEN / Unknown Lab Venipuncture / Unknown 04/16/2025 11:12 AM JEWEL HOLE ROUGH OPENER 04/16/2025 11:35 AM JEWEL HOLE ROUGH OPENER Narrative [facility] ([facility]) - 04/19/2025 3:09 PM JEWEL HOLE ROUGH OPENER Performed at: 01 - [facility] [address] [place] [phone] Bilingual Legal Assistant: Franny Carr [facility] [place], Phone: [phone] Bryn Ray MD LAB - CHEMISTRY ORDERABLES Fi nal Result [facility] ([facility]) [address] [place] [address], [facility] * (ABNORMAL) URIC ACID BLOOD (04/16/2025 11:12 AM JEWEL HOLE ROUGH OPENER) Pathologist [facility] Uric Acid 7.9(H) 2.6 - 6.0 mg/dL 04/16/2025 12:10 PM JEWEL HOLE ROUGH OPENER [facility] Blood BLOOD SPECIMEN / Unknown Lab Venipuncture / Unknown 04/16/2025 11:12 AM JEWEL HOLE ROUGH OPENER 04/16/2025 11:36 AM JEWEL HOLE ROUGH OPENER Bryn Ray MD LAB - CHEMISTRY ORDERABLES Fi nal Result Performing Organization Address City/[facility]/ZIP Co de Phone Number [address] [address], [facility] [phone] * STRONGYLOIDES ANTIBODY IGG (04/16/2025 11:12 AM JEWEL HOLE ROUGH OPENER) [facility] Strongyloides Antibody IgG 0.5 <=0.9 IV 04/18/2025 2:37 PM JEWEL HOLE ROUGH OPENER [facility]) Comment: INTERPRETIVE INFORMATION: Strongyloides Ab, IgG by ALYSE 0.9 IV or less....... Negative - No significant level of Strongyloides IgG antibody detected. 1.0 IV................Equivocal - The Strongyloides IgG antibody result is borderline and therefore inconclusive. Recommend retesting the patient in 2-4 weeks, if clinically indicated. 1.1 IV or greater ... Positive - IgG antibodies to Strongyloides detected, which may suggest current or past infection. False-positive results may occur with prior exposure to other helminth infections. Testing low-prevalence populations may also result in false-positive results. Performed By: [facility] [address] [place] [id number] Manager Of Exhibitions And Collections: Fredo Yi MD, PhD CLIA Number: [id number] Blood BLOOD SPECIMEN / Unknown Lab Venipuncture / Unknown 04/16/2025 11:12 AM JEWEL HOLE ROUGH OPENER 04/16/2025 11:28 AM JEWEL HOLE ROUGH OPENER us Bryn Ray MD LAB - SEROLOGY ORDERABLES Fin al Result [facility]) [address] [place] [address] * (ABNORMAL) CYTOMEGALOVIRUS ANTIBODY IGG BLOOD (04/16/2025 11:12 AM JEWEL HOLE ROUGH OPENER) Cytomegalovirus Antibody IgG >10.00(H ) <=0.59 U/mL 04/18/2025 1:28 PM JEWEL HOLE ROUGH OPENER [facility] ([facility]) Comment: INTERPRETIVE INFORMATION: Cytomegalovirus Antibody, IgG 0.59 U/mL or less......... Not Detected 0.6 - 0.69 U/mL........... Indeterminate-Repeat testing in 10-14 days may be helpful. 0.70 U/mL or greater...... Detected In immunocompromised patients, CMV serology (IgG or IgM antibody titers) may not be reliable and may be misleading in the diagnosis of acute or reactivation CMV disease. The preferred method for diagnosis is culture of virus and/or demonstration of viral antigen in peripheral white cells (buffy coat), bronchoalveolar lavage (BAL) cells, or tissue biopsies. This test should not be used for blood donor screening, associated re-entry protocols, or for screening Human Cell, Tissues and Cellular and Tissue-Based Products (HCT/P). The best evidence for current infection is a significant change on two appropriately timed specimens, where both tests are done in the same laboratory at the same time. Performed By: [facility] [address] [place] [address] Manager Of Exhibitions And Collections: Fredo Yi MD, PhD CLIA Number: [id number] Blood BLOOD SPECIMEN / Unknown Lab Venipuncture / Unknown 04/16/2025 11:12 AM JEWEL HOLE ROUGH OPENER 04/16/2025 11:28 AM JEWEL HOLE ROUGH OPENER us Bryn Ray MD LAB - CHEMISTRY ORDERABLES Fi nal Result Performing Organization Address [facility] Co de Phone Number [facility]) [address] * (ABNORMAL) RUBELLA ANTIBODY IGG TITER (04/16/2025 11:12 AM JEWEL HOLE ROUGH OPENER) Rubella Antibody IgG 17.9(H) <=8.9 IU/mL 04/18/2025 1:22 PM JEWEL HOLE ROUGH OPENER [facility] ([facility]) Comment: INTERPRETIVE INFORMATION: Rubella Antibody, IgG Less than 9 IU/mL ........ Not Detected 9 - 9.9 IU/mL ............ Indeterminate-Repeat testing in 10-14 days may be helpful. 10 IU/mL or Greater ...... Detected The best evidence for current infection is a significant change on two appropriately timed specimens, where both tests are done in the same laboratory at the same time. The magnitude of the measured result is not indicative of the amount of antibody present. Performed By: [facility] [address] [place] [address] Manager Of Exhibitions And Collections: Fredo Yi MD, PhD CLIA Number: [id number] Blood BLOOD SPECIMEN / Unknown Lab Venipuncture / Unknown 04/16/2025 11:12 AM JEWEL HOLE ROUGH OPENER 04/16/2025 11:28 AM JEWEL HOLE ROUGH OPENER Bryn Ray MD LAB - SEROLOGY ORDERABLES Fin al Result Performing Organization Address [facility] de Phone Number [facility]) [address] * RUBEOLA ANTIBODY IGG (04/16/2025 11:12 AM JEWEL HOLE ROUGH OPENER) Measles (Rubeola) Antibody IgG 120.0 AU/mL 04/18/2025 1:21 PM JEWEL HOLE ROUGH OPENER [facility] ([facility]) Comment: INTERPRETIVE INFORMATION: Measles (Rubeola) Antibody, IgG 13.4 AU/mL or less........ Negative - No significant level of detectable measles (rubeola) IgG antibody. 13.5-16.4 AU/mL .......... Equivocal - Repeat testing in 10-14 days may be helpful. 16.5 AU/mL or greater .... Positive - IgG antibody to measles (rubeola) detected which may indicate a current or past exposure/immunization to measles (rubeola). The best evidence for current infection is a significant change on two appropriately timed specimens, where both tests are done in the same laboratory at the same time. Performed By: [facility] [address] [place] [address] Manager Of Exhibitions And Collections: Fredo Yi MD, PhD CLIA Number: [id number] Blood BLOOD SPECIMEN / Unknown Lab Venipuncture / Unknown 04/16/2025 11:12 AM JEWEL HOLE ROUGH OPENER 04/16/2025 11:27 AM JEWEL HOLE ROUGH OPENER Bryn Ray MD LAB - CHEMISTRY ORDERABLES Fi nal Result [facility]) [address] [place] [address] * MUMPS ANTIBODY IGG (04/16/2025 11:12 AM JEWEL HOLE ROUGH OPENER) [facility] Mumps Virus Antibody IgG 164.0 AU/mL 04/18/2025 1:21 PM JEWEL HOLE ROUGH OPENER [facility] ([facility]) Comment: INTERPRETIVE INFORMATION: Mumps Ab, IgG by EDISON 8.9 AU/mL or less .... Negative - No significant level of detectable IgG mumps virus antibody 9.0-10.9 AU/mL ....... Equivocal - Repeat testing in 10-14 days may be helpful 11.0 AU/mL or greater: Positive - IgG antibody to mumps virus detected, which may indicate a current or past exposure/ immunization to mumps virus. The best evidence for current infection is a significant change on two appropriately timed specimens, where both tests are done in the same laboratory at the same time. Performed By: [facility] [address] [place] [address] Manager Of Exhibitions And Collections: Fredo Yi MD, PhD CLIA Number: [id number] Blood BLOOD SPECIMEN / Unknown Lab Venipuncture / Unknown 04/16/2025 11:12 AM JEWEL HOLE ROUGH OPENER 04/16/2025 11:28 AM JEWEL HOLE ROUGH OPENER us Bryn Ray MD LAB - CHEMISTRY ORDERABLES Fi nal Result Performing Organization Address [facility] de Phone Number [facility]) [address] [place] [address] * (ABNORMAL) VARICELLA ZOSTER ANTIBODY IGG (04/16/2025 11:12 AM JEWEL HOLE ROUGH OPENER) Varicella zoster Virus Antibody IgG 14.60(H) <=0.99 S/CO 04/18/2025 1:36 PM JEWEL HOLE ROUGH OPENER [facility] ([facility]) Comment: INTERPRETIVE INFORMATION: VZV Ab, IgG <=0.99 S/CO: Negative - No significant level of detectable varicella-zoster IgG antibody. >=1.00 S/CO: Positive - IgG antibody to varicella-zoster detected, which may indicate a current or past varicella-zoster infection. The best evidence for current infection is a significant change on two appropriately timed specimens, where both tests are done in the same laboratory at the same time. Performed By: [facility] [address] [place] [address] Manager Of Exhibitions And Collections: Fredo Yi MD, PhD CLIA Number: [id number] Blood BLOOD SPECIMEN / Unknown Lab Venipuncture / Unknown 04/16/2025 11:12 AM JEWEL HOLE ROUGH OPENER 04/16/2025 11:28 AM JEWEL HOLE ROUGH OPENER us Bryn Ray MD LAB - CHEMISTRY ORDERABLES Fi nal Result Performing Organization Address [facility] de Phone Number [facility]) [address] [place] [address] * C-PEPTIDE (04/16/2025 11:12 AM JEWEL HOLE ROUGH OPENER) C-Peptide 3.2 0.5 - 3.3 ng/mL 04/18/2025 11:30 AM JEWEL HOLE ROUGH OPENER [facility] ([facility]) Comment: INTERPRETIVE INFORMATION: Serum, C-Peptide Reference Interval applies to fasting specimens. To convert to nmol/L, multiply by 0.33 Performed By: [facility] [address] [place] [address] Manager Of Exhibitions And Collections: Fredo Yi MD, PhD CLIA Number: [id number] Blood BLOOD SPECIMEN / Unknown Lab Venipuncture / Unknown 04/16/2025 11:12 AM JEWEL HOLE ROUGH OPENER 04/16/2025 11:27 AM JEWEL HOLE ROUGH OPENER us Bryn Ray MD LAB - CHEMISTRY ORDERABLES Fi nal Result [facility]) [address] [place] [address] [phone] [place] [address] * TRANSFERRIN (04/16/2025 11:12 AM J[employer]EL [employer]) [facility] Transferrin 213 174 - 382 mg/dL 04/16/2025 12:03 PM [employer] [facility] Blood BLOOD SPECIMEN / Unknown Lab Venipuncture / Unknown 04/16/2025 11:12 AM [employer] 04/16/2025 11:29 AM [employer] Bryn Ray MD LAB - CHEMISTRY ORDERABLES Fi nal Result Performing Organization Address City/[facility]/ZIP Co de Phone Number [address] [address], [facility] [phone] * TOXOPLASMA GONDII ANTIBODY IGG (04/16/2025 11:12 AM [employer]) [facility] Toxoplasma Antibody IgG <3.0 <=7.1 IU/mL 04/18/2025 3:06 PM [employer] [facility] ([facility]) Comment: INTERPRETIVE INFORMATION: Toxoplasma Ab, IgG 7.1 IU/mL or less....... Not Detected 7.2-8.7 IU/mL .......... Indeterminate-Repeat testing in 10-14 days may be helpful. 8.8 IU/mL or greater ... Detected The best evidence for current infection is a significant change on two appropriately timed specimens, where both tests are done in the same laboratory at the same time. This test should not be used for blood donor screening, associated re-entry protocols, or for screening Human Cell, Tissues and Cellular and Tissue-Based Products (HCT/P). The magnitude of the measured result is not indicative of the amount of antibody present. Performed By: [facility] [address] [place], [place] [id number] Manager Of Exhibitions And Collections: Fredo Yi MD, PhD CLIA Number: [id number] Blood BLOOD SPECIMEN / Unknown Lab Venipuncture / Unknown 04/16/2025 11:12 AM [employer] 04/16/2025 11:28 AM [employer] Bryn Ray MD LAB - CHEMISTRY ORDERABLES Fi nal Result Performing Organization Address City/[facility] Co de Phone Number [facility]) [address] [place] [address] * (ABNORMAL) LEILA-FOFANA VIRUS ANTIBODY TO VCA IGG (04/16/2025 11:12 AM J[employer]EL [employer]ENER) [facility] Leila-Fofana Virus Antibody IgG Viral Capsid Antigen 203.0(H) <=17.9 U/mL 04/18/2025 3:27 AM [employer]ENER [facility] ([facility]) Comment: INTERPRETIVE INFORMATION: Leila-Fofana Virus Antibody to Viral Capsid Antigen, IgG 17.9 U/mL or less.......Not Detected 18.0-21.9 U/mL..........Indeterminate - Repeat testing in 10-14 days may be helpful. 22.0 U/mL or greater....Detected Performed By: [facility] [employer] [address] [place] [address] Manager Of Exhibitions And Collections: Fredo Yi MD, PhD CLIA Number: [id number] Blood BLOOD SPECIMEN / Unknown Lab Venipuncture / Unknown 04/16/2025 11:12 AM [employer] 04/16/2025 11:28 AM [employer] Bryn Ray MD LAB - CHEMISTRY ORDERABLES Fi nal Result Performing Organization Address City/[facility] Co de Phone Number [facility]) [address] [place] [address] * HEMOGLOBIN A1C (04/16/2025 11:12 AM J[employer]) [facility] Hemoglobin A1c 5.5 <=5.6 % 04/16/2025 1:07 PM [employer] [facility] Estimated Average Glucose 111 mg/dL 04/16/2025 1:07 PM [facility] Comment: HbA1c Interpretation: Normal : < 5.7% Pre-diabetes: 5.7-6.4% Diabetes: Equal to or greater than 6.5% Test results diagnostic of diabetes should be repeated for confirmation. Treatment target values recommended by ADA and other clinical organizations should be used to evaluate metabolic control in patients. Reference: [place] [employer], Standards of Care in Diabetes -2020 In patients 70 years and older consider HbA1c target range of 7.0-7.5% (Reference: Zain Watkins et al. JAMDA. 2012) The Sebia assay for the measurement of HbA1c is a National Glycohemoglobin Standardization Program (NGSP) certified method. Blood BLOOD SPECIMEN / Unknown Lab Venipuncture / Unknown 04/16/2025 11:12 AM [employer] 04/16/2025 11:36 AM [employer] us Bryn Ray MD LAB - CHEMISTRY ORDERABLES Fi nal Result [address] [address] [phone] * (ABNORMAL) VITAMIN D 25-HYDROXY (04/16/2025 11:12 AM [facility]) [facility] Vitamin D, 25 Hydroxy 22.6(L) 30.0 - 80.0 ng/mL 04/16/2025 12:27 PM [facility] Comment: The recommendations for 25-Hydroxy Vitamin D clinical decision points are as follows: Deficient: <20.0 ng/mL Insufficient: 20.0 - 29.9 ng/mL Sufficient: 30.0 - 100.0 ng/mL Potential Toxicity: >100 ng/mL Reference: The Endocrine Society Clinical Practice Guidelines. 2011 If the 25-Hydroxy Vitamin D results are inconsitent with clinical evidence, it is recommended that follow-up testing using a method such as LC/MS/MS be performed to confirm the result. Blood BLOOD SPECIMEN / Unknown Lab Venipuncture / Unknown 04/16/2025 11:12 AM [employer] 04/16/2025 11:36 AM [employer] us Bryn Ray MD LAB - CHEMISTRY ORDERABLES Fi nal Result [facility] [address] [place] [address], [place] [phone] * TYPE + SCREEN PANEL (04/16/2025 11:12 AM J[employer]) Antibody Screen NEG 12:35 PM J[employer]EL [employer]ENER [facility] ABO Rh O POS 04/16/2025 12:35 PM J[employer]EL [employer]ENER [facility] Blood Bank BLOOD SPECIMEN / Unknown Lab Venipuncture / Unknown 04/16/2025 11:12 AM [employer] 04/16/2025 11:46 AM [employer]ENER us Bryn Ivan Ray MD LAB - BLOOD BANK ORDERABLES F inal Result Performing Organization Address City/[facility]/ZIP Co de Phone Number [facility] [address] [place] [address], [place] [phone] * NICOTINE + METABOLITES BLOOD (04/16/2025 11:12 AM J[employer]ENER) Nicotine <5 ng/mL 04/21/2025 12:22 AM JEWEL [employer] ROUGH OPENER [facility] ([facility]) Comment: INTERPRETIVE INFORMATION: Nicotine and Metabolites, Serum or Plasma, Quantitative Methodology: Quantitative Liquid Chromatography-Tandem Mass Spectrometry Positive cutoff: 5 ng/mL For medical purposes only; not valid for forensic use. This test is designed to evaluate recent use of nicotine-containing products. Passive and active exposure cannot be discriminated definitively, although a cutoff of 10 ng/mL cotinine is frequently used for surgery qualification purposes. For smoking cessation programs or compliance testing, the absence of expected drug(s) and/or drug metabolite(s) may indicate non-compliance, inappropriate timing of specimen collection relative to drug administration, poor drug absorption, or limitations of testing. This test cannot distinguish between use of tobacco and purified nicotine products. The concentration value must be greater than or equal to the cutoff to be reported as positive. This test was developed and its performance characteristics determined by [facility]. It has not been cleared or approved by the US Food and Drug Administration. This test was performed in a CLIA certified laboratory and is intended for clinical purposes. Performed By: [facility] [address] [place] [address] Manager Of Exhibitions And Collections: Fredo Yi MD, PhD CLIA Number: [id number] Cotinine 17 ng/mL 04/21/2025 12:22 AM [facility]) Blood BLOOD SPECIMEN / Unknown Lab Venipuncture / Unknown 04/16/2025 11:12 AM [employer] 04/16/2025 11:28 AM [employer] Bryn Ray MD LAB - CHEMISTRY ORDERABLES Fi nal Result [facility]) [address] [place] [address], [facility] * CBC W AUTO DIFFERENTIAL (04/16/2025 11:12 AM [facility]) WBC 7.6 4.0 - 10.7 x10E9/L 04/16/2025 11:54 AM [facility] RBC Count 4.61 3.90 - 5.20 x10E12/L 04/16/2025 11:54 AM [facility] Hemoglobin 14.0 11.9 - 15.8 g/dL 04/16/2025 11:54 AM [facility] Hematocrit 40.9 34.8 - 46.1 % 04/16/2025 11:54 AM [facility] MCV 88.7 80.0 - 98.0 fL 04/16/2025 11:54 AM [facility] MCH 30.4 26.7 - 33.6 pg 04/16/2025 11:54 AM [facility] MCHC 34.2 31.7 - 36.3 g/dL 04/16/2025 11:54 AM [facility] RDW-CV 13.6 11.3 - 14.8 % 04/16/2025 11:54 AM [facility] Platelet Count 321 150 - 420 x10E9/L 04/16/2025 11:54 AM [facility] MPV 10.8 7.8 - 11.4 fL 04/16/2025 11:54 AM [facility] Neutrophil % 65.7 41.0 - 74.0 % 04/16/2025 11:54 AM [facility] Lymphocyte % 23.0 17.0 - 47.0 % 04/16/2025 11:54 AM [facility] Monocyte % 8.5 3.0 - 11.0 % 04/16/2025 11:54 AM [facility] Eosinophil % 1.6 0.0 - 7.0 % 04/16/2025 11:54 AM [facility] Basophil % 0.9 0.0 - 1.6 % 04/16/2025 11:54 AM [facility] Immature Granulocytes % 0.3 0.0 - 1.0 % 04/16/2025 11:54 AM [facility] Neutrophil Absolute 4.98 1.60 - 7.50 x10E9/L 04/16/2025 11:54 AM [facility] Lymphocyte Absolute 1.74 1.00 - 4.40 x10E9/L 04/16/2025 11:54 AM [facility] Monocyte Absolute 0.64 0.15 - 1.00 x10E9/L 04/16/2025 11:54 AM [facility] Eosinophil Absolute 0.12 0.00 - 0.60 x10E9/L 04/16/2025 11:54 AM [facility] Basophil Absolute 0.07 0.00 - 0.13 x10E9/L 04/16/2025 11:54 AM [facility] Blood BLOOD SPECIMEN / Unknown Lab Venipuncture / Unknown 04/16/2025 11:12 AM [facility] 04/16/2025 11:34 AM [facility] Bryn Ray MD LAB - HEMATOLOGY ORDERABLES F inal Result [facility] [address] [place] [address], [facility] [phone] * (ABNORMAL) COMPREHENSIVE METABOLIC PANEL (04/16/2025 11:12 AM [facility]) BUN 28(H) 7 - 26 mg/dL 04/16/2025 12:10 PM [facility] Creatinine 2.45(H) 0.56 - 0.96 mg/dL 04/16/2025 12:10 PM [facility] Sodium 138 136 - 145 mmol/L 04/16/2025 12:10 PM [facility] Potassium 3.4(L) 3.5 - 4.5 mmol/L 04/16/2025 12:10 PM [facility] Chloride 106 98 - 107 mmol/L 04/16/2025 12:10 PM [facility] CO2 23 22 - 29 mmol/L 04/16/2025 12:10 PM [facility] Glucose 82 70 - 99 mg/dL 04/16/2025 12:10 PM [facility] Calcium 10.4(H) 8.4 - 10.2 mg/dL 04/16/2025 12:10 PM [facility] Protein Total 8.4(H) 6.0 - 8.3 g/dL 04/16/2025 12:10 PM [facility] Albumin 4.2 3.4 - 5.0 g/dL 04/16/2025 12:10 PM [facility] Bilirubin Total 0.5 0.2 - 1.2 mg/dL 04/16/2025 12:10 PM [facility] Alkaline Phosphatase 103 40 - 150 U/L 04/16/2025 12:10 PM [facility] ALT 33 5 - 55 U/L 04/16/2025 12:10 PM [facility] AST 33 5 - 34 U/L 04/16/2025 12:10 PM [facility] Anion Gap 9 6 - 16 04/16/2025 12:10 PM [facility] BUN/Creatinine Ratio 11 7 - 23 04/16/2025 12:10 PM [facility] Osmolality Calculated 291 275 - 295 mOsm/kg 04/16/2025 12:10 PM [facility] Albumin/Globulin Ratio 1.0(L) 1.1 - 2.3 04/16/2025 12:10 PM [facility] eGFR by CKD-EPI 25(L) >=90 mL/min/1.7 3 m2 04/16/2025 12:10 PM [facility] Comment:Estimated Glomerular Filtration Rate (eGFR) calculated using the CKD-EPI Creatinine Equation (2020), per the National Kidney Foundation and [place] Society of Nephrology recommendations. Blood BLOOD SPECIMEN / Unknown Lab Venipuncture / Unknown 04/16/2025 11:12 AM [employer] 04/16/2025 11:36 AM J[employer]ENER us Bryn Ray MD LAB - CHEMISTRY ORDERABLES Fi nal Result Performing Organization Address City/[facility]/ZIP Co de Phone Number [address] [address], [place] [phone] * PHOSPHORUS BLOOD (04/16/2025 11:12 AM J[employer]) Phosphorus 4.2 2.9 - 5.1 mg/dL 04/16/2025 12:10 PM [employer] [facility] Blood BLOOD SPECIMEN / Unknown Lab Venipuncture / Unknown 04/16/2025 11:12 AM [employer] 04/16/2025 11:36 AM J[employer] us Bryn Ray MD LAB - CHEMISTRY ORDERABLES Fi nal Result Performing Organization Address City/[facility]/ZIP Co de Phone Number [address] [address], [place] [phone] * IRON BLOOD (04/16/2025 11:12 AM [employer]) Iron 85 40 - 150 ug/dL 04/16/2025 12:03 PM J[employer] OPENER [facility] Blood BLOOD SPECIMEN / Unknown Lab Venipuncture / Unknown 04/16/2025 11:12 AM [employer] 04/16/2025 11:29 AM J[employer] us Bryn Ray MD LAB - CHEMISTRY ORDERABLES Fi nal Result Performing Organization Address City/[facility]/ZIP Co de Phone Number [address] [address], [place] [phone] * HEPATITIS B CORE ANTIBODY (04/16/2025 11:12 AM [employer]) HBc Antibody Total Non-reacti ve Non-reacti ve 04/16/2025 12:23 PM [employer] [facility] Blood BLOOD SPECIMEN / Unknown Lab Venipuncture / Unknown 04/16/2025 11:12 AM [employer]ENER 04/16/2025 11:29 AM J[employer] ROUGH OPENER us Bryn Ray MD LAB - CHEMISTRY ORDERABLES Fi nal Result Performing Organization Address City/[facility]/ZIP Co de Phone Number [address] [address], [facility] [phone] * HEPATITIS B SURFACE ANTIGEN W RFLX CONFIRMATION (04/16/2025 11:12 AM J[employer]) Hepatitis B Virus Surface Antigen Non-reacti ve Non-reacti ve 04/16/2025 12:23 PM [employer]ENER [facility] Blood BLOOD SPECIMEN / Unknown Lab Venipuncture / Unknown 04/16/2025 11:12 AM [employer] R[employer]ENER 04/16/2025 11:29 AM J[employer] R[employer] OPENER us Bryn Ray MD LAB - CHEMISTRY ORDERABLES nal Result Performing Organization Address City/[facility]/ZIP Co de Phone Number [address] [address], [facility] [phone] * ALCOHOL ETHYL BLOOD (04/16/2025 11:12 AM [employer]) Ethanol (mg/dL) <10 <=10 mg/dL 12:10 PM [facility] Ethanol Calculated (g/dL) <0.010 <0.010 g/dL 04/16/2025 12:10 PM [facility] Blood BLOOD SPECIMEN / Unknown Lab Venipuncture / Unknown 04/16/2025 11:12 AM [employer] 04/16/2025 11:36 AM J[employer]ENER Narrative [facility] - 04/16/2025 12:10 PM [employer] Ethanol Interp <10: None Detected. Depression of LOOM OPERATOR: >100 mg/dl Potentially Critical: >250 mg/dl Potentially Fatal >400 mg/dl Ethanol in the patient's blood will contribute to the osmolar gap. Ethanol's contribution to the osmolar gap can be estimated by dividing the concentration of ethanol in mg/dL by 4.6. This test is for clinical use only and does not equal a NAYELI for legal purposes. Bryn Ray MD LAB - CHEMISTRY ORDERABLES Fi nal Result Performing Organization Address City/[facility]/ZIP Co de Phone Number [address] [address], [facility] [phone] * HEPATITIS C ANTIBODY (04/16/2025 11:12 AM J[employer]) Pathologist [facility] Hepatitis C Antibody Non-react tia Non-reac tive 04/16/2025 12:23 PM [employer]ENER [facility] Comment:Hepatitis C Antibody screen indicates no serologic evidence of past or current infection with Hepatitis C Virus. Patients with unexplained liver disease who are immunocompromised or suspected of having acute Hepatitis C infection may benefit from Nucleic Acid Test (BETHEL) for Hepatitis C Viral RNA to confirm Hepatitis C status. Blood BLOOD SPECIMEN / Unknown Lab Venipuncture / Unknown 04/16/2025 11:12 AM [employer]ENER 04/16/2025 11:29 AM J[employer] R[employer] OPENER us Bryn Ray MD LAB - CHEMISTRY ORDERABLES Fi nal Result Performing Organization Address [facility] Co de Phone Number [address] [address], [facility] [phone] * (ABNORMAL) HEPATITIS A ANTIBODY (04/16/2025 11:12 AM J[employer]ENER) [facility] Hepatitis A Virus Antibody Total Positive( A) Negative 04/17/2025 8:20 PM J[employer] R[employer] [facility] ([facility]) Comment: The positive anti-HAV is consistent with recent or remote Hepatitis A infection or antibody response to HAV vaccination. False positive anti-HAV can occur. Performed By: [facility] [address] [place] [address] Manager Of Exhibitions And Collections: Fredo Yi MD, PhD CLIA Number: [id number] Blood BLOOD SPECIMEN / Unknown Lab Venipuncture / Unknown 04/16/2025 11:12 AM [employer] 04/16/2025 11:27 AM [employer]ENER Bryn Ray MD LAB - CHEMISTRY ORDERABLES Fi nal Result Performing Organization Address City/[facility] Co de Phone Number [facility] ([facility]) [address] [place] [address], [facility] * FERRITIN (04/16/2025 11:12 AM J[employer]) Ferritin 117 13 - 204 ng/mL 04/16/2025 12:23 PM [facility] Blood BLOOD SPECIMEN / Unknown Lab Venipuncture / Unknown 04/16/2025 11:12 AM [employer]ENER 04/16/2025 11:29 AM [employer]ENER us Bryn Ray MD LAB - CHEMISTRY ORDERABLES Fi nal Result [facility] [address] [place] [address], [facility] [phone] * LIPID PROFILE (04/16/2025 11:12 AM [employer]) Cholesterol Total 157 <200 mg/dL 04/16/2025 12:10 PM [facility] HDL 46 >40 mg/dL 04/16/2025 12:10 PM [facility] Comment: ATP III Classification of HDL Cholesterol: <40 mg/dL: Considered a major risk factor. >60 mg/dL: Considered a negative risk factor. LDL Calculated 97 <100 mg/dL 04/16/2025 12:10 PM [facility] Comment: ATP III Classification of LDL Cholesterol: <100 mg/dL: Optimal 100 - 129 mg/dL: Near Optimal/Above Optimal 130 - 159 mg/dL: Borderline High 160 - 189 mg/dL: High >190 mg/dL: Very High LDL is calculated using the Friedewald equation. Triglycerides 71 <150 mg/dL 04/16/2025 12:10 PM [facility] Comment: ATP III Classification of Triglycerides: <150 mg/dL: Normal 150 - 199 mg/dL: Borderline High 200 - 400 mg/dL: High >500 mg/dL: Very High Blood BLOOD SPECIMEN / Unknown Lab Venipuncture / Unknown 04/16/2025 11:12 AM [employer] 04/16/2025 11:36 AM [employer] OPENER us Bryn Ray MD LAB - CHEMISTRY ORDERABLES Fi nal Result [facility] [address] [place] [address], [facility] [phone] * ECHO COMPLETE (04/16/2025 10:41 AM [employer]) AV area index 1.08 cm2/m2 SSM CV FUJI PACS LA vol index 0.022 l/m2 SSM CV FUJI PACS Dimensionless Index 0.807 unitless SSM CV FUJI PACS Myocardial strain charge 2 unitless SSM CV FUJI PACS Sinus of Valsalva 3.049 cm SS M CV FUJI PACS IVSd 2D 1.502 cm SSM CV FUJ I PACS LVIDd 4.083 cm SSM CV FUJ I PACS LVIDs 2.57 cm SSM CV FUJ I PACS LVOT diam 2.065 cm SSM CV FUJ I PACS LVPWd 1.482 cm SSM CV FUJ I PACS LV biplane EF 65.232 % SSM CV FUJI PACS LV A2C EF 65.707 % SSM CV FUJ I PACS LV A4C EF 66.658 % SSM CV FUJ I PACS LV EDV A2C 143.84 ml SSM CV FU JI PACS LV EDV A4C 158.961 ml SSM CV FU JI PACS LV ESV A2C 49.327 ml SSM CV FU JI PACS LV ESV A4C 53.001 ml SSM CV FU JI PACS LVOT pk grad 7.558 mmHg SSM CV FUJI PACS LVOT pk skip 137.46 cm/s SSM CV F UJI PACS LVOT VTI 23.433 cm SSM CV FUJ I PACS RV-baptiste basal diam 3.665 cm SSM CV FUJI PACS RVIDd 3.47 cm SSM CV FUJ I PACS RVOT diam Doppler 2.973 cm SS M CV FUJI PACS RVOT pk skip 100.733 cm/s SSM CV F UJI PACS RVOT VTI 14.673 cm SSM CV FUJ I PACS LA size 4.319 cm SSM CV FUJ I PACS LA vol BP 53.913 ml SSM CV FUJ I PACS RA area 15.707 cm2 SSM CV FUJ I PACS AV area pk skip 2.856 cm2 SSM C V FUJI PACS AV area cont VTI 2.701 cm2 SSM CV FUJI PACS AV pk skip regurg 450.39 cm/s SSM CV FUJI PACS AR VTI 185.227 cm SSM CV FUJ I PACS AV pk grad 10.392 mmHg SSM CV FU JI PACS AV mn grad 5.396 mmHg SSM CV FU JI PACS AV pk skip 161.182 cm/s SSM CV FUJ I PACS AV VTI 29.053 cm SSM CV FUJ I PACS MV A pk skip 88.751 cm/s SSM CV F UJI PACS MV E pk skip 86.669 cm/s SSM CV F UJI PACS MV E' lateral skip 9.448 cm/s SS M CV FUJI PACS PV pk skip 115.506 cm/s SSM CV FUJ I PACS PV VTI 17.475 cm SSM CV FUJ I PACS TAPSE 2.634 cm SSM CV FUJ I PACS TR pk skip 283.66 cm/s SSM CV FUJ I PACS Ascending aorta 3.269 cm SSM CV FUJI PACS IVC Diam Expiration 1.412 cm SSM CV FUJI PACS Anatomical Region Laterality Modality Ultrasound 04/16/2025 10:2 6 AM [employer] Narrative 04/16/2025 3:23 PM [employer] Summary * The left ventricle is normal in size, with normal systolic function and an estimated ejection fraction of 65 % by biplane method of disks. Left ventricular wall motion is normal. * The left ventricular diastolic function is consistent with normal left atrial filling pressure. * Right ventricle is normal in size with normal systolic function. * No hemodynamically significant valve disease. Patient Info Name: Nataliia Tim Age: 39 years : 1985 Gender: Female Ht: 68 in Wt: 274 lb BSA: 2.50 m2 HR: 92 bpm BP: 120 / 84 mmHg Heart Rhythm: Sinus Rhythm Exam Date: 04/16/2025 10:26 AM Patient Status: O/P Study Site: [facility] Primary Location: [facility] Info Technical Quality: Adequate Exam Type: ECHO COMPLETE Indications Z01.818 - Pre-transplant evaluation for kidney transplant I10 - Hypertension, unspecified type Procedure(s) * A complete 2D, color Doppler, spectral Doppler, and M-Mode transthoracic echocardiogram was performed. Staff Referring Physician: Bryn Ray Ordering Provider: Bryn Ray Attending Physician: Bryn Ray Scrap Piler: Susi Mathis Left Ventricle Left ventricular systolic function is normal with an estimated ejection fraction of 65 % by biplane method of disks. The left ventricle is normal in size. The left ventricular mass is normal with concentric remodeling. Left ventricular segmental wall motion is normal. The left ventricular diastolic function is consistent with normal left atrial filling pressure. Right Ventricle The right ventricle is normal in size. Right ventricular systolic function is normal. Left Atrium The left atrium is normal in size with a left atrial volume index of 22 ml/m2 by BP MOD. Right Atrium The right atrium is normal in size. Atrial Septum Intact interatrial septum visualized by 2D and color Doppler imaging. Aortic Valve The aortic valve is trileaflet. There is trace aortic valve regurgitation. There is no aortic valve stenosis with a peak velocity of 1.6 m/s, mean gradient of 5 mmHg, and aortic valve area of 2.70 cm2. Pulmonic Valve The pulmonic valve is not well visualized. There is no pulmonic valve stenosis. There is no clinically significant pulmonic regurgitation. Mitral Valve The mitral valve is normal. There is no mitral valve stenosis. There is no clinically significant mitral valve regurgitation. Tricuspid Valve The tricuspid valve is grossly normal. There is no tricuspid valve stenosis. There is no clinically significant tricuspid valve regurgitation. Unable to calculate the pulmonary artery systolic pressure due to a lack of tricuspid regurgitation. Inferior Vena Cava The inferior vena cava is normal in size (< 2.1 cm). There is > 50% collapse of the IVC upon inspiration with an estimated right atrial pressure of 3 mmHg. Pericardium/Pleural There is no pericardial effusion. Aorta The aortic root at the sinus of Valsalva is normal in size measuring 3.0 cm with an index of 1.2 cm/m2. The ascending aorta is normal in size measuring 3.3 cm with an index of 1.3 cm/m2. Measurements Left Ventricular Outflow Tract Name Value Normal LVOT 2D LVOT Diameter 2.1 cm LVOT Area 3.3 cm2 LVOT Doppler LVOT Peak Velocity 1.4 m/s LVOT Peak Gradient 8 mmHg LVOT Mean Velocity 83.77 cm/s LVOT Mean Gradient 3 mmHg LVOT VTI 23.4 cm LVOT VTI/AV VTI Ratio 0.8 LVOT Stroke Volume 78 ml LVOT Stroke Volume Index 31 ml/m2 35-58 LVOT CO 7.2 l/min LVOT CI 2.9 l/min/m2 Pulmonic Valve Name Value Normal PV 2D RVOT Diameter (2D) 3.0 cm 1.7-2.7 RVOT Doppler RVOT Peak Velocity 1.0 m/s RVOT Peak Gradient 4 mmHg RVOT Mean Gradient 2 mmHg PV Doppler PV Peak Velocity 1.2 m/s PV Peak Gradient 5 mmHg PV Mean Gradient 3 mmHg PV Area (Cont Eq VTI) 5.83 cm2 PV Area Index (Cont Eq VTI) 2.33 cm2/m2 PV Area (Cont Eq Skip) 6.1 cm2 PV Area Index (Cont Eq Skip) 2.42 cm2/m2 Mitral Valve Name Value Normal MV Diastolic Function MV E Peak Velocity 0.9 m/sec MV A Peak Velocity 0.9 m/sec MV E/A 1.0 MV Decel Time (PW) 200 ms MV A Wave Duration 126 ms MV Annular TDI MV Septal e' Velocity 6 cm/s >=8 MV E/e' (Septal) 13 <=8 MV Lateral e' Velocity 9 cm/s >=10 MV E/e' (Lateral) 9 <=8 MV e' Average 8 cm/s MV E/e' (Average) 11 Tricuspid Valve Name Value Normal TV 2D TV Annulus Diameter (4C) 3.6 cm Estimated PAP/RSVP RA Pressure 3 mmHg <=5 Pulmonary Vessels Name Value Normal Pulmonary Veins Pulm Vein Peak Systolic Velocity 68.1 cm/s Pulm Vein Peak Diastolic Velocity 46.4 cm/s Pulm Vein S/D Velocity Ratio 1 Pulm Vein Ar Velocity 34.2 cm/s Pulm Vein Ar Dur - MV A Dur 3 ms Aorta Name Value Normal Ascending Aorta Sinus of Valsalva Diameter 3.0 cm 2.4-3.6 Sinus of Valsalva Index 1.2 cm/m2 1.4-2.2 Asc Ao Diameter 3.3 cm 1.9-3.5 Asc Ao Diameter Index 1.3 cm/m2 1.0-2.2 Septae/Shunt/Generic Name Value Normal Qp/Qs Qp/Qs 1.3 Venous Name Value Normal IVC/SVC IVC Diameter 1.4 cm <=2.1 Aortic Valve Name Value Normal AV Doppler AV Peak Velocity 1.61 m/s AV Peak Gradient 10 mmHg AV Mean Gradient 5 mmHg AV VTI 29 cm AV Area (Cont Eq VTI) 2.70 cm2 >=2.00 AV Area (Cont Eq Skip) 2.86 cm2 AV DI (VTI) 0.81 AV DI (Skip) 0.85 AV Regurgitation 2D LVOT Area 3.35 cm2 Ventricles Name Value Normal LV Dimensions 2D/MM IVS Diastolic Thickness (2D) 1.5 cm 0.6-0.9 LVID Diastole (2D) 4.1 cm 3.8-5.2 LVPW Diastolic Thickness (2D) 1.5 cm 0.6-0.9 IVS Systolic Thickness (2D) 1.5 cm LVID Systole (2D) 2.6 cm 2.2-3.5 LVPW Systolic Thickness (2D) 1.5 cm LV Mass (2D Cubed) 162 g 67-162 LV Mass Index (2D Cubed) 65 g/m2 43-95 Relative Wall Thickness (2D) 0.73 <=0.42 LV Fractional Shortening/Ejection Fraction 2D/MM LV Fractional Shortening (2D) 37 % 27-45 LV EF (2D Teicholz) 67 % 54-74 LV Diastolic Volume (4C MOD) 159 ml LV EF (4C MOD) 67 % LV Diastolic Volume (2C MOD) 144 ml LV EF (2C MOD) 66 % LV Diastolic Volume (BP MOD) 152 ml 46-106 LV Diastolic Volume Index (BP MOD) 61 ml/m2 29-61 LV Systolic Volume (BP MOD) 53 ml 14-42 LV Systolic Volume Index (BP MOD) 21 ml/m2 8-24 LV EF (BP MOD) 65 % 54-74 LV Diastolic Length (4C) 8.7 cm LV Systolic Length (4C) 7.3 cm LV Stroke Volume (4C MOD) 106 ml RV Dimensions 2D/MM RVID Diastole (2D) 3.5 cm 2.5-3.5 RVID Systole (2D) 3.1 cm RV Basal Diastolic Dimension 3.7 cm 2.5-4.1 RV Diastolic Length (4C) 7.1 cm 5.9-8.3 TAPSE 2.6 cm >=1.7 Atria Name Value Normal LA Dimensions LA Dimension (2D) 4.3 cm 2.7-3.8 LA Dimen Index (2D) 1.7 cm/m2 LA Volume (BP MOD) 54 ml LA Volume Index (BP MOD) 22 ml/m2 16-34 RA Dimensions RA Area (4C) 16 cm2 <=18 RA Area (4C) Index 6 cm2/m2 Report Signatures Finalized by Cheyanne Finnegan on 04/16/2025 03:23 PM Procedure Note Cheyanne Finnegan MD - 04/16/2025 Summary * The left ventricle is normal in size, with normal systolic functionand an estimated ejection fraction of 65 % by biplane method of disks. Left ventricular wall motion is normal. * The left ventricular diastolic function is consistent with normalleft atrial filling pressure. * Right ventricle is normal in size with normal systolic function. * No hemodynamically significant valve disease. Patient Info Name: Nataliia Tim Age: 39 years : 1985 Gender: Female Ht: 68 in Wt: 274 lb BSA: 2.50 m2 HR: 92 bpm BP: 120 / 84 mmHg Heart Rhythm: Sinus Rhythm Exam Date: 04/16/2025 10:26 AM Patient Status: O/P Study Site: [facility] Primary Location: [facility] Info Technical Quality: Adequate Exam Type: ECHO COMPLETE Indications Z01.818 - Pre-transplant evaluation for kidney transplant I10 - Hypertension, unspecified type Procedure(s) * A complete 2D, color Doppler, spectral Doppler, and M-Modetransthoracic echocardiogram was performed. Staff Referring Physician: Bryn Ray Ordering Provider: Bryn Ray Attending Physician: Bryn Ray Scrap Piler: Susi Mathis Left Ventricle Left ventricular systolic function is normal with an estimatedejection fraction of 65 % by biplane method of disks. The left ventricle is normalin size. The left ventricular mass is normal with concentric remodeling.Left ventricular segmental wall motion is normal. The left ventriculardiastolic function is consistent with normal left atrial filling pressure. Right Ventricle The right ventricle is normal in size. Right ventricular systolicfunction is normal. Left Atrium The left atrium is normal in size with a left atrial volume index of22 ml/m2 by BP MOD. Right Atrium The right atrium is normal in size. Atrial Septum Intact interatrial septum visualized by 2D and color Doppler imaging. Aortic Valve The aortic valve is trileaflet. There is trace aortic valveregurgitation. There is no aortic valve stenosis with a peak velocity of 1.6 m/s, mean gradient of 5 mmHg, and aortic valve area of 2.70 cm2. Pulmonic Valve The pulmonic valve is not well visualized. There is no pulmonic valve stenosis. There is no clinically significant pulmonic regurgitation. Mitral Valve The mitral valve is normal. There is no mitral valve stenosis. There isno clinically significant mitral valve regurgitation. Tricuspid Valve The tricuspid valve is grossly normal. There is no tricuspid valvestenosis. There is no clinically significant tricuspid valve regurgitation. Unableto calculate the pulmonary artery systolic pressure due to a lack oftricuspid regurgitation. Inferior Vena Cava The inferior vena cava is normal in size (< 2.1 cm). There is > 50%collapse of the IVC upon inspiration with an estimated right atrial pressure of 3mmHg. Pericardium/Pleural There is no pericardial effusion. Aorta The aortic root at the sinus of Valsalva is normal in size measuring 3.0cm with an index of 1.2 cm/m2. The ascending aorta is normal in sizemeasuring 3.3 cm with an index of 1.3 cm/m2. Measurements Left Ventricular Outflow Tract Name Value Normal LVOT 2D LVOT Diameter 2.1 cm LVOT Area 3.3 cm2 LVOT Doppler LVOT Peak Velocity 1.4 m/s LVOT Peak Gradient 8 mmHg LVOT Mean Velocity 83.77 cm/s LVOT Mean Gradient 3 mmHg LVOT VTI 23.4 cm LVOT VTI/AV VTI Ratio 0.8 LVOT Stroke Volume 78 ml LVOT Stroke Volume Index 31 ml/m2 35-58 LVOT CO 7.2 l/min LVOT CI 2.9 l/min/m2 Pulmonic Valve Name Value Normal PV 2D RVOT Diameter (2D) 3.0 cm 1.7-2.7 RVOT Doppler RVOT Peak Velocity 1.0 m/s RVOT Peak Gradient 4 mmHg RVOT Mean Gradient 2 mmHg PV Doppler PV Peak Velocity 1.2 m/s PV Peak Gradient 5 mmHg PV Mean Gradient 3 mmHg PV Area (Cont Eq VTI) 5.83 cm2 PV Area Index (Cont Eq VTI) 2.33 cm2/m2 PV Area (Cont Eq Skip) 6.1 cm2 PV Area Index (Cont Eq Skip) 2.42 cm2/m2 Mitral Valve Name Value Normal MV Diastolic Function MV E Peak Velocity 0.9 m/sec MV A Peak Velocity 0.9 m/sec MV E/A 1.0 MV Decel Time (PW) 200 ms MV A Wave Duration 126 ms MV Annular TDI MV Septal e' Velocity 6 cm/s >=8 MV E/e' (Septal) 13 <=8 MV Lateral e' Velocity 9 cm/s >=10 MV E/e' (Lateral) 9 <=8 MV e' Average 8 cm/s MV E/e' (Average) 11 Tricuspid Valve Name Value Normal TV 2D TV Annulus Diameter (4C) 3.6 cm Estimated PAP/RSVP RA Pressure 3 mmHg <=5 Pulmonary Vessels Name Value Normal Pulmonary Veins Pulm Vein Peak Systolic Velocity 68.1 cm/s Pulm Vein Peak Diastolic Velocity 46.4 cm/s Pulm Vein S/D Velocity Ratio 1 Pulm Vein Ar Velocity 34.2 cm/s Pulm Vein Ar Dur - MV A Dur 3 ms Aorta Name Value Normal Ascending Aorta Sinus of Valsalva Diameter 3.0 cm 2.4-3.6 Sinus of Valsalva Index 1.2 cm/m2 1.4-2.2 Asc Ao Diameter 3.3 cm 1.9-3.5 Asc Ao Diameter Index 1.3 cm/m2 1.0-2.2 Septae/Shunt/Generic Name Value Normal Qp/Qs Qp/Qs 1.3 Venous Name Value Normal IVC/SVC IVC Diameter 1.4 cm <=2.1 Aortic Valve Name Value Normal AV Doppler AV Peak Velocity 1.61 m/s AV Peak Gradient 10 mmHg AV Mean Gradient 5 mmHg AV VTI 29 cm AV Area (Cont Eq VTI) 2.70 cm2 >=2.00 AV Area (Cont Eq Skip) 2.86 cm2 AV DI (VTI) 0.81 AV DI (Skip) 0.85 AV Regurgitation 2D LVOT Area 3.35 cm2 Ventricles Name Value Normal LV Dimensions 2D/MM IVS Diastolic Thickness (2D) 1.5 cm 0.6-0.9 LVID Diastole (2D) 4.1 cm 3.8-5.2 LVPW Diastolic Thickness (2D) 1.5 cm 0.6-0.9 IVS Systolic Thickness (2D) 1.5 cm LVID Systole (2D) 2.6 cm 2.2-3.5 LVPW Systolic Thickness (2D) 1.5 cm LV Mass (2D Cubed) 162 g 67-162 LV Mass Index (2D Cubed) 65 g/m2 43-95 Relative Wall Thickness (2D) 0.73 <=0.42 LV Fractional Shortening/Ejection Fraction 2D/MM LV Fractional Shortening (2D) 37 % 27-45 LV EF (2D Teicholz) 67 % 54-74 LV Diastolic Volume (4C MOD) 159 ml LV EF (4C MOD) 67 % LV Diastolic Volume (2C MOD) 144 ml LV EF (2C MOD) 66 % LV Diastolic Volume (BP MOD) 152 ml 46-106 LV Diastolic Volume Index (BP MOD) 61 ml/m2 29-61 LV Systolic Volume (BP MOD) 53 ml 14-42 LV Systolic Volume Index (BP MOD) 21 ml/m2 8-24 LV EF (BP MOD) 65 % 54-74 LV Diastolic Length (4C) 8.7 cm LV Systolic Length (4C) 7.3 cm LV Stroke Volume (4C MOD) 106 ml RV Dimensions 2D/MM RVID Diastole (2D) 3.5 cm 2.5-3.5 RVID Systole (2D) 3.1 cm RV Basal Diastolic Dimension 3.7 cm 2.5-4.1 RV Diastolic Length (4C) 7.1 cm 5.9-8.3 TAPSE 2.6 cm >=1.7 Atria Name Value Normal LA Dimensions LA Dimension (2D) 4.3 cm 2.7-3.8 LA Dimen Index (2D) 1.7 cm/m2 LA Volume (BP MOD) 54 ml LA Volume Index (BP MOD) 22 ml/m2 16-34 RA Dimensions RA Area (4C) 16 cm2 <=18 RA Area (4C) Index 6 cm2/m2 Report Signatures Finalized by Cheyanne Finnegan on 04/16/2025 03:23 PM Bryn Ray MD [facility] Final Result * CT ABDOMEN AND PELVIS NON IV CONTRAST (04/16/2025 10:07 AM JEWEL HOLE ROUGH OPENER) Anatomical Region Laterality Modality Abdomen, Pelvis Computed Tomogra phy 04/16/2025 10:3 1 AM JEWEL HOLE ROUGH OPENER Impressions 04/16/2025 10:36 AM JEWEL HOLE ROUGH OPENER IMPRESSION: Unremarkable CT examination of the abdomen and pelvis. No significant calcification or plaque burden in the iliac arteries. > Interpreting Provider: Daly Martin MD on 04/16/2025 10:36 AM Narrative 04/16/2025 10:36 AM JEWEL HOLE ROUGH OPENER PROCEDURE: CT ABDOMEN PELVIS WO CONTRAST DATE/TIME OF EXAM: 04/16/2025 10:07 AM CLINICAL INFORMATION: None relevant/not provided if blank. Indication: Z01.818: Pre-transplant evaluation for kidney transplant Additional History: COMPARISON: None. TECHNIQUE: CT of the abdomen and pelvis was performed without oral or intravenous contrast. CT dose reduction technique was used, including Automated Exposure Control. FINDINGS: Lung bases: Clear. Liver: Normal morphology. No focal lesions are seen. Gallbladder: Normally distended and grossly unremarkable. Biliary system: No interval extrahepatic biliary dilation seen. Pancreas: Unremarkable. No pancreatic duct dilation. Spleen: Normal. Adrenal glands: Unremarkable. Kidneys: Normal morphology. 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 No stones or hydronephrosis seen. Gastrointestinal: Stomach is unremarkable.. Small bowel loops are normal caliber. No bowel dilation seen. Colon is unremarkable. Appendix: Appendix is normal morphology. Peritoneum: Unremarkable. Retroperitoneum: Unremarkable. Vascular structures: Small calcified plaques noted in the abdominal aorta. No significant plaque burden in the iliac arteries. Inferior vena cava is unremarkable. Bilateral iliac arteries are grossly normal in the noncontrast images. Urinary bladder: Urinary bladder was minimally distended and grossly unremarkable. Other pelvic organs: IUD noted in the uterus. Uterus and adnexa are otherwise unremarkable. Bones: Severe degenerative changes noted at T9-T10, L3-L5 levels of the spine associated with disc space narrowing. Soft tissue: A few minimally enlarged bilateral inguinal lymph nodes. Procedure Note Daly Martin MD - 04/16/2025 PROCEDURE: CT ABDOMEN PELVIS WO CONTRAST DATE/TIME OF EXAM: 04/16/2025 10:07 AM CLINICAL INFORMATION: None relevant/not provided if blank. Indication: Z01.818: Pre-transplant evaluation for kidney transplant Additional History: COMPARISON: None. TECHNIQUE: CT of the abdomen and pelvis was performed without oral or intravenous contrast. CT dose reduction technique was used, including Automated ExposureControl. FINDINGS: Lung bases: Clear. Liver: Normal morphology. No focal lesions are seen. Gallbladder: Normally distended and grossly unremarkable. Biliary system: No interval extrahepatic biliary dilation seen. Pancreas: Unremarkable. No pancreatic duct dilation. Spleen: Normal. Adrenal glands: Unremarkable. Kidneys: Normal morphology. 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 No stones or hydronephrosis seen. Gastrointestinal: Stomach is unremarkable.. Small bowel loops are normal caliber. No bowel dilation seen. Colon is unremarkable. Appendix: Appendix is normal morphology. Peritoneum: Unremarkable. Retroperitoneum: Unremarkable. Vascular structures: Small calcified plaques noted in the abdominalaorta. No significant plaque burden in the iliac arteries. Inferior vena cavais unremarkable. Bilateral iliac arteries are grossly normal in the noncontrast images. Urinary bladder: Urinary bladder was minimally distended and grossly unremarkable. Other pelvic organs: IUD noted in the uterus. Uterus and adnexa are otherwise unremarkable. Bones: Severe degenerative changes noted at T9-T10, L3-L5 levels of the spine associated with disc space narrowing. Soft tissue: A few minimally enlarged bilateral inguinal lymph nodes. IMPRESSION: Unremarkable CT examination of the abdomen and pelvis. No significant calcification or plaque burden in the iliac arteries. > Interpreting Provider: Daly Martin MD on 510:36 AM us Bryn Ray MD CT ORDERABLES Final Result * VAS ARTERIAL MULTILEVEL LE (04/16/2025 10:00 AM JEWEL HOLE ROUGH OPENER) Anatomical Region Laterality Modality Intravascular Ul trasound 04/16/2025 9:05 AM JEWEL HOLE ROUGH OPENER Narrative Procedure Note Kushal Degroot MD - 04/16/2025 us Bryn Ray MD VASCULAR LAB ORDERABLES Edite d Result - Final * HPV DETECTION HIGH RISK PIETRO (06/26/2019 9:40 AM JEWEL HOLE ROUGH OPENER) High Risk Human Papilloma Result Not Detected Not Detected 07/01/2019 4:08 PM JEWEL HOLE ROUGH OPENER [facility] High Risk Human Papilloma Interp 07/01/2019 4:08 PM JEWEL HOLE ROUGH OPENER [facility] Comment:High Risk Human Marty lloma Virus was Not Detected. Pathology/Cytolo gy VAGINA AND CERVIX, CS / Unknown 06/26/2019 9:40 AM JEWEL HOLE ROUGH OPENER 06/27/2019 11:53 AM JEWEL HOLE ROUGH OPENER Narrative [facility] - 07/01/2019 4:08 PM JEWEL HOLE ROUGH OPENER Nucleic acid isolated from the specimen was [...] available data (cytology, histology, and clinical information). us Ashley Walters MD LAB - MICROBIOL OGY ORDERABLES Final Result [facility] [address] [facility]. [address] [phone] from Last 3 Months or Most Recently Relevant to Health Maintenance Insurance MEDICAID - OUT OF STATE [facility] MANAGED MEDICARE [facility] MEDICAID - [place] [facility] MANAGED MEDICARE ADV [facility] Advance Directives * Full Code (Latest Code [...] 5:46 PM 08/23/2019 7:27 PM Care Teams Clean Out Driller Helper Relationship Specialty Start Date End Date Ramiro Galloway DO [address] [place] [address] PCP - General 06/04/19
--- OUTSIDE RECORDS SUMMARY | 2025-05-27 11:56 | XMS_ITS | Clinical Summary ---
Author Organization [facility] Address [address] [place] [address] Care Team Providers Care Public Relations Manager Name Role Phone Ramiro Galloway DO Primary Care Provider Allergies No known active allergies Medications ferrous [...] Diagnosed Date Acute kidney injury 11/08/2021 Osteomyelitis 11/07/2021 Social History Tobacco Use Types Packs/Day [...] 3 - 19+ 3-dose series) 2005 HPV Vaccines (1 - 3-dose SCD M series) 2013 Cervical Cancer Screening Pa p with HPV Testing (Age 30 to 64) Every 5 Years 2016 Cervical Cancer Screening wi th HPV 2016 COVID-19 Vaccine (3 - 2024-2 6 season) 2025 08/05/2021, 07/05/2021 Influenza Adult (#1) 2025 05/18/2016 DTaP, Tdap and Td Vaccines ( 2 - Td or Tdap) 09/18/2029 09/19/2019 Hepatitis A Vaccines Aged Out No long er eligible based [...] to perform ADLs independently General No Jaki Jensen RN Insurance MEDICAID [facility] MEDICARE Advance Directives * Full Code (Latest Code Status on File) Date Activated Date Inactivated Comments 11/10/2021 9:14 AM 11/11/2021 2:58 PM * Full Code Date Activated Date Inactivated Comments 11/07/2021 4:37 PM 11/10/2021 9:14 AM Care Teams Public Relations Manager Relationship Specialty Start Date End Date Ramiro Galloway DO [address] [address] PCP - General INTERNAL MEDICINE 11/07/21
--- OUTSIDE RECORDS SUMMARY | 2025-05-27 11:56 | XMS_ITS | Clinical Summary ---
Author Organization [facility] Address [address] [place] [address] Care Team Providers Care [employer] Name Role Phone Unknown, Notinfile Primary Care Provider Unavail able Allergies No known active allergies Medications empagliflozin (JARDIANCE) 10 mg tablet 1 tablet (10 mg total) daily Active hydrALAZINE (APRESOLINE) 25 mg tabletIndication s:hypertension Take 1 tablet (25 mg total) by mouth 3 (three) times a day Active lisinopriL (PRINIVIL,ZESTRI L) 5 mg tablet Take 1 tablet (5 mg total) by mouth daily Active tirzepatide (Mounjaro) 10 mg/0.5 mL pen injector injection Inject 0.5 mL (10 mg total) under the skin every 7 days Active furosemide (LASIX) 40 mg tablet Take 1 tablet (40 mg total) by mouth every other day Active Active Problems Problem Noted Date Diagnosed Date 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 Manzo for SOR Previously s/p PPV/MP/SO OS 2021 and prior PRP OU Had plan for SOR however given CKD hx was referred here for surgery Exam with quiescent PDR OU with SO fill OS without tractional changes under SO Will schedule for SO removal and then plan for follow up with Dr. Manzo for PDR management Encounters Date Type Department Care Team Description 04/29/2025 Telephone [facility] Medicine Ophthalmology [address] [place] [phone] Bailey Espinoza COA 04/28/2025 Telephone [facility] Medicine Ophthalmology [address] [place] [phone] Bailey Espinoza OSKAR 04/25/2025 9:00 AM GOVERNOR ASSEMBLER HYDRAULIC Office Visit [facility] Medicine Ophthalmology [address] [facility] Outpatient [address] [phone] Aric Menjivar MD Proliferative diabetic retinopathy of both eyes without macular edema associated with type 2 diabetes mellitus (HCC) (Primary Dx) 04/15/2025 Telephone [facility] Medicine Ophthalmology [address] [place] [address] Rachael Cormier MD new pt from Last 3 Months Surgical History Surgery Date Site/Laterality Comments TOE AMPUTATION 06/05/2022 - 06/04/2023 Right SECTION 10/26/2019 EYE SURGERY 06/05/2019 - 06/04/2020 Medical History Medical History Date Comments Diabetes type 2 Hypertension Family History Medical History Relation Name Comments Hypertension Father Diabetes type II Mother Hypertension Mother Relation Name Status Comments Father Mother Social History Tobacco Use Types Packs/Day Years Used Date Smoking Tobacco: Never Tobacco Cessation:Counseling Given: Not Answered Alcohol Use Standard Drinks/Week Comments Never 0 (1 standard drink = 0.6 oz pur e alcohol) AUDIT-C Answer Date Recorded Q1: How often do you have a drink containing alcohol? Never 04/25/2025 Q2: How many drinks containi ng alcohol do you have on a typical day when you are drinking? Patient does not drink Q3: How often do you have si x or more drinks on one occasion? Never 04/25/2025 Comments Unknown Sex and Gender Information Value Date Recorded Sex Assigned at Not on file Legal Sex Female 10:58 PM GOVERNOR ASSEMBLER HYDRAULIC Gender Identity Not on file Sexual Orientation Not on file Plan of Treatment Upcoming Encounters Date Type Department Care Team (Latest Contact Info) Description 07/02/2025 11:00 AM GOVERNOR ASSEMBLER HYDRAULIC Hospital Encounter [facility] [address] [place] [address] rAic Menjivar MD [address] [address] 07/02/2025 11:00 AM GOVERNOR ASSEMBLER HYDRAULIC - 07/02/2025 12:00 PM GOVERNOR ASSEMBLER HYDRAULIC Surgery [facility] [place] [address] Aric Menjivar MD [address] [address] VITRECTOMY 25 GAUGE. Scheduled Procedures Name Priority Associated Diagnoses Date/Ti me VITRECTOMY 25 GAUGE. Proliferative diabetic retinopathy of both eyes without macular edema associated with type 2 diabetes mellitus (HCC) 07/02/2025 11:00 AM GOVERNOR ASSEMBLER HYDRAULIC REMOVAL SILICONE OIL. Proliferative diabetic retinopathy of both eyes without macular edema associated with type 2 diabetes mellitus (HCC) 07/02/2025 11:00 AM GOVERNOR ASSEMBLER HYDRAULIC Health Maintenance Due Date Last Done Comments Albumin Creatinine Ratio, Urine 1985 Cervical Cancer Screening 1986 Depression Screening 1985 Hemoglobin A1C 1985 Hepatitis C Screening 1985 eGFR 1985 Foot Exam 1985 Lipid Panel 1986 Varicella Vaccines (1 of 2 - 13+ 2-dose series) 11/03/1999 Hepatitis B Screening 2004 Regular Well Visit/Exam 18-64 2004 Pneumococcal vaccine <65 (1 of 2 - PCV) 2005 HPV Vaccines (1 - 3-dose SCDM series) 2013 Covid-19 Vaccine (3 - season) 02/03/202508/2021, 07/05/2021 Influenza Vaccine (#1) 2025 05/24/2022, 2015 Dilated Eye Exam 04/25/2026 04/25/2025 DTaP/Tdap/Td Vaccine (2 - Td or Tdap) 09/18/2029 Goals Goal Patient Goal Type Associated Problems Recent Progress Patient-Stated? Author Autogenerat ed Goal Care Plan Autogenerated Problem Chandana Lemus Procedures Procedure Name Priority Date/Time Associated Diagnosis Comments OCT, RETINA - OU - BOTH EYES Routine 04/25/2025 9:49 AM GOVERNOR ASSEMBLER HYDRAULIC Proliferative diabetic retinopathy of both eyes without macular edema associated with type 2 diabetes mellitus (HCC) from Last 3 Months Results * OCT, Retina - OU - Both Eyes (04/25/2025 9:49 AM GOVERNOR ASSEMBLER HYDRAULIC) Anatomical Region Laterality Modality Head Optical Coherenc e Tomography Narrative 04/25/2025 9:49 AM GOVERNOR ASSEMBLER HYDRAULIC Right Eye Quality was good. Left Eye Quality was good. Notes OD: VMA, no IRF/SRF OS: ERM, irregular inner retinal contour, no IRF/SRF David Husain MD OPHTH TOMOGRAPHY Final Result from Last 3 Months Additional Health Concerns Active Problems Noted Date Diagnosed Date Autogenerated Problem 04/29/2025 Insurance [facility] MEDICARE ADVANTAGE Care Teams [employer] Relationship Specialty Start Date End Date Unknown, Notinfile PCP - General 05/21/18
--- OUTSIDE RECORDS SUMMARY | 2025-05-27 11:56 | XMS_ITS ---
Author Organization [facility] Address [address] [place] [address] Care Team Providers Care Bridge Game Director Name Role Phone Ramiro Galloway DO Primary Care Provider [phone] Transplant Episode Kidney Candidate [facility] ([place], [place]) - [facility] Evaluation began on 12/26/2024 Marked as Active on 12/26/2024 Kidney CoordinatorSophia Barrientos RN Phone: N/A Fax: N/A Email: N/A Scores Score Value Updated Exceptions/Reas ons CPRA Not available EPTS (Calc) 19 05/27/2025 [place] Organ Diagnosis Organ Primary Contributory Kidney Diabetes Mellitus - Type II Care Team Name Role Phone Fax Email Sophia Barrientos RN Kidney Coordinator N/A N/A N/A Bryn Grissom MD Referring Physician [phone] N/A Erna Miller Decorating Machine Operator N/A N/A N/A Josefina Calabrese LMSW Account Leader [phone] N/A N/A Events Pre-Transplant Referred: 12/20/2024 Evaluation began: 12/26/2024
--- OUTSIDE RECORDS SUMMARY | 2025-05-27 11:56 | XMS_ITS | Encounter Summary ---
Author Organization [facility] Address [address] [place] [address] Care Team Providers Care Systems Integration Manager Name Role Phone Ramiro Galloway DO Primary Care Provider [phone] Encounter Details Date Type Department Care Team (Late st Contact Info) Description 10/21/2019 Telephone [facility] [address] [place] [address] Shakira Caldera [facility] Social History Tobacco Use Types Packs/Day Years [...] on file Legal Sex Female 5:41 AM SIGN MAINTENANCE Gender Identity Not on file Sexual Orientation [...] Daphney Hutchins RN * Does person have difficulty dressing/bathing? Answer Date of Assessment Author No 08/24/2019 2:03 AM NUT Daphney Hutchins RN * Does person have difficulty doing errands alone? Answer Date of Assessment Author No 08/24/2019 2:03 AM NUT Daphney Hutchins RN documented as of this encounter Mental Status * Does person have difficulty concentrating/remembering/making decisions? Answer Entry Date Author No 08/24/2019 2:03 AM NUT Daphney Hutchins RN documented in this encounter Plan of Treatment Upcoming Encounters Date Type Department Care Team (Latest Contact Info) Description 06/13/2025 10:20 AM SIGN MAINTENANCE Hospital Encounter [facility] [address] [place] [address] Alycia Flores MD [facility] [address] [phone] Cardiac Catheterization 06/13/2025 10:20 AM SIGN MAINTENANCE - 06/13/2025 12:02 PM SIGN MAINTENANCE Surgery [facility] - Cardiac Heavy Equipment Plumbing Supervisor [address] [place] [address] Alycia Flores MD [address] [phone] Left and right heart cath 07/15/2025 1:40 PM SIGN MAINTENANCE Office Visit [facility] - Cardiology [address] [phone] Alycia Flores MD [address] [place] [phone] 11/04/2025 1:00 PM CDT Office Visit [facility] - Endocrinology [address] [place] [address], [place] [phone] Dionne Martin MD [address] [place] [address] [address] DIV [place] [phone] documented as of this encounter Visit Diagnoses Not on filedocumented in this encounter Care Teams Systems Integration Manager Relationship Specialty Start Date End Date Ramiro Galloway DO [address] [place] [address] PCP - General 06/04/19 documented as of this encounter
--- OUTSIDE RECORDS SUMMARY | 2025-05-27 11:56 | XMS_ITS | Clinical Summary ---
Author Organization [facility] Address [address] [place] [address] Phone Care Team Providers Care Corporate Recycling Manager Name Role Phone Ramiro Galloway DO Primary Care Provider [phone] Allergies No known active allergies Medications glucagon [...] Comments Blood Pressure 128/70 06/09/2021 3:51 PM [employer] SP[employer]ER Pulse 72 06/09/2021 3:51 PM [employer] SP[employer]ER Temperature 36.4 C (97.6 F) 06/09/2021 3:51 PM [employer] SP[employer]ER Respiratory Rate - - Oxygen Saturation - - Inhaled Oxygen Concentration - - Weight 120 kg (265 lb) 06/09/2021 3:51 PM [employer] Height 172.7 cm (5' 8) 06/09/2021 3:51 PM [employer]ER Body Mass Index 40.29 06/09/2021 3:51 PM [employer] SP[employer]ER Plan of Treatment Health Maintenance Due Date Last Done Comments Influenza Vaccine (#1) 2025 [place] [address] Care Teams Corporate Recycling Manager Relationship Specialty Start Date End Date Ramiro Galloway DO [address] [place] [phone] PCP - General Internal Medicine 10/29/20
[2025-05-27 12:10] LABS: Hematocrit 38.2 % (37.0-47.0); Hemoglobin 12.9 g/dL (12.0-15.0); Immature Platelet Fraction Pct 3.8 % (0.9-11.2); Mean Corpuscular HGB Conc 33.8 g/dl (32-36); Mean Corpuscular Hemoglobin 31.6 pg (26-34); Mean Corpuscular Volume 93.6 fl (80-100); Platelet Count Result 263 k/mm3 (150-375); Red Blood Count 4.08 M/mm3 (4.2-5.4); White Blood Count 4.3 K/mm3 (4.5-10.0)
[2025-05-27 12:23] LABS: Hemoglobin A1C 5.2 % (<5.7)
[2025-05-27 12:42] LABS: Parathyroid Intact 74.1 pg/mL (14.5-75.2)
[2025-05-27 12:43] LABS: Total Protein Urine Random 42 mg/dL; Ur Ttl Prot Creatinine Ratio 0.38 mg/mg (0-0.20)
[2025-05-27 12:53] LABS: Albumin Level 4.0 g/dL (3.5-5.1); Anion Gap 7 mmol/L (4-12); Blood Urea Nitrogen 30 mg/dL (7-17); Calcium 9.2 mg/dL (8.4-10.2); Carbon Dioxide 25 mmol/L (22-30); Chloride 104 mmol/L (98-107); Estimated Glomerular Filt Rate 23; Glucose 98 mg/dL (65-110); Potassium 3.0 mmol/L (3.4-5.0); Sodium 136 mmol/L (137-145)
== END 2025-05-27 11:38 | disposition home or self-care (01) ==
PROVIDERS: PCP Nurse Practitioner Family; Referring Provider Internal Medicine Nephrology; Visit Provider Nurse Practitioner Family
DX: I12.9 Hypertensive chronic kidney disease with stage 1 through stage 4 chronic kidney disease, or unspecified chronic kidney disease (principal); E11.22 Type 2 diabetes mellitus with diabetic chronic kidney disease; N18.4 Chronic kidney disease, stage 4 (severe); E66.9 Obesity, unspecified; E83.52 Hypercalcemia; G47.33 Obstructive sleep apnea (adult) (pediatric)
CPT/HCPCS: 36415; 80069; 82570; 83036; 83970; 84156; 85027; 85055